=== PATIENT | female | born 1940 | race Caucasian/White ===

== ENCOUNTER 2020-09-01 06:55 | Outpatient (NON) | payer MEDICARE, SELFPAY ==
[2020-09-01 19:43] LABS: SARS-CoV-2 RNA PCR Negative
== END 2020-09-01 06:56 ==
PROVIDERS: PCP Family Medicine; Visit Provider Physician Assistant Medical
DX: R68.89 Other general symptoms and signs (principal); Z20.822 Contact with and (suspected) exposure to COVID-19
CPT/HCPCS: C9803; U0003

== ENCOUNTER 2020-09-17 11:01 | Outpatient (CLI) | payer MEDICARE, SELFPAY ==
--- NOTE | ~2020-09-17 | XR_ITS ---
EXAMINATION: XR chest 2V EXAM DATE: 09/17/2020 11:21 INDICATION: Cough. TECHNIQUE: Frontal and lateral projections of the chest obtained and reviewed. Comparison is made to prior examination from 05/22/2019. FINDINGS: There is right upper lobe granuloma. There is chronic right pleural blunting. Moderate chr onic hyperinflation. There is tortuosity of the aorta. Cardiomediastinal silhouette is normal. No con fluent consolidation, pneumothorax or pleural effusion suspected. There are mild bony degenerative ch anges. There is no significant interval change. IMPRESSION: Chronic findings. Reviewed, dictated and finalized at location A. OILING TRUCK DRIVER IMPRESSION: Chronic findings.
== END 2020-09-17 11:02 | disposition home or self-care (01) ==
PROVIDERS: PCP Family Medicine; Visit Provider Physician Assistant Medical
DX: R05 Cough (principal); R91.8 Other nonspecific abnormal finding of lung field
CPT/HCPCS: 71046

== ENCOUNTER 2020-10-19 04:35 | Observation (INO) | payer MEDICARE, SELFPAY ==
[2020-10-19] VITALS (30 sets, daily range): BP systolic 105–190; BP diastolic 59–81; PULSE 89–107; RESP 13–24; TEMP 35.7–36.7; O2SAT 92–100; BMI 22.0
--- NOTE | ~2020-10-19 | XR_ITS ---
EXAMINATION: XR chest 1V portable DATE: 10/19/2020 04:49 INDICATION: Dyspnea and wheezing TECHNIQUE: frontal view of the chest was obtained. COMPARISON: Chest radiograph dated 09/17/2020 and 03/27/2018 FINDINGS: Hyperexpansion of lungs with scattered increased lucency and architectural distortion consistent with emphysema better appreciated on CT dated 05/22/2019. Atelectasis/scarring at the bilateral lung bases and associated with a couple chronic nodular opacities in the right mid and left lower lung zones. T he cardiomediastinal silhouette is normal. IMPRESSION: 1. Emphysema with stable appearance of scattered chronic atelectasis/scarring. Reviewed, dictated and finalized at location A. L CLEANER
--- NOTE | ~2020-10-19 | XR_ITS ---
EXAMINATION: XR abdomen/kub 1V DATE: 10/21/2020 09:39 INDICATION: Elevated potassium. Constipation with no bowel movement for one week. TECHNIQUE: A supine view of the abdomen on radiographs was obtained. COMPARISON: CT dated 05/22/2019 FINDINGS: Moderate amount of colonic stool most prominent in the distal colon and rectum. No dilated gas-filled loops of bowel to suggest obstruction. Cholecystectomy clips in the right upper quadrant. Right basi lar pleural parenchymal scarring with chronic blunting of the right costophrenic angle. Mild lumbar d extroscoliosis with moderate to severe spondylosis. Sclerosis at the cephalad aspect of the bilateral femoral heads consistent with osteonecrosis/avascular necrosis. IMPRESSION: 1. Moderate amount of stool in the distal colon consistent with given history of constipation. 2. 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 Reviewed, dictated and finalized at location A. LE DEALER IMPRESSION: 1. Moderate amount of stool in the distal colon consistent with given history o f constipation. 2. 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
--- NOTE | ~2020-10-19 | CT_ITS ---
EXAMINATION: CT brain & sinus wo con EXAM DATE: 10/20/2020 15:21 INDICATION: Chronic headaches and sinus and ear pain. TECHNIQUE: Spiral CT of the head obtained without contrast. Reformatted coronal, sagittal images rev iewed. Spiral CT of the sinuses was acquired in the axial plane. Coronal and sagittal reformatted im ages were also reviewed. The dose-length product (DLP) for this examination was 1210.67 mGy-cm. The exposure was tailored according to patient size, and iterative reconstruction (ASIR) was used as add itional dose reduction technique. Comparison is made to prior examination from 05/04/2017. FINDINGS: SINUS CT: The sinuses are normally developed. The sinuses are well aerated. The ostiomeatal units are patent. There is no sinus wall thickening. There is mild to moderate rightward nasal septa l deviation. The mastoid air cells and middle ears are well aerated. External auditory canals are patent. Soft tissue is unremarkable. HEAD CT: There is no acute intraparenchymal hemorrhage. No evidence of intraparenchymal brain mass l esion. No evidence of acute infarction. There is moderate periventricular and subcortical hypodensit y, nonspecific but probably related to small vessel ischemic disease. There is moderate prominence of the sulci and ventricles related to cerebral atrophy. 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 There is no mass effect or midline shift. There is no obstructive hydrocephalus suspected. Bi lateral cataract surgery. There are no extra-axial collections. There are no calvarial acute fractur es. IMPRESSION: 1. No acute intracranial findings. Clear sinuses, mastoid air cells. 2. Age-related intracranial findings. Reviewed, dictated and finalized at location B. OWAVE REMOTE SENSING SCIENTIST
--- NOTE | 2020-10-19 04:38 | ECG_ITS ---
Measurements Intervals [place] Rate: 95 P: 81 NM: 141 QRS: 53 QRSD: 90 T: 69 QT: 349 QTc: 441 Interpretive Statements SINUS RHYTHM BASELINE ARTIFACT- I, III, AVR, AVL, AVF, V1-V6 NORMAL ECG Electronically Signed On 10-19-2020 6:53:42 SOCIAL MEDIA CAMPAIGN MANAGER by Abe Ruiz D.O.
--- NOTE | 2020-10-19 04:41 | ED.GENADULT ---
HPI - General Adult General Chief complaint: Shortness of Breath/Dyspnea Stated complaint: SOB Time Seen by Provider: 10/19/20 04:38 History of Present Illness HPI narrative: Patient 80-year-old female who presents the emergency department with chief complaint of shortness of breath. The patient reports she has history of COPD reports she has also history of a pneumothorax and has had a pleurodesis before in the past. Patient states that this evening she started getting more and more short of breath and started wheezing patient reports he had a low-grade temperature as well. The patient states she is had her first Covid vaccine and is due fairly soon for her second Covid vaccine. Patient states that she has had a cough that is developed in the last 24 hours reports that it is wet and reports that she feels as though she needs to cough something up but cannot fully clear it. Related Data Home Medications Medication Instructions Recorded Confirmed loratadine 10 mg tablet 10 mg PO DAILY 07/16/19 09/27/20 Allergies Allergy/AdvReac Type Severity Reaction Status Date / Time clarithromycin Allergy Mild rash and Verified 10/19/20 04:53 itching alendronate sodium Allergy Unknown Unknown Verified 10/19/20 04:53 mold Allergy Unknown Unknown Verified 10/19/20 04:53 Penicillins Allergy Unknown Unknown Verified 10/19/20 04:53 Review of Systems Review of Systems: Narrative: A 10 system review of systems was completed on the patient and is negative except for what is stated in the HPI. Nursing and ancillary documentation was reviewed. PMFSH Past Medical History Medical History Essential (primary) hypertension Hypoxia Nontraumatic tear of muscle or tendon of rotator cuff of both shoulders Rotator cuff arthropathy of both shoulders SI joint arthritis Spontaneous pneumothorax Family History Family History Sibling Family history of cardiovascular disease Father Family history of throat cancer Other Family history of Alzheimer's disease Family history of arthritis Family history of malignant neoplasm Hypertension Social History Social History Smoking status: Former smoker Smoking end date: 08/28/03 Alcohol intake: current Exam Narrative: Exam Narrative: GENERAL: Well-appearing, well-nourished, and in no acute distress. HEAD: Normocephalic, atraumatic. EYES: PERRLA and EOMI. ENT: Nares clear, no rhinorrhea or epistaxis. Mucous membranes moist. NECK: Supple. CHEST: Wheezes present bilaterally mild respiratory distress. HEART: Regular rate and rhythm. No murmur heard. Normal peripheral pulses. ABDOMEN: Soft, nontender, nondistended, normal active bowel sounds. EXTREMITIES: Normal range of motion. No edema. SKIN: Warm, dry, no rash. NEURO: No focal deficits. Alert and oriented x3. PSYCH: Normal mood and affect. Course Course Emergency Course: EKG sinus rhythm rate of [address] or ST depression Vital Signs Vital signs: Vital Signs Temperature 36.5 C 10/19/20 04:31 Pulse Rate 93 10/19/20 04:31 Respiratory Rate 20 10/19/20 04:31 Pulse Oximetry 98 10/19/20 04:31 Temperature 36.5 C 10/19/20 04:31 Pulse Rate 100 10/19/20 04:42 Respiratory Rate 24 H 10/19/20 04:42 Blood Pressure 148/75 H 10/19/20 04:42 Pulse Oximetry 93 10/19/20 04:42 Medical Decision Making Vital Signs Vital Signs: Vital Signs Temperature 36.5 C 10/19/20 04:31 Pulse Rate 93 10/19/20 04:31 Respiratory Rate 20 10/19/20 04:31 Pulse Oximetry 98 10/19/20 04:31 Temperature 36.5 C 10/19/20 04:31 Pulse Rate 100 10/19/20 04:42 Respiratory Rate 24 H 10/19/20 04:42 Blood Pressure 148/75 H 10/19/20 04:42 Pulse Oximetry 93 10/19/20 04:42 Lab Data Result diagrams: 10/19/20 05:1
[2020-10-19] MEDS: methylPREDNISolone SOD SUCC 125 MG VIAL IV PUSH (04:49)
[2020-10-19] MEDS: LORazepam INJ (*CRX) 2 MG/ML VIAL 0.5 MG IV PUSH (04:49)
[2020-10-19] MEDS: ALBUTEROL SULFATE NEB 2.5 MG/0.5 ML INH 5 MG INHALATION ×4 (05:00→20:36)
[2020-10-19] MEDS: IPRATROPIUM BR 0.02% INH SOLN 0.5 MG/2.5 ML VIAL INHALATION ×4 (05:00→20:37)
[2020-10-19 05:05] LABS: Alveolar/Arterial O2 Gradient 144.6 mmHg; Base Excess ABG 3.6 mEq/l (+/-2.0); Fractional Inspired Oxygen 36 %; HCO3 ABG 28.8 mEq/l (22.0-26.0); PCO2 ABG 45.5 mmHg (35.0-45.0); PO2 ABG 59.3 mmHg (80.0-100.0); PO2 FiO2 Ratio Arterial Blood 1.65 %; Total Hemoglobin 14.2 g/dL (12.0-18.0); pH ABG 7.419 (7.350-7.450)
[2020-10-19 05:07] LABS: Device NASAL CANNULA; Modified Allen's Test Pass; Site Drawn RIGHT RADIAL
[2020-10-19 05:29] LABS: Basophils Percent Auto 0.4 % (0.2-1.2); Eosinophils Absolute Auto 0.2 K/mm3 (0-0.3); Eosinophils Percent Auto 3.5 % (0-4.4); Hematocrit 40.1 % (37.0-47.0); Hemoglobin 13.5 g/dL (12.0-15.0); Immature Granulocyte Absolute 0.04 K/mm3 (0.00-0.031); Immature Granulocyte Percent A 0.6 % (0-0.5); Lymphocytes Absolute Auto 1.02 K/mm3 (0.9-3.2); Lymphocytes Percent Auto 14.8 % (18.3-44.2); Mean Corpuscular HGB Conc 33.7 g/dl (32-36); Mean Corpuscular Hemoglobin 30.7 pg (26-34); Mean Corpuscular Volume 91.1 fl (80-100); Mean Platelet Volume 9.4 fl (7.4-10.4); Monocytes Absolute Auto 0.8 K/mm3 (0.1-0.6); Monocytes Percent Auto 11.6 % (2.6-8.5); Neutrophils Absolute Auto 4.8 K/mm3 (1.3-6.7); Neutrophils Percent Auto 69.1 % (45.5-73.1); Platelet Count Result 252 k/mm3 (150-375); Red Cell Distribution Width 12.7 % (11.5-14.5); White Blood Count 6.9 K/mm3 (4.5-10.0)
[2020-10-19 05:40] LABS: INR 0.9; Prothrombin Time 12.7 Seconds (11.1-14.7)
[2020-10-19 05:43] LABS: Alanine Aminotransferase 18 U/L (4-35); Albumin Level 4.3 g/dL (3.5-5.1); Alkaline Phosphatase 62 U/L (38-126); Anion Gap 5 mmol/L (8-16); Aspartate Amino Transferase 33 U/L (14-36); Bilirubin,Total 0.6 mg/dL (0.2-1.3); Blood Urea Nitrogen 17 mg/dL (7-17); Calcium 9.5 mg/dL (8.4-10.2); Carbon Dioxide 34 mmol/L (22-30); Chloride 91 mmol/L (98-107); Estimated Glomerular Filt Rate > 60; Glucose 119 mg/dL (65-105); Magnesium 1.5 mg/dL (1.6-2.3); Potassium 4.1 mmol/L (3.4-5.0); Sodium 130 mmol/L (137-145)
[2020-10-19 05:53] LABS: Lactic Acid Reflex 1.3 mmol/L (0.7-2.1)
[2020-10-19 05:54] LABS: NT Pro B Type Natriuretic Pept 513 PG/ML (5-100); Troponin I < 0.012 ng/mL (0.000-0.034)
[2020-10-19 06:26] LABS: Add Urine Microscopic? YES; Appearance Urine Clear (Clear); Bilirubin Urine Negative (Negative); Blood Urine Negative (Negative); Color Urine Yellow (Yellow); Glucose Urine UA Negative (Negative); Ketones Urine Negative (Negative); Leukocyte Esterase Ur Trace LEU/UL (Negative); Mucus Urine Rare /lpf; Nitrate Urine Negative (Negative); Protein Urine 1+ mg/dL (Negative); RBC Urine 0-2 /hpf (0-2); Specific Grav Ur 1.018 (1.001-1.035); Squamous Epithelial Cell Urine Rare /hpf (Few); Urobilinogen Urine Negative mg/dL (<2.0); WBC Urine 0-3 /hpf
[2020-10-19] MEDS: MAGNESIUM SULF 2 GM/WATER 50ML 2 GM/50 ML BAG IVPB (08:08)
--- NOTE | 2020-10-19 10:38 | ADMGEN ---
This patient, Jolie Starr, was admitted to [facility] Surg Room 326-01. Patient/family oriented to hospital policies and general routines including ID bracelet, bed and alarms, visiting hours, pain management, procedures, bathroom and other care routines, personal items, smoking policy, room service/diet, and visiting hours. Information on how to activate the Rapid Response Team has been discussed. Patient/Family are encouraged to report perceived risks to care and to ask questions if they do not understand what they are told or what they should do.
[2020-10-19] MEDS: ACETAMINOPHEN 325 MG TABLET 650 MG PO (11:57)
[2020-10-19] MEDS: MAGNESIUM OXIDE 400 MG TABLET PO (12:48)
--- NOTE | 2020-10-19 14:51 | PM.IMHP ---
H&P: HPI History of Present Illness Date/Time: 10/19/20 14:51 Chief Complaint: Shortness of breath Narrative: Jolie Starr is a 80 year old female with history of COPD and pneumothorax for which patient had a pleurodesis patient presented emergency depart complaint of cough shortness of breath wheezing symptoms are persisting since yesterday, chest x-rays positive for emphysema but no pneumothorax patient states that he receive her 1st dose of vaccine emergency depart patient was diagnosed exacerbation of COPD patient was given Solu-Medrol 125 mg IV started the patient on Solu-Medrol 60 mg q.6, started the patient on updraft, will add doxycycline to cover atypicals and also started Pulmicort, patient also complains facial pain headache and describes her symptoms more likely sinus congestion and attributes to CPAP she wore last night, discharge the patient Flonase and nasal spray, there is also suspicion for COVID-19 patient is being tested an isolated. Review of Systems Review of Systems: All systems reviewed & are unremarkable except as noted in HPI and below PMFSH Past Medical History Medical History Essential (primary) hypertension Hypoxia Nontraumatic tear of muscle or tendon of rotator cuff of both shoulders Rotator cuff arthropathy of both shoulders SI joint arthritis Spontaneous pneumothorax Family History Family History Sibling Family history of cardiovascular disease Father Family history of throat cancer Other Family history of Alzheimer's disease Family history of arthritis Family history of malignant neoplasm Hypertension Social History Social History Smoking status: Former smoker Smoking end date: 08/28/03 Alcohol intake: former Substance use: never Spiritual care concerns: No Meds Home Medications and Allergies Home Medications Medication Instructions Recorded Confirmed Type naloxone 4 mg/actuation nasal spray 4 mg NASAL Q2M #2 each 07/15/19 10/19/20 Rx loratadine 10 mg tablet 10 mg PO DAILY 07/16/19 10/19/20 History mupirocin 2 % topical ointment 1 applic TOPICAL BID #15 gm 07/17/19 10/19/20 Rx albuterol sulfate 90 mcg/actuation 2 inhalation INHALATION Q6H PRN 02/18/20 10/19/20 Rx aerosol inhaler #18 gm montelukast 10 mg tablet 10 mg PO DAILY #90 tablet 05/25/20 10/19/20 Rx nebivolol 10 mg tablet 10 mg PO DAILY #90 tablet 05/25/20 10/19/20 Rx ipratropium 0.5 mg-albuterol 3 mg 3 ml INHALATION Q6H PRN #400 ml 06/12/20 10/19/20 Rx (2.5 mg base)/3 mL nebulization soln escitalopram oxalate 20 mg tablet 20 mg PO DAILY #90 tablet 06/17/20 10/19/20 Rx tramadol 50 mg tablet 50 mg PO Q6H PRN #30 tablet 07/08/20 10/19/20 Rx budesonide-formoterol HFA 160 2 puff INHALATION Q12H #3 device 07/13/20 10/19/20 Rx mcg-4.5 mcg/actuation aerosol inhaler alprazolam 0.25 mg tablet 0.25 mg PO TID PRN #180 tablet 09/07/20 10/19/20 Rx olmesartan 40 mg tablet 40 mg PO DAILY #90 tablet 09/07/20 10/19/20 Rx sulfacetamide sodium 10 % eye drops 1 drp OPHTHALMIC (EYE) Q4H #15 ml 09/17/20 10/19/20 Rx ipratropium bromide 0.03 % nasal 2 spray INTRANASAL TID #30 ml 09/22/20 10/19/20 Rx spray omeprazole 40 mg capsule,delayed 40 mg PO DAILY #90 cap 09/27/20 10/19/20 Rx release temazepam 30 mg capsule 30 mg PO ONCE #90 cap 10/05/20 10/19/20 Rx guaifenesin [Mucinex] 600 mg PO Q12H 10/19/20 10/19/20 History Allergies Allergy/AdvReac Type Severity Reaction Status Date / Time clarithromycin Allergy Mild rash and Verified 10/19/20 11:20 itching alendronate sodium Allergy Unknown Unknown Verified 10/19/20 11:20 mold Allergy Unknown Unknown Verified 10/19/20 11:20 Penicillins Allergy Unknown Unknown Verified 10/19/20 11:20 Vital Signs Vital Signs - 24 hr 10/19/20 04:31 10/19/20 04:40 10/19/20 04:42 Temperatur
[2020-10-19] MEDS: ALPRAZolam (*CRX) 0.25 MG TABLET PO ×2 (15:45→20:31)
[2020-10-19] MEDS: methylPREDNISolone SOD SUCC 125 MG VIAL 60 MG IV PUSH ×2 (15:45→20:17)
[2020-10-19] MEDS: traMADol HCL (*CRX) 50 MG TABLET PO ×2 (15:45→22:00)
[2020-10-19] MEDS: IPRATROPIUM NASAL SPRAY 0.03% 15 ML BOTTLE 2 SPRAY NASAL (17:24)
[2020-10-19] MEDS: ENOXAPARIN 40 MG/0.4 ML SYRINGE SUB-Q (17:25)
[2020-10-19 19:32] LABS: SARS-CoV-2 RNA PCR Negative
[2020-10-19] MEDS: guaiFENesin 12 HR 600 MG TABCR PO (20:16)
[2020-10-19] MEDS: BENZOCAINE/MENTHOL (*BKC) 18 EA LOZENGE 1 LOZENGE PO (20:32)
[2020-10-20] VITALS (17 sets, daily range): BP systolic 127–173; BP diastolic 65–79; PULSE 75–99; RESP 18–20; TEMP 36–36.7; O2SAT 92–97
--- NOTE | 2020-10-20 | ECHO_ITS ---
Patient Info Name: Jolie Starr Age: 80 years : 1940 Gender: Female Ht: 62 in Wt: 120 lbs BSA: 1.55 m2 HR: 91 bpm BP: 127 / 65 mmHg Technical Quality: Fair Exam Date: 10/20/2020 12:50 PM Exam Location: [facility] Patient Status: Inpatient Admit Date: 10/19/2020 Staff Ordering Physician: Boyd Gonzalez MD Grease Refining Supervisor: Rebecca Murphy RDCS Attending Provider: Eva Bai DO Referring Physician: Carlos VILLAGRAN; Exam Type: CA echo doppler w bubble study Study Info Indications - copd assess rv fx, pa pressure, r/o shunt Complete two-dimensional, color flow and Doppler transthoracic echocardiogram is performed with agitated saline. Contrast/Agitated Saline Contrast/Ag. Saline: Agitated Saline Amount: 20.00 ml Administered By: Kathleen Stiles RN Summary 1. Left ventricular chamber dimension is normal. 2. Left ventricular systolic function is normal, estimated at 60-65%. 3. The left ventricular diastolic function is grade I diastolic dysfunction. 4. E/e' 19 is elevated. 5. Global longitudinal strain is mildly abnormal at -16.0%. 6. Agitated saline injection with and without valsalva maneuver opacified right sided cardiac chambers and several bubbles shunted to left sided cardiac chambers. This is suggestive of patent foramen ovale. 7. The mitral valve has moderately calcified annulus. 8. There is mild tricuspid valve regurgitation. 9. Severe pulmonary hypertension, estimated pulmonary arterial systolic pressure is 67 mmHg. Left Ventricle E/e' 19 is elevated. Global longitudinal strain is mildly abnormal at -16.0%. Left ventricular chamber dimension is normal. Left ventricular systolic function is normal, estimated at 60-65%. The left ventricular diastolic function is grade I diastolic dysfunction. Right Ventricle Right ventricular systolic function is normal and with normal TAPSE 2.3 cm. Right ventricular chamber dimension is normal. Left Atria Left atrial chamber dimension is normal. Right Atria Right atrial chamber dimension is normal. Atrial Septum Agitated saline injection with and without valsalva maneuver opacified right sided cardiac chambers and several bubbles shunted to left sided cardiac chambers. This is suggestive of patent foramen ovale. Suspected patent foramen ovale visualized by agitated saline imaging. Aortic Valve The aortic valve is trileaflet. There is no aortic valve stenosis. There is no aortic valve regurgitation. Pulmonic Valve There is no pulmonic regurgitation. Mitral Valve The mitral valve has moderately calcified annulus. There is no mitral valve stenosis. There is no mitral valve regurgitation. Tricuspid Valve There is mild tricuspid valve regurgitation. Severe pulmonary hypertension, estimated pulmonary arterial systolic pressure is 67 mmHg. Pericardium/Pleural There is no pericardial effusion. Inferior Vena Cava Normal inferior vena cava with >50% collapse upon inspiration consistent with normal right atrial pressure, 5 mmHg. Aorta The aortic root size at the sinus of Valsalva is normal. Left Ventricular Outflow Tract Name Value Normal LVOT 2D LVOT Diameter
[2020-10-20] MEDS: TEMAZEPAM (*CRX) 15 MG CAPSULE 30 MG PO ×2 (00:10→21:16)
[2020-10-20] MEDS: ACETAMINOPHEN 325 MG TABLET 650 MG PO ×2 (00:13→13:46)
[2020-10-20] MEDS: ALBUTEROL SULFATE NEB 2.5 MG/0.5 ML INH 5 MG INHALATION ×3 (02:06→21:12)
[2020-10-20] MEDS: IPRATROPIUM BR 0.02% INH SOLN 0.5 MG/2.5 ML VIAL INHALATION ×3 (02:06→21:12)
[2020-10-20] MEDS: methylPREDNISolone SOD SUCC 125 MG VIAL 60 MG IV PUSH (06:21)
[2020-10-20] MEDS: traMADol HCL (*CRX) 50 MG TABLET PO ×2 (06:38→18:07)
[2020-10-20 06:41] LABS: Basophils Percent Auto 0.1 % (0.2-1.2); Hematocrit 37.9 % (37.0-47.0); Immature Granulocyte Absolute 0.04 K/mm3 (0.00-0.031); Immature Granulocyte Percent A 0.6 % (0-0.5); Lymphocytes Percent Auto 4.3 % (18.3-44.2); Mean Corpuscular HGB Conc 34.3 g/dl (32-36); Mean Corpuscular Hemoglobin 30.4 pg (26-34); Mean Corpuscular Volume 88.8 fl (80-100); Mean Platelet Volume 9.4 fl (7.4-10.4); Monocytes Absolute Auto 0.4 K/mm3 (0.1-0.6); Monocytes Percent Auto 5.7 % (2.6-8.5); Neutrophils Absolute Auto 6.3 K/mm3 (1.3-6.7); Neutrophils Percent Auto 89.3 % (45.5-73.1); Platelet Count Result 310 k/mm3 (150-375); Red Blood Count 4.27 M/mm3 (4.2-5.4); Red Cell Distribution Width 12.8 % (11.5-14.5)
[2020-10-20 06:48] LABS: Alanine Aminotransferase 20 U/L (4-35); Albumin Level 4.1 g/dL (3.5-5.1); Alkaline Phosphatase 55 U/L (38-126); Anion Gap 4 mmol/L (8-16); Aspartate Amino Transferase 31 U/L (14-36); Bilirubin,Total 0.4 mg/dL (0.2-1.3); Blood Urea Nitrogen 21 mg/dL (7-17); CRP 0.9 mg/dL (<1.0); Calcium 9.6 mg/dL (8.4-10.2); Carbon Dioxide 34 mmol/L (22-30); Chloride 91 mmol/L (98-107); Estimated CRCL calculation 43 ml/min; Estimated Glomerular Filt Rate > 60; Glucose 145 mg/dL (65-105); Magnesium 2.1 mg/dL (1.6-2.3); Potassium 4.6 mmol/L (3.4-5.0); Sodium 129 mmol/L (137-145)
[2020-10-20] MEDS: ESCITALOPRAM OXALATE 10 MG TABLET 20 MG PO (10:32)
[2020-10-20] MEDS: NEBIVOLOL HCL 5 MG TABLET 10 MG PO (10:33)
[2020-10-20] MEDS: MONTELUKAST SODIUM 10 MG TABLET PO (10:34)
[2020-10-20] MEDS: MAGNESIUM OXIDE 400 MG TABLET PO (10:34)
[2020-10-20] MEDS: PANTOPRAZOLE 40 MG TABLET PO ×2 (10:34→21:17)
[2020-10-20] MEDS: OLMESARTAN MEDOXOMIL 20 MG TABLET 40 MG PO (10:34)
[2020-10-20] MEDS: guaiFENesin 12 HR 600 MG TABCR PO ×2 (10:34→21:17)
[2020-10-20] MEDS: LORATADINE 10 MG TABLET PO (10:34)
[2020-10-20] MEDS: ALPRAZolam (*CRX) 0.25 MG TABLET PO (10:35)
[2020-10-20 10:48] LABS: D Dimer 0.39 ug/mL (<0.48)
--- NOTE | 2020-10-20 12:25 | PM.CNPUL ---
Assessment and Plan Assessment and plan (1) Sleep apnea with use of continuous positive airway pressure (CPAP): Code(s): G47.30 - Sleep apnea, unspecified Status: Acute Assessment and Plan: Daughter states that the patient's CPAP pressure is set at 2 and that she uses 3.5 L bleed in. I have asked the daughter to bring the machine in so that the patient can use her machine tonight. (2) COPD exacerbation: Code(s): J44.1 - Chronic obstructive pulmonary disease with (acute) exacerbation Status: Acute Assessment and Plan: Patient has a 1 week history of worsening dyspnea on exertion, cough, increased phlegm production. Patient has wheezes on exam is today. Her chest x-ray shows no focal infiltrates. Her COVID test is negative. Her D dimer is normal so doubt PE. Her BNP is 513 without evidence of fluid overload. I will treat her for COPD exacerbation with Solu-Medrol 40 Q 6, albuterol and ipratropium nebulizers Q 6 standing, and doxycycline 100 mg q.day for possible tracheal bronchitis. I will send influenza swab. I will check an echocardiogram with a bubble study to assess LV and RV function as well as to assess for a shunt. Patient complains of progress headaches, eye pressure, sinus pressure, ear pressure and sore throat since 11. I will check a CT scan of the head and sinuses looking for pathology. I will continue ipratropium nasal spray, initiate fluticasone nasal spray and continue montelukast and claritin. Will follow with you. History of Present Illness History of Present Illness Consult date: 10/20/20 Requesting physician: Jonathan Mantilla MD Reason for consult: COPD Chief complaint: COPD Exacerbation Narrative: Patient is a 80-year-old female with a history of COPD on 4 L oxygen at rest and with ambulation on home at home, obstructive sleep apnea since 2011 and the daughter states that she wears CPAP setting of 2 with 3.5 L oxygen bleed in, history of pneumothorax on the right side times for requiring pleurodesis in October of 2017. When patient presented to the emergency room on 222 with 1 week history of the worsening dyspnea on exertion, worsening hypoxia with ambulation, increased phlegm production. Patient denies any fevers, rigors, change in her chronic chest pains. Of note patient states she has had no change in her chronic frontal headaches, pressure beneath her eyes and a sore throat since June of 2020. Patient has seen her primary doctor who has prescribed multiple courses of antibiotics without relief in these headaches eye pressure ear pressure and sore throat. Patient presented to the emergency room and was treated for COPD exacerbation with IV steroids, bronchodilators and doxycycline. Patient had a chest x-ray that demonstrated hyperinflation without focal infiltrates. Patient's stars test was negative. Her BNP was 513 and I performed a D-dimer today that was 0.39 which is negative. Patient had a blood gas in the emergency department which was 7.42-40 6-59 on 4 L nasal cannula. Patient did not have her CPAP last night and said that she slept poorly. 10/20 Today patient states that she has essentially unchanged and has minimal symptoms at rest but when she moves around she is very dyspneic. She says that her headaches eye pressure ear pressure and sore throat are unchanged. She states that her breathing is unchanged. Past medical history. Patient smoked tobacco from age [age] at 1/2 pack per day. Patient is usually followed at [facility] and I have her last office visit from 02/20/2019 in which she was to continue Symbicort, ipratropium and albuterol nebs and rescue albuterol inhaler. Her spirometry rib was reported as an FEV1 of 1.07 or 59% predicted. Her FVC was 3.21 or 100 and 35% predicted. Those the only PFTs listed in the office report. Patient had a CT scan noted an indeterminate pulmonary nodule in the left lower lobe with no change compar
[2020-10-20] MEDS: methylPREDNISolone SOD SUCC 40 MG VIAL IV PUSH ×2 (14:05→17:58)
[2020-10-20 14:51] LABS: Influenza Control Positive
--- NOTE | 2020-10-20 15:44 | PM.IMPN ---
Progress Note: A&P Assessment and Plan (1) COPD (chronic obstructive pulmonary disease): Code(s): J44.9 - Chronic obstructive pulmonary disease, unspecified Status: Acute Assessment and Plan: 10/20/20 15:44 Jolie Starr is a 80 year old female with history of COPD and pneumothorax for which patient had a pleurodesis patient presented emergency depart complaint of cough shortness of breath wheezing symptoms are persisting since yesterday, chest x-rays positive for emphysema but no pneumothorax patient states that he receive her 1st dose of vaccine emergency depart patient was diagnosed exacerbation of COPD patient was given Solu-Medrol 125 mg IV started the patient on Solu-Medrol 60 mg q.6, started the patient on updraft, will add doxycycline to cover atypicals and also started Pulmicort, patient also complains facial pain headache and describes her symptoms more likely sinus congestion and attributes to CPAP she wore last night, discharge the patient Flonase and nasal spray, there is also suspicion for COVID-19 patient is being tested an isolated. 10/20 patient COVID test is negative patient with history of COPD still complains of cough shortness of breath, patient states this he has not seen a gang vibrator operator and sometime due to COVID, patient complains of persistent sinus headache, patient denies any fever or chills will consult gang vibrator operator further recommendation (2) Chronic sinusitis, unspecified: Code(s): J32.9 - Chronic sinusitis, unspecified Status: Acute Assessment and Plan: Will get the patient Flonase and insulin aspirate (3) Anxiety and depression: Code(s): F41.9 - Anxiety disorder, unspecified; F32.9 - Major depressive disorder, single episode, unspecified Status: Acute Assessment and Plan: Will continue home regimen (4) COVID-19 ruled out: Code(s): Z20.822 - Contact with and (suspected) exposure to COVID-19 Status: Acute Assessment and Plan: Patient is being tested an isolated Subjective Date/time seen: 10/20/20 15:44 Jolie Starr is a 80 year old female with history of COPD and pneumothorax for which patient had a pleurodesis patient presented emergency depart complaint of cough shortness of breath wheezing symptoms are persisting since yesterday, chest x-rays positive for emphysema but no pneumothorax patient states that he receive her 1st dose of vaccine emergency depart patient was diagnosed exacerbation of COPD patient was given Solu-Medrol 125 mg IV started the patient on Solu-Medrol 60 mg q.6, started the patient on updraft, will add doxycycline to cover atypicals and also started Pulmicort, patient also complains facial pain headache and describes her symptoms more likely sinus congestion and attributes to CPAP she wore last night, discharge the patient Flonase and nasal spray, there is also suspicion for COVID-19 patient is being tested an isolated. 10/20 patient COVID test is negative patient with history of COPD still complains of cough shortness of breath, patient states this he has not seen a gang vibrator operator and sometime due to COVID, patient complains of persistent sinus headache, patient denies any fever or chills will consult gang vibrator operator further recommendation Review of Systems Review of Systems: All systems reviewed & are unremarkable except as noted in HPI and below Exam Narrative: Exam Narrative: Elderly frail, appears chronically ill Patient is comfortable, NAD HEENT: eyes are clear and none icteric LUNGS: Bilateral poor air entry with harsh breath sounds HEART: Rate and rhythm S1 and S2 ABD: Nondistended Lower extremities: no edema SKIN: nonjaundiced Neuro: grossly intact normal speech. Objective Data Vital Signs Vital Signs: Vital Signs - 24 hr 10/19/20 16:00 10/19/20 20:00 10/19/20 20:37 Temperature 98.1 F 96.2 F L Pulse Rate 95 92 90 Respiratory Rate 18 20 20 Blood Pressure 142/73 H 190/81 H Pulse Oxime
[2020-10-20] MEDS: FLUTICASONE PROPIONATE 0.05% NA SPR 16 GM BTL (*BKC) 1 SPRAY NASAL (21:18)
[2020-10-21] VITALS (29 sets, daily range): BP systolic 138–184; BP diastolic 72–89; PULSE 71–98; RESP 20–24; TEMP 36.5–36.6; O2SAT 79–98
[2020-10-21] MEDS: methylPREDNISolone SOD SUCC 40 MG VIAL IV PUSH ×2 (00:11→05:24)
[2020-10-21] MEDS: IPRATROPIUM BR 0.02% INH SOLN 0.5 MG/2.5 ML VIAL INHALATION ×4 (02:30→20:34)
[2020-10-21] MEDS: ALBUTEROL SULFATE NEB 2.5 MG/0.5 ML INH 5 MG INHALATION ×4 (02:30→20:34)
[2020-10-21 06:59] LABS: Basophils Percent Auto 0.1 % (0.2-1.2); Hematocrit 38.7 % (37.0-47.0); Hemoglobin 13.1 g/dL (12.0-15.0); Immature Granulocyte Absolute 0.06 K/mm3 (0.00-0.031); Immature Granulocyte Percent A 0.8 % (0-0.5); Lymphocytes Absolute Auto 0.41 K/mm3 (0.9-3.2); Lymphocytes Percent Auto 5.4 % (18.3-44.2); Mean Corpuscular HGB Conc 33.9 g/dl (32-36); Mean Corpuscular Volume 88.8 fl (80-100); Mean Platelet Volume 9.4 fl (7.4-10.4); Monocytes Absolute Auto 0.4 K/mm3 (0.1-0.6); Monocytes Percent Auto 4.7 % (2.6-8.5); Neutrophils Absolute Auto 6.8 K/mm3 (1.3-6.7); Platelet Count Result 335 k/mm3 (150-375); Red Blood Count 4.36 M/mm3 (4.2-5.4); White Blood Count 7.6 K/mm3 (4.5-10.0)
[2020-10-21 07:24] LABS: Alanine Aminotransferase 20 U/L (4-35); Albumin Level 3.9 g/dL (3.5-5.1); Alkaline Phosphatase 51 U/L (38-126); Anion Gap 4 mmol/L (8-16); Aspartate Amino Transferase 38 U/L (14-36); Bilirubin,Total 0.4 mg/dL (0.2-1.3); Blood Urea Nitrogen 26 mg/dL (7-17); Calcium 9.3 mg/dL (8.4-10.2); Carbon Dioxide 33 mmol/L (22-30); Chloride 92 mmol/L (98-107); Estimated CRCL calculation 43 ml/min; Estimated Glomerular Filt Rate > 60; Glucose 145 mg/dL (65-105); Magnesium 1.9 mg/dL (1.6-2.3); Potassium 5.3 mmol/L (3.4-5.0); Sodium 129 mmol/L (137-145)
--- NOTE | 2020-10-21 08:29 | PM.PNPUL ---
Progress Note: A&P Assessment and Plan (1) Sleep apnea with use of continuous positive airway pressure (CPAP): Code(s): G47.30 - Sleep apnea, unspecified Status: Acute Assessment and Plan: 10/20 Daughter states that the patient's CPAP pressure is set at 2 and that she uses 3.5 L bleed in. I have asked the daughter to bring the machine in so that the patient can use her machine tonight. 10/21 Wore home CPAP with 4 L bleed in from 21:28 to about 05:00 last night and slept better, sats 92-93%. Will perform overnight oximetry on home machine with 4 L bleed in tonight. (2) COPD exacerbation: Code(s): J44.1 - Chronic obstructive pulmonary disease with (acute) exacerbation Status: Acute Assessment and Plan: 10/20 Patient has a 1 week history of worsening dyspnea on exertion, cough, increased phlegm production. Patient has wheezes on exam is today. Her chest x-ray shows no focal infiltrates. Her COVID test is negative. Her D dimer is normal so doubt PE. Her BNP is 513 without evidence of fluid overload. I will treat her for COPD exacerbation with Solu-Medrol 40 Q 6, albuterol and ipratropium nebulizers Q 6 standing, and doxycycline 100 mg q.day for possible tracheal bronchitis. Negative influenza swab. Echo with pulmonary hypertension at 67 and PFO on bubble study. Linda explaining her worsening hypoxemia. Summary 1. Left ventricular chamber dimension is normal. 2. Left ventricular systolic function is normal, estimated at 60-65%. 3. The left ventricular diastolic function is grade I diastolic dysfunction. 4. E/e' 19 is elevated. 5. Global longitudinal strain is mildly abnormal at -16.0%. 6. Agitated saline injection with and without valsalva maneuver opacified right sided cardiac chambers and several bubbles shunted to left sided cardiac chambers. This is suggestive of patent foramen ovale. 7. The mitral valve has moderately calcified annulus. 8. There is mild tricuspid valve regurgitation. 9. Severe pulmonary hypertension, estimated pulmonary arterial systolic pressure is 67 mmHg. 10/21 States she is breathing a little better, head ache, sinus congestion better. No wheezes and solumedrol DC and prednisone 40 given today. Regarding pulmonary hypertension awith PFO with initially ensure adequate oxygen at rest, with ambulation and at night. I have ordered home O2 assessment and overnight oximetry. She has no edema and no evidence of fluid overload. She will follow up at [facility] regarding any additional treatment options. Patient complains of progress headaches, eye pressure, sinus pressure, ear pressure and sore throat since 07/17. CT scan of the head and sinuses negative on 10/20. Cheonic hypoxia may be etiology. Slightly better today. I will continue ipratropium nasal spray, fluticasone nasal spray and continue montelukast and claritin. Spoke with daughter on speaker phone. Anticipate DC home tomorrow. Will follow with you. Subjective Date/time seen: 10/21/20 08:29 Interval history: 10/20 Narrative: Patient is a 80-year-old female with a history of COPD on 4 L oxygen at rest and with ambulation on home at home, obstructive sleep apnea since 2011 and the daughter states that she wears CPAP setting of 2 with 3.5 L oxygen bleed in, history of pneumothorax on the right side times for requiring pleurodesis in October of 2017. When patient presented to the emergency room on with 1 week history of the worsening dyspnea on exertion, worsening hypoxia with ambulation, increased phlegm production. Patient denies any fevers, rigors, change in her chronic chest pains. Of note patient states she has had no change in her chronic frontal headaches, pressure beneath her eyes and a sore throat since June of 2020. Patient has seen her primary doctor who has prescribed multiple courses of antibiotics without relief in these headaches eye pressure ear pressure and sore throat. Patient pr
[2020-10-21] MEDS: IPRATROPIUM NASAL SPRAY 0.03% 15 ML BOTTLE 2 SPRAY NASAL ×3 (08:47→16:54)
[2020-10-21] MEDS: ESCITALOPRAM OXALATE 10 MG TABLET 20 MG PO (08:47)
[2020-10-21] MEDS: FLUTICASONE PROPIONATE 0.05% NA SPR 16 GM BTL (*BKC) 1 SPRAY NASAL ×2 (08:48→20:57)
[2020-10-21] MEDS: NEBIVOLOL HCL 5 MG TABLET 10 MG PO (08:48)
[2020-10-21] MEDS: LORATADINE 10 MG TABLET PO (08:48)
[2020-10-21] MEDS: MAGNESIUM OXIDE 400 MG TABLET PO (08:48)
[2020-10-21] MEDS: MONTELUKAST SODIUM 10 MG TABLET PO (08:48)
[2020-10-21] MEDS: guaiFENesin 12 HR 600 MG TABCR PO ×2 (08:48→20:55)
[2020-10-21] MEDS: OLMESARTAN MEDOXOMIL 20 MG TABLET 40 MG PO (08:50)
[2020-10-21] MEDS: PANTOPRAZOLE 40 MG TABLET PO ×2 (08:51→20:55)
[2020-10-21 09:44] LABS: Anion Gap 8 mmol/L (8-16); Blood Urea Nitrogen 25 mg/dL (7-17); Carbon Dioxide 32 mmol/L (22-30); Chloride 89 mmol/L (98-107); Estimated CRCL calculation 43 ml/min; Estimated Glomerular Filt Rate > 60; Glucose 139 mg/dL (65-105); Sodium 129 mmol/L (137-145)
[2020-10-21] MEDS: DOCUSATE SODIUM 100 MG CAPSULE PO (10:49)
[2020-10-21] MEDS: predniSONE 20 MG TABLET 40 MG PO (10:50)
[2020-10-21] MEDS: traMADol HCL (*CRX) 50 MG TABLET PO (13:53)
--- NOTE | 2020-10-21 14:48 | PM.IMPN ---
Progress Note: A&P Assessment and Plan (1) COPD (chronic obstructive pulmonary disease): Code(s): J44.9 - Chronic obstructive pulmonary disease, unspecified Status: Acute Assessment and Plan: 10/21/20 14:48. Jolie Starr is a 80 year old female with history of COPD and pneumothorax for which patient had a pleurodesis patient presented emergency depart complaint of cough shortness of breath wheezing symptoms are persisting since yesterday, chest x-rays positive for emphysema but no pneumothorax patient states that he receive her 1st dose of vaccine emergency depart patient was diagnosed exacerbation of COPD patient was given Solu-Medrol 125 mg IV started the patient on Solu-Medrol 60 mg q.6, started the patient on updraft, will add doxycycline to cover atypicals and also started Pulmicort, patient also complains facial pain headache and describes her symptoms more likely sinus congestion and attributes to CPAP she wore last night, discharge the patient Flonase and nasal spray, there is also suspicion for COVID-19 patient is being tested an isolated. 10/20 patient COVID test is negative patient with history of COPD still complains of cough shortness of breath, patient states this he has not seen a equine internship for sometime due to COVID, patient complains of persistent sinus headache, patient denies any fever or chills will consult equine internship further recommendation. 10/21 patient was seen by pulmonology on 10/20 started the patient on Solu-Medrol, updraft and doxycycline, patient states feeling much better not as short of breath, patient be seen equine internship and further recommendation to follow, patient complains constipation has not had a bowel movement few days, will give patient Colace and MiraLax, will continue to monitor if remains clinically stable will discharge the patient home tomorrow (2) Chronic sinusitis, unspecified: Code(s): J32.9 - Chronic sinusitis, unspecified Status: Acute Assessment and Plan: Will get the patient Flonase and insulin aspirate (3) Anxiety and depression: Code(s): F41.9 - Anxiety disorder, unspecified; F32.9 - Major depressive disorder, single episode, unspecified Status: Acute Assessment and Plan: Will continue home regimen (4) COVID-19 ruled out: Code(s): Z20.822 - Contact with and (suspected) exposure to COVID-19 Status: Acute Assessment and Plan: Patient is being tested an isolated Subjective Date/time seen: 10/21/20 14:48. Jolie Starr is a 80 year old female with history of COPD and pneumothorax for which patient had a pleurodesis patient presented emergency depart complaint of cough shortness of breath wheezing symptoms are persisting since yesterday, chest x-rays positive for emphysema but no pneumothorax patient states that he receive her 1st dose of vaccine emergency depart patient was diagnosed exacerbation of COPD patient was given Solu-Medrol 125 mg IV started the patient on Solu-Medrol 60 mg q.6, started the patient on updraft, will add doxycycline to cover atypicals and also started Pulmicort, patient also complains facial pain headache and describes her symptoms more likely sinus congestion and attributes to CPAP she wore last night, discharge the patient Flonase and nasal spray, there is also suspicion for COVID-19 patient is being tested an isolated. 10/20 patient COVID test is negative patient with history of COPD still complains of cough shortness of breath, patient states this he has not seen a equine internship for sometime due to COVID, patient complains of persistent sinus headache, patient denies any fever or chills will consult equine internship further recommendation. 10/21 patient was seen by pulmonology on 10/20 started the patient on Solu-Medrol, updraft and doxycycline, patient states feeling much better not as short of breath, patient be seen equine internship and further recommendation to follow, patient complains constipa
--- NOTE | 2020-10-21 15:11 | HOMEO2EVAL ---
Home Oxygen Evaluation RC: Home Oxygen (O2) Evaluation Start: 10/21/20 08:28 Freq: ONCE Status: Active Protocol: RPE Activity Type Activity Date Activity User E-Sign Co-Sign Detail Recorded Client Recorded Date Recorded By Document 10/21/20 14:00 [email or web address] [email or web address] 10/21/20 15:11 DJO Document 10/21/20 14:05 [email or web address] [email or web address] 10/21/20 15:11 DJO Document 10/21/20 14:10 [email or web address] [email or web address] 10/21/20 15:11 DJO Document 10/21/20 14:15 [email or web address] [email or web address] 10/21/20 15:11 DJO Document 10/21/20 14:20 [email or web address] [email or web address] 10/21/20 15:11 DJO Document 10/21/20 14:25 [email or web address] [email or web address] 10/21/20 15:11 DJO Document 10/21/20 14:30 DJO [email or web address] 10/21/20 15:11 DJO Document 10/21/20 14:35 [email or web address] [email or web address] 10/21/20 15:11 DJO Document 10/21/20 14:50 [email or web address] [email or web address] 10/21/20 15:11 DJO 10/21/20 10/21/20 10/21/20 14:00 14:05 14:10 Home O2 Evaluation Test Phase Resting Resting Resting Oxygen Delivery Room Air Nasal Cannula Nasal Cannula Oxygen Flow Rate (L/min) 1 2 Pulse Oximetry (90-100 %) 86 L 87 L 90 Pulse Rate (60-100 beats/min) 80 79 76 Activity Tolerance Rating of Perceived Dyspnea (PD) Ambulation Distance (feet) Treatment Charges O2 Evaluation - Inpatient 10/21/20 10/21/20 10/21/20 14:15 14:20 14:25 Home O2 Evaluation Test Phase Exercise Exercise Exercise Oxygen Delivery Nasal Cannula Nasal Cannula Nasal Cannula Oxygen Flow Rate (L/min) 2 3 4 Pulse Oximetry (90-100 %) 79 L 82 L 83 L Pulse Rate (60-100 beats/min) 90 94 Activity Tolerance Rating of Perceived Dyspnea (PD) Ambulation Distance (feet) Treatment Charges 10/21/20 10/21/20 10/21/20 14:30 14:35 14:50 Home O2 Evaluation Test Phase Exercise Exercise Resting Oxygen Delivery Nasal Cannula Oxymizer Nasal Cannula Oxygen Flow Rate (L/min) 5 5 2 Pulse Oximetry (90-100 %) 85 L 90 90 Pulse Rate (60-100 beats/min) 98 97 78 Activity Tolerance Fair Rating of Perceived Dyspnea (PD) +4 Severe Difficulty, Participant Cannot Continue Ambulation Distance (feet) 150 Treatment Charges
--- NOTE | 2020-10-21 15:11 | PCRCNOTE ---
HOME O2 EVAL COMPLETE, PT REQUIRES 2L AT REST AND 5L OXYMIZER WITH ACTIVITY. PT'S DAUGHTER TO BRING TANK IN TOMORROW FOR DISCHARGE. PT ALREADY HAS HOME O2 WITH IV AND RESPIRATORY CARE. PHONE NUMBER .
[2020-10-21] MEDS: ALPRAZolam (*CRX) 0.25 MG TABLET PO ×2 (16:54→20:55)
[2020-10-21] MEDS: polyethylene glycoL 3350 17 GM POWD.PACK PO (17:04)
[2020-10-21] MEDS: TEMAZEPAM (*CRX) 15 MG CAPSULE 30 MG PO (20:55)
[2020-10-22] VITALS (8 sets, daily range): BP systolic 145; BP diastolic 81; PULSE 56–80; RESP 20; TEMP 36.3; O2SAT 96
[2020-10-22] MEDS: ALBUTEROL SULFATE NEB 2.5 MG/0.5 ML INH 5 MG INHALATION ×2 (02:07→07:31)
[2020-10-22] MEDS: IPRATROPIUM BR 0.02% INH SOLN 0.5 MG/2.5 ML VIAL INHALATION ×2 (02:07→07:31)
[2020-10-22 06:06] LABS: Basophils Percent Auto 0.1 % (0.2-1.2); Eosinophils Percent Auto 0.3 % (0-4.4); Hematocrit 38.8 % (37.0-47.0); Hemoglobin 13.2 g/dL (12.0-15.0); Immature Granulocyte Absolute 0.09 K/mm3 (0.00-0.031); Immature Granulocyte Percent A 1.3 % (0-0.5); Lymphocytes Absolute Auto 0.89 K/mm3 (0.9-3.2); Lymphocytes Percent Auto 12.4 % (18.3-44.2); Mean Corpuscular Hemoglobin 30.1 pg (26-34); Mean Corpuscular Volume 88.6 fl (80-100); Mean Platelet Volume 9.1 fl (7.4-10.4); Monocytes Absolute Auto 1.1 K/mm3 (0.1-0.6); Monocytes Percent Auto 14.8 % (2.6-8.5); Neutrophils Absolute Auto 5.1 K/mm3 (1.3-6.7); Neutrophils Percent Auto 71.1 % (45.5-73.1); Platelet Count Result 350 k/mm3 (150-375); Red Blood Count 4.38 M/mm3 (4.2-5.4); Red Cell Distribution Width 12.9 % (11.5-14.5); White Blood Count 7.2 K/mm3 (4.5-10.0)
[2020-10-22 06:39] LABS: Alanine Aminotransferase 22 U/L (4-35); Albumin Level 3.9 g/dL (3.5-5.1); Alkaline Phosphatase 50 U/L (38-126); Anion Gap 4 mmol/L (8-16); Aspartate Amino Transferase 36 U/L (14-36); Bilirubin,Total 0.5 mg/dL (0.2-1.3); Blood Urea Nitrogen 31 mg/dL (7-17); Calcium 9.1 mg/dL (8.4-10.2); Carbon Dioxide 34 mmol/L (22-30); Chloride 91 mmol/L (98-107); Estimated CRCL calculation 38 ml/min; Estimated Glomerular Filt Rate > 60; Glucose 93 mg/dL (65-105); Magnesium 1.8 mg/dL (1.6-2.3); Potassium 4.6 mmol/L (3.4-5.0); Sodium 129 mmol/L (137-145)
[2020-10-22] MEDS: ESCITALOPRAM OXALATE 10 MG TABLET 20 MG PO (08:16)
[2020-10-22] MEDS: DOCUSATE SODIUM 100 MG CAPSULE PO (08:16)
[2020-10-22] MEDS: IPRATROPIUM NASAL SPRAY 0.03% 15 ML BOTTLE 2 SPRAY NASAL (08:16)
[2020-10-22] MEDS: guaiFENesin 12 HR 600 MG TABCR PO (08:16)
[2020-10-22] MEDS: FLUTICASONE PROPIONATE 0.05% NA SPR 16 GM BTL (*BKC) 1 SPRAY NASAL (08:16)
[2020-10-22] MEDS: predniSONE 20 MG TABLET 40 MG PO (08:16)
[2020-10-22] MEDS: OLMESARTAN MEDOXOMIL 20 MG TABLET 40 MG PO (08:17)
[2020-10-22] MEDS: NEBIVOLOL HCL 5 MG TABLET 10 MG PO (08:17)
[2020-10-22] MEDS: MONTELUKAST SODIUM 10 MG TABLET PO (08:17)
[2020-10-22] MEDS: MAGNESIUM OXIDE 400 MG TABLET PO (08:17)
[2020-10-22] MEDS: LORATADINE 10 MG TABLET PO (08:17)
[2020-10-22] MEDS: PANTOPRAZOLE 40 MG TABLET PO (08:18)
--- NOTE | 2020-10-22 10:31 | PM.PNPUL ---
Progress Note: A&P Assessment and Plan (1) Sleep apnea with use of continuous positive airway pressure (CPAP): Code(s): G47.30 - Sleep apnea, unspecified Status: Acute Assessment and Plan: 10/20 Daughter states that the patient's CPAP pressure is set at 2 and that she uses 3.5 L bleed in. I have asked the daughter to bring the machine in so that the patient can use her machine tonight. 10/21 Wore home CPAP with 4 L bleed in from 21:28 to about 05:00 last night and slept better, sats 92-93%. Will perform overnight oximetry on home machine with 4 L bleed in tonight. 10/22 Wore home CPAP with 4 L bleed in with sats 92-96. Overnight oximetry not performed. Did well with her home unit (2) COPD exacerbation: Code(s): J44.1 - Chronic obstructive pulmonary disease with (acute) exacerbation Status: Acute Assessment and Plan: 10/20 Patient has a 1 week history of worsening dyspnea on exertion, cough, increased phlegm production. Patient has wheezes on exam is today. Her chest x-ray shows no focal infiltrates. Her COVID test is negative. Her D dimer is normal so doubt PE. Her BNP is 513 without evidence of fluid overload. I will treat her for COPD exacerbation with Solu-Medrol 40 Q 6, albuterol and ipratropium nebulizers Q 6 standing, and doxycycline 100 mg q.day for possible tracheal bronchitis. Negative influenza swab. Echo with pulmonary hypertension at 67 and PFO on bubble study. Linda explaining her worsening hypoxemia. Summary 1. Left ventricular chamber dimension is normal. 2. Left ventricular systolic function is normal, estimated at 60-65%. 3. The left ventricular diastolic function is grade I diastolic dysfunction. 4. E/e' 19 is elevated. 5. Global longitudinal strain is mildly abnormal at -16.0%. 6. Agitated saline injection with and without valsalva maneuver opacified right sided cardiac chambers and several bubbles shunted to left sided cardiac chambers. This is suggestive of patent foramen ovale. 7. The mitral valve has moderately calcified annulus. 8. There is mild tricuspid valve regurgitation. 9. Severe pulmonary hypertension, estimated pulmonary arterial systolic pressure is 67 mmHg. 10/21 States she is breathing a little better, head ache, sinus congestion better. No wheezes and solumedrol DC and prednisone 40 given today. Regarding pulmonary hypertension awith PFO with initially ensure adequate oxygen at rest, with ambulation and at night. I have ordered home O2 assessment and overnight oximetry. She has no edema and no evidence of fluid overload. She will follow up at [facility] regarding any additional treatment options. 10/22 Patient without wheezes and states she is breathing back at baseline. Ready for DC home today. DC home on: Prednisone 40 mg PO X 1 day Doxycycline 100 mg PO X 2 days Symbicort 160/4.5 2 puffs BID Ipratroprium 500 mcg nebulizer TID Oxygen through oxymizer 2 L at rest, 5 L with ambulation and 4 L bleed in at night CPAP home machine with 4 L bleed in at night and when sleeps Patient complains of progress headaches, eye pressure, sinus pressure, ear pressure and sore throat since 07/17. CT scan of the head and sinuses negative on 10/20. Cheonic hypoxia may be etiology. Slightly better today. I will continue ipratropium nasal spray, fluticasone nasal spray and continue montelukast and claritin. Spoke with daughter on speaker phone. Daughter spoke with [facility] pulmonary department where she is followed to get follow up appointment and she is waiting to hear back from [facility]. Discussed with kristie Means Subjective Date/time seen: 10/22/20 10:31 Interval history: 10/20 Narrative: Patient is a 80-year-old female with a history of COPD on 4 L oxygen at rest and with ambulation on home at home, obstructive sleep apnea since 2011 and the daughter states that she wears CPAP setting of 2 with 3.5 L oxygen bleed in, h
--- NOTE | 2020-10-22 12:21 | PM.DS ---
DS: Admitting Diagnosis Admitting Diagnosis Admitting Diagnosis: COPD exacerbation DS: Discharge Diagnosis Discharge Diagnosis (1) COPD (chronic obstructive pulmonary disease): Code(s): J44.9 - Chronic obstructive pulmonary disease, unspecified Status: Acute (2) Chronic sinusitis, unspecified: Code(s): J32.9 - Chronic sinusitis, unspecified Status: Acute (3) Anxiety and depression: Code(s): F41.9 - Anxiety disorder, unspecified; F32.9 - Major depressive disorder, single episode, unspecified Status: Acute (4) COVID-19 ruled out: Code(s): Z20.822 - Contact with and (suspected) exposure to COVID-19 Status: Acute (5) COPD exacerbation: Code(s): J44.1 - Chronic obstructive pulmonary disease with (acute) exacerbation Status: Acute DS: Summary Hospital Course Hospital Course: Jolie Starr is a 80 year old female with history of COPD and pneumothorax for which patient had a pleurodesis patient presented emergency depart complaint of cough shortness of breath wheezing symptoms which was persisting since the day prior to admissionl. Chest x-rays positive for emphysema but no pneumothorax. She was diagnosed with COPD exacerbation and was given Solu-Medrol 125 mg IV then switched to Solu-Medrol 60 mg q.6. She tested negative for COVID and improved with the above treatment. Pulmonology was consulted and her steroids were weaned to oral the day of discharge. She was give doxycycline during her stay as well. She underwent a new home o2 eval which showed she needed 2L at rest and 5 with acitivity and to bleed in 4L at night with her cpap. During her stay her sodium was low consistently at 129 and last stay in 2019 she was 132. She says her sodium is always low and agrees to follow up with her primary care doctor to continue to monitor it. She was having no neurological symptoms. She also has plans to follow-up with [facility] as she has an appointment there for the pulmonary hypertension clinic. Overall, the patient had improvement with this treatment and was ready for discharge. She was educated about the worrisome signs and symptoms come back to emergency room for and was discharged in stable condition Status at Discharge Functional status at discharge: independent ambulation Overall status at discharge: patient is back to baseline Time Spent with Patient Time attestation: Total time spent providing and/or coordinating discharge services:36 min Time spent: Greater than 30 minutes Exam Narrative: Exam Narrative: General: Well developed well nourished patient in NAD HEENT: normocephalic Neck: supple Neuro: Alert and oriented x4 CV:RRR Resp: Decreased breath sounds bilaterally. Patient able to speak in full sentences without conversational dyspnea. Abd: Soft, non distended. No pain to palpation. Positive bowel sounds Extremities: No swelling, erythema, or pain to palpation. DS: Data Data Completed and Pending Labs on day of discharge: Labs from last 24 hours 10/22/20 10/22/20 05:51 05:51 WBC 7.2 RBC 4.38 Hgb 13.2 Hct 38.8 MCV 88.6 MCH 30.1 MCHC 34.0 RDW 12.9 Plt Count 350 MPV 9.1 Immature Gran % (Auto) 1.3 H Neut % (Auto) 71.1 Lymph % (Auto) 12.4 L [place] % (Auto) 14.8 H Eos % (Auto) 0.3 Baso % (Auto) 0.1 L Lymph # (Auto) 0.89 L [place] # (Auto) 1.1 H Eos # (Auto) 0.0 Baso # (Auto) 0.0 Abs Immat Gran (auto) 0.09 H Absolute Neuts (auto) 5.1 Absolute Nucleated RBC 0.0 Nucleated RBC % 0.0 Sodium 129 L Potassium 4.6 Chloride 91 L Carbon Dioxide 34 H Anion Gap 4 L BUN 31 H Creatinine 0.80 Estim Creat Clear Calc 38 Estimated GFR > 60 Glucose 93 Calcium 9.1 Magnesium 1.8 Total Bilirubin 0.5 AST 36 ALT 22 Alkaline Phosphatase 50 Total Protein 7.0 Albumin 3.9 Preliminary micro results at discharge 10/19/20 05:28 Blood Culture - Preliminary Blood 10/19/20 05:17 Blood Cul
== END 2020-10-22 13:30 | disposition home health service (06) ==
LOC: ANHED 05:35 → ANH3MEDSUR 07:32
PROVIDERS: Internal Medicine Pulmonary Disease; Admitting Provider Internal Medicine; Emergency Provider Emergency Medicine; PCP Family Medicine; Visit Provider Family Medicine
DX: J44.1 Chronic obstructive pulmonary disease with (acute) exacerbation (principal); G47.33 Obstructive sleep apnea (adult) (pediatric); I10 Essential (primary) hypertension; Z87.891 Personal history of nicotine dependence; J32.9 Chronic sinusitis, unspecified; F41.8 Other specified anxiety disorders; Z20.822 Contact with and (suspected) exposure to COVID-19; Z99.81 Dependence on supplemental oxygen
CPT/HCPCS: 36415; 36600; 70450; 70486; 71045; 74018; 80048; 80053; 81001; 82805; 83605; 83735; 83880; 84484; 85025; 85380; 85610; 85730; 86140; 87040; 87804; 93005; 93306; 94618; 94640; 96365; 96366; 96367; 96372; 96375; 96376; 97116; 97161; 97165; 97530; 97535; 99285; A9270; C9803; G0378; J0131; J1650; J2060; J2920; J2930; J3475; J7512; U0003; U0005

== ENCOUNTER 2021-03-28 19:27 | Observation (INO) | payer MEDICARE, SELFPAY ==
[2021-03-28] VITALS (28 sets, daily range): BP systolic 107–191; BP diastolic 61–89; PULSE 69–87; RESP 14–25; TEMP 36.7–37; O2SAT 92–100
--- NOTE | ~2021-03-28 | US_ITS ---
EXAMINATION: US venous doppler [facility] DATE: 03/29/2021 11:24 INDICATION: Bilateral lower limb numbness, chest pain TECHNIQUE: Pineda scale images without and with compression and Doppler images of the bilateral lower e xtremity veins were obtained. COMPARISON: None FINDINGS: The right common femoral vein, profunda femoral vein, femoral vein, popliteal vein, peroneal trunk, p osterior tibial veins, and greater saphenous vein are patent. The left common femoral vein, profunda femoral vein, femoral vein, popliteal vein, peroneal trunk, po sterior tibial veins, and greater saphenous vein are patent. IMPRESSION: 1. Patent bilateral lower extremity veins. No evidence of deep venous thrombosis. Reviewed, dictated and finalized at location A. IMPRESSION: 1. Patent bilateral lower extremity veins. No evidence of deep venous thrombosi s.
--- NOTE | ~2021-03-28 | CT_ITS ---
EXAMINATION: CTA chest PE protocol DATE: 03/28/2021 22:18 INDICATION: Shortness of breath. Chest pain. TECHNIQUE: Computed tomography angiography (CTA) of the chest was performed with 100 mL Omnipaque-350 intravenous contrast timed to evaluate the pulmonary arteries. Coronal maximum intensity projection 3D-reconstructions were created by the technologist. Automated exposure control and iterative reconst ruction technique were employed. Exam dose: 182.55 mGy-cm total exam DLP. COMPARISON: 03/28/2021 portable AP chest 02/06/2018 CT pulmonary scan FINDINGS: There is diagnostic contrast enhancement of the pulmonary arteries and no evidence of pulmo nary embolism. There is thoracic aortic and great vessel calcification but no thoracic aortic aneurysm or dissection is identified. Normal heart size. Some coronary artery calcification. No hilar or mediastinal mass lesion or lymphadenopathy. Calcified right upper and left lower lobe pulmonary granulomas and calcified right hilar and mediasti nal nodes consistent with old granulomatous disease. There are severe emphysematous changes throughout the lungs. Focal tree-in-bud infiltrate in the anterolateral left lower lobe. There is some focal peripheral ate lectasis or scarring inferolateral lingula. Small sliding hiatal hernia. No suspicious osteolytic or osteoblastic lesions. IMPRESSION: No evidence of pulmonary embolism Severe emphysema Focal tree-in-bud infiltrate in the anterolateral left lower lobe Focal peripheral atelectasis or scarring of the inferolateral lingula Old pulmonary granulomatous disease Reviewed, dictated and finalized at [facility]. Reviewed, dictated and finalized at location [facility].
--- NOTE | ~2021-03-28 | XR_ITS ---
EXAMINATION: XR chest 1V portable INDICATION: Shortness of breath TECHNIQUE: Portable AP chest at 1948 hours COMPARISON: 10/19/2020 FINDINGS: There is chronic blunting of the right costophrenic angle. The lungs are hyperinflated but free of acute opacities. There is no pleural effusion or pneumothorax. The cardiomediastinal silhouet te is normal. Cranial migration of the right humeral head with respect to the glenoid suggests chroni c rotator cuff tear. IMPRESSION: 1. No acute cardiopulmonary abnormality. Reviewed, dictated and finalized at location [facility].
--- NOTE | ~2021-03-28 | CT_ITS ---
EXAMINATION: CT brain wo con DATE: 03/30/2021 11:20 INDICATION: Left frontal headache and blurred vision post fall TECHNIQUE: Computed tomography (CT) of the head was performed without intravenous contrast. Sagittal and coronal reconstructions were performed. The mA was adjusted according to patient size. Iterative reconstruction technique was employed. The dose-length product was 605.33 mGy-cm. COMPARISON: head CT dated 10/20/2020 FINDINGS: No fracture. No acute intracranial hemorrhage, acute infarction or abnormal extra axial fluid collect ion. There is moderate scattered white matter hypoattenuation consistent with chronic small vessel is chemic disease. Symmetric prominence of the sulci consistent with mild age-appropriate diffuse cerebr al volume loss. Ventricles are normal and symmetric. No mass/mass effect. Changes of bilateral intrao cular lens replacement. The orbits, paranasal sinuses and mastoid air cells are normal. Intracranial calcified cerebral atherosclerosis is noted. IMPRESSION: 1. No fracture or acute intracranial process. 2. Age-related changes including mild diffuse volume loss and moderate scattered white matter hypoatt enuation consistent with chronic small vessel ischemic disease. Reviewed, dictated and finalized at location [facility]. IMPRESSION: 1. No fracture or acute intracranial process. 2. Age-related changes including mild diffuse volume loss and moderate scattere d white matter hypoattenuation consistent with chronic small vessel ischemic di sease.
--- NOTE | 2021-03-28 19:34 | ECG_ITS ---
Measurements Intervals [place] Rate: 72 P: 80 IN: 135 QRS: 49 QRSD: 90 T: 48 QT: 379 QTc: 416 Interpretive Statements SINUS RHYTHM POSSIBLE LEFT ATRIAL ENLARGEMENT CANNOT RULE OUT SEPTAL INFARCT, AGE INDETERMINATE BASELINE ARTIFACT- I, II, III, AVR, AVL, AVF, V3-V4 ABNORMAL ECG Electronically Signed On 03-29-2021 6:35:04 CDT by Abe Ruiz D.O.
--- NOTE | 2021-03-28 19:49 | PC.NURSE ---
Xray in room.
--- NOTE | 2021-03-28 21:08 | ED.GENADULT ---
HPI - General Adult General Chief complaint: Shortness of Breath/Dyspnea Stated complaint: SOB Time Seen by Provider: 03/28/21 20:47 History of Present Illness HPI narrative: Patient is 80-year-old female presents the emergency department with chief complaint of shortness of breath and right-sided chest burning. The patient reports that over the last 24 hours she has had a burning sensation in the right side of her chest and noticed that she has been more short of breath whenever she ambulates. Patient reports she has history of COPD reports she uses oxygen 2 L whenever she is seated and at 5 L whenever she is ambulatory. Patient reports that she fell about a week ago but did not strike the right side of her chest but since then she has felt sore all over. Patient states that she has pain with inspiration reports that it hurts whenever she moves. The patient reports she is concerned that she may have a pneumothorax since has had a prior pneumothorax on the left side. Related Data Home Medications Medication Instructions Recorded Confirmed loratadine 10 mg tablet 10 mg PO DAILY 07/16/19 02/16/21 guaifenesin [Mucinex] 600 mg PO Q12H 10/19/20 02/16/21 Allergies Allergy/AdvReac Type Severity Reaction Status Date / Time clarithromycin Allergy Mild rash and Verified 03/28/21 19:47 itching alendronate sodium Allergy Unknown Unknown Verified 03/28/21 19:47 mold Allergy Unknown Unknown Verified 03/28/21 19:47 Penicillins Allergy Unknown SWELLING Verified 03/28/21 19:47 AND RASH,Unknown Review of Systems Review of Systems: A 10 system review of systems was completed on the patient and is negative except for what is stated in the HPI. Nursing and ancillary documentation was reviewed. [facility] Past Medical History Medical History Essential (primary) hypertension Hypoxia Nontraumatic tear of muscle or tendon of rotator cuff of both shoulders Patent foramen ovale Pulmonary hypertension Rotator cuff arthropathy of both shoulders SI joint arthritis Spontaneous pneumothorax Family History Family History Sibling Family history of cardiovascular disease Father Family history of throat cancer Other Family history of Alzheimer's disease Family history of arthritis Family history of malignant neoplasm Hypertension Social History Social History Smoking end date: 08/28/03 Alcohol intake: former Substance use: never Spiritual care concerns: No Exam Narrative: GENERAL: Well-appearing, well-nourished, and in no acute distress. HEAD: Normocephalic, atraumatic. EYES: PERRLA and EOMI. ENT: Nares clear, no rhinorrhea or epistaxis. Mucous membranes moist. NECK: Supple. CHEST: Diminished respirations bilaterally. No respiratory distress. HEART: Regular rate and rhythm. No murmur heard. Normal peripheral pulses. ABDOMEN: Soft, nontender, nondistended, normal active bowel sounds. EXTREMITIES: Normal range of motion. No edema. SKIN: Warm, dry, no rash. NEURO: No focal deficits. Alert and oriented x3. PSYCH: Normal mood and affect. Course Course Emergency Course: CT scan showed evidence of bronchiectasis in the right lower lobe and the lingula with nodular tree-in-bud opacities. The patient is normally on 5 L whenever she ambulates whenever she ambulated with 5 L of oxygen she dropped her saturations down to 85%. Because of this the patient will be admitted to the hospital patient was given a dose of Solu-Medrol and was given Levaquin in the ER.. The case was discussed with the hospitalist industrial relations commissioner and the patient will be admitted Vital Signs Vital signs: Vital Signs Temperature 37.0 C 03/28/21 19:26 Pulse Rate 74 03/28/21 19:26 Respiratory Rate 24 H 03/28/21 19:26 Pulse Oximetry 97 03/28/21 19:26 Tem
[2021-03-28] MEDS: ONDANSETRON INJ 4 MG/2 ML VIAL IV PUSH (21:13)
[2021-03-28] MEDS: MORPHINE SULFATE (*CRX) 4 MG/ML INJ IV PUSH (21:13)
--- NOTE | 2021-03-28 21:51 | PC.NURSE ---
Patient states the pain is still there, but that the sob is improving and that she is breathing a little easier.
--- NOTE | 2021-03-28 22:05 | PC.NURSE ---
Patient taken to CT.
[2021-03-28 22:07] LABS: Basophils Absolute Auto 0.1 K/mm3 (0.0-0.1); Basophils Percent Auto 1.1 % (0.2-1.2); Eosinophils Absolute Auto 0.2 K/mm3 (0-0.3); Eosinophils Percent Auto 2.8 % (0-4.4); Hematocrit 39.6 % (37.0-47.0); Hemoglobin 12.8 g/dL (12.0-15.0); Immature Granulocyte Absolute 0.03 K/mm3 (0.00-0.031); Immature Granulocyte Percent A 0.5 % (0-0.5); Lymphocytes Absolute Auto 0.87 K/mm3 (0.9-3.2); Lymphocytes Percent Auto 13.4 % (18.3-44.2); Mean Corpuscular HGB Conc 32.3 g/dl (32-36); Mean Corpuscular Hemoglobin 29.3 pg (26-34); Mean Corpuscular Volume 90.6 fl (80-100); Mean Platelet Volume 9.2 fl (7.4-10.4); Monocytes Absolute Auto 0.7 K/mm3 (0.1-0.6); Monocytes Percent Auto 10.6 % (2.6-8.5); Neutrophils Absolute Auto 4.7 K/mm3 (1.3-6.7); Neutrophils Percent Auto 71.6 % (45.5-73.1); Platelet Count Result 243 k/mm3 (150-375); Red Blood Count 4.37 M/mm3 (4.2-5.4); Red Cell Distribution Width 13.2 % (11.5-14.5); White Blood Count 6.5 K/mm3 (4.5-10.0)
[2021-03-28 22:13] LABS: Estimated Glomerular Filt Rate > 60
[2021-03-28 22:17] LABS: INR 0.9; Lactic Acid Reflex 0.7 mmol/L (0.7-2.1); Prothrombin Time 12.1 Seconds (11.1-14.7)
[2021-03-28 22:18] LABS: Partial Thromboplastin Time 33.1 SECONDS (22.3-36.8)
[2021-03-28 22:19] LABS: Alanine Aminotransferase 23 U/L (4-35); Albumin Level 4.3 g/dL (3.5-5.1); Alkaline Phosphatase 66 U/L (38-126); Anion Gap 8 mmol/L (8-16); Aspartate Amino Transferase 38 U/L (14-36); Bilirubin,Total 0.5 mg/dL (0.2-1.3); Blood Urea Nitrogen 21 mg/dL (7-17); Calcium 9.7 mg/dL (8.4-10.2); Carbon Dioxide 30 mmol/L (22-30); Chloride 97 mmol/L (98-107); Estimated Glomerular Filt Rate > 60; Glucose 102 mg/dL (65-110); Potassium 4.1 mmol/L (3.4-5.0); Sodium 135 mmol/L (137-145)
[2021-03-28 22:31] LABS: NT Pro B Type Natriuretic Pept 832 pg/mL (5-100); Troponin I < 0.012 ng/mL (0.000-0.034)
[2021-03-28] MEDS: HYDROmorphone HCL INJ (*CRX) 1 MG/ML SYR IV PUSH (23:18)
[2021-03-29] VITALS (20 sets, daily range): BP systolic 89–135; BP diastolic 58–71; PULSE 66–95; RESP 13–24; TEMP 36.3–36.9; O2SAT 90–99; BMI 18.9
--- NOTE | 2021-03-29 | PC.NURSE ---
Attempted ambulation assessment on patient. Unsuccessful. Patient was assisted out of bed and then stood up, was placed on her normal oxygen of 5L, her oxygen sat was 85% and would not increase any further. Patient was assisted back into bed. ERP notified.
[2021-03-29] MEDS: methylPREDNISolone SOD SUCC 125 MG VIAL IV PUSH (00:25)
--- NOTE | 2021-03-29 01:27 | ADMGEN ---
This patient, Jolie Starr, was admitted to 2 Medical Room 244-. Patient/family oriented to hospital policies and general routines including ID bracelet, bed and alarms, visiting hours, pain management, procedures, bathroom and other care routines, personal items, smoking policy, room service/diet, and visiting hours. Information on how to activate the Rapid Response Team has been discussed. Patient/Family are encouraged to report perceived risks to care and to ask questions if they do not understand what they are told or what they should do.
--- NOTE | 2021-03-29 02:10 | PM.IMHP ---
H&P: HPI History of Present Illness Date/Time: 03/29/21 02:10 Chief Complaint: Chest pain and shortness of breath Narrative: Patient is 80-year-old female presents to the emergency department with chief complaint of shortness of breath and right-sided chest burning that started since yesterday. She feels she has a burning sensation in the right side of her chest and has been feeling more short of breath whenever she ambulates. She has history of COPD and uses 2 L at rest and 5 L upon exertion chronically. She states she fell about a week ago and hit her head and twisted her ankle did not have any loss of consciousness . She did not come for medical evaluation at that time. She has a history of pneumothorax on the left side. No fever chills no cough. Review of Systems Review of Systems: - CONSTITUTIONAL: Denies weight loss, fever and chills. - HEENT: Denies changes in vision and hearing - RESPIRATORY: Reports SOB and denies cough. - CV: Denies palpitations and reports CP. - GI: Denies abdominal pain, nausea, vomiting and diarrhea. - : Denies dysuria and urinary frequency. - MSK: Denies myalgia and joint pain. - SKIN: Denies rash and pruritus. - NEUROLOGICAL: Denies headache and syncope. - PSYCHIATRIC: Denies recent changes in mood. Denies anxiety and depression. All systems reviewed & are unremarkable except as noted in HPI and below Constitutional: Constitutional: Reports fatigue and Reports weakness Neurologic: Reports weakness Endocrine: Endocrine: Reports fatigue PMFSH Past Medical History Medical History Essential (primary) hypertension Hypoxia Nontraumatic tear of muscle or tendon of rotator cuff of both shoulders Patent foramen ovale Pulmonary hypertension Rotator cuff arthropathy of both shoulders SI joint arthritis Spontaneous pneumothorax Family History Family History (Updated 03/29/21 @ 01:39 by Nia Goodman RN) Sibling Family history of cardiovascular disease Family history of arthritis Father Family history of throat cancer Family history of arthritis Mother Family history of arthritis Family history of Alzheimer's disease Other Family history of malignant neoplasm Social History Social History Smoking packs per day: 0.5 Smoking cigarettes per day: 10.0 Smoking status: Former smoker Smoking end date: 08/28/99 Alcohol intake: former Substance use: never Spiritual care concerns: No Meds Home Medications and Allergies Home Medications Medication Instructions Recorded Confirmed Type loratadine 10 mg tablet 10 mg PO PRN PRN 07/16/19 03/29/21 History ipratropium bromide 21 mcg (0.03 2 spray INTRANASAL TID #30 ml 09/22/20 03/29/21 Rx %) nasal spray guaifenesin [Mucinex] 600 mg PO Q12H 10/19/20 03/29/21 History olmesartan 40 mg tablet 40 mg PO DAILY #90 tablet 12/16/20 03/29/21 Rx budesonide 160 mcg-glycopyr 9 2 inh INHALATION BID #32.1 g 12/28/20 02/16/21 Rx mcg-formot 4.8 mcg/actuation HFA inhaler temazepam 30 mg capsule 30 mg PO ONCE #90 cap 01/11/21 03/29/21 Rx albuterol sulfate 90 mcg/actuation 2 inh INHALATION Q6H PRN #18 gm 02/07/21 03/29/21 Rx aerosol inhaler nebivolol 10 mg tablet See Rx Instructions .ROUTE 02/14/21 03/29/21 Rx .COMPLEX #90 tablet bupropion HCl 150 mg 24 hr tablet, 150 mg PO QAM #90 tablet 02/16/21 02/16/21 Rx extended release omeprazole 40 mg capsule,delayed 40 mg PO DAILY #90 cap 03/16/21 Rx release alprazolam 0.25 mg tablet 0.25 mg PO TID PRN #180 tablet 03/22/21 Rx ipratropium 0.5 mg-albuterol 3 mg 3 ml INHALATION Q6H PRN #400 ml 03/26/21 03/29/21 Rx (2.5 mg base)/3 mL nebulization soln acetaminophen 650 mg PO QID PRN 03/29/21 03/29/21 History [id number] 2 inh INHALATION BID 03/29/21 03/29/21 History [Breztri Aerosphere] escitalopram o
[2021-03-29] MEDS: methylPREDNISolone SOD SUCC 125 MG VIAL 60 MG IV PUSH ×2 (05:22→11:39)
[2021-03-29] MEDS: ESCITALOPRAM OXALATE 10 MG TABLET 20 MG PO (08:19)
[2021-03-29] MEDS: guaiFENesin 12 HR 600 MG TABCR PO ×2 (08:19→20:33)
[2021-03-29] MEDS: NEBIVOLOL HCL 5 MG TABLET 10 MG BY MOUTH (08:19)
[2021-03-29] MEDS: MONTELUKAST SODIUM 10 MG TABLET PO (08:19)
[2021-03-29] MEDS: IPRATROPIUM NASAL SPRAY 0.03% 15 ML BOTTLE 2 SPRAY NASAL ×3 (08:21→16:07)
[2021-03-29] MEDS: ENOXAPARIN 40 MG/0.4 ML SYRINGE SUB-Q (08:21)
[2021-03-29] MEDS: PANTOPRAZOLE 40 MG TABLET PO ×2 (08:21→16:08)
--- NOTE | 2021-03-29 08:36 | P.PNIM_ITS ---
Progress Note: A&P Assessment and Plan (1) Acute exacerbation of chronic obstructive pulmonary disease: Code(s): J44.1 - Chronic obstructive pulmonary disease with (acute) exacerbation Status: Acute Assessment and Plan: * Patient on chronic O2 at home 2 L at rest 5 L with exertion * patient looks very short of breath at this time with accessory muscle use * CTA shows severe emphysema, mild bronchiectasis, mucous plugging the right lower lobe, And bronchial tree infiltrate * patient quit smoking 20 days ago. * BNP mildly elevated at 832 * methylprednisone 60 mg IV push Q 8 * Levaquin 750 mg Q 48 * supplemental oxygen to maintain a sat above 90% * Atrovent nebulizer and albuterol nebs Q 6 p.r.n. for shortness of breath or wheezing * singular 10 mg p.o. daily * blood cultures pending * pulmonology consult * DVT lovenox (2) Bronchiectasis: Qualifiers: Bronchiectasis type: with acute exacerbation Qualified Code(s): J47.1 - Bronchiectasis with (acute) exacerbation Code(s): J47.9 - Bronchiectasis, uncomplicated Status: Acute Assessment and Plan: * CTA shows mild bronchiectasis * sputum culture ordered * Levaquin 750 IV Q 48 * see above (3) Pulmonary hypertension: Code(s): I27.20 - Pulmonary hypertension, unspecified Status: Acute Assessment and Plan: * see above (4) COVID-19 ruled out: Code(s): Z20.822 - Contact with and (suspected) exposure to COVID-19 Status: Acute Assessment and Plan: * will consider COVID swab if patient requires more oxygen * currently treating as a COPD exacerbation (5) Sleep apnea with use of continuous positive airway pressure (CPAP): Code(s): G47.30 - Sleep apnea, unspecified Status: Acute Assessment and Plan: * continue home CPAP * respiratory care (6) Anxiety and depression: Code(s): F41.9 - Anxiety disorder, unspecified; F32.9 - Major depressive disorder, single episode, unspecified Status: Acute Assessment and Plan: * continue home Wellbutrin 150 mg p.o. daily * continue home Xanax 0.25 mg p.o. t.i.d. p.r.n. * trend symptoms * adjust medications as needed (7) Essential (primary) hypertension: Code(s): I10 - Essential (primary) hypertension Status: Acute Assessment and Plan: * blood pressure in the ER was 191/89 upon arrival * continue home Bystolic 10 mg p.o. daily * trend blood pressures * adjust medications as needed (8) Acute and chronic respiratory failure: Code(s): J96.20 - Acute and chronic respiratory failure, unspecified whether with hypoxia or hypercapnia Status: Acute Assessment and Plan: * oxygen saturation has been above 90 with supplemental oxygen * patient currently on * wean to maintain oxygen saturation greater than 90% (9) Malnutrition: Code(s): E46 - Unspecified protein-calorie malnutrition Status: Acute Assessment and Plan: * Very thin in appearance * BMI 18.9 kg/m2 * Plumbing Hardware Assembler consult * Regular diet Additional Plan Subjective Date/time seen: 03/29/21 08:00 Interval history: Patient is 80-year-old female presents to the emergency department with chief complaint of shortness of breath and right-sided chest
--- NOTE | 2021-03-29 08:36 | PM.IMPN ---
Progress Note: A&P Assessment and Plan (1) Acute exacerbation of chronic obstructive pulmonary disease: Code(s): J44.1 - Chronic obstructive pulmonary disease with (acute) exacerbation Status: Acute Assessment and Plan: Patient on chronic O2 at home 2 L at rest 5 L with exertion patient looks very short of breath at this time with accessory muscle use CTA shows severe emphysema, mild bronchiectasis, mucous plugging the right lower lobe, And bronchial tree infiltrate patient quit smoking 20 days ago. BNP mildly elevated at 832 methylprednisone 60 mg IV push Q 8 Levaquin 750 mg Q 48 supplemental oxygen to maintain a sat above 90% Atrovent nebulizer and albuterol nebs Q 6 p.r.n. for shortness of breath or wheezing singular 10 mg p.o. daily blood cultures pending pulmonology consult DVT lovenox (2) Bronchiectasis: Qualifiers: Bronchiectasis type: with acute exacerbation Qualified Code(s): J47.1 - Bronchiectasis with (acute) exacerbation Code(s): J47.9 - Bronchiectasis, uncomplicated Status: Acute Assessment and Plan: CTA shows mild bronchiectasis sputum culture ordered Levaquin 750 IV Q 48 see above (3) Pulmonary hypertension: Code(s): I27.20 - Pulmonary hypertension, unspecified Status: Acute Assessment and Plan: see above (4) COVID-19 ruled out: Code(s): Z20.822 - Contact with and (suspected) exposure to COVID-19 Status: Acute Assessment and Plan: will consider COVID swab if patient requires more oxygen currently treating as a COPD exacerbation (5) Sleep apnea with use of continuous positive airway pressure (CPAP): Code(s): G47.30 - Sleep apnea, unspecified Status: Acute Assessment and Plan: continue home CPAP respiratory care (6) Anxiety and depression: Code(s): F41.9 - Anxiety disorder, unspecified; F32.9 - Major depressive disorder, single episode, unspecified Status: Acute Assessment and Plan: continue home Wellbutrin 150 mg p.o. daily continue home Xanax 0.25 mg p.o. t.i.d. p.r.n. trend symptoms adjust medications as needed (7) Essential (primary) hypertension: Code(s): I10 - Essential (primary) hypertension Status: Acute Assessment and Plan: blood pressure in the ER was 191/89 upon arrival continue home Bystolic 10 mg p.o. daily trend blood pressures adjust medications as needed (8) Acute and chronic respiratory failure: Code(s): J96.20 - Acute and chronic respiratory failure, unspecified whether with hypoxia or hypercapnia Status: Acute Assessment and Plan: oxygen saturation has been above 90 with supplemental oxygen patient currently on wean to maintain oxygen saturation greater than 90% (9) Malnutrition: Code(s): E46 - Unspecified protein-calorie malnutrition Status: Acute Assessment and Plan: Very thin in appearance BMI 18.9 kg/m2 Technical Programs Manager consult Regular diet Additional Plan Subjective Date/time seen: 03/29/21 08:00 Interval history: Patient is 80-year-old female presents to the emergency department with chief complaint of shortness of breath and right-sided chest burning that started since yesterday.Today patient does not really have any chest complaints however she does say that her shortness of breath is really bad. She states every time she talks or moves she gets very short of breath and can't catch up. She also complained of a groin pain in the right leg near the pelvis. She said it is sharp in nature it does hurt when you press on it. temperature variance noted on bilateral lower extremities right leg is cold left leg is hot. Patient also stated that she fell last week and hit her head. She stated this is when everything started to get worse for
[2021-03-29] MEDS: ALBUTEROL SULFATE NEB 2.5 MG/0.5 ML INH INHALATION (09:31)
[2021-03-29] MEDS: IPRATROPIUM BR 0.02% INH SOLN 0.5 MG/2.5 ML VIAL INHALATION (09:31)
[2021-03-29] MEDS: ALPRAZolam (*CRX) 0.25 MG TABLET PO ×2 (09:34→16:06)
[2021-03-29] MEDS: buPROPion HCL XL (24 HR) 150 MG TABCR PO (09:35)
[2021-03-29] MEDS: BUMETANIDE INJ 1 MG/4 ML VIAL IV PUSH (11:38)
--- NOTE | 2021-03-29 11:57 | PM.CNPUL ---
Assessment and Plan Assessment and plan (1) Acute exacerbation of chronic obstructive pulmonary disease: Code(s): J44.1 - Chronic obstructive pulmonary disease with (acute) exacerbation Status: Acute Assessment and Plan: severe COPD with panlobular emphysema and history of pneumothorax, pulmonary hypertension with a PFO, chronic hypoxic respiratory failure on 2 L at rest and 5 with exertion Who presents with worsening shortness of breath and no change in her phlegm with a tree-in-bud infiltrate in the left lower lobe on CT angiogram of the chest. There is no evidence of pulmonary edema or a pulmonary embolism. At this time I will continue the patient on albuterol 2.5 mg nebs q.6 hours, ipratropium 0.5 mg nebs q.6 hours, levofloxacin 750 mg Q 48 hours, montelukast 10 mg p.o. q.day. I will change her Solu-Medrol to prednisone 50 mg p.o. q.day as she is improved without any wheezes today. She anticipates that if she continues to improve she may be able to go home on 03/30. Will follow with you. (2) Sleep apnea with use of continuous positive airway pressure (CPAP): Code(s): G47.30 - Sleep apnea, unspecified Status: Acute Assessment and Plan: Patient with a history of obstructive sleep apnea on CPAP at home for 10 years. The daughter will bring her home machine in today as she does not tolerate the hospital auto PAP. Continue her home CPAP settings. History of Present Illness History of Present Illness Consult date: 03/29/21 Requesting physician: Vikas Saab APN-C Reason for consult: COPD Chief complaint: Acute COPD exacerbation, bronchiectasis Narrative: This is a new pulmonary consult for COPD exacerbation patient with this history of severe COPD with panlobular emphysema and history of pneumothorax, pulmonary hypertension with a PFO, chronic hypoxic respiratory failure on 2 L at rest and 5 with exertion presented with a burning right lung similar to her prior right pneumothorax pain, shortness of breath with no fever, chills, rigors, phlegm production or hemoptysis. Patient was admitted from the emergency department after CT angiogram showed no PE tree-in-bud infiltrate in the anterior left lower lobe and she was treated with steroids, bronchodilators and Levaquin. Of note patient has also has a history of obstructive sleep apnea for 10 years and she has been wearing a CPAP for that amount of time. 03/29 Today the patient tells me that she is much improved. She states that she is 70% back to normal. There is no wheezing on exam. She did not tolerate the hospital auto Pap last night and her daughter is going to bring in her home machine today. DATA CTA 03/29/21 EXAMINATION: CTA chest PE protocol DATE: 03/28/2021 22:18 INDICATION: Shortness of breath. Chest pain. TECHNIQUE: Computed tomography angiography (CTA) of the chest was performed with 100 mL Omnipaque-350 intravenous contrast timed to evaluate the pulmonary arteries. Coronal maximum intensity projection 3D-reconstructions were created by the technologist. Automated exposure control and iterative reconstruction technique were employed. Exam dose: 182.55 mGy-cm total exam DLP. COMPARISON: 03/28/2021 portable AP chest 02/06/2018 CT pulmonary scan FINDINGS: There is diagnostic contrast enhancement of the pulmonary arteries and no evidence of pulmonary embolism. There is thoracic aortic and great vessel calcification but no thoracic aortic aneurysm or dissection is identified. Normal heart size. Some coronary artery calcification. No hilar or mediastinal mass lesion or lymphadenopathy. Calcified right upper and left lower lobe pulmonary granulomas and calcified right hilar and mediastinal nodes consistent with old granulomatous disease. There are severe emphysematous changes throughout the lungs. Focal tree-in-bud infiltrate in the anterolateral left lower lobe. There is s
[2021-03-29] MEDS: predniSONE 20 MG TABLET 40 MG PO (16:06)
--- NOTE | 2021-03-29 19:02 | PHAR ---
PT'S HOME MED: ([id number]-Jwazhlcpbc [Breztri Aerosphere] 160-9-4.8 mcg/actuation verified by pharmacy
[2021-03-29] MEDS: TEMAZEPAM (*CRX) 15 MG CAPSULE 30 MG PO (20:33)
[2021-03-30] VITALS (13 sets, daily range): BP systolic 104; BP diastolic 55; PULSE 69–81; RESP 16–20; TEMP 36.4; O2SAT 85–99
[2021-03-30 06:08] LABS: Hematocrit 36.1 % (37.0-47.0); Hemoglobin 12.4 g/dL (12.0-15.0); Mean Corpuscular HGB Conc 34.3 g/dl (32-36); Mean Corpuscular Hemoglobin 30.2 pg (26-34); Mean Platelet Volume 9.5 fl (7.4-10.4); Platelet Count Result 271 k/mm3 (150-375); Red Cell Distribution Width 13.3 % (11.5-14.5); White Blood Count 6.8 K/mm3 (4.5-10.0)
[2021-03-30 06:33] LABS: Alanine Aminotransferase 20 U/L (4-35); Albumin Level 3.9 g/dL (3.5-5.1); Alkaline Phosphatase 45 U/L (38-126); Anion Gap 7 mmol/L (8-16); Aspartate Amino Transferase 32 U/L (14-36); Bilirubin,Total 0.4 mg/dL (0.2-1.3); Blood Urea Nitrogen 42 mg/dL (7-17); Calcium 9.5 mg/dL (8.4-10.2); Carbon Dioxide 29 mmol/L (22-30); Chloride 97 mmol/L (98-107); Estimated CRCL calculation 31 ml/min; Estimated Glomerular Filt Rate 53; Glucose 119 mg/dL (65-110); Potassium 4.9 mmol/L (3.4-5.0); Sodium 133 mmol/L (137-145)
[2021-03-30] MEDS: buPROPion HCL XL (24 HR) 150 MG TABCR PO (08:31)
[2021-03-30] MEDS: PANTOPRAZOLE 40 MG TABLET PO (08:31)
[2021-03-30] MEDS: ENOXAPARIN 40 MG/0.4 ML SYRINGE SUB-Q (08:31)
[2021-03-30] MEDS: ESCITALOPRAM OXALATE 10 MG TABLET 20 MG PO (08:31)
[2021-03-30] MEDS: IPRATROPIUM NASAL SPRAY 0.03% 15 ML BOTTLE 2 SPRAY NASAL ×2 (08:31→12:22)
[2021-03-30] MEDS: guaiFENesin 12 HR 600 MG TABCR PO (08:32)
[2021-03-30] MEDS: predniSONE 20 MG TABLET 40 MG PO (08:32)
[2021-03-30] MEDS: MONTELUKAST SODIUM 10 MG TABLET PO (08:32)
[2021-03-30] MEDS: NEBIVOLOL HCL 5 MG TABLET 10 MG BY MOUTH (08:32)
[2021-03-30] MEDS: ALPRAZolam (*CRX) 0.25 MG TABLET PO ×2 (08:42→16:10)
[2021-03-30] MEDS: ALBUTEROL SULFATE NEB 2.5 MG/0.5 ML INH INHALATION (09:05)
[2021-03-30] MEDS: IPRATROPIUM BR 0.02% INH SOLN 0.5 MG/2.5 ML VIAL INHALATION (09:05)
--- NOTE | 2021-03-30 09:15 | PM.PNPUL ---
Progress Note: A&P Assessment and Plan (1) Acute exacerbation of chronic obstructive pulmonary disease: Code(s): J44.1 - Chronic obstructive pulmonary disease with (acute) exacerbation Status: Acute Assessment and Plan: severe COPD with panlobular emphysema and history of pneumothorax s/p surgical procedure at [facility], pulmonary hypertension with a PFO, chronic hypoxic respiratory failure on 2 L at rest and 5 with exertion Who presents with worsening shortness of breath and no change in her phlegm with a tree-in-bud infiltrate in the left lower lobe on CT angiogram of the chest. There is no evidence of pulmonary edema or a pulmonary embolism. At this time I will continue the patient on albuterol 2.5 mg nebs q.6 hours, ipratropium 0.5 mg nebs q.6 hours, levofloxacin 750 mg Q 48 hours, montelukast 10 mg p.o. q.day. I will change her Solu-Medrol to prednisone 50 mg p.o. q.day as she is improved without any wheezes today. She anticipates that if she continues to improve she may be able to go home on 03/30. 03/30 Patient Continues to improve, she states her breathing as at at her baseline. Stable to discharge from Pulmonary spur perspective on these pulmonary medicines: Levaquin 750 mg PO Q 48 hours for total of 7 days (one dose 03/31, 04/02 and 04/04). Prednisone 50 mg PO Q day X3 days (last dose 04/02) Abel 160/9/4.8 at 2 puffs BID (she has this at home) Rescue albuterol at 2 puffs q.4 hours p.r.n. shortness of breath and wheezing (she has this at home) rescue albuterol/ ipratropium nebulizers Q for p.r.n. shortness of breath and wheezing (she has this at home) Oxygen at rest and with ambulation per home O2 assessment today (I have orderdd this test) Home CPAP with 4 L bleed in (these are her home settings) Follow up in pulmonary clinic in 4 weeks, I gave her our business card. (2) Sleep apnea with use of continuous positive airway pressure (CPAP): Code(s): G47.30 - Sleep apnea, unspecified Status: Acute Assessment and Plan: 03/29 Patient with a history of obstructive sleep apnea on CPAP at home for 10 years. The daughter will bring her home machine in today as she does not tolerate the hospital auto PAP. Continue her home CPAP settings. 03/30 patient brought in her home machine and the patient used the hospital auto PAP with the patient's tubing and mask last night. Patient should use her home CPAP machine with 4 L bleed in as she has previously been doing. Subjective Date/time seen: 03/30/21 09:15 Interval history: 03/29 This is a new pulmonary consult for COPD exacerbation patient with this history of severe COPD with panlobular emphysema and history of right pneumothorax s/p surgical procedure at [facility], pulmonary hypertension with a PFO, chronic hypoxic respiratory failure on 2 L at rest and 5 with exertion presented with a burning right lung similar to her prior right pneumothorax pain, shortness of breath with no fever, chills, rigors, phlegm production or hemoptysis. Patient was admitted from the emergency department after CT angiogram showed no PE tree-in-bud infiltrate in the anterior left lower lobe and she was treated with steroids, bronchodilators and Levaquin. Of note patient has also has a history of obstructive sleep apnea for 10 years and she has been wearing a CPAP for that amount of time. 03/29 Today the patient tells me that she is much improved. She states that she is 70% back to normal. There is no wheezing on exam. She did not tolerate the hospital auto Pap last night and her daughter is going to bring in her home machine today. 03/30 Patient Continues to improve, she states her breathing as at at her baseline. She used the hospital auto PAP with her tubing and mask last night. She feels she is ready for discharge today. DATA CTA 03/29/21 EXAMINATION: CTA chest PE protocol DATE: 03/28/2021 22:18 INDICATION: Shortness of br
--- NOTE | 2021-03-30 09:25 | P.DS_ITS ---
DS: Admitting Diagnosis Admitting Diagnosis COPD exacerbation DS: Discharge Diagnosis Discharge Diagnosis (1) Acute exacerbation of chronic obstructive pulmonary disease: Code(s): J44.1 - Chronic obstructive pulmonary disease with (acute) exacerbation Status: Acute Assessment and Plan: * Patient on chronic O2 at home 2 L at rest 5 L with exertion * patient looks very short of breath at this time with accessory muscle use * CTA shows severe emphysema, mild bronchiectasis, mucous plugging the right lower lobe, And bronchial tree infiltrate * patient quit smoking 20 days ago. * BNP mildly elevated at 832 * methylprednisone 60 mg IV push Q 8 * Levaquin 750 mg Q 48 * supplemental oxygen to maintain a sat above 90% * Atrovent nebulizer and albuterol nebs Q 6 p.r.n. for shortness of breath or wheezing * singular 10 mg p.o. daily * blood cultures pending * pulmonology consult * DVT lovenox (2) Bronchiectasis: Qualifiers: Bronchiectasis type: with acute exacerbation Qualified Code(s): J47.1 - Bronchiectasis with (acute) exacerbation Code(s): J47.9 - Bronchiectasis, uncomplicated Status: Acute Assessment and Plan: * CTA shows mild bronchiectasis * sputum culture ordered * Levaquin 750 IV Q 48 * see above (3) Pulmonary hypertension: Code(s): I27.20 - Pulmonary hypertension, unspecified Status: Acute Assessment and Plan: * see above (4) COVID-19 ruled out: Code(s): Z20.822 - Contact with and (suspected) exposure to COVID-19 Status: Acute Assessment and Plan: * will consider COVID swab if patient requires more oxygen * currently treating as a COPD exacerbation (5) Sleep apnea with use of continuous positive airway pressure (CPAP): Code(s): G47.30 - Sleep apnea, unspecified Status: Acute Assessment and Plan: * continue home CPAP * respiratory care (6) Anxiety and depression: Code(s): F41.9 - Anxiety disorder, unspecified; F32.9 - Major depressive disorder, single episode, unspecified Status: Acute Assessment and Plan: * continue home Wellbutrin 150 mg p.o. daily * continue home Xanax 0.25 mg p.o. t.i.d. p.r.n. * trend symptoms * adjust medications as needed (7) Essential (primary) hypertension: Code(s): I10 - Essential (primary) hypertension Status: Acute Assessment and Plan: * blood pressure in the ER was 191/89 upon arrival * continue home Bystolic 10 mg p.o. daily * trend blood pressures * adjust medications as needed (8) Acute and chronic respiratory failure: Code(s): J96.20 - Acute and chronic respiratory failure, unspecified whether with hypoxia or hypercapnia Status: Acute Assessment and Plan: * oxygen saturation has been above 90 with supplemental oxygen * patient currently on * wean to maintain oxygen saturation greater than 90% (9) Malnutrition: Code(s): E46 - Unspecified protein-calorie malnutrition Status: Acute Assessment and Plan: * Very thin in appearance * BMI 18.9 kg/m2 * Packer Fuser consult * Regular diet DS: Summary Hospital Course Hospital Course: date of service 03/30/2021 in 9:25 a.m. Patient is an 80-year-old female who presente
--- NOTE | 2021-03-30 09:25 | PM.DS ---
DS: Admitting Diagnosis Admitting Diagnosis COPD exacerbation DS: Discharge Diagnosis Discharge Diagnosis (1) Acute exacerbation of chronic obstructive pulmonary disease: Code(s): J44.1 - Chronic obstructive pulmonary disease with (acute) exacerbation Status: Acute Assessment and Plan: Patient on chronic O2 at home 2 L at rest 5 L with exertion patient looks very short of breath at this time with accessory muscle use CTA shows severe emphysema, mild bronchiectasis, mucous plugging the right lower lobe, And bronchial tree infiltrate patient quit smoking 20 days ago. BNP mildly elevated at 832 methylprednisone 60 mg IV push Q 8 Levaquin 750 mg Q 48 supplemental oxygen to maintain a sat above 90% Atrovent nebulizer and albuterol nebs Q 6 p.r.n. for shortness of breath or wheezing singular 10 mg p.o. daily blood cultures pending pulmonology consult DVT lovenox (2) Bronchiectasis: Qualifiers: Bronchiectasis type: with acute exacerbation Qualified Code(s): J47.1 - Bronchiectasis with (acute) exacerbation Code(s): J47.9 - Bronchiectasis, uncomplicated Status: Acute Assessment and Plan: CTA shows mild bronchiectasis sputum culture ordered Levaquin 750 IV Q 48 see above (3) Pulmonary hypertension: Code(s): I27.20 - Pulmonary hypertension, unspecified Status: Acute Assessment and Plan: see above (4) COVID-19 ruled out: Code(s): Z20.822 - Contact with and (suspected) exposure to COVID-19 Status: Acute Assessment and Plan: will consider COVID swab if patient requires more oxygen currently treating as a COPD exacerbation (5) Sleep apnea with use of continuous positive airway pressure (CPAP): Code(s): G47.30 - Sleep apnea, unspecified Status: Acute Assessment and Plan: continue home CPAP respiratory care (6) Anxiety and depression: Code(s): F41.9 - Anxiety disorder, unspecified; F32.9 - Major depressive disorder, single episode, unspecified Status: Acute Assessment and Plan: continue home Wellbutrin 150 mg p.o. daily continue home Xanax 0.25 mg p.o. t.i.d. p.r.n. trend symptoms adjust medications as needed (7) Essential (primary) hypertension: Code(s): I10 - Essential (primary) hypertension Status: Acute Assessment and Plan: blood pressure in the ER was 191/89 upon arrival continue home Bystolic 10 mg p.o. daily trend blood pressures adjust medications as needed (8) Acute and chronic respiratory failure: Code(s): J96.20 - Acute and chronic respiratory failure, unspecified whether with hypoxia or hypercapnia Status: Acute Assessment and Plan: oxygen saturation has been above 90 with supplemental oxygen patient currently on wean to maintain oxygen saturation greater than 90% (9) Malnutrition: Code(s): E46 - Unspecified protein-calorie malnutrition Status: Acute Assessment and Plan: Very thin in appearance BMI 18.9 kg/m2 Hotel Operation Manager consult Regular diet DS: Summary Hospital Course Hospital Course: date of service 03/30/2021 in 9:25 a.m. Patient is an 80-year-old female who presented to the emergency room with shortness of breath and right-sided chest burning. Since admission the chest pain has subsided. CTA showed severe anemia and focal tree-in-bud infiltrate of the left lower lobe. CT also showed atelectasis and scarring. Patient also complained of left groin pain. Venous Dopplers were completed which showed no DVTs. Pulmonology was consulted and recommended that patient continue current medications along with current antibiotics and steroids. Labs on admission were unremarkable with a white blood cell count of 6.5 hemoglobin hematocrit 12.8/39.6, sodium of 135, potassium of 4.1
[2021-03-30] MEDS: BUMETANIDE INJ 1 MG/4 ML VIAL IV PUSH (10:21)
--- NOTE | 2021-03-30 15:39 | HOMEO2EVAL ---
Evaluation was performed at [facility] Home Oxygen Evaluation RC: Home Oxygen (O2) Evaluation Start: 03/30/21 09:14 Freq: ONCE Status: Active Protocol: RPE Activity Type Activity Date Activity User E-Sign Co-Sign Detail Recorded Client Recorded Date Recorded By Document 03/30/21 15:00 [email or web address] [email or web address] 03/30/21 15:39 DAVID Document 03/30/21 15:02 [email or web address] [email or web address] 03/30/21 15:39 DAVID Document 03/30/21 15:03 DAVID [email or web address] 03/30/21 15:39 DAVID Document 03/30/21 15:10 [email or web address] [email or web address] 03/30/21 15:39 DAVID Document 03/30/21 15:11 DAVID [email or web address] 03/30/21 15:39 DAVID Document 03/30/21 15:12 DAVID [email or web address] 03/30/21 15:39 DAVID Document 03/30/21 15:13 DAVID [email or web address] 03/30/21 15:39 DAVID Document 03/30/21 15:25 DAVID [email or web address] 03/30/21 15:39 DAVID 03/30/21 03/30/21 03/30/21 15:00 15:02 15:03 Home O2 Evaluation Test Phase Resting Resting Resting Oxygen Delivery Room Air Nasal Cannula Nasal Cannula Oxygen Flow Rate (L/min) 1 2 Pulse Oximetry (90-100 %) 87 L 87 L 93 Home Oxygen Evaluation Comments Treatment Charges O2 Evaluation - Inpatient 03/30/21 03/30/21 03/30/21 15:10 15:11 15:12 Home O2 Evaluation Test Phase Exercise Exercise Exercise Oxygen Delivery Nasal Cannula Nasal Cannula Nasal Cannula Oxygen Flow Rate (L/min) 2 3 4 Pulse Oximetry (90-100 %) 85 L 86 L 87 L Home Oxygen Evaluation Comments Treatment Charges 03/30/21 03/30/21 15:13 15:25 Home O2 Evaluation Test Phase Exercise Resting Oxygen Delivery Nasal Cannula Nasal Cannula Oxygen Flow Rate (L/min) 5 2 Pulse Oximetry (90-100 %) 89 L 90 Home Oxygen Evaluation Comments Pt requires 2 l at rest and 5 l with exertion Treatment Charges
--- NOTE | 2021-03-30 15:39 | PCRCNOTE ---
Home O2 eval completed. No changes from home setting. I will fax IV Resp care new updated home O2 eval. Pt also has a CPAP unit with [facility] Resp [facility]. Unit is older, from 2012, in working condition. I spoke to them in regards to equipment, they ensured that all her O2 and CPAP equipment is in good working condition, they will have a RT access the CPAP pressures once discharged home to make sure the unit is providing adequate PAP. Pt will need a new sleep study in order to receive a new CPAP unit. ALSO, PT IS REQUESTING PORTABLE O2 CONCENTRATOR.
== END 2021-03-30 16:15 | disposition home or self-care (01) ==
LOC: ANHED 03-29 00:10 → ANH2MED 03-30 07:16
PROVIDERS: Nurse Practitioner; Admitting Provider Internal Medicine; Emergency Provider Emergency Medicine; PCP Family Medicine; Visit Provider Student in an Organized Health Care Education/Training Program
DX: J47.1 Bronchiectasis with (acute) exacerbation (principal); R07.9 Chest pain, unspecified; E46 Unspecified protein-calorie malnutrition; I10 Essential (primary) hypertension; I27.20 Pulmonary hypertension, unspecified; F41.8 Other specified anxiety disorders; G47.33 Obstructive sleep apnea (adult) (pediatric); Z87.891 Personal history of nicotine dependence; Z99.81 Dependence on supplemental oxygen; R06.02 Shortness of breath
CPT/HCPCS: 36415; 70450; 71045; 71275; 80053; 83605; 83880; 84484; 85025; 85027; 85610; 85730; 87040; 93005; 93970; 94618; 94640; 96365; 96372; 96375; 96376; 99285; A9270; G0378; J1170; J1650; J1956; J2270; J2405; J2930; J7512; Q9967

== ENCOUNTER 2021-06-02 15:00 | Outpatient (CLI) | payer MEDICARE, SELFPAY ==
[2021-06-02] VITALS (9 sets, daily range): PULSE 68–93; O2SAT 80–90
--- NOTE | 2021-06-02 15:36 | HOMEO2EVAL ---
Evaluation was performed at [facility] Home Oxygen Evaluation RC: Home Oxygen (O2) Evaluation Start: 06/02/21 15:31 Freq: Status: Active Protocol: RPE Activity Type Activity Date Activity User E-Sign Co-Sign Detail Recorded Client Recorded Date Recorded By Document 06/02/21 14:40 [email or web address] [email or web address] 06/02/21 15:36 DJO Document 06/02/21 14:45 [email or web address] [email or web address] 06/02/21 15:36 DJO Document 06/02/21 14:50 [email or web address] [email or web address] 06/02/21 15:36 DJO Document 06/02/21 14:55 [email or web address] [email or web address] 06/02/21 15:36 DJO Document 06/02/21 15:00 [email or web address] [email or web address] 06/02/21 15:36 DJO Document 06/02/21 15:05 [email or web address] [email or web address] 06/02/21 15:36 DJO Document 06/02/21 15:10 [email or web address] [email or web address] 06/02/21 15:36 DJO Document 06/02/21 15:15 [email or web address] [email or web address] 06/02/21 15:36 DJO Document 06/02/21 15:30 [email or web address] [email or web address] 06/02/21 15:36 DJO 06/02/21 06/02/21 06/02/21 14:40 14:45 14:50 Home O2 Evaluation Test Phase Resting Resting Resting Oxygen Delivery Room Air Nasal Cannula Nasal Cannula Oxygen Flow Rate (L/min) 1 2 Pulse Oximetry (90-100 %) 86 L 88 L 90 Pulse Rate (60-100 beats/min) 70 69 71 Activity Tolerance Ambulation Distance (feet) Treatment Charges O2 Evaluation - Outpatient 06/02/21 06/02/21 06/02/21 14:55 15:00 15:05 Home O2 Evaluation Test Phase Exercise Exercise Exercise Oxygen Delivery Nasal Cannula Nasal Cannula Nasal Cannula Oxygen Flow Rate (L/min) 2 3 4 Pulse Oximetry (90-100 %) 80 L 84 L 86 L Pulse Rate (60-100 beats/min) 79 80 92 Activity Tolerance Ambulation Distance (feet) Treatment Charges 06/02/21 06/02/21 06/02/21 15:10 15:15 15:30 Home O2 Evaluation Test Phase Exercise Exercise Resting Oxygen Delivery Nasal Cannula Nasal Cannula Nasal Cannula Oxygen Flow Rate (L/min) 5 6 2 Pulse Oximetry (90-100 %) 88 L 90 90 Pulse Rate (60-100 beats/min) 93 91 68 Activity Tolerance Fair Ambulation Distance (feet) 100 Treatment Charges
--- NOTE | 2021-06-07 13:02 | WPDPFTINT ---
PFT Procedure Performed PFT Procedure Performed Spirometry with Pre/Post Bronchodilator Diffusing Cap (DLCO) Flow Vol Loop PFT Interpretation Spirometry showed diminished expiratory flow rates and diminished FEV1 to FVC ratio of 33%, consistent with severe obstructive airway disease. Following administration of a bronchodilator, there was significant increase in the forced vital capacity. Lung diffusion capacity is severely reduced at 70% of predicted. Flow volume loop is consistent with severe emphysema. Impression: Severe obstructive airway disease with significant response to bronchodilators on this testing. Severely reduced lung diffusion capacity.
== END 2021-06-02 15:01 | disposition home or self-care (01) ==
PROVIDERS: PCP Family Medicine; Visit Provider Internal Medicine Critical Care Medicine
DX: J96.11 Chronic respiratory failure with hypoxia (principal); J43.8 Other emphysema; R94.2 Abnormal results of pulmonary function studies
CPT/HCPCS: 94060; 94618; 94726; 94729

== ENCOUNTER 2021-06-26 17:44 | Inpatient (IN) | payer MEDICARE, SELFPAY ==
[2021-06-26] VITALS (31 sets, daily range): BP systolic 113–157; BP diastolic 58–83; PULSE 69–87; RESP 15–35; TEMP 36.5–36.6; O2SAT 87–100; BMI 20.9
--- NOTE | ~2021-06-26 | XR_ITS ---
EXAMINATION: XR chest 1V portable DATE: 07/02/2021 05:43 INDICATION: COPD TECHNIQUE: frontal view of the chest was obtained. COMPARISON: Chest radiograph dated 07/01/2021 FINDINGS: Emphysema with hyperexpansion of lungs and increased lucency and architectural distortion in the bila teral upper and right mid lung zones. Suture line is seen in the right lower lung zone. A few calcifi ed nodules in the right lung consistent with old granulomatous disease. Small right pleural effusion with blunting at the costophrenic angle. No other airspace opacities, pulmonary edema or pneumothorax . The cardiomediastinal silhouette is normal. Right rotator cuff tear. IMPRESSION: 1. Emphysema. No acute cardiopulmonary disease. Reviewed, dictated and finalized at location A.
--- NOTE | ~2021-06-26 | XR_ITS ---
EXAMINATION: XR barium swallow modified EXAM DATE: 06/29/2021 13:36 INDICATION: Possible aspiration - recurrent COPD exacerbations. TECHNIQUE: Modified barium esophagram was performed by speech pathologist with radiologist Dr. Arie Samuels present to administered fluoroscopy. Speech pathologist administered barium in varying consis tencies as per speech pathologist documentation. This was recorded on tape. There was total fluorosc opic time of 1.1 minutes. The DAP for this procedure was 0.7 Gycm2. A total of 2 images sent to PAC S from the exam. FINDINGS: Oral stage: Adequate function. Pharyngeal phase: Reduced laryngeal elevation. Laryngeal penetration: Demonstrated, cleared. Aspiration: Not suspected. IMPRESSION: Penetration demonstrated; Please refer to speech pathologist findings and specific feedi ng recommendations. Reviewed, dictated and finalized at location A. IMPRESSION: Penetration demonstrated; Please refer to speech pathologist findi ngs and specific feeding recommendations.
--- NOTE | ~2021-06-26 | XR_ITS ---
XR chest 1V portable 06/26/2021 18:06 Indication: Shortness of breath. Hypertension. Emphysema. Procedure: AP portable chest Comparison: 03/28/2021 and 10/19/2020 Findings: Heart size normal. There is atherosclerosis. There are postsurgical changes consistent with partial right lobectomy. There is calcified nodule right mid lung, likely granulomatous disease. The re are chronic interstitial infiltrates of the lower lungs bilaterally. Chronic right pleural thicken ing. The lungs are hyperinflated which is consistent with, but not diagnostic of chronic obstructive pulmonary disease. No acute focal pneumonia, edema or effusion. Impression: No acute cardiopulmonary disease. 1: Reviewed, dictated and finalized at location A. Impression: No acute cardiopulmonary disease. 1:
--- NOTE | ~2021-06-26 | XR_ITS ---
EXAMINATION: XR chest 1V portable INDICATION: Cough TECHNIQUE: Portable AP chest at 0841 hours COMPARISON: 06/28/2021 FINDINGS: The lungs are free of acute opacities. There is no pleural effusion or pneumothorax. The ca rdiomediastinal silhouette is normal. A surgical staple line is present in the right lung base. There is a calcified nodule of the right midlung zone, consistent with old granulomatous disease. Enteric contrast from recent barium swallow partially opacifies the bowel. IMPRESSION: 1. No acute cardiopulmonary abnormality. Reviewed, dictated and finalized at location B.
--- NOTE | ~2021-06-26 | CT_ITS ---
EXAMINATION: CTA chest PE protocol DATE: 06/29/2021 08:59 INDICATION: Worsening shortness of breath and cough TECHNIQUE: Computed tomography angiography (CTA) of the chest was performed with 100 mL Omnipaque-350 intravenous contrast timed to evaluate the pulmonary arteries. Coronal maximum intensity projection 3D-reconstructions were created by the technologist. The dose-length product (DLP) was 196.33 mGy-cm. Automated exposure control and iterative reconstruction technique were employed. COMPARISON: 03/28/2021 FINDINGS: The pulmonary arteries are well-opacified. No pulmonary embolism is identified. There is se tiffany emphysema. There is atelectasis of the lingula. Stable pulmonary nodules measuring up to 4 mm in the left lower lobe are consistent with old granulomatous disease. The lungs are free of acute airsp josesito opacities. Calcified pulmonary nodules and calcified right hilar lymph nodes are consistent with old granulomatous disease. No pathologically enlarged thoracic lymph nodes are identified. The heart size is normal. The gallbladder is surgically absent. Punctate calcifications in an otherwise normal spleen likely represent healed granulomatous disease. There is moderate thoracic spondylosis. IMPRESSION: 1. No pulmonary embolism or acute cardiopulmonary abnormality. 2. Severe emphysema. Reviewed, dictated and finalized at location B.
--- NOTE | ~2021-06-26 | XR_ITS ---
EXAMINATION: XR chest 1V portable INDICATION: Worsening shortness of breath TECHNIQUE: Portable AP chest at 1359 hours COMPARISON: 06/26/2021 FINDINGS: Lucencies in the upper lung zones are consistent with emphysema. The lungs are free of acut e opacities. There is no pleural effusion or pneumothorax. The cardiomediastinal silhouette is normal . IMPRESSION: 1. No acute cardiopulmonary abnormality. Reviewed, dictated and finalized at location B.
[2021-06-26 18:17] LABS: Basophils Percent Auto 0.7 % (0.2-1.2); Eosinophils Absolute Auto 0.1 K/mm3 (0-0.3); Eosinophils Percent Auto 1.4 % (0-4.4); Hematocrit 44.2 % (37.0-47.0); Hemoglobin 14.6 g/dL (12.0-15.0); Immature Granulocyte Absolute 0.03 K/mm3 (0.00-0.031); Immature Granulocyte Percent A 0.5 % (0-0.5); Lymphocytes Absolute Auto 0.59 K/mm3 (0.9-3.2); Lymphocytes Percent Auto 10.6 % (18.3-44.2); Mean Corpuscular Hemoglobin 31.3 pg (26-34); Mean Corpuscular Volume 94.6 fl (80-100); Mean Platelet Volume 9.5 fl (7.4-10.4); Monocytes Absolute Auto 0.8 K/mm3 (0.1-0.6); Monocytes Percent Auto 14.5 % (2.6-8.5); Neutrophils Percent Auto 72.3 % (45.5-73.1); Platelet Count Result 220 k/mm3 (150-375); Red Blood Count 4.67 M/mm3 (4.2-5.4); Red Cell Distribution Width 13.2 % (11.5-14.5); White Blood Count 5.6 K/mm3 (4.5-10.0)
[2021-06-26] MEDS: IPRATROPIUM BR 0.02% INH SOLN 0.5 MG/2.5 ML VIAL 1 MG INHALATION (18:17)
[2021-06-26] MEDS: ALBUTEROL SULFATE NEB 2.5 MG/0.5 ML INH 15 MG INHALATION (18:17)
[2021-06-26 18:22] LABS: Alveolar/Arterial O2 Gradient 272.3 mmHg; Base Excess ABG -1.2 mEq/l (+/-2.0); Fractional Inspired Oxygen 100 %; HCO3 ABG 23.5 mEq/l (22.0-26.0); Oxygen Content ABG 20.9 %vol (16.0-22.0); Oxygen Saturation ABG 99.8 % (95.0-100.0); Oxyhemoglobin 98.3 % THb (90.0-100.0); PCO2 ABG 39.2 mmHg (35.0-45.0); PO2 ABG 401.5 mmHg (80.0-100.0); PO2 FiO2 Ratio Arterial Blood 4.01 %; Total Hemoglobin 14.4 g/dL (12.0-18.0); pH ABG 7.395 (7.350-7.450)
[2021-06-26 18:23] LABS: Device NON-INVASIVE VENT; Site Drawn RIGHT BRACHIAL
[2021-06-26 18:24] LABS: Non-Invasive Expiratory Pressure 10 CMH2O; Non-Invasive Inspiratory Pressure 16 CMH2O; Non-Invasive Vent Rate 4 /MIN
[2021-06-26 18:32] LABS: Alanine Aminotransferase 20 U/L (4-35); Albumin Level 5.1 g/dL (3.5-5.1); Alkaline Phosphatase 82 U/L (38-126); Anion Gap 12 mmol/L (8-16); Aspartate Amino Transferase 38 U/L (14-36); Bilirubin,Total 0.5 mg/dL (0.2-1.3); Blood Urea Nitrogen 22 mg/dL (7-17); Calcium 9.9 mg/dL (8.4-10.2); Carbon Dioxide 27 mmol/L (22-30); Chloride 92 mmol/L (98-107); Estimated CRCL calculation 45 ml/min; Estimated Glomerular Filt Rate > 60; Glucose 117 mg/dL (65-110); Potassium 4.6 mmol/L (3.4-5.0); Sodium 131 mmol/L (137-145)
[2021-06-26 18:57] LABS: Troponin I < 0.012 ng/mL (0.000-0.034)
[2021-06-26 19:16] LABS: NT Pro B Type Natriuretic Pept 575 pg/mL (5-100)
--- NOTE | 2021-06-26 19:23 | PC.NURSE ---
assuming care of pt at this time. report from ZHANNA Jung.
--- NOTE | 2021-06-26 19:48 | PC.NURSE ---
ED Respiratory notified to wean pt off of bipap per EDP Benito.
--- NOTE | 2021-06-26 20:33 | PC.NURSE ---
pt on 5L via nasal cannula at 97%
--- NOTE | 2021-06-26 21:14 | ED.SOB ---
HPI - SOB/Dyspnea General Chief Complaint: Shortness of Breath/Dyspnea Stated Complaint: RESPIRATORY DISTRESS Time Seen by Provider: 06/26/21 17:54 Source: EMS Mode of arrival: EMS Limitations: physical limitation and clinical condition History of Present Illness HPI Narrative: 81-year-old female Arrives from her apartment per EMS with extreme respiratory distress Sounds like the patient had called the daughter and the daughter called the ambulance but was not there when they arrived Patient is known to have bad COPD, O2 dependent at 5 L with exertion and uses CPAP at night Patient is gasping and speaking in single words and cannot really get much more from her than that EMS opted to place her on CPAP, and they also gave her Decadron and magnesium, but they could not give her bronchodilators because their CPAP does not have a circuit to add them to Related Data Home Medications Medication Instructions Recorded Confirmed guaifenesin [Mucinex] 600 mg PO Q12H 10/19/20 05/18/21 Breztri Aerosphere 2 inh INHALATION BID 03/29/21 05/18/21 acetaminophen 650 mg PO QID PRN 03/29/21 05/18/21 bupropion HCl [Wellbutrin XL] 150 mg PO QAM 03/29/21 05/18/21 escitalopram oxalate [Lexapro] 20 mg PO DAILY 03/29/21 05/18/21 melatonin 12 mg tablet 12 mg PO QHS tablet 05/18/21 05/18/21 Allergies Allergy/AdvReac Type Severity Reaction Status Date / Time clarithromycin Allergy Mild rash and Verified 05/18/21 09:47 itching alendronate sodium Allergy Unknown Unknown Verified 05/18/21 09:47 mold Allergy Unknown Unknown Verified 05/18/21 09:47 Penicillins Allergy Unknown SWELLING Verified 05/18/21 09:47 AND RASH,Unknown Review of Systems Review of Systems: ROS unobtainable: Yes unobtainable due to medical condition PMFSH Past Medical History Medical History Chronic shoulder pain Essential (primary) hypertension Hypoxia Nontraumatic tear of muscle or tendon of rotator cuff of both shoulders Patent foramen ovale Pulmonary hypertension Rotator cuff arthropathy of both shoulders SI joint arthritis Spontaneous pneumothorax Family History Family History Sibling Family history of cardiovascular disease Family history of arthritis Father Family history of throat cancer Family history of arthritis Mother Family history of arthritis Family history of Alzheimer's disease Other Family history of malignant neoplasm Social History Social History Smoking packs per day: 0.5 Smoking cigarettes per day: 10.0 Smoking end date: 08/28/99 Alcohol intake: former Substance use: never Spiritual care concerns: No Exam Const: General: cooperative and alert HENMT: Head: normal to inspection, normocephalic and atraumatic Ears: external ears normal General nose exam: no epistaxis Other: She is on CPAP full face Eyes: Conjunctivae: conjunctivae normal EOM: EOMs intact bilaterally Neck: Neck: normal visual inspection, supple and no JVD Other: Positive JVD Resp: Effort & Inspection: labored Auscultation: no rales, no rhonchi, wheezes, diminished lung sounds and other (BS =) Cardio: Rate: regular rate and tachycardic Rhythm: regular rhythm Heart sounds: no murmurs GI: GI Palp: Yes Soft to palpation, No Guarding due to palpation present (GI) and No Rebound tenderness present Skin: General skin exam: normal color and no rashes or lesions noted Neuro: General: moves all extremities Extrem: General: no pedal edema Course Course Emergency Course: She was transitioned to BiPAP at 16/10 and given an hour-long albuterol treatment and responded very well and was able to be weaned off of the BiPAP and back to her usual baseline 5 L oxygen nasal cannula She did receive a dose of doxycycline in case of a bacterial exacerbation of COPD Discussed with hos
--- NOTE | 2021-06-26 21:16 | PM.IMHP ---
H&P: HPI History of Present Illness Date/Time: 06/26/21 21:16 Chief Complaint: Shortness of breath Narrative: This is an 81-year-old female with past medical history significant for COPD/emphysema/chronic bronchitis, on supplemental oxygen at home 2 L at rest and 5 L with exercise, patient is on CPAP at nighttime, former tobacco user. Patient was brought in today via EMS due to worsening shortness of breath upon EMS arrival patient was in severe respiratory distress. At the time of my visit patient had been on BiPAP and was able to speak in full sentences she explained the [place] she has had copious amount of secretions which are yellow color sputum which is a change from her usual which is whitish also has had worsening shortness of breath. She denies any chills, any rigors ,any fever, no dizziness, no lightheadedness, no near syncope, or syncope, no leg swelling, no claudication. Patient also has noted that she has lost roughly 17 lb in about a year or so unintentional and has had poor appetite. Preliminary workup was unrevealing. Review of Systems Review of Systems: Worsening shortness of breath copious amount of secretions change in sputum color Constitutional: Constitutional: Denies chills, Denies fatigue, Denies fever(s), Denies lethargy, Denies malaise, Denies night sweats, Reports poor appetite and Denies weakness Eyes: Eyes: Denies change in vision ENT: Denies dysphagia, Denies nasal congestion, Denies nasal discharge, Denies nasal obstruction and Denies odynophagia Cardiovascular: Cardiovascular: Denies pedal edema, Denies irregular heart rhythm, Denies leg edema, Denies lightheadedness, Denies radiating jaw, neck or arm pain, Denies palpitations and Denies orthopnea Respiratory: Respiratory: Reports change in phlegm color, Reports cough, Reports excessive phlegm production, Reports dyspnea and Reports wheezing Gastrointestinal: Gastrointestinal: Denies abdominal pain, Denies dyspepsia, Denies heartburn, Denies diarrhea, Denies nausea and Denies vomiting Genitourinary: Genitourinary: Denies dysuria and Denies flank pain Musculoskeletal: Musculoskeletal: Denies myalgias, Denies arthralgias, Denies joint swelling and Denies muscle weakness Integumentary/Breasts: Skin/Breast: Denies rash Neurologic: Denies focal weakness and Denies Sensory deficit (Neuro) Psychiatric: Psychiatric: Reports no additional psychiatric complaints and Reports as per HPI Endocrine: Endocrine: Reports no additional endocrine complaints and Reports as per HPI Hematologic/Lymphatic: Hematologic/Lymphatic: Reports no additional hematologic/lymphatic complaints and Reports as per HPI Allergic/Immunologic: Allergic/Immunologic: Reports no additional allergic/immunologic complaints and Reports as per HPI PMFSH Past Medical History Medical History Chronic shoulder pain Essential (primary) hypertension Hypoxia Nontraumatic tear of muscle or tendon of rotator cuff of both shoulders Patent foramen ovale Pulmonary hypertension Rotator cuff arthropathy of both shoulders SI joint arthritis Spontaneous pneumothorax Family History Family History Sibling Family history of cardiovascular disease Family history of arthritis Father Family history of throat cancer Family history of arthritis Mother Family history of arthritis Family history of Alzheimer's disease Other Family history of malignant neoplasm Social History Social History (Updated 06/26/21 @ 23:01 by Shy Le RN) Smoking packs per day: 0.5 Smoking cigarettes per day: 10.0 Smoking status: Former smoker Tobacco type: cigarettes Smoking end date: 08/28/99 Alcohol intake: former Substance use: never Living arrangements: alone Occupation/Education: retired Spiritual care concerns: No Meds Home Medications and Allergies Home Medications Medication
[2021-06-26] MEDS: ACETAMINOPHEN 500 MG TABLET 1000 MG PO (21:23)
[2021-06-26] MEDS: HYDROmorphone HCL INJ (*CRX) 1 MG/ML SYR 2 MG IV PUSH (21:24)
--- NOTE | 2021-06-26 22:04 | PC.NURSE ---
pt O2 saturation was 86% on 5L nasal cannula. EDP Benito aware. ED Respiratory notified and will place pt on cpap. placed pt on 10L via venturi mask until ED respiratory arrives.
[2021-06-26] MEDS: ALBUTEROL SULFATE NEB 2.5 MG/0.5 ML INH 5 MG INHALATION (22:11)
[2021-06-26] MEDS: IPRATROPIUM BR 0.02% INH SOLN 0.5 MG/2.5 ML VIAL INHALATION (22:11)
--- NOTE | 2021-06-26 22:38 | ADMGEN ---
This patient, Jolie Starr, was admitted to Medical Room 341-01. Patient/family oriented to hospital policies and general routines including ID bracelet, bed and alarms, visiting hours, pain management, procedures, bathroom and other care routines, personal items, smoking policy, room service/diet, and visiting hours. Information on how to activate the Rapid Response Team has been discussed. Patient/Family are encouraged to report perceived risks to care and to ask questions if they do not understand what they are told or what they should do.
[2021-06-26] MEDS: LACTATED RINGERS 1,000 ML 40 ML IV CONT (22:50)
[2021-06-27] VITALS (22 sets, daily range): BP systolic 113–154; BP diastolic 56–77; PULSE 64–101; RESP 16–30; TEMP 36.3–37.1; O2SAT 91–99
[2021-06-27] MEDS: ALBUTEROL SULFATE (*SP) AEROSOL 1 PUFF 2 PUFF INHALATION (02:40)
[2021-06-27] MEDS: ALPRAZolam (*CRX) 0.25 MG TABLET PO ×2 (06:40→14:15)
[2021-06-27] MEDS: ALBUTEROL SULFATE NEB 2.5 MG/0.5 ML INH 5 MG INHALATION ×3 (08:19→18:53)
[2021-06-27] MEDS: IPRATROPIUM BR 0.02% INH SOLN 0.5 MG/2.5 ML VIAL INHALATION ×3 (08:19→18:54)
[2021-06-27] MEDS: IPRATROPIUM NASAL SPRAY 0.03% 15 ML BOTTLE 2 SPRAY NASAL ×2 (08:48→14:15)
[2021-06-27] MEDS: ENOXAPARIN 40 MG/0.4 ML SYRINGE SUB-Q (08:48)
[2021-06-27] MEDS: OLMESARTAN MEDOXOMIL 20 MG TABLET 40 MG PO (08:49)
[2021-06-27] MEDS: NEBIVOLOL HCL 5 MG TABLET 10 MG PO (08:49)
[2021-06-27] MEDS: MONTELUKAST SODIUM 10 MG TABLET PO (08:49)
[2021-06-27] MEDS: ESCITALOPRAM OXALATE 10 MG TABLET 20 MG PO (08:50)
[2021-06-27] MEDS: PANTOPRAZOLE 40 MG TABLET PO (08:50)
[2021-06-27] MEDS: buPROPion HCL XL (24 HR) 150 MG TABCR PO (08:50)
[2021-06-27] MEDS: guaiFENesin 12 HR 600 MG TABCR PO ×2 (08:50→20:29)
[2021-06-27] MEDS: predniSONE 20 MG TABLET 60 MG PO (11:06)
--- NOTE | 2021-06-27 13:46 | PM.IMPN ---
Progress Note: A&P Assessment and Plan (1) Acute exacerbation of chronic obstructive pulmonary disease (COPD): Code(s): J44.1 - Chronic obstructive pulmonary disease with (acute) exacerbation Status: Acute Assessment and Plan: Admit to regular medical floor Continue supplemental oxygen Continue CPAP at nighttime Breathing treatments scheduled with albuterol and ipratropium Q6hrs She had been started on PO Prednisone, which after evaluating her at bedside I decided to Add IV Solu-medrol 40 mg Q6hrs Continue with IV Doxycyline for atypicals, CXR showed no acute cardiopulmonary abnormality. Consulted Residential Direct Support Professional, Dr. Oconnor who will see the patient tomorrow morning Supportive care (2) Acute and chronic respiratory failure: Code(s): J96.20 - Acute and chronic respiratory failure, unspecified whether with hypoxia or hypercapnia Status: Acute Assessment and Plan: Patient was able to be weaned to her baseline, 2L at rest and 5L with exertion Continue to monitor Supportive care (3) Sleep apnea with use of continuous positive airway pressure (CPAP): Code(s): G47.30 - Sleep apnea, unspecified Status: Acute Assessment and Plan: Continue the use of CPAP at nighttime (4) Essential (primary) hypertension: Code(s): I10 - Essential (primary) hypertension Status: Acute Assessment and Plan: BLood pressure slightly elevated this morning prior to medications, 153/77. Continue home meds Continue to monitor (5) Osteoarthritis of multiple joints: Code(s): M15.9 - Polyosteoarthritis, unspecified Status: Acute Assessment and Plan: Tylenol as needed Time Spent With Patient Time with patient: 25 - 35 minutes Subjective Date/time seen: 06/27/21 13:46 Interval history: Date of Service 06/27/21: She reports feeling about 80% back to her baseline. She is still having bilateral ear pain, sore throat. She is having more of a cough after her breathing treatments which she has not had for a while. When she came in she reported not being able to breath and feeling like she had been kicked in the chest, now it is a little better but still very dyspneic with slight exertion. Denies any fever, chills, nausea, vomiting, abdominal pain, leg swelling, calf pain, or any other symptoms at this time. Review of Systems Review of Systems: All systems reviewed & are unremarkable except as noted in HPI and below Exam Narrative: General: 81-year-old woman sitting on the side of the bed and just gotten up from the bedside commode and dyspneic, tachypneic but slowly recovering while at rest. Appears uncomfortable with her breathing, but I would not say she was in respiratory distress. HEENT: Posterior pharynx is erythematous and slightly edematous with small amount of white spots on her Uvula. No white pustules to tonsils or white plaque to tongue. Bilateral ears are clear, no erythema, fluid behind her ears. Skin: No jaundice or cyanosis. Good skin turgor. Neck: Full range of motion. Supple. Respiratory: Decreased breath sounds bilaterally, could not ausculate wheezing ,rales or rhonchi. No bony chest wall tenderness. Cardiovascular: The heart has a regular rate and rhythm without murmur. Lower extremities: No lower extremity edema. Distal pulses are easily palpated. No calf tenderness to palpation. Gastrointestinal: The abdomen is soft, nontender and nondistended with active bowel sounds. Psychiatric: Lucid and oriented. Memory intact. Neurologic: No focal deficits. Speech is clear. No facial drooping. Objective Data Vital Signs Vital Signs: Vital Signs - 24 hr 06/26/21 17:46 06/26/21 17:57 06/26/21 17:58 Temperature 97.7 F Pulse Rate 74 75 75 Respiratory Rate 22 H 23 H 17 Blood Pressure 157/83 H 157/83 H Pulse Oximetry 97 87 L 98 06/26/21 18:00 06/26/21 18:01 06/26/21 18:15 Temperature Pulse Rate 76 75 70 Respir
[2021-06-27] MEDS: SALINE 0.65% NAS SOLN 44 ML BTL 1 SPRAY NASAL (15:05)
[2021-06-27] MEDS: BENZOCAINE/MENTHOL (*BKC) 18 EA LOZENGE 1 LOZENGE PO (15:06)
[2021-06-27] MEDS: NYSTATIN 100,000 UNITS/ML SUSP 5 ML ORAL.SUSP PO ×2 (16:58→20:29)
[2021-06-27] MEDS: methylPREDNISolone SOD SUCC 40 MG VIAL IV PUSH (17:00)
[2021-06-27] MEDS: traMADol HCL (*CRX) 50 MG TABLET PO (17:28)
[2021-06-27] MEDS: TEMAZEPAM (*CRX) 15 MG CAPSULE 30 MG PO (20:25)
[2021-06-27] MEDS: MELATONIN 3 MG TABLET 12 MG PO (20:26)
[2021-06-27] MEDS: SODIUM CHLORIDE NASAL GEL 14.1 GM 1 APPLIC NASAL (20:27)
[2021-06-27] MEDS: PREDNISOLONE ACETATE 0.12% 1 DROP EACH EYE (20:29)
[2021-06-27] MEDS: DOCUSATE SODIUM 100 MG CAPSULE PO (20:29)
[2021-06-27] MEDS: PHENOL/SOD PHENO SPRAY CHERRY (*BKC) 1 SPRAY MUCOUS MEM (20:38)
[2021-06-28] VITALS (25 sets, daily range): BP systolic 140–165; BP diastolic 55–86; PULSE 72–93; RESP 16–26; TEMP 36.1–36.5; O2SAT 91–100; BMI 20.9
[2021-06-28] MEDS: ALPRAZolam (*CRX) 0.25 MG TABLET PO ×3 (00:10→20:27)
[2021-06-28] MEDS: LACTATED RINGERS 1,000 ML 40 ML IV CONT (00:11)
[2021-06-28] MEDS: methylPREDNISolone SOD SUCC 40 MG VIAL IV PUSH ×5 (00:11→23:26)
[2021-06-28] MEDS: ALBUTEROL SULFATE NEB 2.5 MG/0.5 ML INH 5 MG INHALATION ×4 (02:08→19:48)
[2021-06-28] MEDS: IPRATROPIUM BR 0.02% INH SOLN 0.5 MG/2.5 ML VIAL INHALATION ×4 (02:12→19:48)
[2021-06-28 05:52] LABS: Anion Gap 4 mmol/L (8-16); Blood Urea Nitrogen 23 mg/dL (7-17); Calcium 9.6 mg/dL (8.4-10.2); Carbon Dioxide 30 mmol/L (22-30); Chloride 95 mmol/L (98-107); Estimated CRCL calculation 46 ml/min; Estimated Glomerular Filt Rate > 60; Glucose 138 mg/dL (65-110); Potassium 5.4 mmol/L (3.4-5.0); Sodium 129 mmol/L (137-145)
[2021-06-28] MEDS: SODIUM POLYSTYRENE SULFONONATE 15 GM/60 ML BTL PO (09:21)
[2021-06-28] MEDS: NEBIVOLOL HCL 5 MG TABLET 10 MG PO (09:23)
[2021-06-28] MEDS: ENOXAPARIN 40 MG/0.4 ML SYRINGE SUB-Q (09:23)
[2021-06-28] MEDS: NYSTATIN 100,000 UNITS/ML SUSP 5 ML ORAL.SUSP PO (09:23)
[2021-06-28] MEDS: IPRATROPIUM NASAL SPRAY 0.03% 15 ML BOTTLE 2 SPRAY NASAL ×3 (09:24→16:24)
[2021-06-28] MEDS: OLMESARTAN MEDOXOMIL 20 MG TABLET 40 MG PO (09:25)
[2021-06-28] MEDS: DOCUSATE SODIUM 100 MG CAPSULE PO ×2 (09:25→20:26)
[2021-06-28] MEDS: MONTELUKAST SODIUM 10 MG TABLET PO (09:26)
[2021-06-28] MEDS: buPROPion HCL XL (24 HR) 150 MG TABCR PO (09:26)
[2021-06-28] MEDS: guaiFENesin 12 HR 600 MG TABCR PO ×2 (09:26→20:27)
[2021-06-28] MEDS: ESCITALOPRAM OXALATE 10 MG TABLET 20 MG PO (09:26)
[2021-06-28] MEDS: PANTOPRAZOLE 40 MG TABLET PO (09:26)
[2021-06-28] MEDS: PREDNISOLONE ACETATE 0.12% 1 DROP EACH EYE ×2 (09:27→20:29)
--- NOTE | 2021-06-28 09:59 | PM.CNPUL ---
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 Chest x-ray shows no new infiltrates to suggest pneumonia. She continues to have chest congestion and shortness of breath. Agree with current antibiotic, IV steroid dosage, and treatment with bronchodilators. I would switch patient to BiPAP 06/02 to use at night and p.r.n. during the day. (3) Sleep apnea with use of continuous positive airway pressure (CPAP): Code(s): G47.30 - Sleep apnea, unspecified Status: Acute History of Present Illness History of Present Illness Consult date: 06/28/21 Chief complaint: COPD Exacerbation Narrative: this 81-year-old female with severe COPD presented with increasing shortness of breath. The patient has severe COPD with the last pulmonary function testing done approximately 3 weeks ago showing FEV1 of 0.74 L or 39%, FVC of 2.26 L or 90% predicted FEV1 / FVC ratio 33% and lung diffusion capacity of 17% predicted. The patient has been on supplemental oxygen 2 liters/minute at rest and 5 liters/minute with exercise. Other pertinent medical problems include history of spontaneous secondary pneumothorax x2 as well as pleurodesis on right. She also has obstructive sleep apnea and has been on CPAP. She was in her usual state of health until several days ago when she started having shortness of breath, increased cough, chest congestion and wheezing. She had no fever chills hemoptysis or orthopnea. Her last COPD exacerbation for which she was hospitalized was in March of 2021. On admission chest x-ray showed no evidence of lung infiltrates hyperinflated lungs with COPD changes. On blood gases she had no hypercapnia. Patient has been treated with antibiotics, IV steroids, nebulized short-acting bronchodilators plus her maintenance ICS/Laba/Lama inhaler, and overnight CPAP. She continues to have chest congestion cough and shortness of breath. Review of Systems Review of Systems: Patient reports no significant weight changes. She has chronic shortness of breath. She has no orthopnea palpitations or hemoptysis. She has had intermittent constipation. She has no urinary complaints. She had some lower extremity edema. She has had chronic joint pain. She has history of sleep apnea and has been using CPAP at night. The remainder of the 12 point system review is negative. [facility] Past Medical History Medical History Chronic shoulder pain Essential (primary) hypertension Hypoxia Nontraumatic tear of muscle or tendon of rotator cuff of both shoulders Patent foramen ovale Pulmonary hypertension Rotator cuff arthropathy of both shoulders SI joint arthritis Spontaneous pneumothorax Family History Family History Sibling Family history of cardiovascular disease Family history of arthritis Father Family history of throat cancer Family history of arthritis Mother Family history of arthritis Family history of Alzheimer's disease Other Family history of malignant neoplasm Social History Social History (Updated 06/26/21 @ 23:01 by Shy Le RN) Smoking packs per day: 0.5 Smoking cigarettes per day: 10.0 Sm
--- NOTE | 2021-06-28 10:41 | PM.IMPN ---
Progress Note: A&P Assessment and Plan (1) Acute exacerbation of chronic obstructive pulmonary disease (COPD): Code(s): J44.1 - Chronic obstructive pulmonary disease with (acute) exacerbation Status: Acute Assessment and Plan: Admit to regular medical floor Continue supplemental oxygen Continue CPAP at nighttime Breathing treatments scheduled with albuterol and ipratropium Q6hrs She had been started on PO Prednisone, which after evaluating her at bedside I decided to Add IV Solu-medrol 40 mg Q6hrs #2 Continue with IV Doxycyline for atypicals and it would also treat sinusitis. CXR showed no acute cardiopulmonary abnormality. She reports worsening dyspnea on exertion at this time so will repeat CXR since she was on low amounts of fluids again overnight. Consulted Manager [employer], Dr. Oconnor who evaluted the patient and did not make any medication adjustments other than BiPAP 10/6 usage at night and PRN during the say for dyspnea or naps. Supportive care (2) Acute and chronic respiratory failure: Code(s): J96.20 - Acute and chronic respiratory failure, unspecified whether with hypoxia or hypercapnia Status: Acute Assessment and Plan: Patient is 96% on 5L at this time. Reports worsening [place]. Will repeat CXR to rule out pulmonary edema from IV fluids unable to auscultate any abnormality on examination. Continue to monitor Supportive care (3) Sleep apnea with use of continuous positive airway pressure (CPAP): Code(s): G47.30 - Sleep apnea, unspecified Status: Acute Assessment and Plan: Pulm will switch from CPAP to BiPAP. (4) Essential (primary) hypertension: Code(s): I10 - Essential (primary) hypertension Status: Acute Assessment and Plan: Blood pressure slightly elevated this morning prior to medications, 140/55. Continue home meds Continue to monitor (5) Osteoarthritis of multiple joints: Code(s): M15.9 - Polyosteoarthritis, unspecified Status: Acute Assessment and Plan: Tylenol as needed (6) Hyperkalemia: Code(s): E87.5 - Hyperkalemia Status: Acute Assessment and Plan: Elevated Potassium 5.4. Could be from LR she was on. Given Kayexelate. Will repeat potassium this afternoon. (7) Sore throat: Code(s): J02.9 - Acute pharyngitis, unspecified Status: Acute Assessment and Plan: Strep swab negative Concerned for Thrush. Started on Nystatin, Chloraseptic spray, throat lozenge, without any relief of pain. Will switch to Jen's mixture and see if this helps with her sore throat Doxy should cover for any type of atypicals with sinusitis her URI issues since she has a penicillin allergy. Continue monitoring. Time Spent With Patient Time with patient: 25 - 35 minutes Subjective Date/time seen: 06/28/21 10:41 Interval history: Date of Service 06/28/21: She reports feeling the same as yesterday. She continued to have bilateral ear pain, sore throat. She is having more of a cough and was able to give a sputum culture. She is still very dyspneic with exertion stating she cannot get up and move today due to worsening dyspnea. She does not have much appetite and reports a 30 lb weight loss in the last few months. Denies any fever, chills, nausea, vomiting, abdominal pain, leg swelling, calf pain, or any other symptoms at this time. Review of Systems Review of Systems: All systems reviewed & are unremarkable except as noted in HPI and below Exam Narrative: General: 81-year-old woman sitting up in bed appears dyspneic and tachypneic with talking at rest. Appears slightly uncomfortable with her breathing, but I would not say she was in respiratory distress. HEENT: Posterior pharynx has some improvement of erythema today, but still appears edematous. I do not visualize any white spots/patches on uvula, posterior pharynx or tongue. Skin: No jaundice or cyanosis. Good
--- NOTE | 2021-06-28 11:40 | PCPTNOTE ---
Attempted to see patient for PT, however patient declined due to shortness of breath. Will check back if time allows.
[2021-06-28 15:00] LABS: Potassium 5.3 mmol/L (3.4-5.0)
[2021-06-28] MEDS: MELATONIN 3 MG TABLET 12 MG PO (20:26)
[2021-06-28] MEDS: TEMAZEPAM (*CRX) 15 MG CAPSULE 30 MG PO (20:27)
[2021-06-28] MEDS: SODIUM CHLORIDE NASAL GEL 14.1 GM 1 APPLIC NASAL (20:30)
[2021-06-28] MEDS: SALINE 0.65% NAS SOLN 44 ML BTL 1 SPRAY NASAL (20:30)
[2021-06-29] VITALS (25 sets, daily range): BP systolic 125–156; BP diastolic 68–74; PULSE 73–96; RESP 17–25; TEMP 36.1–36.3; O2SAT 5–97
[2021-06-29] MEDS: ALBUTEROL SULFATE NEB 2.5 MG/0.5 ML INH 5 MG INHALATION ×6 (00:12→20:03)
[2021-06-29] MEDS: IPRATROPIUM BR 0.02% INH SOLN 0.5 MG/2.5 ML VIAL INHALATION ×6 (00:12→20:04)
[2021-06-29] MEDS: methylPREDNISolone SOD SUCC 40 MG VIAL IV PUSH (05:03)
[2021-06-29 05:48] LABS: Hematocrit 39.6 % (37.0-47.0); Hemoglobin 13.3 g/dL (12.0-15.0); Mean Corpuscular HGB Conc 33.6 g/dl (32-36); Mean Corpuscular Hemoglobin 30.8 pg (26-34); Mean Corpuscular Volume 91.7 fl (80-100); Mean Platelet Volume 9.4 fl (7.4-10.4); Platelet Count Result 205 k/mm3 (150-375); Red Blood Count 4.32 M/mm3 (4.2-5.4); Red Cell Distribution Width 13.1 % (11.5-14.5); White Blood Count 5.2 K/mm3 (4.5-10.0)
[2021-06-29 06:03] LABS: Anion Gap 10 mmol/L (8-16); Blood Urea Nitrogen 25 mg/dL (7-17); Calcium 9.7 mg/dL (8.4-10.2); Carbon Dioxide 29 mmol/L (22-30); Chloride 93 mmol/L (98-107); Estimated CRCL calculation 46 ml/min; Estimated Glomerular Filt Rate > 60; Glucose 119 mg/dL (65-110); Potassium 4.8 mmol/L (3.4-5.0); Sodium 132 mmol/L (137-145)
[2021-06-29] MEDS: ALPRAZolam (*CRX) 0.25 MG TABLET PO ×3 (08:36→23:25)
[2021-06-29] MEDS: ESCITALOPRAM OXALATE 10 MG TABLET 20 MG PO (09:32)
[2021-06-29] MEDS: DOCUSATE SODIUM 100 MG CAPSULE PO ×2 (09:32→20:34)
[2021-06-29] MEDS: MONTELUKAST SODIUM 10 MG TABLET PO (09:32)
[2021-06-29] MEDS: PANTOPRAZOLE 40 MG TABLET PO (09:32)
[2021-06-29] MEDS: OLMESARTAN MEDOXOMIL 20 MG TABLET 40 MG PO (09:32)
[2021-06-29] MEDS: buPROPion HCL XL (24 HR) 150 MG TABCR PO (09:32)
[2021-06-29] MEDS: guaiFENesin 12 HR 600 MG TABCR PO ×2 (09:32→20:34)
[2021-06-29] MEDS: NEBIVOLOL HCL 5 MG TABLET 10 MG PO (09:33)
[2021-06-29] MEDS: IPRATROPIUM NASAL SPRAY 0.03% 15 ML BOTTLE 2 SPRAY NASAL ×3 (09:33→17:45)
[2021-06-29] MEDS: PREDNISOLONE ACETATE 0.12% 1 DROP EACH EYE ×2 (09:33→20:34)
[2021-06-29] MEDS: ENOXAPARIN 40 MG/0.4 ML SYRINGE SUB-Q (09:49)
--- NOTE | 2021-06-29 09:54 | PM.PNPUL ---
Progress Note: A&P Assessment and Plan (1) Acute exacerbation of chronic obstructive pulmonary disease (COPD): Code(s): J44.1 - Chronic obstructive pulmonary disease with (acute) exacerbation Status: Acute Assessment and Plan: 81-year-old female with history of COPD, frequent COPD exacerbations the last flare up being in March of this year, severe confluent centrilobular emphysema on chest CTs, treated for COPD exacerbation with IV steroids, nebulized short-acting bronchodilators, atibiotic, as well as the maintenance bronchodilator ICS/ Laba/Lama. Chest CT was reviewed. There is no evidence of a new lung infiltrates or pleural effusions. No PE either. Patient will need a swallow evaluation prior to her discharge home to exclude possible aspiration as the underlying cause of frequent exacerbations. She will also need need re-evaluation of her sleep disordered breathing on an outpatient basis, as her last sleep study was done more than 10 years ago. will consider adding Daliresp to her OP maintenance regimen for additional COPD exacerbation prophylaxis. Discussed with hospitalist lowering the IV steroids, otherwise continue with same treatment, including BiPAP support at night p.r.n. during the day. (2) Acute and chronic respiratory failure: Qualifiers: Respiratory failure complication: hypoxia Qualified Code(s): J96.21 - Acute and chronic respiratory failure with hypoxia Code(s): J96.20 - Acute and chronic respiratory failure, unspecified whether with hypoxia or hypercapnia Status: Acute (3) Sleep apnea with use of continuous positive airway pressure (CPAP): Code(s): G47.30 - Sleep apnea, unspecified Status: Acute Subjective Date/time seen: 06/29/21 09:54 patient stated she feels better today. She slept well on BiPAP support last night. Still coughing with deep inspirations. She has less shortness of breath. No other complaints. Underwent CT PA yesterday. Review of Systems Review of Systems: All systems reviewed & are unremarkable except as noted in HPI and below Exam Narrative: GENERAL APPEARANCE: Well developed, well nourished, alert and cooperative, who appears to be in mild respiratory distress SKIN: Inspection of the skin reveals no rashes, ulcerations or petechiae. HEENT: Sclerae anicteric and conjunctivae pink and moist. Extraocular movements were intact and pupils were equal, round, and reactive to light. The oral mucosa, hard and soft palate, tongue and posterior pharynx were normal. NECK: Supple. There was no thyroid enlargement, and no tenderness, or masses were felt. CHEST: Increased AP diameter and normal contour without any kyphoscoliosis. LUNGS: Auscultation of the lungs revealed distant breath sounds and mild wheezing bilaterally CARDIAC: There was a regular rate and rhythm without any murmurs, gallops, rubs. ABDOMEN: Soft and nontender with normal bowel sounds. There was no organomegaly. LYMPH NODES: No lymphadenopathy was appreciated in the neck. EXTREMITIES: No cyanosis, clubbing or edema. NEUROLOGIC: Alert and oriented x 3. Normal affect. Objective Data Vital Signs Vital Signs: Vital Signs - 24 hr 06/28/21 12:00 06/28/21 14:16 06/28/21 14:38 Temperature 36.4 C Pulse Rate 81 74 78 Respiratory Rate 16 20 Blood Pressure 165/86 H Pulse Oximetry 98 06/28/21 14:45 06/28/21 16:00 06/28/21 19:49 Temperature Pulse Rate 77 80 80 Respiratory Rate 20 20 Blood Pressure Pulse Oximetry 06/28/21 19:57 06/28/21 20:00 06/28/21 20:20 Temperature Pulse Rate 78 86 Respiratory Rate 20 Blood Pressure Pulse Oximetry 91 06/28/21 20:25 06/28/21 21:32 06/28/21 23:50 Temperature 36.1 C L Pulse Rate 93 82 76 Respiratory Rate 20 26 H 20 Blood Pressure 162/73 H Pulse Oximetry 91 96 06/29/21 00:00 06/29/21 01:29 06/29/21 04:00 Temperature Pulse Rate 78 79 79 Respiratory Rate 20 17 Blood Pressure
[2021-06-29] MEDS: methylPREDNISolone SOD SUCC 40 MG VIAL 20 MG IV PUSH ×3 (11:35→23:25)
--- NOTE | 2021-06-29 13:55 | PCSTNOTE ---
Please refer to the Modified Barium Swallow Evaluation in the EMR.
--- NOTE | 2021-06-29 14:02 | PM.IMPN ---
Progress Note: A&P Assessment and Plan (1) Acute exacerbation of chronic obstructive pulmonary disease (COPD): Code(s): J44.1 - Chronic obstructive pulmonary disease with (acute) exacerbation Status: Acute Assessment and Plan: Seems to be improving clinically, however still on 5L NC at rest Continue with IV Doxycyline for atypicals and it would also treat sinusitis CXR w/ severe emphysema otherwise unremarkable Consulted [employer]ley [employer] Over[employer]uler, Dr. Oconnor who evaluated the patient. States continue BiPAP 10/6 usage at night and PRN during the say for dyspnea or naps. Also recommends decreasing solu-medrol to 20 mg q6hr. Also wants to start Daliresp today and continue this upon discharge. Also recommends swallow study to r/o aspiration as underlying cause of recurrent COPD exacerbations. Also discussed w/ patient following up in clinic to discuss sleep study and/or new CPAP. (2) Acute and chronic respiratory failure: Qualifiers: Respiratory failure complication: hypoxia Qualified Code(s): J96.21 - Acute and chronic respiratory failure with hypoxia Code(s): J96.20 - Acute and chronic respiratory failure, unspecified whether with hypoxia or hypercapnia Status: Acute Assessment and Plan: Patient comfortable on 5L NC at this time. Reports overall improvement. CXR w/ no pulmonary edema from IV fluids Continue to monitor See above (3) Sleep apnea with use of continuous positive airway pressure (CPAP): Code(s): G47.30 - Sleep apnea, unspecified Status: Acute Assessment and Plan: Pulm will switch from CPAP to BiPAP. See above. (4) Essential (primary) hypertension: Code(s): I10 - Essential (primary) hypertension Status: Acute Assessment and Plan: Stable. 125/72 after restarting home meds. Continue to monitor. (5) Osteoarthritis of multiple joints: Code(s): M15.9 - Polyosteoarthritis, unspecified Status: Acute Assessment and Plan: Tylenol as needed (6) Hyperkalemia: Code(s): E87.5 - Hyperkalemia Status: Acute Assessment and Plan: Elevated Potassium 5.4. Could be from LR she was on. Given Kayexelate. Repeat potassium 4.8. (7) Sore throat: Code(s): J02.9 - Acute pharyngitis, unspecified Status: Acute Assessment and Plan: Strep swab negative Concerned for Thrush. Started on Nystatin, Chloraseptic spray, throat lozenge, without any relief of pain. Switched to Jen's mixture which provided significant relief Doxy should cover for any type of atypicals with sinusitis her URI issues since she has a penicillin allergy. Continue monitoring Subjective Date/time seen: 06/29/21 14:02 81-year-old female with history of COPD, frequent COPD exacerbations the last flare up being in March of this year, severe confluent centrilobular emphysema on chest CTs, admitted for COPD exacerbation. Today she is wearing 5L of oxygen at rest. At home she is on 2L at rest and 5L w/ exertion. She states she is feeling better today with the IV steroids and neb treatements. Wore bipap last night. States last sleep study was 10 years ago and her CPAP is very old, would like to discuss getting a new one. Her sore throat is better today, does still have some sinus pressure and bilateral ear pain. Review of Systems Review of Systems: General: Denies fevers, chills Eyes: Denies vision changes or eye pain ENT: +sore throat, +sinus pressure, +ear pain Respiratory: + cough, +shortness of breath Cardiovascular: Denies chest pain, palpitations, or lower extremity edema Gastrointestinal: Denies abdominal pain, vomiting, or diarrhea Genitourinary: Denies dysuria Musculoskeletal: Denies back pain Neurological: Denies paraesthesias, or motor weakness Integumentary: Denies rash Exam Narrative: General: NAD, non toxic. Appears stated age. Sitting on edge of bed just completing a jesus alberto
[2021-06-29] MEDS: MELATONIN 3 MG TABLET 12 MG PO (20:34)
[2021-06-29] MEDS: TEMAZEPAM (*CRX) 15 MG CAPSULE 30 MG PO (20:35)
[2021-06-29] MEDS: SODIUM CHLORIDE NASAL GEL 14.1 GM 1 APPLIC NASAL (20:35)
[2021-06-30] VITALS (18 sets, daily range): BP systolic 156–173; BP diastolic 79–92; PULSE 75–86; RESP 18–27; TEMP 36.2–37.2; O2SAT 90–96
[2021-06-30] MEDS: IPRATROPIUM BR 0.02% INH SOLN 0.5 MG/2.5 ML VIAL INHALATION ×5 (00:04→19:56)
[2021-06-30] MEDS: ALBUTEROL SULFATE NEB 2.5 MG/0.5 ML INH 5 MG INHALATION ×5 (00:16→19:56)
[2021-06-30 05:17] LABS: Hematocrit 38.4 % (37.0-47.0); Hemoglobin 13.1 g/dL (12.0-15.0); Mean Corpuscular HGB Conc 34.1 g/dl (32-36); Mean Corpuscular Hemoglobin 30.8 pg (26-34); Mean Corpuscular Volume 90.1 fl (80-100); Mean Platelet Volume 9.5 fl (7.4-10.4); Platelet Count Result 223 k/mm3 (150-375); Red Blood Count 4.26 M/mm3 (4.2-5.4); Red Cell Distribution Width 12.8 % (11.5-14.5); White Blood Count 6.7 K/mm3 (4.5-10.0)
[2021-06-30 05:32] LABS: Anion Gap 8 mmol/L (8-16); Blood Urea Nitrogen 21 mg/dL (7-17); Calcium 9.5 mg/dL (8.4-10.2); Carbon Dioxide 30 mmol/L (22-30); Chloride 92 mmol/L (98-107); Estimated CRCL calculation 53 ml/min; Estimated Glomerular Filt Rate > 60; Glucose 113 mg/dL (65-110); Potassium 4.7 mmol/L (3.4-5.0); Sodium 130 mmol/L (137-145)
[2021-06-30] MEDS: methylPREDNISolone SOD SUCC 40 MG VIAL 20 MG IV PUSH ×3 (05:37→18:19)
[2021-06-30] MEDS: DOCUSATE SODIUM 100 MG CAPSULE PO ×2 (09:25→19:57)
[2021-06-30] MEDS: ESCITALOPRAM OXALATE 10 MG TABLET 20 MG PO (09:25)
[2021-06-30] MEDS: buPROPion HCL XL (24 HR) 150 MG TABCR PO (09:25)
[2021-06-30] MEDS: NEBIVOLOL HCL 5 MG TABLET 10 MG PO (09:25)
[2021-06-30] MEDS: ENOXAPARIN 40 MG/0.4 ML SYRINGE SUB-Q (09:25)
[2021-06-30] MEDS: PANTOPRAZOLE 40 MG TABLET PO (09:26)
[2021-06-30] MEDS: OLMESARTAN MEDOXOMIL 20 MG TABLET 40 MG PO (09:26)
[2021-06-30] MEDS: IPRATROPIUM NASAL SPRAY 0.03% 15 ML BOTTLE 2 SPRAY NASAL ×2 (09:26→16:52)
[2021-06-30] MEDS: guaiFENesin 12 HR 600 MG TABCR PO ×2 (09:26→19:57)
[2021-06-30] MEDS: MONTELUKAST SODIUM 10 MG TABLET PO (09:26)
[2021-06-30] MEDS: PREDNISOLONE ACETATE 0.12% 1 DROP EACH EYE ×2 (09:28→19:57)
[2021-06-30] MEDS: ALBUTEROL SULFATE NEB 2.5 MG/0.5 ML INH (10:05)
[2021-06-30] MEDS: ALPRAZolam (*CRX) 0.25 MG TABLET PO ×3 (11:09→19:57)
--- NOTE | 2021-06-30 13:10 | PM.PNPUL ---
Progress Note: A&P Assessment and Plan (1) Acute exacerbation of chronic obstructive pulmonary disease (COPD): Code(s): J44.1 - Chronic obstructive pulmonary disease with (acute) exacerbation Status: Acute Assessment and Plan: 81-year-old female with history of COPD, frequent COPD exacerbations the last flare up being in March of this year, severe confluent centrilobular emphysema on chest CTs, treated for COPD exacerbation with IV steroids, nebulized short-acting bronchodilators, antibiotic, as well as the maintenance bronchodilator ICS/ Laba/Lama. Patient improving slowly. She has less cough and shortness of breath today. Did not use BiPAP last night. I would switch patient to oral steroids, like prednisone 40 mg p.o. daily starting in a.m., and discontinue the IV steroids. Encourage out of bed to chair. Continue with BiPAP instead of CPAP at night. Order for BiPAP entered couple days ago. (2) Acute and chronic respiratory failure: Qualifiers: Respiratory failure complication: hypoxia Qualified Code(s): J96.21 - Acute and chronic respiratory failure with hypoxia Code(s): J96.20 - Acute and chronic respiratory failure, unspecified whether with hypoxia or hypercapnia Status: Acute (3) Sleep apnea with use of continuous positive airway pressure (CPAP): Code(s): G47.30 - Sleep apnea, unspecified Status: Acute Subjective Date/time seen: 06/30/21 13:10 doing a little better. Coughing less, also less shortness of breath. She did not sleep well last night also denied use BiPAP. She has been afebrile. Review of Systems Review of Systems: All systems reviewed & are unremarkable except as noted in HPI and below Exam Narrative: GENERAL APPEARANCE: Well developed, well nourished, alert and cooperative, who appears to be in mild respiratory distress SKIN: Inspection of the skin reveals no rashes, ulcerations or petechiae. HEENT: Sclerae anicteric and conjunctivae pink and moist. Extraocular movements were intact and pupils were equal, round, and reactive to light. The oral mucosa, hard and soft palate, tongue and posterior pharynx were normal. NECK: Supple. There was no thyroid enlargement, and no tenderness, or masses were felt. CHEST: Increased AP diameter and normal contour without any kyphoscoliosis. LUNGS: Auscultation of the lungs revealed distant breath sounds and mild wheezing bilaterally CARDIAC: There was a regular rate and rhythm without any murmurs, gallops, rubs. ABDOMEN: Soft and nontender with normal bowel sounds. There was no organomegaly. LYMPH NODES: No lymphadenopathy was appreciated in the neck. EXTREMITIES: No cyanosis, clubbing or edema. NEUROLOGIC: Alert and oriented x 3. Normal affect. Objective Data Vital Signs Vital Signs: Vital Signs - 24 hr 06/29/21 14:00 06/29/21 14:39 06/29/21 16:00 Temperature 36.1 C L Pulse Rate 81 76 Respiratory Rate 20 Blood Pressure 156/74 H Pulse Oximetry 5 L 92 06/29/21 16:50 06/29/21 16:57 06/29/21 20:00 Temperature Pulse Rate 92 90 82 Respiratory Rate 24 H 22 H Blood Pressure Pulse Oximetry 06/29/21 20:06 06/29/21 20:07 06/29/21 20:30 Temperature Pulse Rate 83 Respiratory Rate 18 Blood Pressure Pulse Oximetry 95 95 06/29/21 21:50 06/29/21 22:00 06/30/21 00:00 Temperature 36.3 C L Pulse Rate 81 89 75 Respiratory Rate 25 H 18 Blood Pressure 143/68 H Pulse Oximetry 96 96 06/30/21 00:05 06/30/21 00:15 06/30/21 04:00 Temperature Pulse Rate 80 82 75 Respiratory Rate 18 18 Blood Pressure Pulse Oximetry 06/30/21 06:00 06/30/21 08:21 06/30/21 08:30 Temperature 36.2 C L Pulse Rate 81 85 82 Respiratory Rate 18 18 18 Blood Pressure 173/92 H Pulse Oximetry 96 94 06/30/21 12:23 Temperature Pulse Rate 77 Respiratory Rate 18 Blood Pressure Pulse Oximetry Intake/Output Intake/Output: Intake & Output 06/27/21 06/28/21
--- NOTE | 2021-06-30 16:09 | PM.IMPN ---
Progress Note: A&P Assessment and Plan (1) Acute exacerbation of chronic obstructive pulmonary disease (COPD): Code(s): J44.1 - Chronic obstructive pulmonary disease with (acute) exacerbation Status: Acute Assessment and Plan: -Seems to be improving clinically, however still on 3L NC at rest -Continue with IV Doxycyline for atypicals and it would also treat sinusitis -CXR w/ severe emphysema otherwise unremarkable -Consulted Console Operator, Dr. Oconnor who evaluated the patient. States continue BiPAP 10/6 usage at night and PRN during the say for dyspnea or naps. Also recommends stopping IV steroids today and transitioning to oral prednisone tomorrow morning. Also started Daliresp, will continue this upon discharge. -Swallow study conducted, recommendation is to keep normal diet. She did have a little bit of penetration with thin liquids but was able to cough it up. Speech therapy is going to continue to work with her on techniques. (2) Acute and chronic respiratory failure: Qualifiers: Respiratory failure complication: hypoxia Qualified Code(s): J96.21 - Acute and chronic respiratory failure with hypoxia Code(s): J96.20 - Acute and chronic respiratory failure, unspecified whether with hypoxia or hypercapnia Status: Acute Assessment and Plan: Patient comfortable on 3L NC at this time. Reports overall improvement. CXR w/ no pulmonary edema from IV fluids Continue to monitor See above (3) Sleep apnea with use of continuous positive airway pressure (CPAP): Code(s): G47.30 - Sleep apnea, unspecified Status: Acute Assessment and Plan: Pulm will switch from CPAP to BiPAP. See above. (4) Essential (primary) hypertension: Code(s): I10 - Essential (primary) hypertension Status: Acute Assessment and Plan: Stable. Continue home meds. Continue to monitor. (5) Osteoarthritis of multiple joints: Code(s): M15.9 - Polyosteoarthritis, unspecified Status: Acute Assessment and Plan: Tylenol as needed (6) Hyperkalemia: Code(s): E87.5 - Hyperkalemia Status: Acute Assessment and Plan: Elevated Potassium 5.4. Could be from LR she was on. Given Kayexelate. Resolved, repeat potassium 4.8. (7) Sore throat: Code(s): J02.9 - Acute pharyngitis, unspecified Status: Acute Assessment and Plan: Strep swab negative Concerned for Thrush. Started on Nystatin, Chloraseptic spray, throat lozenge, without any relief of pain. Switched to Jen's mixture which provided significant relief Doxy should cover for any type of atypicals with sinusitis her URI issues since she has a penicillin allergy. Continues to improve (8) Anxiety and depression: Code(s): F41.9 - Anxiety disorder, unspecified; F32.9 - Major depressive disorder, single episode, unspecified Status: Acute Assessment and Plan: Continue xanax and wellbutrin Subjective Date/time seen: 06/30/21 16:09 81-year-old female with history of COPD, frequent COPD exacerbations the last flare up being in March of this year, severe confluent centrilobular emphysema on chest CTs, admitted for COPD exacerbation. Today she is feeling okay, less short of breath but very anxious. She is on 3L at rest as opposed to her normal 2L. She voices concern for not wanting to do this anymore and constantly being in pain due to her breathing. She normally takes xanax TID and has not had it yet today. Notes her baseline dry cough. Sore throat continues to improve. Does report continued sinus pressure and ear pressure which has been there x 1 month. Review of Systems Review of Systems: General: Denies fevers, chills Eyes: Denies vision changes or eye pain ENT: +sore throat, +sinus pressure, +ear pain Respiratory: + cough, +shortness of breath Cardiovascular: Denies chest pain, palpitations, or lower extremity edema
[2021-06-30] MEDS: traMADol HCL (*CRX) 50 MG TABLET PO (16:54)
[2021-06-30] MEDS: MELATONIN 3 MG TABLET 12 MG PO (19:57)
[2021-06-30] MEDS: TEMAZEPAM (*CRX) 15 MG CAPSULE 30 MG PO (19:57)
[2021-06-30] MEDS: SODIUM CHLORIDE NASAL GEL 14.1 GM 1 APPLIC NASAL (19:57)
[2021-07-01] VITALS (31 sets, daily range): BP systolic 103–139; BP diastolic 59–81; PULSE 66–141; RESP 18–26; TEMP 36.3–37.2; O2SAT 89–97
--- NOTE | 2021-07-01 | ECHO_ITS ---
Patient Info Name: Jolie Starr Age: 81 years : 1940 Gender: Female Ht: 64 in Wt: 12 lbs BSA: 0.45 m2 HR: 140 bpm BP: 136 / 81 mmHg Heart Rhythm: Atrial Fibrillation, Tachycardia Technical Quality: Good Exam Date: 07/01/2021 11:24 AM Exam Location: [facility] Pulmonary Exam Room: 209 Patient Status: Inpatient Admit Date: 06/28/2021 Staff Ordering Physician: Kathleen Corcoran PA-C Customer Support Agent: Samantha Rose RDCS Attending Provider: Kathleen Corcoran PA-C Referring Physician: Jewell YUN; Exam Type: CA echo doppler color flow Study Info Indications - arrythmia Complete two-dimensional, color flow and Doppler transthoracic echocardiogram is performed. Summary 1. Complete two-dimensional, color flow and Doppler transthoracic echocardiogram is performed. 2. Left ventricular chamber dimension is normal. 3. Left ventricular systolic function is hyperdynamic, estimated at >70%. 4. There is mildly increased left ventricular wall thickness. 5. Left atrial chamber dimension is mildly enlarged. 6. There is mild mitral valve regurgitation. 7. There is mild tricuspid valve regurgitation. 8. Moderate pulmonary hypertension, estimated pulmonary arterial systolic pressure is 56 mmHg. Left Ventricle Left ventricular chamber dimension is normal. Left ventricular systolic function is hyperdynamic, estimated at >70%. There is mildly increased left ventricular wall thickness. The left ventricular diastolic function is indeterminate. Right Ventricle Right ventricular chamber dimension is normal. Right ventricular systolic function is normal. Left Atria Left atrial chamber dimension is mildly enlarged. Right Atria Right atrial chamber dimension is normal. Aortic Valve The aortic valve is not well visualized. There is mild aortic valve sclerosis. There is no aortic valve stenosis. There is trace aortic valve regurgitation. Pulmonic Valve The pulmonic valve is not well visualized. Mitral Valve The mitral valve has thickened leaflets. There is mild mitral valve regurgitation. The mitral valve annulus is severely calcified. Tricuspid Valve The tricuspid valve leaflets are normal. There is mild tricuspid valve regurgitation. Moderate pulmonary hypertension, estimated pulmonary arterial systolic pressure is 56 mmHg. Pericardium/Pleural The pericardium appears normal. There is no pericardial effusion. Inferior Vena Cava Normal inferior vena cava with >50% collapse upon inspiration consistent with normal right atrial pressure, 5 mmHg. Aorta The aortic root size at the sinus of Valsalva is normal. There is mild aortic atherosclerosis. Left Ventricular Outflow Tract Name Value Normal LVOT 2D LVOT Diameter 2.0 cm LVOT Doppler LVOT Peak Gradient 4 mmHg LVOT Mean Gradient 2 mmHg LVOT VTI 15 cm LVOT VTI/AV VTI Ratio 0.8 LVOT Stroke Volume 46 ml LVOT CO 12.7 l/min LVOT C
[2021-07-01] MEDS: IPRATROPIUM BR 0.02% INH SOLN 0.5 MG/2.5 ML VIAL INHALATION ×4 (00:27→19:39)
[2021-07-01] MEDS: ALBUTEROL SULFATE NEB 2.5 MG/0.5 ML INH 5 MG INHALATION ×2 (00:27→07:48)
[2021-07-01 06:14] LABS: Hematocrit 41.7 % (37.0-47.0); Mean Corpuscular HGB Conc 33.6 g/dl (32-36); Mean Corpuscular Hemoglobin 30.5 pg (26-34); Mean Corpuscular Volume 90.8 fl (80-100); Mean Platelet Volume 9.7 fl (7.4-10.4); Platelet Count Result 247 k/mm3 (150-375); Red Blood Count 4.59 M/mm3 (4.2-5.4); White Blood Count 7.7 K/mm3 (4.5-10.0)
[2021-07-01 06:36] LABS: Anion Gap 8 mmol/L (8-16); Blood Urea Nitrogen 25 mg/dL (7-17); Calcium 9.7 mg/dL (8.4-10.2); Carbon Dioxide 33 mmol/L (22-30); Chloride 89 mmol/L (98-107); Estimated CRCL calculation 46 ml/min; Estimated Glomerular Filt Rate > 60; Glucose 82 mg/dL (65-110); Sodium 130 mmol/L (137-145)
[2021-07-01 06:38] LABS: Potassium 4.4 mmol/L (3.4-5.0)
--- NOTE | 2021-07-01 08:11 | ECG_ITS ---
Measurements Intervals [place] Rate: 138 P: CT: 0 QRS: 37 QRSD: 94 T: 78 QT: 281 QTc: 427 Interpretive Statements ATRIAL FLUTTER/TACHYCARDIA WITH RAPID VENTRICULAR RESPONSE BORDERLINE ST ABNORMALITY- ANTEROLATERAL LEADS BASELINE WANDER- I, II, III ABNORMAL ECG Electronically Signed On 07-05-2021 13:31:14 FRAME OPENER by Abe Ruiz D.O.
[2021-07-01] MEDS: LORazepam INJ (*CRX) 2 MG/ML VIAL 0.5 MG IM (08:27)
[2021-07-01] MEDS: PREDNISOLONE ACETATE 0.12% 1 DROP EACH EYE ×2 (08:49→20:07)
[2021-07-01] MEDS: dilTIAZem HCl INJ 25 MG/5 ML VIAL 10 MG IV PUSH (08:57)
[2021-07-01] MEDS: ESCITALOPRAM OXALATE 10 MG TABLET 20 MG PO (09:00)
[2021-07-01] MEDS: OLMESARTAN MEDOXOMIL 20 MG TABLET 40 MG PO (09:00)
[2021-07-01] MEDS: buPROPion HCL XL (24 HR) 150 MG TABCR PO (09:00)
[2021-07-01] MEDS: guaiFENesin 12 HR 600 MG TABCR PO ×2 (09:00→22:39)
[2021-07-01] MEDS: DOCUSATE SODIUM 100 MG CAPSULE PO ×2 (09:01→22:28)
[2021-07-01] MEDS: PANTOPRAZOLE 40 MG TABLET PO (09:01)
[2021-07-01] MEDS: MONTELUKAST SODIUM 10 MG TABLET PO (09:01)
[2021-07-01] MEDS: ENOXAPARIN 40 MG/0.4 ML SYRINGE SUB-Q (09:02)
[2021-07-01] MEDS: NEBIVOLOL HCL 5 MG TABLET 10 MG PO (09:05)
[2021-07-01] MEDS: IPRATROPIUM NASAL SPRAY 0.03% 15 ML BOTTLE 2 SPRAY NASAL ×3 (09:05→16:56)
[2021-07-01 09:20] LABS: Magnesium 1.8 mg/dL (1.6-2.3)
[2021-07-01 09:32] LABS: Troponin I < 0.012 ng/mL (0.000-0.034)
[2021-07-01] MEDS: predniSONE 20 MG TABLET 40 MG PO (09:39)
[2021-07-01 10:19] LABS: Troponin I < 0.012 ng/mL (0.000-0.034)
[2021-07-01] MEDS: ONDANSETRON INJ 4 MG/2 ML VIAL IV PUSH (11:39)
--- NOTE | 2021-07-01 12:00 | PCPTNOTE ---
Patient unable to be seen this date secondary to A-Fib and RVR, will check back tomorrow to be reassessed by PT.
--- NOTE | 2021-07-01 12:38 | PC.NURSE ---
This patient, Jolie Starr, was received from [facility] on 07/01/21 at 0925. Patient/family oriented to unit policies and routines, Report received from ZHANNA Bowen.
[2021-07-01] MEDS: ALPRAZolam (*CRX) 0.25 MG TABLET PO ×2 (12:49→16:57)
[2021-07-01] MEDS: traMADol HCL (*CRX) 50 MG TABLET PO ×2 (12:49→22:28)
[2021-07-01 13:41] LABS: Troponin I 0.012 ng/mL (0.000-0.034)
--- NOTE | 2021-07-01 14:14 | PM.CNCAR ---
Assessment and Plan Assessment and plan (1) Atrial flutter with rapid ventricular response: Code(s): I48.92 - Unspecified atrial flutter Status: Acute Assessment and Plan: Etiology secondary to exacerbation severe underlying lung disease. Electrolytes, TSH renal function stable. No significant contributing valvular pathology as explanation. Hyperdynamic LV systolic function greater than 70%. I discussed the nature of these arrhythmias, the pathophysiology, general management options including systemic anticoagulation for stroke risk reduction as well as risk for bleeding complications. All questions answered to her satisfaction. Atrial flutter with rapid ventricular response with variable AV block cannot entirely exclude coarse atrial fibrillation with RVR. Hemodynamically stable. Patient more short of breath this morning likely secondary to tachyarrhythmia. Initiate diltiazem infusion for rate control. After discussion with primary service plans to avoid beta-krupa and amiodarone therapy if possible given severe underlying lung disease with acute on chronic respiratory failure. Monitor BP very closely. Digoxin also an option potentially but would prefer to avoid given her advanced age. Nonetheless, renal function and electrolytes are stable at this time. Patient is not a good candidate for LAUREN guided cardioversion due to acute respiratory failure and inability to tolerate sedation without high risk for intubation mechanical ventilatory support subsequently. Discussed options with the patient verbalized understanding and was not interested in proceeding with cardioversion or sedation under any circumstance. She agree with more conservative management. Systemic anticoagulation with enoxaparin 1 milligram/kilogram subcutaneous q.12 hours may be considered initially with long-term plans to be determined. Discussed embolic stroke risk associated atrial fibrillation in detail the patient. She verbalized understanding. Also discussed bleeding risk with anticoagulation. Patient denies prior bleeding complications or falls although given comorbidities patient higher risk for bleeding. CHADS2 Vasc score 4 HAS BLED score 3. Overall, statistically speaking bleeding risk slightly outweighs embolic stroke risk annulus risk 4.0 % and 5.8% for stroke versus bleed risk, respectively. Therefore, daily aspirin at minimum advised. (2) Acute exacerbation of chronic obstructive pulmonary disease (COPD): Code(s): J44.1 - Chronic obstructive pulmonary disease with (acute) exacerbation Status: Acute Assessment and Plan: Continue management per primary service and pulmonology. Recommendations noted. (3) Chronic hypoxemic respiratory failure: Code(s): J96.11 - Chronic respiratory failure with hypoxia Status: Acute Assessment and Plan: Continue O2 supplementation, BiPAP support. (4) Pulmonary hypertension: Code(s): I27.20 - Pulmonary hypertension, unspecified Status: Acute Assessment and Plan: Moderate in severity RVSP 56 mm Hg echocardiogram today. Secondary to underlying lung disease. (5) Sleep apnea with use of continuous positive airway pressure (CPAP): Code(s): G47.30 - Sleep apnea, unspecified Status: Acute Assessment and Plan: Per primary service and pulmonology. Noted recommendations to utilize BiPAP. History of Present Illness History of Present Illness Consult date/time: Date of service: 07/01/21 14:14 Cardiology consultation at the request of NAGI Fletcher of the [facility] service for opinion regarding atrial fibrillation with rapid ventricular response. Requesting physician: Kathleen Corcoran PA-C Consult reason: atrial fibrillation Reason For Visit: COPD Exacerbation Narrative: Patient is a pleasant yet complicated 81-year-old female with a past medical history significant for longstanding COPD/emphysema, chronic respiratory f
--- NOTE | 2021-07-01 16:24 | PM.PNPUL ---
Progress Note: A&P Assessment and Plan (1) Acute exacerbation of chronic obstructive pulmonary disease (COPD): Code(s): J44.1 - Chronic obstructive pulmonary disease with (acute) exacerbation Status: Acute Assessment and Plan: 81-year-old female with history of COPD, frequent COPD exacerbations the last flare up being in March of this year, severe confluent centrilobular emphysema on chest CTs, treated for COPD exacerbation with IV steroids, nebulized short-acting bronchodilators, antibiotic, as well as the maintenance bronchodilator ICS/ Laba/Lama. Currently treated for atrial fibrillation with rapid ventricular response. No significant change of dyspnea over the last 24 hours. continues to have cough and chest congestion. Will continue the same treatment, current steroid dosage and BiPAP support at night. (2) Acute and chronic respiratory failure: Qualifiers: Respiratory failure complication: hypoxia Qualified Code(s): J96.21 - Acute and chronic respiratory failure with hypoxia Code(s): J96.20 - Acute and chronic respiratory failure, unspecified whether with hypoxia or hypercapnia Status: Acute (3) Sleep apnea with use of continuous positive airway pressure (CPAP): Code(s): G47.30 - Sleep apnea, unspecified Status: Acute Subjective Date/time seen: Patient developed atrial fibrillation with rapid ventricular response earlier today. Started on diltiazem IV drip. No significant change in her chronic dyspnea. Continues to have a cough and chest congestion but less than before. Slept well last night. Review of Systems Review of Systems: All systems reviewed & are unremarkable except as noted in HPI and below Exam Narrative: GENERAL APPEARANCE: Well developed, well nourished, alert and cooperative, and appears to be in mild respiratory distress SKIN: Inspection of the skin reveals no rashes, ulcerations or petechiae. HEENT: Sclerae anicteric and conjunctivae pink and moist. Extraocular movements were intact and pupils were equal, round. NECK: Supple. There was no thyroid enlargement, and no tenderness, or masses were felt. LUNGS: Auscultation of the lungs revealed distant breath sounds bilaterally with a rare crackles posteriorly CARDIAC: There was an irregular rate and rhythm without any murmurs, gallops, rubs. ABDOMEN: Soft and nontender with normal bowel sounds. There was no organomegaly. LYMPH NODES: No lymphadenopathy was appreciated in the neck. EXTREMITIES: No cyanosis, clubbing or edema. NEUROLOGIC: Alert and oriented x 3. Normal affect. Objective Data Vital Signs Vital Signs: Vital Signs - 24 hr 06/30/21 19:27 06/30/21 20:00 06/30/21 20:01 Temperature 36.6 C Pulse Rate 83 78 Respiratory Rate 20 20 Blood Pressure 159/85 H Pulse Oximetry 91 90 90 06/30/21 20:08 06/30/21 21:20 07/01/21 00:00 Temperature Pulse Rate 80 82 79 Respiratory Rate 20 27 H Blood Pressure Pulse Oximetry 96 07/01/21 00:30 07/01/21 00:39 07/01/21 04:00 Temperature Pulse Rate 78 81 71 Respiratory Rate 18 19 Blood Pressure Pulse Oximetry 97 07/01/21 05:07 07/01/21 07:49 07/01/21 07:52 Temperature 36.3 C L Pulse Rate 74 84 Respiratory Rate 18 20 Blood Pressure 136/81 Pulse Oximetry 93 93 07/01/21 07:59 07/01/21 08:00 07/01/21 09:05 Temperature Pulse Rate 83 138 H 124 H Respiratory Rate 18 Blood Pressure Pulse Oximetry 93 07/01/21 09:30 07/01/21 10:00 07/01/21 11:50 Temperature 36.5 C 36.7 C Pulse Rate 127 H 132 H 129 H Respiratory Rate 22 H 20 Blood Pressure 116/60 111/69 Pulse Oximetry 89 L 95 07/01/21 12:00 07/01/21 12:47 07/01/21 14:00 Temperature Pulse Rate 141 H 115 H 115 H Respiratory Rate 18 Blood Pressure 103/71 Pulse Oximetry 95 07/01/21 14:03 07/01/21 14:06 07/01/21 14:11 Temperature Pulse Rate 120 H 112 H Respiratory Rate 20 20 Blood Pressure Pulse Oxime
--- NOTE | 2021-07-01 16:51 | PM.IMPN ---
Progress Note: A&P Assessment and Plan (1) Acute exacerbation of chronic obstructive pulmonary disease (COPD): Code(s): J44.1 - Chronic obstructive pulmonary disease with (acute) exacerbation Status: Acute Assessment and Plan: -Seems to be improving clinically, however still on 3L NC at rest -Continue with IV Doxycyline for atypicals and it would also treat sinusitis -CXR w/ severe emphysema otherwise unremarkable -Consulted Form Worker, Dr. Oconnor qho states continue BiPAP 10/6 usage at night and PRN during the say for dyspnea or naps. -IV steroids were weaned and transitioned to oral -Continue nebs, switched from albuterol to Xopenex s/p tachyarrhythmia today -Also started Daliresp, will continue this upon discharge. (2) Acute and chronic respiratory failure: Qualifiers: Respiratory failure complication: hypoxia Qualified Code(s): J96.21 - Acute and chronic respiratory failure with hypoxia Code(s): J96.20 - Acute and chronic respiratory failure, unspecified whether with hypoxia or hypercapnia Status: Acute Assessment and Plan: CXR w/ no acute findings Continue to monitor See above for further details of management (3) Sleep apnea with use of continuous positive airway pressure (CPAP): Code(s): G47.30 - Sleep apnea, unspecified Status: Acute Assessment and Plan: Pulm will switch from CPAP to BiPAP. See above. (4) Essential (primary) hypertension: Code(s): I10 - Essential (primary) hypertension Status: Acute Assessment and Plan: Stable. Continue home meds. Continue to monitor. (5) Osteoarthritis of multiple joints: Code(s): M15.9 - Polyosteoarthritis, unspecified Status: Acute Assessment and Plan: Tylenol as needed (6) Hyperkalemia: Code(s): E87.5 - Hyperkalemia Status: Acute Assessment and Plan: -Elevated Potassium 5.4. Could be from LR she was on. Given Kayexelate. -Resolved, repeat potassium 4.8. (7) Sore throat: Code(s): J02.9 - Acute pharyngitis, unspecified Status: Acute Assessment and Plan: -Strep swab negative -Concerned for Thrush. Started on Nystatin, Chloraseptic spray, throat lozenge, without any relief of pain. -Switched to Jen's mixture which provided significant relief -Doxy should cover for any type of atypicals with sinusitis her URI issues since she has a penicillin allergy. -Continues to improve (8) Anxiety and depression: Code(s): F41.9 - Anxiety disorder, unspecified; F32.9 - Major depressive disorder, single episode, unspecified Status: Acute Assessment and Plan: -Continue Xanax and Wellbutrin -gave one time dose of Ativan IV this morning as she was very anxious -suspect she could benefit from adding Buspar or increasing her Xanax (9) Atrial flutter with rapid ventricular response: Code(s): I48.92 - Unspecified atrial flutter Status: Acute Assessment and Plan: -New onset, no hx of arrhythmias -Likely secondary to exacerbation of underlying end stage COPD -Atrial flutter with rapid ventricular response with variable AV block cannot entirely exclude coarse atrial fibrillation with RVR -Electrolytes, TSH, renal function stable -Cardiology was consulted and discussed general management options including anticoagulation with the patient -She was given 10 mg bolus IV Diltiazem and started on a drip -Ideally will avoid beta krupa and amiodarone if possible given underlying severe lung disease -CHADS2 Vasc score 4 HAS BLED score 3, cardiology recommending full ASA for stroke prophylaxis -Pt moved to IMU, will continue to monitor Subjective Date/time seen: 07/01/21 16:51 81-year-old female with history of COPD, frequent COPD exacerbations the last flare up being in March of this year, severe confluent centrilobular emphysema on chest CTs, admitted for COPD exacerbati
[2021-07-01] MEDS: ACETAMINOPHEN 325 MG TABLET 650 MG PO (16:55)
[2021-07-01] MEDS: ASPIRIN 325 MG ENTERIC TABLET PO (17:07)
[2021-07-01] MEDS: polyethylene glycoL 3350 17 GM POWD.PACK PO (17:07)
--- NOTE | 2021-07-01 17:17 | ECG_ITS ---
Measurements Intervals [place] Rate: 86 P: 94 ID: [id number] QRS: 61 QRSD: 93 T: 65 QT: 363 QTc: 435 Interpretive Statements SINUS RHYTHM BASELINE ARTIFACT- I, II, III, AVR, AVL, AVF, V1-V6 NORMAL ECG Electronically Signed On 07-02-2021 16:12:39 CDT by Abe Ruiz D.O.
[2021-07-01] MEDS: SODIUM CHLORIDE NASAL GEL 14.1 GM 1 APPLIC NASAL (20:06)
[2021-07-01] MEDS: MELATONIN 3 MG TABLET 12 MG PO (22:28)
[2021-07-01] MEDS: TEMAZEPAM (*CRX) 15 MG CAPSULE 30 MG PO (22:28)
[2021-07-02] VITALS (28 sets, daily range): BP systolic 106–148; BP diastolic 61–80; PULSE 63–94; RESP 12–20; TEMP 36.1–37.2; O2SAT 88–100
[2021-07-02] MEDS: IPRATROPIUM BR 0.02% INH SOLN 0.5 MG/2.5 ML VIAL INHALATION ×3 (01:48→20:17)
[2021-07-02 05:18] LABS: Basophils Percent Auto 0.1 % (0.2-1.2); Eosinophils Percent Auto 0.4 % (0-4.4); Hematocrit 38.8 % (37.0-47.0); Hemoglobin 13.1 g/dL (12.0-15.0); Immature Granulocyte Absolute 0.05 K/mm3 (0.00-0.031); Immature Granulocyte Percent A 0.7 % (0-0.5); Lymphocytes Absolute Auto 0.98 K/mm3 (0.9-3.2); Lymphocytes Percent Auto 13.1 % (18.3-44.2); Mean Corpuscular HGB Conc 33.8 g/dl (32-36); Mean Corpuscular Hemoglobin 30.8 pg (26-34); Mean Corpuscular Volume 91.1 fl (80-100); Mean Platelet Volume 9.5 fl (7.4-10.4); Monocytes Absolute Auto 0.9 K/mm3 (0.1-0.6); Monocytes Percent Auto 11.7 % (2.6-8.5); Neutrophils Absolute Auto 5.6 K/mm3 (1.3-6.7); Platelet Count Result 212 k/mm3 (150-375); Red Blood Count 4.26 M/mm3 (4.2-5.4); Red Cell Distribution Width 12.9 % (11.5-14.5); White Blood Count 7.5 K/mm3 (4.5-10.0)
[2021-07-02 05:32] LABS: INR 0.9; Prothrombin Time 12.5 Seconds (11.1-14.7)
[2021-07-02 05:33] LABS: Partial Thromboplastin Time 30.5 SECONDS (22.3-36.8)
[2021-07-02 05:35] LABS: Anion Gap 5 mmol/L (8-16); Blood Urea Nitrogen 31 mg/dL (7-17); Calcium 8.9 mg/dL (8.4-10.2); Carbon Dioxide 32 mmol/L (22-30); Chloride 88 mmol/L (98-107); Estimated CRCL calculation 46 ml/min; Estimated Glomerular Filt Rate > 60; Glucose 83 mg/dL (65-110); Potassium 4.4 mmol/L (3.4-5.0); Sodium 125 mmol/L (137-145)
[2021-07-02] MEDS: ONDANSETRON INJ 4 MG/2 ML VIAL IV PUSH (06:55)
--- NOTE | 2021-07-02 09:21 | PM.PNCARD ---
Progress Note: A&P Assessment and Plan (1) Atrial flutter with rapid ventricular response: Code(s): I48.92 - Unspecified atrial flutter <ARLYN Galo - Last Filed: 07/02/21 14:29> Status: Acute <ARLYN Galo - Last Filed: 07/02/21 14:29> Assessment and Plan: Initially atrial flutter with rapid ventricular response with variable AV block cannot entirely exclude coarse atrial fibrillation with RVR. She was placed on a diltiazem drip yesterday and converted to normal sinus rhythm last evening around 1700. She remains in sinus rhythm today. Will initiate oral diltiazem 30mg q8 for now. <ARLYN Galo - Last Filed: 07/02/21 14:29> (2) Acute exacerbation of chronic obstructive pulmonary disease (COPD): Code(s): J44.1 - Chronic obstructive pulmonary disease with (acute) exacerbation <ARLYN Galo - Last Filed: 07/02/21 14:29> Status: Acute <ARLYN Galo - Last Filed: 07/02/21 14:29> Assessment and Plan: Continue management per primary service and pulmonology. Recommendations noted. <ARLYN Galo - Last Filed: 07/02/21 14:29> (3) Chronic hypoxemic respiratory failure: Code(s): J96.11 - Chronic respiratory failure with hypoxia <ARLYN Galo - Last Filed: 07/02/21 14:29> Status: Acute <ARLYN Galo - Last Filed: 07/02/21 14:29> Assessment and Plan: Continue O2 supplementation, BiPAP support. <ARLYN Galo - Last Filed: 07/02/21 14:29> (4) Pulmonary hypertension: Code(s): I27.20 - Pulmonary hypertension, unspecified <ARLYN Galo - Last Filed: 07/02/21 14:29> Status: Acute <ARLYN Galo - Last Filed: 07/02/21 14:29> Assessment and Plan: Moderate in severity RVSP 56 mm Hg echocardiogram today. Secondary to underlying lung disease. <ARLYN Galo - Last Filed: 07/02/21 14:29> (5) Sleep apnea with use of continuous positive airway pressure (CPAP): Code(s): G47.30 - Sleep apnea, unspecified <ARLYN Galo - Last Filed: 07/02/21 14:29> Status: Acute <ARLYN Galo - Last Filed: 07/02/21 14:29> Assessment and Plan: Per primary service and pulmonology. Noted recommendations to utilize BiPAP. <ARLYN Galo - Last Filed: 07/02/21 14:29> Additional Plan Attending Addendum: I personally seen and examined this patient at bedside. I agree with the above documentation and plan of care as outlined. -patient reverted back to sinus rhythm for which intravenous diltiazem was discontinued. Patient had more shortness of breath this morning but is better after Xanax and pain medication. She denies palpitations. She indicated she was not interested in anticoagulation but does agree to aspirin. Exam: Thin chronically ill-appearing white female NAD, A&Ox3, nonfocal neuro exam No JVD Lungs diffusely diminished, prolonged expiratory phase, rhonchi and wheezes bilaterally Cardio RRR, S1/S2 Abd soft, NT/ND, +BS Ext no edema, clubbing, or cyanosis Plan of Care: Discussed at length the significant risk for embolic stroke with recurrent atrial fibrillation and the reduction associated with systemic anticoagulation as well as the need to balance bleeding risk. Patient verbalized understanding. She declines anticoagulation but does agree to aspirin daily. She understands the increased risk in stroke that she is taking with this decision but verbalizes understanding of the pros and cons and has made her decision. Continue aspirin 325 mg daily. Diltiazem 30 mg q.8 hours for now anticipate transition to long-acting oral regimen tomorrow provided she remains in sinus rhythm and is tolerating well. Plan to start diltiazem 120 mg long-acting tomorrow morning. Pulmonary management per primary service. LV function preserved without significant valve pathology. Pul
[2021-07-02] MEDS: ALPRAZolam (*CRX) 0.25 MG TABLET PO ×3 (09:22→17:32)
[2021-07-02] MEDS: predniSONE 20 MG TABLET 40 MG PO (09:23)
[2021-07-02] MEDS: OLMESARTAN MEDOXOMIL 20 MG TABLET 40 MG PO (09:23)
[2021-07-02] MEDS: PANTOPRAZOLE 40 MG TABLET PO (09:23)
[2021-07-02] MEDS: NEBIVOLOL HCL 5 MG TABLET 10 MG PO (09:23)
[2021-07-02] MEDS: DOCUSATE SODIUM 100 MG CAPSULE PO ×2 (09:23→20:05)
[2021-07-02] MEDS: ENOXAPARIN 40 MG/0.4 ML SYRINGE SUB-Q (09:23)
[2021-07-02] MEDS: MONTELUKAST SODIUM 10 MG TABLET PO (09:23)
[2021-07-02] MEDS: buPROPion HCL XL (24 HR) 150 MG TABCR PO (09:23)
[2021-07-02] MEDS: IPRATROPIUM NASAL SPRAY 0.03% 15 ML BOTTLE 2 SPRAY NASAL ×3 (09:24→17:32)
[2021-07-02] MEDS: PREDNISOLONE ACETATE 0.12% 1 DROP EACH EYE ×2 (09:24→20:05)
[2021-07-02] MEDS: ASPIRIN 325 MG ENTERIC TABLET PO (09:24)
[2021-07-02] MEDS: guaiFENesin 12 HR 600 MG TABCR PO ×2 (09:24→20:05)
[2021-07-02] MEDS: ESCITALOPRAM OXALATE 10 MG TABLET 20 MG PO (09:24)
--- NOTE | 2021-07-02 11:08 | PCPTNOTE ---
Attempted to see patient for PT at this time, however patient refused due to pain. Patient reported she would like pain medication first and then work with therapy after a bit. RN notified.
[2021-07-02] MEDS: traMADol HCL (*CRX) 50 MG TABLET PO ×2 (11:09→18:51)
--- NOTE | 2021-07-02 11:13 | PM.PNPUL ---
Progress Note: A&P Assessment and Plan (1) Acute exacerbation of chronic obstructive pulmonary disease (COPD): Code(s): J44.1 - Chronic obstructive pulmonary disease with (acute) exacerbation Status: Acute Assessment and Plan: 81-year-old female with history of COPD, frequent COPD exacerbations with last flare up being in March of this year, severe confluent centrilobular emphysema on chest CTs, treated for COPD exacerbation with IV steroids initially now on prednisone po, nebulized short-acting bronchodilators, antibiotic, Daliresp as well as the maintenance bronchodilator ICS/ Laba/Lama. Currently She is back in NSR. Continues to have cough and chest congestion. Will continue the same treatment, decrease prednisone to 30 mg daily, and BiPAP support at night. OOB to chair. (2) Acute and chronic respiratory failure: Qualifiers: Respiratory failure complication: hypoxia Qualified Code(s): J96.21 - Acute and chronic respiratory failure with hypoxia Code(s): J96.20 - Acute and chronic respiratory failure, unspecified whether with hypoxia or hypercapnia Status: Acute (3) Sleep apnea with use of continuous positive airway pressure (CPAP): Code(s): G47.30 - Sleep apnea, unspecified Status: Acute Subjective Date/time seen: 07/02/21 11:13 Patient has no new respiratory symptoms. Less shortness of breath and less cough than before. Used BiPAP last night. Converted back into normal sinus rhythm following treatment with diltiazem IV drip. Review of Systems Review of Systems: All systems reviewed & are unremarkable except as noted in HPI and below Exam Narrative: GENERAL APPEARANCE: Well developed, well nourished, alert and cooperative, and appears to be in mild respiratory distress SKIN: Inspection of the skin reveals no rashes, ulcerations or petechiae. HEENT: Sclerae anicteric and conjunctivae pink and moist. Extraocular movements were intact and pupils were equal, round. NECK: Supple. There was no thyroid enlargement, and no tenderness, or masses were felt. LUNGS: Auscultation of the lungs revealed distant breath sounds bilaterally with a rare crackles posteriorly CARDIAC: There was an irregular rate and rhythm without any murmurs, gallops, rubs. ABDOMEN: Soft and nontender with normal bowel sounds. There was no organomegaly. LYMPH NODES: No lymphadenopathy was appreciated in the neck. EXTREMITIES: No cyanosis, clubbing or edema. NEUROLOGIC: Alert and oriented x 3. Normal affect. Objective Data Vital Signs Vital Signs: Vital Signs - 24 hr 07/01/21 11:50 07/01/21 12:00 07/01/21 12:47 Temperature 36.7 C Pulse Rate 129 H 141 H 115 H Respiratory Rate 20 18 Blood Pressure 111/69 103/71 Pulse Oximetry 95 95 07/01/21 14:00 07/01/21 14:03 07/01/21 14:06 Temperature Pulse Rate 115 H 120 H Respiratory Rate 20 Blood Pressure Pulse Oximetry 92 07/01/21 14:11 07/01/21 15:55 07/01/21 16:00 Temperature 36.9 C Pulse Rate 112 H 108 H 108 H Respiratory Rate 20 22 H Blood Pressure 107/76 Pulse Oximetry 92 91 07/01/21 17:28 07/01/21 18:00 07/01/21 19:37 Temperature 36.9 C Pulse Rate 66 69 69 Respiratory Rate 20 Blood Pressure 105/61 139/59 L Pulse Oximetry 91 93 07/01/21 19:45 07/01/21 19:55 07/01/21 20:00 Temperature Pulse Rate 71 78 69 Respiratory Rate 18 20 20 Blood Pressure Pulse Oximetry 93 93 93 07/01/21 22:00 07/01/21 22:26 07/01/21 23:42 Temperature 37.2 C Pulse Rate 71 70 74 Respiratory Rate 26 H 22 H Blood Pressure 115/67 Pulse Oximetry 96 94 07/01/21 23:58 07/02/21 00:00 07/02/21 01:40 Temperature Pulse Rate 74 71 66 Respiratory Rate 22 H 13 Blood Pressure Pulse Oximetry 94 07/02/21 01:50 07/02/21 01:55 07/02/21 02:00 Temperature Pulse Rate 66 66 68 Respiratory Rate 13 12 Blood Pressure Pulse Oximetry 96 07/02/21 04:00 07/02/21 06:00 07/02/21 07:59
[2021-07-02 11:54] LABS: Creatinine Urine 41.5 mg/dL
[2021-07-02 12:30] LABS: Sodium Urine Random 23 meq/L
[2021-07-02] MEDS: dilTIAZem HCL 30 MG TABLET PO ×2 (12:43→21:23)
--- NOTE | 2021-07-02 13:10 | PCDIET ---
Nutrition Follow-Up Complete: Nutrition Diagnosis: Increased energy expenditure related to COPD as evidenced by weight loss of 15 lbs in the past 3 months. Nutrition Goal: Meet estimated nutritional needs. Goal in progress. Patient consumed an average of 50% of meals since 06/28/21. Taking some Ensure Compact. Recommend increasing Ensure Compact to TID with meals and continuing regular diet. Last recorded weight is 55.2 kg. Recommend obtaining new weight. Bowel Motility: BM x 1 today. Labs Reviewed: BUN (31), Na (125), Cl (88) Meds Noted: Wellbutrin, Cardizem, Colace, Vibramycin, Atrovent, Xopenex, Bystolic, Daliresp, Benicar, Zofran, Protonix, Prednisone, Restoril, Ultram Additional Notes: No documented skin breakdown. Will continue to monitor with same goal. Nutrition Monitoring and Evaluation: Will monitor every 5 days.
--- NOTE | 2021-07-02 13:26 | PC.NURSE ---
On 07/02/21, the student, [Jm Leal], provided care and completed [facility] on this patient. I have reviewed the student's documentation and agree with the findings.
--- NOTE | 2021-07-02 15:17 | PM.IMPN ---
Progress Note: A&P Assessment and Plan (1) Acute exacerbation of chronic obstructive pulmonary disease (COPD): Code(s): J44.1 - Chronic obstructive pulmonary disease with (acute) exacerbation Status: Acute Assessment and Plan: -Seems to be improving clinically, however still on 3-5L NC at rest -Continue with IV Doxycyline for atypicals and it would also treat sinusitis -CXR w/ severe emphysema otherwise unremarkable -Consulted [facility], Dr. Oconnor qho states continue BiPAP 10/6 usage at night and PRN during the say for dyspnea or naps. -IV steroids were weaned and transitioned to oral, decrease from 40 to 30 mg PO -Continue nebs, switched from albuterol to Xopenex s/p tachyarrhythmia today -Also started Daliresp, will continue this upon discharge. (2) Acute and chronic respiratory failure: Qualifiers: Respiratory failure complication: hypoxia Qualified Code(s): J96.21 - Acute and chronic respiratory failure with hypoxia Code(s): J96.20 - Acute and chronic respiratory failure, unspecified whether with hypoxia or hypercapnia Status: Acute Assessment and Plan: CXR w/ no acute findings Continue to monitor See above for further details of management (3) Sleep apnea with use of continuous positive airway pressure (CPAP): Code(s): G47.30 - Sleep apnea, unspecified Status: Acute Assessment and Plan: Pulm will switch from CPAP to BiPAP. See above. (4) Essential (primary) hypertension: Code(s): I10 - Essential (primary) hypertension Status: Acute Assessment and Plan: Stable. Continue home meds. Continue to monitor. (5) Osteoarthritis of multiple joints: Code(s): M15.9 - Polyosteoarthritis, unspecified Status: Acute Assessment and Plan: Tylenol as needed (6) Hyperkalemia: Code(s): E87.5 - Hyperkalemia Status: Acute Assessment and Plan: -Elevated Potassium 5.4. Could be from LR she was on. Given Kayexelate. -Resolved (7) Sore throat: Code(s): J02.9 - Acute pharyngitis, unspecified Status: Acute Assessment and Plan: -Strep swab negative -Concerned for Thrush. Started on Nystatin, Chloraseptic spray, throat lozenge, without any relief of pain. -Switched to Jen's mixture which provided significant relief -Doxy should cover for any type of atypicals with sinusitis her URI issues since she has a penicillin allergy. -Continues to improve daily (8) Anxiety and depression: Code(s): F41.9 - Anxiety disorder, unspecified; F32.9 - Major depressive disorder, single episode, unspecified Status: Acute Assessment and Plan: -Continue Xanax and Wellbutrin -suspect she could benefit from adding Buspar or increasing her Xanax dosage, could be addressed on outpatient basis but I suspect her anxiety is contributing to her overall sob (9) Atrial flutter with rapid ventricular response: Code(s): I48.92 - Unspecified atrial flutter Status: Acute Assessment and Plan: -New onset, no hx of arrhythmias -Likely secondary to exacerbation of underlying end stage COPD -Atrial flutter with rapid ventricular response with variable AV block cannot entirely exclude coarse atrial fibrillation with RVR -Electrolytes, TSH, renal function stable -Cardiology was consulted and discussed general management options including anticoagulation with the patient -She was given 10 mg bolus IV Diltiazem and started on a drip -Ideally will avoid beta krupa and amiodarone if possible given underlying severe lung disease -CHADS2 Vasc score 4 HAS BLED score 3, cardiology recommending full ASA for stroke prophylaxis -After Diltiazem bolus and drip she converted to NSR yesterday evening and has remained in NSR today. -Cardiology switched from drip to oral diltiazem -Continue to monitor via telemetry (10) Hyponatremia: Code(s): E87.1 - Hypo-o
[2021-07-02] MEDS: MELATONIN 3 MG TABLET 12 MG PO (20:05)
[2021-07-02] MEDS: TEMAZEPAM (*CRX) 15 MG CAPSULE 30 MG PO (20:06)
[2021-07-02] MEDS: SODIUM CHLORIDE NASAL GEL 14.1 GM 1 APPLIC NASAL (20:08)
[2021-07-03] VITALS (32 sets, daily range): BP systolic 120–136; BP diastolic 64–70; PULSE 58–126; RESP 13–26; TEMP 36.1–36.7; O2SAT 91–100
[2021-07-03] MEDS: IPRATROPIUM BR 0.02% INH SOLN 0.5 MG/2.5 ML VIAL INHALATION ×4 (01:58→20:51)
[2021-07-03] MEDS: polyethylene glycoL 3350 17 GM POWD.PACK PO (06:31)
[2021-07-03 07:13] LABS: Hematocrit 39.1 % (37.0-47.0); Hemoglobin 13.1 g/dL (12.0-15.0); Mean Corpuscular HGB Conc 33.5 g/dl (32-36); Mean Corpuscular Hemoglobin 30.6 pg (26-34); Mean Corpuscular Volume 91.4 fl (80-100); Mean Platelet Volume 9.5 fl (7.4-10.4); Platelet Count Result 215 k/mm3 (150-375); Red Blood Count 4.28 M/mm3 (4.2-5.4); Red Cell Distribution Width 12.6 % (11.5-14.5); White Blood Count 7.1 K/mm3 (4.5-10.0)
[2021-07-03 07:38] LABS: Anion Gap 4 mmol/L (8-16); Blood Urea Nitrogen 25 mg/dL (7-17); Carbon Dioxide 35 mmol/L (22-30); Chloride 88 mmol/L (98-107); Estimated CRCL calculation 51 ml/min; Estimated Glomerular Filt Rate > 60; Glucose 79 mg/dL (65-110); Potassium 4.1 mmol/L (3.4-5.0); Sodium 127 mmol/L (137-145)
[2021-07-03] MEDS: ALPRAZolam (*CRX) 0.25 MG TABLET PO ×2 (09:04→16:52)
[2021-07-03] MEDS: ESCITALOPRAM OXALATE 10 MG TABLET 20 MG PO (09:05)
[2021-07-03] MEDS: ENOXAPARIN 40 MG/0.4 ML SYRINGE SUB-Q (09:05)
[2021-07-03] MEDS: PREDNISOLONE ACETATE 0.12% 1 DROP EACH EYE ×2 (09:05→21:40)
[2021-07-03] MEDS: buPROPion HCL XL (24 HR) 150 MG TABCR PO (09:05)
[2021-07-03] MEDS: predniSONE 10 MG TABLET 30 MG PO (09:06)
[2021-07-03] MEDS: OLMESARTAN MEDOXOMIL 20 MG TABLET 40 MG PO (09:06)
[2021-07-03] MEDS: ASPIRIN 325 MG ENTERIC TABLET PO (09:07)
[2021-07-03] MEDS: MONTELUKAST SODIUM 10 MG TABLET PO (09:07)
[2021-07-03] MEDS: NEBIVOLOL HCL 5 MG TABLET 10 MG PO (09:08)
[2021-07-03] MEDS: DOCUSATE SODIUM 100 MG CAPSULE PO ×2 (09:08→21:39)
[2021-07-03] MEDS: guaiFENesin 12 HR 600 MG TABCR PO ×2 (09:09→21:40)
[2021-07-03] MEDS: PANTOPRAZOLE 40 MG TABLET PO (09:09)
[2021-07-03] MEDS: IPRATROPIUM NASAL SPRAY 0.03% 15 ML BOTTLE 2 SPRAY NASAL ×2 (09:10→16:51)
--- NOTE | 2021-07-03 10:07 | PM.IMPN ---
Progress Note: A&P Assessment and Plan (1) Acute exacerbation of chronic obstructive pulmonary disease (COPD): Code(s): J44.1 - Chronic obstructive pulmonary disease with (acute) exacerbation Status: Acute Assessment and Plan: Somewhat improving but still not back to her baseline -continue prednisone 30 mg daily, doxycycline, xopenex, Atrovent, and daliresp -still on 3-5L NC at rest. Pt unable to do home o2 eval due to weakness today -CTA chest shows severe emphysema, no active disease -[employer] consulted, appreciate their recommendations -They recommend to continue BiPAP 10/6 usage at night and PRN during the say for dyspnea or naps. (2) Atrial flutter with rapid ventricular response: Code(s): I48.92 - Unspecified atrial flutter Status: Acute Assessment and Plan: -New onset this stay and now back to NSR and on diltiazem -Likely secondary to exacerbation of underlying end stage COPD -Atrial flutter with rapid ventricular response with variable AV block cannot entirely exclude coarse atrial fibrillation with RVR -Electrolytes, TSH, renal function stable -Cardiology was consulted and discussed stroke prevention options. Since pt has chronic weakness and is a fall risk, they have decided to go forward with aspirin only therapy. CHADS2 Vasc score 4 HAS BLED score 3 -okay to downgrade to medical floor with tele (3) Acute and chronic respiratory failure: Qualifiers: Respiratory failure complication: hypoxia Qualified Code(s): J96.21 - Acute and chronic respiratory failure with hypoxia Code(s): J96.20 - Acute and chronic respiratory failure, unspecified whether with hypoxia or hypercapnia Status: Acute Assessment and Plan: as above (4) Sleep apnea with use of continuous positive airway pressure (CPAP): Code(s): G47.30 - Sleep apnea, unspecified Status: Acute Assessment and Plan: Pulm will switch from CPAP to BiPAP. See above. (5) Essential (primary) hypertension: Code(s): I10 - Essential (primary) hypertension Status: Acute Assessment and Plan: Last bp 136/68 -continue bystolic, benicar and diltiazem (6) Osteoarthritis of multiple joints: Code(s): M15.9 - Polyosteoarthritis, unspecified Status: Acute Assessment and Plan: Tylenol as needed (7) Hyperkalemia: Code(s): E87.5 - Hyperkalemia Status: Acute Assessment and Plan: resolved -no need to hold benicar at this time (8) Sore throat: Code(s): J02.9 - Acute pharyngitis, unspecified Status: Acute Assessment and Plan: No mention of issues on exam today -Strep swab negative (9) Anxiety and depression: Code(s): F41.9 - Anxiety disorder, unspecified; F32.9 - Major depressive disorder, single episode, unspecified Status: Acute Assessment and Plan: Continue Xanax, lexapro and Wellbutrin (10) Hyponatremia: Code(s): E87.1 - Hypo-osmolality and hyponatremia Status: Acute Assessment and Plan: -ranges from 129- 134, however dropped to 125 today and now 127 -urine sodium mildly high at 23. on no diruetics -pt appears pretty euvolemic on exam or maybe somewhat dry -unclear cause, possibly decreased PO intake secondary to sob? SIADH? -monitor with daily labs since it is improving. If she worsens, consider nephrology consult -consider stopping lexapro Time Spent With Patient Time with patient: 25 - 35 minutes Subjective Date/time seen: 07/03/21 10:08 Interval history: Pt is a 81-year-old female here for COPD exacerbation and AFib. Patient was seen today in states she does not feel great. She said that she continues to feel short of breath. She notes the breathing treatments are helping but she still does not feel well. Her cough is slowing down and she has no fevers. She does mention that she has had continuous chest pressu
--- NOTE | 2021-07-03 10:55 | PCPTNOTE ---
Attempted to see patient for Physical Therapy session. Patient stated she was in pain and refused therapy at this time stating later . Will attempt later today.
[2021-07-03] MEDS: ACETAMINOPHEN 325 MG TABLET 650 MG PO ×2 (10:56→21:40)
--- NOTE | 2021-07-03 11:23 | PCRCNOTE ---
Attempted to see patient for Home o2 eval with PT. (co-treat) Pt. absolutely refuses at this time. States she is too short of breath, anxious and in too much pain to work with us at this time. Physician Surgeon explained to pt the importance of working with us later today to evaluate needs for oxygen and therapy. Will attempt again later today to co-treat.
--- NOTE | 2021-07-03 11:47 | PM.PNCARD ---
Progress Note: A&P Assessment and Plan (1) Atrial flutter with rapid ventricular response: Code(s): I48.92 - Unspecified atrial flutter Status: Acute Assessment and Plan: Initially atrial flutter with rapid ventricular response with variable AV block cannot entirely exclude coarse atrial fibrillation with RVR. Tolerating diltiazem 120 mg daily. She only agrees to aspirin 325 mg daily as previously discussed. Explained increased stroke risk compared to systemic anticoagulation. She respectively declined systemic anticoagulation after extensive discussion with regards to pros and cons risks and benefits. Monitor for bleeding. Outpatient follow-up for management of paroxysmal atrial flutter advised with cardiology. (2) Acute exacerbation of chronic obstructive pulmonary disease (COPD): Code(s): J44.1 - Chronic obstructive pulmonary disease with (acute) exacerbation Status: Acute Assessment and Plan: Continue management per primary service and pulmonology. Recommendations noted. (3) Chronic hypoxemic respiratory failure: Code(s): J96.11 - Chronic respiratory failure with hypoxia Status: Acute Assessment and Plan: Continue O2 supplementation, BiPAP support. (4) Pulmonary hypertension: Code(s): I27.20 - Pulmonary hypertension, unspecified Status: Acute Assessment and Plan: Moderate in severity RVSP 56 mm Hg echocardiogram today. Secondary to underlying lung disease. (5) Sleep apnea with use of continuous positive airway pressure (CPAP): Code(s): G47.30 - Sleep apnea, unspecified Status: Acute Assessment and Plan: Per primary service and pulmonology. Noted recommendations to utilize BiPAP. Subjective Date/time seen: Date of service: 07/03/21 11:47 Follow-up for paroxysmal atrial fibrillation with rapid ventricular response Patient had more difficulty shortness of breath and coughing this morning. Improving at this time. Maintaining sinus rhythm overnight. No chest pain or new complaints. No palpitations. Review of Systems Review of Systems: All systems reviewed & are unremarkable except as noted in HPI and below Constitutional: Constitutional: Reports as per HPI, Reports no additional constitutional complaints, Reports fatigue, Denies headache(s) and Reports weakness Eyes: Eyes: Reports as per HPI and Reports no additional eye complaints ENT: Reports system reviewed and no additional complaints, except as documented, Reports as per HPI and Denies headache(s) Cardiovascular: Cardiovascular: Reports as per HPI, Reports no additional cardiovascular complaints, Denies chest pain, Denies diaphoresis, Denies leg edema, Denies lightheadedness, Denies palpitations, Reports dyspnea and Reports dyspnea on exertion Respiratory: Respiratory: Reports as per HPI, Reports no additional respiratory complaints, Reports chest congestion, Reports cough, Denies hemoptysis, Reports dyspnea, Reports dyspnea on exertion and Reports wheezing Gastrointestinal: Gastrointestinal: Reports as per HPI, Reports no additional gastrointestinal complaints, Denies abdominal pain, Denies melena, Denies bloating, Denies hematochezia, Reports nausea and Denies vomiting Genitourinary: Genitourinary: Reports as per HPI, Denies hematuria and Denies dysuria Musculoskeletal: Musculoskeletal: Reports no additional musculoskeletal complaints and Reports as per HPI Integumentary/Breasts: Skin/Breast: Reports system reviewed and no additional complaints, except as docu and Reports as per HPI Neurologic: Reports system reviewed and no additional complaints, except as documented, Reports as per HPI, Denies headache(s) and Reports weakness Psychiatric: Psychiatric: Reports no additional psychiatric complaints, Reports as per HPI and Reports anxiety Endocrine: Endocrine: Reports no additional endocrine complaints, Reports as per HPI, Reports fatigue and Denies palpitations Hematologi
--- NOTE | 2021-07-03 15:07 | PM.PNPUL ---
Progress Note: A&P Assessment and Plan (1) Acute exacerbation of chronic obstructive pulmonary disease (COPD): Code(s): J44.1 - Chronic obstructive pulmonary disease with (acute) exacerbation Status: Acute Assessment and Plan: 81-year-old female with history of COPD, frequent COPD exacerbations with last flare up being in March of this year, severe confluent centrilobular emphysema on chest CTs, treated for COPD exacerbation with IV steroids initially now on prednisone po, nebulized short-acting bronchodilators, antibiotic, Daliresp as well as the maintenance bronchodilator ICS/ Laba/Lama. Currently she is back in NSR. Continues to have cough and chest congestion. Will continue the same treatment, continue prednisone to 30 mg daily, and BiPAP support at night. OOB to chair. (2) Acute and chronic respiratory failure: Qualifiers: Respiratory failure complication: hypoxia Qualified Code(s): J96.21 - Acute and chronic respiratory failure with hypoxia Code(s): J96.20 - Acute and chronic respiratory failure, unspecified whether with hypoxia or hypercapnia Status: Acute Assessment and Plan: (3) Sleep apnea with use of continuous positive airway pressure (CPAP): Code(s): G47.30 - Sleep apnea, unspecified Status: Acute Assessment and Plan: Subjective Date/time seen: 07/03/21 15:07 Jolie Starr is an 81-year-old female seen in follow up for COPD exacerbation. Her family member is at the bedside. She is not feeling much better today. Her troponin returned negative x 3 on Jul 01. She is not having chest pain. Her last COPD exacerbation was in March of this year. She has severe confluent centrilobular emphysema on chest CTs, now on prednisone po, nebulized short-acting bronchodilators, antibiotic, Daliresp as well as the maintenance bronchodilator ICS/ Laba/Lama. Currently she remains in NSR. Continues to have cough and chest congestion. Will continue the same treatment, decrease prednisone to 30 mg daily, and BiPAP support at night. OOB to chair. Review of Systems Review of Systems: All systems reviewed & are unremarkable except as noted in HPI and below (HPI) Exam Narrative: GENERAL APPEARANCE: Thin 81 year old female with dusky cool toes. She has mild increase in respiratory effort, does not appear to be in distress HEENT: Sclerae anicteric and conjunctivae pink and moist. Extraocular movements were intact and pupils were equal, round. LUNGS: Auscultation of the lungs revealed distant breath sounds bilaterally without wheezing. CARDIAC: Regular S1S2 ABDOMEN: Soft; normal bowel sounds. EXTREMITIES: Fingertips are warm to touch; toes are cool and dusky. No edema. NEUROLOGIC: Alert and oriented x 3. Normal affect. Objective Data Vital Signs Vital Signs: Vital Signs - 24 hr 07/02/21 16:00 07/02/21 16:40 07/02/21 18:00 Temperature 36.1 C L Pulse Rate 66 64 71 Respiratory Rate Blood Pressure 130/71 Pulse Oximetry 96 99 07/02/21 19:32 07/02/21 20:00 07/02/21 20:15 Temperature 36.1 C L Pulse Rate 94 78 68 Respiratory Rate 20 20 20 Blood Pressure 127/67 Pulse Oximetry 93 93 91 07/02/21 20:25 07/02/21 22:00 07/02/21 22:05 Temperature Pulse Rate 66 70 70 Respiratory Rate 18 14 Blood Pressure Pulse Oximetry 91 96 07/02/21 23:36 07/02/21 23:49 07/03/21 00:00 Temperature 36.2 C L Pulse Rate 71 71 68 Respiratory Rate 14 14 Blood Pressure 106/64 Pulse Oximetry 97 97 07/03/21 01:53 07/03/21 01:55 07/03/21 02:04 Temperature Pulse Rate 60 68 63 Respiratory Rate 24 H 13 Blood Pressure Pulse Oximetry 97 07/03/21 03:26 07/03/21 03:27 07/03/21 04:00 Temperature 36.3 C L Pulse Rate 64 64 63 Res
--- NOTE | 2021-07-03 18:01 | PCRCNOTE ---
Home o2 evaluation complete. Pt able to wean to home 02 settings of 5l/m with activity and 2l/m at rest. Nursing staff now reports that she has desaturated during coughing and commode trips and back on 5l/m plus a venturi mask to keep sats above 90%. Will switch pt to HFNC and discourage a second form of oxygen therapy unless indicated.
--- NOTE | 2021-07-03 18:49 | PCRCNOTE ---
Pt placed on humidified high flow nasal cannula at 3l/m. Tolerating well at 95%
[2021-07-03] MEDS: MELATONIN 3 MG TABLET 12 MG PO (21:40)
[2021-07-03] MEDS: SODIUM CHLORIDE NASAL GEL 14.1 GM 1 APPLIC NASAL (21:41)
[2021-07-03] MEDS: TEMAZEPAM (*CRX) 15 MG CAPSULE 30 MG PO (21:43)
--- NOTE | 2021-07-03 23:58 | PC.NURSE ---
This patient, Jolie Starr, was transferred to room 241 on 07/03/21 at 2340. Personal belongings sent with patient. Report given to ZHANNA Griggs. Appropriate documentation sent with patient.
[2021-07-04] VITALS (22 sets, daily range): BP systolic 112–143; BP diastolic 62–78; PULSE 63–97; RESP 15–28; TEMP 35.8–36.5; O2SAT 93–100
--- NOTE | 2021-07-04 00:08 | PC.NURSE ---
transfer received from IMU at 2350 on 07/03/21.
[2021-07-04] MEDS: IPRATROPIUM BR 0.02% INH SOLN 0.5 MG/2.5 ML VIAL INHALATION ×4 (01:58→20:21)
--- NOTE | 2021-07-04 02:04 | PC.NURSE ---
Daylight Savings Time For Daylight Savings Time Ending in the Fall - Clocks are moved back. For Daylight Savings Time Beginning in the Spring - Clocks are moved ahead. For [facility], the time of change occurs at 0200 hrs. Time is taken from the commissary worker. This entry on the patient's chart recognizes the change in time reflected during documentation. Example: 2 entries for vital signs may be charted for 0200 hrs.
[2021-07-04] MEDS: ALPRAZolam (*CRX) 0.25 MG TABLET PO ×3 (06:37→20:12)
[2021-07-04] MEDS: ACETAMINOPHEN 325 MG TABLET 650 MG PO ×2 (06:37→14:25)
[2021-07-04 08:15] LABS: Anion Gap 4 mmol/L (8-16); Blood Urea Nitrogen 23 mg/dL (7-17); Calcium 8.7 mg/dL (8.4-10.2); Carbon Dioxide 32 mmol/L (22-30); Chloride 87 mmol/L (98-107); Estimated CRCL calculation 49 ml/min; Estimated Glomerular Filt Rate > 60; Glucose 111 mg/dL (65-110); Potassium 3.9 mmol/L (3.4-5.0); Sodium 123 mmol/L (137-145)
[2021-07-04] MEDS: NEBIVOLOL HCL 5 MG TABLET 10 MG PO (08:52)
[2021-07-04] MEDS: predniSONE 10 MG TABLET 30 MG PO (08:53)
[2021-07-04] MEDS: DOCUSATE SODIUM 100 MG CAPSULE PO ×2 (08:53→21:13)
[2021-07-04] MEDS: buPROPion HCL XL (24 HR) 150 MG TABCR PO (08:53)
[2021-07-04] MEDS: MONTELUKAST SODIUM 10 MG TABLET PO (08:53)
[2021-07-04] MEDS: OLMESARTAN MEDOXOMIL 20 MG TABLET 40 MG PO (08:53)
[2021-07-04] MEDS: PANTOPRAZOLE 40 MG TABLET PO (08:53)
[2021-07-04] MEDS: guaiFENesin 12 HR 600 MG TABCR PO ×2 (08:53→21:13)
[2021-07-04] MEDS: ASPIRIN 325 MG ENTERIC TABLET PO (08:53)
[2021-07-04] MEDS: IPRATROPIUM NASAL SPRAY 0.03% 15 ML BOTTLE 2 SPRAY NASAL ×2 (08:54→13:22)
[2021-07-04] MEDS: PREDNISOLONE ACETATE 0.12% 1 DROP EACH EYE ×2 (08:54→21:13)
[2021-07-04] MEDS: ENOXAPARIN 40 MG/0.4 ML SYRINGE SUB-Q (08:54)
--- NOTE | 2021-07-04 09:55 | PM.CNNEP ---
Assessment and Plan Assessment and plan (1) Hyponatremia: Code(s): E87.1 - Hypo-osmolality and hyponatremia Status: Acute Assessment and Plan: The patient has hyponatremia. This is dated back to 2011. The chronic hyponatremia is most likely due to COPD. Certainly these spontaneous pneumothorax might have exacerbated at that time. However there is no acute disease on the current chest x-ray. She is also on Wellbutrin which could be contributory as well. I told her that this is for depression and anxiety and she does not know why she is on this. I will cut the dose in half and see if we can wean this to off. Maybe that would help with the hyponatremia down the line. She is on pantoprazole here and omeprazole as an outpatient. Perhaps we can change this to Pepcid. other causes of hyponatremia include: Excess water drinking. She says she is thirsty all the time. Hormonal causes: TSH is okay. I will check a cortisol level. Cancer: The patient had a colonoscopy 3 years ago. She had a chest CT few years ago and an abdominal CT a few years and none of these suggested any sort of cancer. The patient has had hyponatremia for 11 years now. If she had cancer causing this it probably would have surfaced by now. CORE FITTER disease: Same story here. Brain CT a few years ago was negative. Medications: Wellbutrin is on board. We should try to wean this off if possible. No diuretics, or narcotics. She is on a PPI as discussed above. Dehydration: Do not think this is the case. We can get a urine sodium to be sure. She is not on diuretics. This could be a mild imbalance of the ADH system cause by COPD and meds but then excess drinking because of her thirst Combining to cause the sodium to drop. Will check a cortisol level, urine sodium, urine osmolality, serum osmolality, and a SPEP. Will fluid restrict [id number]. The patient has acute hyponatremia. Perhaps she is just drinking more water here than she does at home. Intake/ output does not reflect how much water she is drinking. She says she drinks at least 2 of those quarts of water per day that are kept at her bedside. (2) Acute exacerbation of chronic obstructive pulmonary disease (COPD): Code(s): J44.1 - Chronic obstructive pulmonary disease with (acute) exacerbation Status: Acute Assessment and Plan: The patient is getting better (3) Hyperkalemia: Code(s): E87.5 - Hyperkalemia Status: Acute Assessment and Plan: the patient had potassium earlier in the stay. Not a problem lately. (4) Sleep apnea with use of continuous positive airway pressure (CPAP): Code(s): G47.30 - Sleep apnea, unspecified Status: Acute Assessment and Plan: She uses a CPAP (5) Atrial flutter with rapid ventricular response: Code(s): I48.92 - Unspecified atrial flutter Status: Acute Assessment and Plan: cardiology note seen. History of Present Illness Reason for Consult Consult date: 07/04/21 Chief Complaint Chief complaint: COPD Exacerbation History of Present Illness Narrative: Jolie is a very pleasant 81-year-old lady who has multiple medical problems including hyponatremia, COPD requiring home oxygen, history of spontaneous pneumothorax, patent foramen ovale, anxiety, hypertension, pulmonary hypertension, arthritis , and sleep apnea using a CPAP. The patient came in the hospital because of shortness of breath. She did not have a fever or chills. She did have excess secretions however. She was evaluated in the emergency room. She was felt to have exacerbation of COPD and possible pneumonia so she was admitted for pulmonary toilet, nebulizers, and antibiotics. The patient feels like she is better now. Her sodium level on admission was 131 which is about what it runs since January of 2019. Before that, it had been running between 133 and 136 since 2011.
[2021-07-04] MEDS: ONDANSETRON INJ 4 MG/2 ML VIAL IV PUSH (11:49)
--- NOTE | 2021-07-04 12:56 | PM.IMPN ---
Progress Note: A&P Assessment and Plan (1) Acute exacerbation of chronic obstructive pulmonary disease (COPD): Code(s): J44.1 - Chronic obstructive pulmonary disease with (acute) exacerbation Status: Acute Assessment and Plan: Somewhat improving but still not back to her baseline -continue prednisone 30 mg daily, doxycycline, xopenex, Atrovent, and daliresp -still on 3-5L NC at rest. She moved from the bed to the chair today and significantly worsened her breathing. she said prior to her hospitalization she was not this bad. -CTA chest shows severe emphysema, no active disease -[employer] Supervisor consulted, appreciate their recommendations -They recommend to continue BiPAP 10/6 usage at night and PRN during the say for dyspnea or naps. -if she fails to improve and feels worse, may consider switching back to IV steroids. appreciate pulmonologys recommendations. (2) Atrial flutter with rapid ventricular response: Code(s): I48.92 - Unspecified atrial flutter Status: Acute Assessment and Plan: -New onset this stay and now back to NSR and on diltiazem -Likely secondary to exacerbation of underlying end stage COPD -Atrial flutter with rapid ventricular response with variable AV block cannot entirely exclude coarse atrial fibrillation with RVR -Electrolytes, TSH, renal function stable -Cardiology was consulted and discussed stroke prevention options. Since pt has chronic weakness and is a fall risk, they have decided to go forward with aspirin only therapy. CHADS2 Vasc score 4 HAS BLED score 3 (3) Acute and chronic respiratory failure: Qualifiers: Respiratory failure complication: hypoxia Qualified Code(s): J96.21 - Acute and chronic respiratory failure with hypoxia Code(s): J96.20 - Acute and chronic respiratory failure, unspecified whether with hypoxia or hypercapnia Status: Acute Assessment and Plan: as above (4) Sleep apnea with use of continuous positive airway pressure (CPAP): Code(s): G47.30 - Sleep apnea, unspecified Status: Acute Assessment and Plan: Pulm has switched from CPAP to BiPAP. See above. (5) Essential (primary) hypertension: Code(s): I10 - Essential (primary) hypertension Status: Acute Assessment and Plan: Last bp 143/78 -continue bystolic, benicar and diltiazem (6) Osteoarthritis of multiple joints: Code(s): M15.9 - Polyosteoarthritis, unspecified Status: Acute Assessment and Plan: Tylenol as needed (7) Hyperkalemia: Code(s): E87.5 - Hyperkalemia Status: Acute Assessment and Plan: resolved -no need to hold benicar at this time (8) Sore throat: Code(s): J02.9 - Acute pharyngitis, unspecified Status: Acute Assessment and Plan: No mention of issues on exam today -Strep swab negative (9) Anxiety and depression: Code(s): F41.9 - Anxiety disorder, unspecified; F32.9 - Major depressive disorder, single episode, unspecified Status: Acute Assessment and Plan: Continue Xanax, lexapro and Wellbutrin (10) Hyponatremia: Code(s): E87.1 - Hypo-osmolality and hyponatremia Status: Acute Assessment and Plan: -ranges from 129- 134, however dropped to 123 -urine sodium mildly high at 23. on no diuretics -pt appears pretty euvolemic on exam -on lexapro and Wellbutrin. I have held the Lexapro and Nephrology has decreased the Wellbutrin dose -unclear cause, SIADH? -nephrology has been consulted and I appreciate their recommendations. Cortisol normal Subjective Date/time seen: 07/04/21 12:56 Interval history: Pt is a 81-year-old female here for COPD exacerbation and AFib. Patient was seen today in states she does not feel great. She got up to the chair which made her short of breath and then nauseated. She said that she continues to feel short of breath with a cough. S
[2021-07-04 15:04] LABS: Add Urine Microscopic? YES; Appearance Urine Clear (Clear); Bilirubin Urine Negative (Negative); Blood Urine Negative (Negative); Color Urine Yellow (Yellow); Glucose Urine UA Negative (Negative); Ketones Urine Negative (Negative); Leukocyte Esterase Ur Negative LEU/UL (NEGATIVE); Nitrate Urine Negative (Negative); Protein Urine Negative (Negative); RBC Urine 0-2 /hpf (0-2); Specific Grav Ur 1.012 (1.001-1.035); Squamous Epithelial Cell Urine Rare /hpf (Few); Urobilinogen Urine Negative mg/dL (<2.0); WBC Urine 0-3 /hpf (0-3)
[2021-07-04 15:08] LABS: Creatinine Urine 34.1 mg/dL; Sodium Urine Random 26 meq/L; Total Protein Urine Random 18 mg/dL; Ur Ttl Prot Creatinine Ratio 0.53 mg/mg (0-0.20)
--- NOTE | 2021-07-04 16:39 | PM.PNPUL ---
Progress Note: A&P Assessment and Plan (1) Acute exacerbation of chronic obstructive pulmonary disease (COPD): Code(s): J44.1 - Chronic obstructive pulmonary disease with (acute) exacerbation Status: Acute Assessment and Plan: PLAN: Cornet valve to help clear secretions. Q 2 hr while awake. Dornase jeremiah 2.5 mg nebulized Q 12 hour. Agree with IV steroids in place of oral prednisone for now. She is on fluid restriction due to hyponatremia. This makes sense, and may also make it harder for her to expectorate if the sputum become too thick. BiPAP support at night. OOB to chair. 81-year-old female with history of COPD, frequent COPD exacerbations with last flare up being in March of this year, severe confluent centrilobular emphysema on chest CTs, treated for COPD exacerbation with IV steroids initially, was on oral prednisone po, now back on IV steroids today. She is also in short-acting bronchodilators, antibiotic, Daliresp as well as the maintenance bronchodilator ICS/ Laba/Lama. Currently she remains in NSR. (2) Acute and chronic respiratory failure: Qualifiers: Respiratory failure complication: hypoxia Qualified Code(s): J96.21 - Acute and chronic respiratory failure with hypoxia Code(s): J96.20 - Acute and chronic respiratory failure, unspecified whether with hypoxia or hypercapnia Status: Acute Assessment and Plan: (3) Sleep apnea with use of continuous positive airway pressure (CPAP): Code(s): G47.30 - Sleep apnea, unspecified Status: Acute Assessment and Plan: Subjective Date/time seen: 07/04/21 16:39 Jolie Starr is an 81-year-old female seen in follow up for COPD exacerbation, now moved to Room 241. She feels better this late afternoon than she did earlier today. Her main complaint is feeling tired from so much coughing, and not being able to get her secretions out; these feels thick and are not easy to expectorate. SHe uses O2 at home. Dr rAevalo saw her today for hyponatremia, Na is 12. Evaluation is noted. She is on fluid restriction 1500/day. Her last COPD exacerbation was in March of this year. She has severe confluent centrilobular emphysema on chest CTs. Currently she remains in NSR. SHe is now back on IV steroids and off prednisone today;add Cornet valve and Dornase jeremiah BID; continue nebulized short-acting bronchodilators, antibiotic, Daliresp as well as the maintenance bronchodilator ICS/ Laba/Lama. Continue BiPAP support at night. Continue getting out of the bed to the chair. Review of Systems Review of Systems: All systems reviewed & are unremarkable except as noted in HPI and below (HPI) Exam Narrative: GENERAL APPEARANCE: Thin 81 year old female with dusky cool toes. She has mild increase in respiratory effort, does not appear to be in distress HEENT: Sclerae anicteric and conjunctivae pink and moist. Extraocular movements were intact and pupils were equal, round. LUNGS: Auscultation of the lungs revealed distant breath sounds bilaterally with few basilar crackles; no wheezing. CARDIAC: Regular S1S2 ABDOMEN: Soft; normal bowel sounds. EXTREMITIES: Fingertips are warm to touch; toes are cool and dusky. No edema. NEUROLOGIC: Alert and oriented x 3. Normal affect. Objective Data Vital Signs Vital Signs: Vital Signs - 24 hr 07/03/21 18:00 07/03/21 18:47 07/03/21 19:30 Temperature 36.1 C L Pulse Rate 72 71 Respiratory Rate 20 Blood Pressure 120/65 Pulse Oximetry 94 94 07/03/21 19:50 07/03/21 20:00 07/03/21 20:53 Temperature Pulse Rate 71 70 71 Respiratory Rate 20 20 Blood Pressure Pulse Oximetry 94 07/03/21 20:55 07/03/21 21:01 07/03/21 21:54 Temperature Pulse Rate 75 70 Respiratory Rate 20 18 Bl
[2021-07-04] MEDS: methylPREDNISolone SOD SUCC 40 MG VIAL IV PUSH (16:40)
[2021-07-04] MEDS: BENZONATATE 100 MG CAPSULE PO (16:40)
[2021-07-04 17:53] LABS: Sodium 124 mmol/L (137-145)
--- NOTE | 2021-07-04 18:23 | PC.NURSE ---
This nurse called and left a message with Kate the corporate sales manager in regards to the patient receiving frequent small minced and moist meals due to the patients struggle with eating and breathing from her COPD.
[2021-07-04] MEDS: BENZOCAINE/MENTHOL (*BKC) 18 EA LOZENGE 1 LOZENGE PO (20:14)
[2021-07-04] MEDS: BUDESONIDE RESPULE NEB 0.5 MG/2 ML AMP (20:20)
[2021-07-04] MEDS: FAMOTIDINE 20 MG TABLET PO (21:13)
[2021-07-04] MEDS: TEMAZEPAM (*CRX) 15 MG CAPSULE 30 MG PO (21:13)
[2021-07-04] MEDS: SENNOSIDES 8.6 MG TABLET PO (21:13)
[2021-07-04] MEDS: MELATONIN 3 MG TABLET 12 MG PO (21:14)
[2021-07-04] MEDS: SODIUM CHLORIDE NASAL GEL 14.1 GM 1 APPLIC NASAL (21:15)
[2021-07-05] VITALS (24 sets, daily range): BP systolic 132–188; BP diastolic 63–81; PULSE 65–90; RESP 16–22; TEMP 35.9–37.1; O2SAT 85–100
--- NOTE | 2021-07-05 04:07 | PCRCNOTE ---
therapist in code in ICU and unable to give treatment
[2021-07-05 06:12] LABS: Albumin Level 3.5 g/dL (3.5-5.1); Anion Gap 5 mmol/L (8-16); Blood Urea Nitrogen 21 mg/dL (7-17); Calcium 8.9 mg/dL (8.4-10.2); Carbon Dioxide 34 mmol/L (22-30); Chloride 86 mmol/L (98-107); Estimated CRCL calculation 57 ml/min; Estimated Glomerular Filt Rate > 60; Glucose 134 mg/dL (65-110); Phosphorus 4.1 mg/dL (2.5-4.5); Potassium 4.9 mmol/L (3.4-5.0); Sodium 125 mmol/L (137-145)
--- NOTE | 2021-07-05 08:32 | PM.PNCARD ---
Progress Note: A&P Assessment and Plan (1) Atrial flutter with rapid ventricular response: Code(s): I48.92 - Unspecified atrial flutter Status: Acute Assessment and Plan: Initially atrial flutter with rapid ventricular response with variable AV block cannot entirely exclude coarse atrial fibrillation with RVR. Tolerating diltiazem 120 mg daily. She only agrees to aspirin 325 mg daily as previously discussed. Explained increased stroke risk compared to systemic anticoagulation. She respectively declined systemic anticoagulation after extensive discussion with regards to pros and cons risks and benefits. Monitor for bleeding. Outpatient follow-up for management of paroxysmal atrial flutter advised with cardiology. (2) Acute exacerbation of chronic obstructive pulmonary disease (COPD): Code(s): J44.1 - Chronic obstructive pulmonary disease with (acute) exacerbation Status: Acute Assessment and Plan: Continue management per primary service and pulmonology. Recommendations noted. (3) Chronic hypoxemic respiratory failure: Code(s): J96.11 - Chronic respiratory failure with hypoxia Status: Acute Assessment and Plan: Continue O2 supplementation, BiPAP support. (4) Pulmonary hypertension: Code(s): I27.20 - Pulmonary hypertension, unspecified Status: Acute Assessment and Plan: Moderate in severity RVSP 56 mm Hg echocardiogram today. Secondary to underlying lung disease. (5) Sleep apnea with use of continuous positive airway pressure (CPAP): Code(s): G47.30 - Sleep apnea, unspecified Status: Acute Assessment and Plan: Per primary service and pulmonology. Noted recommendations to utilize BiPAP. Additional Plan 81 year old female admitted with shortness of breath secondary to COPD exacerbation. Went into atrial fibrillation with rapid ventricular response. Converted back to sinus rhythm on IV diltiazem and has been maintaining sinus rhythm on oral diltiazem. She declined anticoagulation due to increased bleeding risk. She is on full dose aspirin. We will see her on an as needed basis at this point as she does not have any active cardiac issues. Thank for you asking us to see this patient. Please do not hesitate to contact us if we can be of assistance in the care of this patient in any way. Subjective Date/time seen: 07/05/21 08:32 Cardiology follow up for Afib Date of service 07/05/2021: Not feeling very well this morning. Just had nebulizer treatment which she says made her feel slightly better. She's eager to go home. Denies any chest pain, palpitations. She does have shortness of breath which is chronic for her. Review of Systems Review of Systems: All systems reviewed & are unremarkable except as noted in HPI and below Constitutional: Constitutional: Reports as per HPI, Reports no additional constitutional complaints, Reports fatigue, Denies headache(s) and Reports weakness Eyes: Eyes: Reports as per HPI and Reports no additional eye complaints ENT: Reports system reviewed and no additional complaints, except as documented, Reports as per HPI and Denies headache(s) Cardiovascular: Cardiovascular: Reports as per HPI, Reports no additional cardiovascular complaints, Denies chest pain, Denies diaphoresis, Denies leg edema, Denies lightheadedness, Denies palpitations, Reports dyspnea and Reports dyspnea on exertion Respiratory: Respiratory: Reports as per HPI, Reports no additional respiratory complaints, Reports chest congestion, Reports cough, Denies hemoptysis, Reports dyspnea, Reports dyspnea on exertion and Reports wheezing Gastrointestinal: Gastrointestinal: Reports as per HPI, Reports no additional gastrointestinal complaints, Denies abdominal pain, Denies melena, Denies bloating, Denies hematochezia, Reports nausea and Denies vomiting Genitourinary: Genitourinary: Reports as per HPI, Denies hematuria and Denies dysuria Musculoskele
[2021-07-05] MEDS: IPRATROPIUM BR 0.02% INH SOLN 0.5 MG/2.5 ML VIAL INHALATION (08:40)
[2021-07-05] MEDS: DORNASE ALFA INH SOLN 1 MG/ML 2.5 ML AMP 2.5 MG INHALATION ×2 (08:40→20:42)
[2021-07-05] MEDS: MONTELUKAST SODIUM 10 MG TABLET PO (09:22)
[2021-07-05] MEDS: FAMOTIDINE 20 MG TABLET PO ×2 (09:22→20:18)
[2021-07-05] MEDS: ASPIRIN 325 MG ENTERIC TABLET PO (09:22)
[2021-07-05] MEDS: NEBIVOLOL HCL 5 MG TABLET 10 MG PO (09:22)
[2021-07-05] MEDS: guaiFENesin 12 HR 600 MG TABCR PO ×2 (09:22→20:18)
[2021-07-05] MEDS: DOCUSATE SODIUM 100 MG CAPSULE PO ×2 (09:22→20:18)
[2021-07-05] MEDS: OLMESARTAN MEDOXOMIL 20 MG TABLET 40 MG PO (09:22)
[2021-07-05] MEDS: PANTOPRAZOLE 40 MG TABLET PO (09:22)
[2021-07-05] MEDS: IPRATROPIUM NASAL SPRAY 0.03% 15 ML BOTTLE 2 SPRAY NASAL ×3 (09:25→16:10)
[2021-07-05] MEDS: BENZONATATE 100 MG CAPSULE PO ×3 (09:25→16:10)
[2021-07-05] MEDS: methylPREDNISolone SOD SUCC 40 MG VIAL IV PUSH (09:25)
[2021-07-05] MEDS: PREDNISOLONE ACETATE 0.12% 1 DROP EACH EYE ×2 (09:25→20:18)
[2021-07-05] MEDS: ENOXAPARIN 40 MG/0.4 ML SYRINGE SUB-Q (09:25)
[2021-07-05] MEDS: polyethylene glycoL 3350 17 GM POWD.PACK PO (09:50)
--- NOTE | 2021-07-05 12:07 | PM.PNPUL ---
Progress Note: A&P Assessment and Plan (1) Acute exacerbation of chronic obstructive pulmonary disease (COPD): Code(s): J44.1 - Chronic obstructive pulmonary disease with (acute) exacerbation Status: Acute Assessment and Plan: 81-year-old female with history of COPD, frequent COPD exacerbations with last flare up being in March of this year, severe confluent centrilobular emphysema on chest CTs, treated for COPD exacerbation with IV steroids initially, was on oral prednisone po, now back on IV steroids today. She is also in short-acting bronchodilators, antibiotic, Daliresp as well as the maintenance bronchodilator ICS/ Laba/Lama. Currently she remains in NSR. __ 07/04 PLAN: Cornet valve to help clear secretions. Q 2 hr while awake. Dornase jeremiah 2.5 mg nebulized Q 12 hour. Agree with IV steroids in place of oral prednisone for now. She is on fluid restriction due to hyponatremia. This makes sense, and may also make it harder for her to expectorate if the sputum become too thick. BiPAP support at night. OOB to chair. 07/05 patient states that she is 75% back to her baseline. She still has dyspnea on exertion. Her cough is much improved today. Patient wore auto Pap last night with 40% FiO2. Currently she is on 5 L at rest with saturations 93%. She told me she wanted to go home today and we agreed to switch her to p.o. prednisone and long acting bronchodilator and reassess her in the morning. If patient remains stable overnight we anticipate discharge on 07/06 on these pulmonary medicines: Prednisone 40 mg PO X 5 days Michele 160/9/4.8 at 2 puffs b.i.d. Rescue albuterol 2 puffs q.4 hours p.r.n. shortness of breath or wheezing Daliresp 250 mg p.o. q.day Montelukast 10 mg p.o. q.day Guaifenesin ER 600 mg PO BID Corenet flutter valve Q 2 hours while awake Ipratropium nasal spray at 2 puffs each nostril t.i.d. Oxygen per home O2 assessment ( I have ordered this on 07/05) Home CPAP with 4 L bleed in at night (2) Sleep apnea with use of continuous positive airway pressure (CPAP): Code(s): G47.30 - Sleep apnea, unspecified Status: Acute Assessment and Plan: patient carries a history of obstructive sleep apnea diagnosed and treated at [facility]. I have no prior sleep studies are not downloads at this time. Will continue her says home CPAP with 4 L bleed in when she sleeps. Subjective Date/time seen: 07/05/21 12:07 Interval history: 07/04 Jolie Starr is an 81-year-old female seen in follow up for COPD exacerbation, now moved to Room 241. She feels better this late afternoon than she did earlier today. Her main complaint is feeling tired from so much coughing, and not being able to get her secretions out; these feels thick and are not easy to expectorate. SHe uses O2 at home. Dr Arevalo saw her today for hyponatremia, Na is 12. Evaluation is noted. She is on fluid restriction 1500/day. Her last COPD exacerbation was in March of this year. She has severe confluent centrilobular emphysema on chest CTs. Currently she remains in NSR. She is now back on IV steroids and off prednisone today;add Cornet valve and Dornase jeremiah BID; continue nebulized short-acting bronchodilators, antibiotic, Daliresp as well as the maintenance bronchodilator ICS/ Laba/Lama. Continue BiPAP support at night. Continue getting out of the bed to the chair. 07/05 patient states that she is 75% back to her baseline. She still has dyspnea on exertion. Her cough is much improved today. Patient wore auto Pap last night with 40% FiO2. Currently she is on 5 L at rest with saturations 93%. She told me she wanted to go home today and we agreed to switch her to p.o. prednisone and long acting bronchodilator and reassess her in the morning. DATA: 06/26/21 [facility] 7.
[2021-07-05] MEDS: predniSONE 20 MG TABLET 40 MG PO (13:33)
[2021-07-05] MEDS: ACETAMINOPHEN 325 MG TABLET 650 MG PO (13:43)
[2021-07-05] MEDS: ALPRAZolam (*CRX) 0.25 MG TABLET PO ×2 (14:24→18:37)
--- NOTE | 2021-07-05 15:04 | PM.IMPN ---
Progress Note: A&P Assessment and Plan (1) Acute exacerbation of chronic obstructive pulmonary disease (COPD): Code(s): J44.1 - Chronic obstructive pulmonary disease with (acute) exacerbation Status: Acute Assessment and Plan: Somewhat improving but still not back to her baseline -continue prednisone 30 mg daily, xopenex, Atrovent, and daliresp. She has completed doxycycline. -still on 3-5L NC at rest -CTA chest shows severe emphysema, no active disease -[employer] consulted, appreciate their recommendations -They recommend to continue BiPAP 10/6 usage at night and PRN during the say for dyspnea or naps. (2) Atrial flutter with rapid ventricular response: Code(s): I48.92 - Unspecified atrial flutter Status: Acute Assessment and Plan: -New onset this stay and now back to NSR and on diltiazem -Likely secondary to exacerbation of underlying end stage COPD -Atrial flutter with rapid ventricular response with variable AV block cannot entirely exclude coarse atrial fibrillation with RVR -Electrolytes, TSH, renal function stable -Cardiology was consulted and discussed stroke prevention options. Since pt has chronic weakness and is a fall risk, they have decided to go forward with aspirin only therapy. CHADS2 Vasc score 4 HAS BLED score 3 -okay to d/c tele (3) Acute and chronic respiratory failure: Qualifiers: Respiratory failure complication: hypoxia Qualified Code(s): J96.21 - Acute and chronic respiratory failure with hypoxia Code(s): J96.20 - Acute and chronic respiratory failure, unspecified whether with hypoxia or hypercapnia Status: Acute Assessment and Plan: as above (4) Sleep apnea with use of continuous positive airway pressure (CPAP): Code(s): G47.30 - Sleep apnea, unspecified Status: Acute Assessment and Plan: Pulm has switched from CPAP to BiPAP. See above. (5) Essential (primary) hypertension: Code(s): I10 - Essential (primary) hypertension Status: Acute Assessment and Plan: Last bp 136/65 -continue bystolic, benicar and diltiazem (6) Osteoarthritis of multiple joints: Code(s): M15.9 - Polyosteoarthritis, unspecified Status: Acute Assessment and Plan: Tylenol as needed (7) Hyperkalemia: Code(s): E87.5 - Hyperkalemia Status: Acute Assessment and Plan: resolved -no need to hold benicar at this time (8) Sore throat: Code(s): J02.9 - Acute pharyngitis, unspecified Status: Acute Assessment and Plan: No mention of issues on exam today -Strep swab negative (9) Anxiety and depression: Code(s): F41.9 - Anxiety disorder, unspecified; F32.9 - Major depressive disorder, single episode, unspecified Status: Acute Assessment and Plan: Continue Xanax -pt never started Wellbutrin outpt. Lexapro on hold due to below. (10) Hyponatremia: Code(s): E87.1 - Hypo-osmolality and hyponatremia Status: Acute Assessment and Plan: -ranges from 129- 134, however dropped to 123 and now 125 -urine sodium mildly high at 23-26. on no diuretics -pt appears pretty euvolemic on exam -on lexapro. I have held the Lexapro -unclear cause, SIADH? -nephrology has been consulted and I appreciate their recommendations. Cortisol normal Subjective Date/time seen: 07/05/21 15:04 Interval history: Pt is a 81-year-old female here for COPD exacerbation and AFib. Patient was seen today and feels better than she did yesterday. She says she is still coughing but feels less 'gurgly . Her shortness of breath is unchanged and is worth with movement. She had a BM today and is feeling much better in that regard. She is still not eating much due to decreased appetite. No CP. Exam Narrative: General: Well developed well nourished patient in NAD HEENT: normocephalic Neck: supple Neuro: A
--- NOTE | 2021-07-05 15:49 | PM.PNNEP ---
Progress Note: A&P Assessment and Plan (1) Hyponatremia: Code(s): E87.1 - Hypo-osmolality and hyponatremia Status: Acute Assessment and Plan: chronic issue that dates back as far as 2011 -- seems to run ~ 129 - 134 however, acutely worse at this time chronic hyponatremia related to her known COPD, SSRI use, PPI use, excess water intake acute decline not clear -- possibly drinking more free water here in the hospital(?) started on fluid restriction (1500cc/day) attempting to wean of wellbutrin TSH and coritsol okay (although getting steroids already) Malignancy work-up negative with testing to date SPEP/UPEP/serum + urine osmo pending slow improvement in sodium noted (2) Acute exacerbation of chronic obstructive pulmonary disease (COPD): Code(s): J44.1 - Chronic obstructive pulmonary disease with (acute) exacerbation Status: Acute Assessment and Plan: clinically improving Pulmonary following with recommendations noted (3) Hyperkalemia: Code(s): E87.5 - Hyperkalemia Status: Acute Assessment and Plan: resolved (4) Sleep apnea with use of continuous positive airway pressure (CPAP): Code(s): G47.30 - Sleep apnea, unspecified Status: Acute Assessment and Plan: using CPAP (5) Atrial flutter with rapid ventricular response: Code(s): I48.92 - Unspecified atrial flutter Status: Acute Assessment and Plan: Cardiology following Will continue to follow. Subjective Date/time seen: 07/05/21 15:49 Chart reviewed -- assuming care from Dr. Arevalo; still has some shortness of breath with exertional activities but her cough seems to be doing better; respiratory status remains somewhat tenuous but better in comparions to admission; anxious for discharge; no acute distress noted. Exam Narrative: General: WD/WN male in NAD Heart: normal S1 and S2; no rub Lungs: coarse breath sounds with occasional crackles at bases Abdomen: soft, nontender, nondistended, positive bowel sounds Extremities: no cyanosis or clubbing; no edema Skin: warm and dry Objective Data Vital Signs Vital Signs: Vital Signs Temp Pulse Resp BP Pulse Ox 07/05/21 15:45 90 89 L 07/05/21 15:43 80 87 L 07/05/21 15:41 75 86 L 07/05/21 15:40 70 90 07/05/21 15:39 70 87 L 07/05/21 15:38 70 85 L 07/05/21 12:00 77 07/05/21 09:22 72 07/05/21 09:19 93 07/05/21 09:17 95 07/05/21 08:48 78 20 07/05/21 08:40 75 20 07/05/21 08:00 36.7 C 74 18 136/65 100 07/05/21 06:00 36.6 C 71 20 132/63 99 07/05/21 04:30 75 91 07/05/21 04:00 67 07/05/21 00:00 72 07/04/21 23:44 73 19 96 07/04/21 22:00 36.1 C L 75 18 140/73 96 07/04/21 20:40 77 22 H 07/04/21 20:26 97 07/04/21 20:24 71 20 07/04/21 20:00 72 Intake/Output Intake/Output: Intake & Output 07/03/21 07/04/21 07/04/21 07/05/21 00:59 00:59 23:59 23:59 Intake Total 535 Output Total 700 Balance -165 Meds/Results Medications: Active Medications Generic Name Dose Route Start Last Admin Trade Name Freq PRN Reason Stop Dose Admin Acetaminophen 650 mg 07/03/21 10:35 07/05/21 13:43 Acetaminophen 325 Mg Tablet PO 650 mg QID PRN Administration pain Alprazolam 0.25 mg 06/27/21 02:04 07/05/21 14:24 Alprazolam (*Crx) 0.25 Mg Tablet PO 0.25 mg TID PRN Administration anxiety Aspirin 325 mg 07/01/21 16:25 07/05/21 09:22 Aspirin 325 Mg Enteric Tablet PO 325 mg QAM PARIS Administration Benzocaine 1 lozenge 06/27/21 13:54 07/04/21 20:14 Benzocaine/Menthol (*Bkc) 18 Ea Lozenge PO 1 lozenge PRN PRN Administration Sore Throat Benzonatate 100 mg 07/04/21 14:20 07/05/21 16:10 Benzonatate 100 Mg Capsule PO 100 mg TID PARIS Administration Diltiazem HCl 120 mg 07/03/21 09:00 07/05/21 09:25 Dil
--- NOTE | 2021-07-05 16:02 | HOMEO2EVAL ---
Evaluation was performed at [facility] Home Oxygen Evaluation RC: Home Oxygen (O2) Evaluation Start: 07/05/21 12:38 Freq: ONCE Status: Active Protocol: RPE Activity Type Activity Date Activity User E-Sign Co-Sign Detail Recorded Client Recorded Date Recorded By Document 07/05/21 15:38 [email or web address] 07/05/21 16:02 KRM Document 07/05/21 15:38 [email or web address] 07/05/21 16:02 KRM Document 07/05/21 15:39 [email or web address] [email or web address] 07/05/21 16:02 KRM Document 07/05/21 15:40 [email or web address] 07/05/21 16:02 KRM Document 07/05/21 15:41 [email or web address] [email or web address] 07/05/21 16:02 KRM Document 07/05/21 15:43 [email or web address] [email or web address] 07/05/21 16:02 KRM Document 07/05/21 15:45 [email or web address] [email or web address] 07/05/21 16:02 KRM 07/05/21 07/05/21 07/05/21 15:38 15:38 15:39 Home O2 Evaluation Test Phase Resting Resting Resting Oxygen Delivery Room Air Nasal Cannula Nasal Cannula Oxygen Flow Rate (L/min) 1 2 Pulse Oximetry (90-100 %) 86 L 85 L 87 L Pulse Rate (60-100 beats/min) 73 70 70 Activity Tolerance Ambulation Distance (feet) Home Oxygen Evaluation Comments Treatment Charges O2 Evaluation - Inpatient 07/05/21 07/05/21 07/05/21 15:40 15:41 15:43 Home O2 Evaluation Test Phase Resting Exercise Exercise Oxygen Delivery Nasal Cannula Nasal Cannula Nasal Cannula Oxygen Flow Rate (L/min) 3 3 4 Pulse Oximetry (90-100 %) 90 86 L 87 L Pulse Rate (60-100 beats/min) 70 75 80 Activity Tolerance Fair Fair Ambulation Distance (feet) Home Oxygen Evaluation Comments Treatment Charges 07/05/21 15:45 Home O2 Evaluation Test Phase Exercise Oxygen Delivery Nasal Cannula Oxygen Flow Rate (L/min) 5 Pulse Oximetry (90-100 %) 89 L Pulse Rate (60-100 beats/min) 90 Activity Tolerance Fair Ambulation Distance (feet) 40 Home Oxygen Evaluation Comments PT. REQUIRES 3LPM AT REST AND 5LPM WITH ACTIVITY. Treatment Charges
--- NOTE | 2021-07-05 16:02 | PCRCNOTE ---
HOME O2 EVALUATION COMPLETED. PT. CURRENT HOME O2 SETTING OF 3LPM AT REST AND 5LPM WITH ACTIVITY ARE APPROPRIATE. DR. OROZCO AND RN AWARE.
[2021-07-05] MEDS: TEMAZEPAM (*CRX) 15 MG CAPSULE 30 MG PO (20:18)
[2021-07-05] MEDS: SENNOSIDES 8.6 MG TABLET PO (20:18)
[2021-07-05] MEDS: MELATONIN 3 MG TABLET 12 MG PO (20:18)
[2021-07-05] MEDS: SODIUM CHLORIDE NASAL GEL 14.1 GM 1 APPLIC NASAL (20:20)
[2021-07-06] VITALS: BP 98/53; PULSE 70; RESP 18; TEMP 36.4; O2SAT 95
[2021-07-06 02:10] VITALS: PULSE 66; O2SAT 95
[2021-07-06 03:11] VITALS: BP 132/71; PULSE 65; RESP 18; TEMP 36.2; O2SAT 99
[2021-07-06 06:10] LABS: Anion Gap 7 mmol/L (8-16); Blood Urea Nitrogen 26 mg/dL (7-17); Calcium 9.3 mg/dL (8.4-10.2); Carbon Dioxide 33 mmol/L (22-30); Chloride 89 mmol/L (98-107); Estimated CRCL calculation 48 ml/min; Estimated Glomerular Filt Rate > 60; Glucose 114 mg/dL (65-110); Potassium 4.6 mmol/L (3.4-5.0); Sodium 129 mmol/L (137-145)
[2021-07-06] MEDS: predniSONE 20 MG TABLET 40 MG PO (07:46)
[2021-07-06] MEDS: DOCUSATE SODIUM 100 MG CAPSULE PO (07:47)
[2021-07-06] MEDS: ASPIRIN 325 MG ENTERIC TABLET PO (07:47)
[2021-07-06] MEDS: ENOXAPARIN 40 MG/0.4 ML SYRINGE SUB-Q (07:47)
[2021-07-06] MEDS: BENZONATATE 100 MG CAPSULE PO (07:47)
[2021-07-06] MEDS: FAMOTIDINE 20 MG TABLET PO (07:48)
[2021-07-06] MEDS: guaiFENesin 12 HR 600 MG TABCR PO (07:48)
[2021-07-06] MEDS: NEBIVOLOL HCL 5 MG TABLET 10 MG PO (07:48)
[2021-07-06] MEDS: MONTELUKAST SODIUM 10 MG TABLET PO (07:48)
[2021-07-06] MEDS: IPRATROPIUM NASAL SPRAY 0.03% 15 ML BOTTLE 2 SPRAY NASAL (07:48)
[2021-07-06] MEDS: PREDNISOLONE ACETATE 0.12% 1 DROP EACH EYE (07:49)
[2021-07-06] MEDS: PANTOPRAZOLE 40 MG TABLET PO (07:49)
[2021-07-06] MEDS: OLMESARTAN MEDOXOMIL 20 MG TABLET 40 MG PO (07:49)
[2021-07-06 08:00] VITALS: BP 125/55; PULSE 70; RESP 18; TEMP 36.4; O2SAT 100
--- NOTE | 2021-07-06 08:05 | PM.PNPUL ---
Progress Note: A&P Assessment and Plan (1) Acute exacerbation of chronic obstructive pulmonary disease (COPD): Code(s): J44.1 - Chronic obstructive pulmonary disease with (acute) exacerbation Status: Acute Assessment and Plan: 81-year-old female with history of COPD, frequent COPD exacerbations with last flare up being in March of this year, severe confluent centrilobular emphysema on chest CTs, treated for COPD exacerbation with IV steroids initially, was on oral prednisone po, now back on IV steroids today. She is also in short-acting bronchodilators, antibiotic, Daliresp as well as the maintenance bronchodilator ICS/ Laba/Lama. Currently she remains in NSR. __ 07/04 PLAN: Cornet valve to help clear secretions. Q 2 hr while awake. Dornase jeremiah 2.5 mg nebulized Q 12 hour. Agree with IV steroids in place of oral prednisone for now. She is on fluid restriction due to hyponatremia. This makes sense, and may also make it harder for her to expectorate if the sputum become too thick. BiPAP support at night. OOB to chair. 07/05 patient states that she is 75% back to her baseline. She still has dyspnea on exertion. Her cough is much improved today. Patient wore auto Pap last night with 40% FiO2. Currently she is on 5 L at rest with saturations 93%. She told me she wanted to go home today and we agreed to switch her to p.o. prednisone and long acting bronchodilator and reassess her in the morning. 07/06 Patient states she is 85% back to her baseline. She was walking in the room yesterday. Patient had a home O2 assessment yesterday with a requirement of 3 L at rest and 5 with ambulation. Patient wore autopap with 4 L bleed in last night. saturations 95% on 3 L. No wheezing. patient is suitable from a pulmonary perspective to be discharged on 07/06 on these pulmonary medicines: Prednisone 40 mg PO X 5 days Michele 160/9/4.8 at 2 puffs b.i.d. Rescue albuterol 2 puffs q.4 hours p.r.n. shortness of breath or wheezing Daliresp 250 mg p.o. q.day Montelukast 10 mg p.o. q.day Guaifenesin ER 600 mg PO BID Cornet flutter valve Q 2 hours while awake Ipratropium nasal spray at 2 puffs each nostril t.i.d. Oxygen 3 L at rest and 5 with ambulation Home CPAP with 4 L bleed in when she sleeps follow-up in the Pulmonary Clinic in 3-4 weeks. I have informed our product management consultant. Discussed with Zakia Serrano. (2) Sleep apnea with use of continuous positive airway pressure (CPAP): Code(s): G47.30 - Sleep apnea, unspecified Status: Acute Assessment and Plan: patient carries a history of obstructive sleep apnea diagnosed and treated at [facility]. I have no prior sleep studies are not downloads at this time. Will continue her home CPAP with 4 L bleed in when she sleeps. Subjective Date/time seen: 07/06/21 08:05 Interval history: 07/04 Jolie Starr is an 81-year-old female seen in follow up for COPD exacerbation, now moved to Room 241. She feels better this late afternoon than she did earlier today. Her main complaint is feeling tired from so much coughing, and not being able to get her secretions out; these feels thick and are not easy to expectorate. SHe uses O2 at home. Dr Arevalo saw her today for hyponatremia, Na is 12. Evaluation is noted. She is on fluid restriction 1500/day. Her last COPD exacerbation was in March of this year. She has severe confluent centrilobular emphysema on chest CTs. Currently she remains in NSR. She is now back on IV steroids and off prednisone today;add Cornet valve and Dornase jeremiah BID; continue nebulized short-acting bronchodilators, antibiotic, Daliresp as well as the maintenance bronchodilator ICS/ Laba/Lama. Continue BiPAP support at night. Continue getting out of the bed to the chair. 07/05 patient states that she is 75% back to her baselin
[2021-07-06] MEDS: FLUTICASONE/UMECLIDIN/VILANTER 100-62.5-25 MCG ELLIPTA 1 PUFF INHALATION (08:14)
[2021-07-06 08:16] VITALS: O2SAT 97
--- NOTE | 2021-07-06 10:15 | PM.PNNEP ---
Progress Note: A&P Assessment and Plan (1) Hyponatremia: Code(s): E87.1 - Hypo-osmolality and hyponatremia Status: Acute Assessment and Plan: improving if not back to baseline chronic issue that dates back as far as 2011 -- seems to run ~ 129 - 134 however, acutely worse on admission chronic hyponatremia related to her known COPD, SSRI use, PPI use, excess water intake acute decline not clear -- possibly drinking more free water here in the hospital(?) on fluid restriction (1500cc/day) attempting to wean of wellbutrin TSH and cortisol okay (although getting steroids already) Malignancy work-up negative with testing to date SPEP/UPEP/serum + urine osmo pending slow improvement in sodium noted (2) Acute exacerbation of chronic obstructive pulmonary disease (COPD): Code(s): J44.1 - Chronic obstructive pulmonary disease with (acute) exacerbation Status: Acute Assessment and Plan: clinically improving Pulmonary following with recommendations noted (3) Hyperkalemia: Code(s): E87.5 - Hyperkalemia Status: Acute Assessment and Plan: resolved (4) Sleep apnea with use of continuous positive airway pressure (CPAP): Code(s): G47.30 - Sleep apnea, unspecified Status: Acute Assessment and Plan: using CPAP (5) Atrial flutter with rapid ventricular response: Code(s): I48.92 - Unspecified atrial flutter Status: Acute Assessment and Plan: Cardiology following Will continue to follow. Subjective Date/time seen: 07/06/21 10:15 Appears to be doing reasonably well at the time of my visit; respiratory status seems relatively stable; no other acute issues or complaints voiced; no events overnight or earlier this AM; feels pretty good. Exam Narrative: General: WD/WN male in NAD Heart: normal S1 and S2; no rub Lungs: coarse breath sounds with occasional crackles at bases Abdomen: soft, nontender, nondistended, positive bowel sounds Extremities: no cyanosis or clubbing; no edema Skin: warm and intact Objective Data Vital Signs Vital Signs: Vital Signs Temp Pulse Resp BP Pulse Ox 07/06/21 08:16 97 07/06/21 08:00 36.4 C 70 18 125/55 L 100 07/06/21 03:11 36.2 C L 65 18 132/71 99 07/06/21 02:10 66 95 07/06/21 00:00 36.4 C 70 18 98/53 L 95 07/05/21 20:56 68 20 07/05/21 20:55 73 22 H 97 07/05/21 20:46 96 07/05/21 20:44 65 20 07/05/21 20:08 35.9 C L 71 16 188/81 H 95 07/05/21 20:00 95 07/05/21 16:00 37.1 C 75 20 139/68 94 07/05/21 15:45 90 89 L 07/05/21 15:43 80 87 L 07/05/21 15:41 75 86 L 07/05/21 15:40 70 90 07/05/21 15:39 70 87 L 07/05/21 15:38 70 85 L 07/05/21 12:00 77 Intake/Output Intake/Output: Intake & Output 07/04/21 07/04/21 07/05/21 07/06/21 00:59 23:59 23:59 23:59 Intake Total 535 210 Output Total 1200 200 Balance -665 10 Meds/Results Medications: Active Medications Generic Name Dose Route Start Last Admin Trade Name Freq PRN Reason Stop Dose Admin Acetaminophen 650 mg 07/03/21 10:35 07/05/21 13:43 Acetaminophen 325 Mg Tablet PO 650 mg QID PRN Administration pain Alprazolam 0.25 mg 06/27/21 02:04 07/05/21 18:37 Alprazolam (*Crx) 0.25 Mg Tablet PO 0.25 mg TID PRN Administration anxiety Aspirin 325 mg 07/01/21 16:25 07/06/21 07:47 Aspirin 325 Mg Enteric Tablet PO 325 mg QAM PARIS Administration Benzocaine 1 lozenge 06/27/21 13:54 07/04/21 20:14 Benzocaine/Menthol (*Bkc) 18 Ea Lozenge PO 1 lozenge PRN PRN Administration Sore Throat Benzonatate 100 mg 07/04/21 14:20 07/06/21 07:47 Benzonatate 100 Mg Capsule PO 100 mg TID PARIS Administration Diltiazem HCl 120 mg 07/03/21 09:00 07/06/21 07:47 Diltiazem Hcl Cd 120 Mg Cap.Sa.24h PO 120 mg QAM PARIS Administration Docusate Sodium 100 m
--- NOTE | 2021-07-06 10:38 | PM.DS ---
DS: Admitting Diagnosis Discharge Date 07/06/21 Admitting Diagnosis copd exacerbation DS: Discharge Diagnosis Discharge Diagnosis (1) Acute exacerbation of chronic obstructive pulmonary disease (COPD): Code(s): J44.1 - Chronic obstructive pulmonary disease with (acute) exacerbation Status: Acute Assessment and Plan: Gradually improving on current therapy -continue prednisone outpt, inhalers and added daliresp. She has completed doxycycline. -she requires 3l of o2 at rest and 5l with activity -CTA chest shows severe emphysema, no active disease -pulmonology consulted during hospitalization and they plan to follow her outpt (2) Atrial flutter with rapid ventricular response: Code(s): I48.92 - Unspecified atrial flutter Status: Acute Assessment and Plan: -New onset this stay and now back to NSR and on diltiazem -Likely secondary to exacerbation of underlying end stage COPD -Atrial flutter with rapid ventricular response with variable AV block cannot entirely exclude coarse atrial fibrillation with RVR -Electrolytes, TSH, renal function stable -Cardiology was consulted and discussed stroke prevention options. Since pt has chronic weakness and is a fall risk, they have decided to go forward with aspirin only therapy. CHADS2 Vasc score 4 HAS BLED score 3 -discharged on diltiazem (3) Acute and chronic respiratory failure: Qualifiers: Respiratory failure complication: hypoxia Qualified Code(s): J96.21 - Acute and chronic respiratory failure with hypoxia Code(s): J96.20 - Acute and chronic respiratory failure, unspecified whether with hypoxia or hypercapnia Status: Acute Assessment and Plan: as above (4) Sleep apnea with use of continuous positive airway pressure (CPAP): Code(s): G47.30 - Sleep apnea, unspecified Status: Acute Assessment and Plan: continue with home cpap with 4L of bleed in (5) Essential (primary) hypertension: Code(s): I10 - Essential (primary) hypertension Status: Acute Assessment and Plan: Last bp 125/55 -continue bystolic, benicar and diltiazem (6) Osteoarthritis of multiple joints: Code(s): M15.9 - Polyosteoarthritis, unspecified Status: Acute Assessment and Plan: Tylenol as needed (7) Hyperkalemia: Code(s): E87.5 - Hyperkalemia Status: Acute Assessment and Plan: resolved -no need to hold benicar at this time (8) Sore throat: Code(s): J02.9 - Acute pharyngitis, unspecified Status: Acute Assessment and Plan: No mention of issues on exam today -Strep swab negative (9) Anxiety and depression: Code(s): F41.9 - Anxiety disorder, unspecified; F32.9 - Major depressive disorder, single episode, unspecified Status: Acute Assessment and Plan: Continue Xanax -pt never started Wellbutrin outpt. okay to continue lexapro with repeat bmp (10) Hyponatremia: Code(s): E87.1 - Hypo-osmolality and hyponatremia Status: Acute Assessment and Plan: -ranges from 129- 134, however dropped to 123. now back up to 129 with fluid restriction -urine sodium mildly high at 23-26. on no diuretics -pt appears pretty euvolemic on exam -unclear cause, SIADH? - Cortisol normal -repeat bmp in one week DS: Summary Hospital Course Hospital Course: DOS 07/06/21 patient is a 81-year-old female with a past medical history of end-stage COPD who presented emergency room on 06/26/2021 for worsening shortness of breath. patient was placed on her CPAP by EMS and she was brought to emergency room. Vitals in the ER were temperature is 36.5? C, pulse 74, respiratory rate 22 blood pressure 157/83, pulse ox 97 on room. CBC within normal limits. BMP shows slightly low sodium 131. chest x-ray was negative. patient was started on IV steroids, breathing treatments, antibiotics and was admi
[2021-07-07 05:23] LABS: Albumin 3.6 g/dL (3.8-4.8); Alpha 1 Globulin 0.3 g/dL (0.2-0.3); Alpha 2 Globulin 0.7 g/dL (0.5-0.9); Beta 1 Globulin 0.4 g/dL (0.4-0.6); Gamma Globulin 0.6 g/dL (0.8-1.7); Interpretation Consistent with; Protein, Total 5.7 g/dL (6.1-8.1)
[2021-07-07 06:54] LABS: Osmolality, Urine 315 mOsm/kg (50-1200)
[2021-07-08 05:02] LABS: Osmolality, Urine 312 mOsm/kg (50-1200)
== END 2021-07-06 11:59 | disposition home health service (06) | DRG 190 ==
LOC: ANHED 21:28 → ANH3MED 21:49 → ANHIMU 07-03 06:37 → ANH2MED 07-05 15:35 → ANH3MED 07-07 14:33 → ANHIMU 07-07 14:33
PROVIDERS: Internal Medicine Nephrology; Physician Assistant; Admitting Provider Internal Medicine; Emergency Provider Emergency Medicine; PCP Family Medicine; Visit Provider Physician Assistant
DX: J43.2 Centrilobular emphysema (principal); J96.21 Acute and chronic respiratory failure with hypoxia; Z68.1 Body mass index [BMI] 19.9 or less, adult; I48.92 Unspecified atrial flutter; E87.1 Hypo-osmolality and hyponatremia; Z99.81 Dependence on supplemental oxygen; Z88.0 Allergy status to penicillin; G89.29 Other chronic pain; M25.519 Pain in unspecified shoulder; I10 Essential (primary) hypertension; I27.20 Pulmonary hypertension, unspecified; M46.1 Sacroiliitis, not elsewhere classified; R63.4 Abnormal weight loss; Z87.891 Personal history of nicotine dependence; M15.9 Polyosteoarthritis, unspecified; H92.03 Otalgia, bilateral; E87.5 Hyperkalemia; J02.9 Acute pharyngitis, unspecified; G47.33 Obstructive sleep apnea (adult) (pediatric); F41.0 Panic disorder [episodic paroxysmal anxiety]; F41.9 Anxiety disorder, unspecified; F32.A Depression, unspecified; K21.9 Gastro-esophageal reflux disease without esophagitis
CPT/HCPCS: 36415; 36600; 71045; 71275; 80048; 80053; 80069; 81001; 82533; 82570; 82805; 83735; 83880; 83930; 83935; 84132; 84155; 84156; 84165; 84295; 84300; 84443; 84484; 85025; 85027; 85610; 85730; 87070; 87081; 87205; 87880; 92526; 92611; 93005; 93306; 94002; 94003; 94618; 94640; 96361; 96365; 96366; 96372; 96375; 96376; 97110; 97162; 97165; 97530; 97535; 99232; 99233; 99285; A9270; G0378; J1100; J1170; J1650; J2060; J2405; J2920; J7120; J7512; Q9967

== ENCOUNTER 2021-07-13 11:24 | Outpatient (NON) | payer MEDICARE, SELFPAY ==
[2021-07-13 12:08] LABS: Anion Gap 6 mmol/L (8-16); Blood Urea Nitrogen 19 mg/dL (7-17); Calcium 8.9 mg/dL (8.4-10.2); Carbon Dioxide 34 mmol/L (22-30); Chloride 95 mmol/L (98-107); Estimated Glomerular Filt Rate > 60; Glucose 83 mg/dL (65-110); Potassium 3.8 mmol/L (3.4-5.0); Sodium 135 mmol/L (137-145)
== END 2021-07-13 11:25 | disposition home or self-care (01) ==
LOC: HOME HLTH 11:28
PROVIDERS: PCP Family Medicine; Visit Provider Physician Assistant
DX: E87.1 Hypo-osmolality and hyponatremia (principal)
CPT/HCPCS: 80048

== ENCOUNTER 2021-10-08 13:06 | Inpatient (IN) | payer MEDICARE, SELFPAY ==
[2021-10-08] VITALS (32 sets, daily range): BP systolic 122–181; BP diastolic 61–109; PULSE 65–95; RESP 17–25; TEMP 36.6; O2SAT 75–100; BMI 20.5
--- NOTE | ~2021-10-08 | US_ITS ---
EXAMINATION: US venous doppler LE RT DATE: 10/08/2021 15:35 INDICATION: Right lower limb pain. TECHNIQUE: Grayscale ultrasound images without and with compression and Doppler ultrasound images of the right lower extremity veins were obtained. COMPARISON: Ultrasound 03/29/2021 FINDINGS: The visualized portions of right common femoral vein, profunda (deep) femoral vein, femoral vein, pop liteal vein, peroneal veins, posterior tibial veins, and greater saphenous vein outflow are patent. IMPRESSION: 1. No deep venous thrombosis. Reviewed, dictated and finalized at location E. RIDGE MAKER
--- NOTE | ~2021-10-08 | XR_ITS ---
EXAMINATION: XR chest 1V portable EXAM DATE: 10/08/2021 13:55 INDICATION: COUGH, SOB TECHNIQUE: Portable AP frontal chest x-ray was obtained. Comparison is made to prior examination from 07/12/2021. FINDINGS: Small right pleural effusion. Ill-defined basilar edema or pneumonia. No pneumothorax. Card iomediastinal silhouette is normal. There is aortic arteriosclerosis. The bones are osteopenic. Ther e are bony degenerative changes. IMPRESSION: 1. Ill-defined basilar edema or pneumonia. 2. Small right effusion. Reviewed, dictated and finalized at location B. ATING ROOM SPECIALIST
--- NOTE | ~2021-10-08 | XR_ITS ---
EXAMINATION: XR foot RT min 3V DATE: 10/08/2021 13:56 INDICATION: Pain and discoloration of the right foot TECHNIQUE: Dorsoplantar, two oblique and lateral views of the right foot were obtained. COMPARISON: None. FINDINGS: Diffuse osteopenia. 27 degree hallux valgus. Second hammertoe deformity. Otherwise normal alignment t hroughout the right foot. No fracture. Minimal to mild polyarticular osteoarthritis most prominent at the talonavicular joint and to lesser degree at the first metatarsophalangeal and a few tarsometatar pearl and interphalangeal joints. Soft tissue swelling about the lateral malleolus. IMPRESSION: 1. No acute osseous abnormality. Reviewed, dictated and finalized at location A. ING PROJECT COORDINATOR
--- NOTE | ~2021-10-08 | CT_ITS ---
EXAMINATION: CTA chest PE protocol DATE: 10/08/2021 17:01 INDICATION: Shortness of breath, hypoxia. History of COPD. TECHNIQUE: Computed tomography angiography (CTA) of the chest was performed with 100 mL Omnipaque-350 intravenous contrast timed to evaluate the pulmonary arteries. Coronal maximum intensity projection 3D-reconstructions were created by the technologist. Automated exposure control and iterative reconst ruction technique were employed. Exam dose: 192.47 mGy-cm total exam DLP. COMPARISON: October 08, 2021 portable AP chest 06/29/2021 CT pulmonary scan FINDINGS: There is diagnostic contrast enhancement of the pulmonary arteries and no evidence of pulmo nary embolism. Severe emphysematous changes are noted throughout both lungs. There is minimal dependent bilateral lo wer lobe atelectasis. Prominent calcification in the right upper lobe. Normal heart size. Coronary and thoracic aortic atherosclerosis. No thoracic aortic aneurysm or dissection. No hilar or mediastinal mass lesion or lymphadenopathy. No pericardial effusion. Small bilateral pleural effusions. Status post cholecystectomy. Diffuse osteopenia. Severe degenerative disc disease in the lower cervical spine. Fracture deformity of L3 is partially visualized in the lowermost images. IMPRESSION: No evidence of pulmonary embolism Severe emphysema Reviewed, dictated and finalized at Location A. Reviewed, dictated and finalized at location A. [employer]ER WRECKING AND SALVAGING
--- NOTE | ~2021-10-08 | US_ITS ---
EXAMINATION: US arterial ankle brachial ind DATE: 10/09/2021 14:19 INDICATION: Peripheral arterial disease. TECHNIQUE: Segmental pressures and plethysmographic and Doppler waveforms of the brachial and lower e xtremity arteries were obtained. COMPARISON: None. FINDINGS: Right and left brachial artery pressures of 139 mm Hg and 132 mm Hg, respectively, are concordant (no rmal difference <= 30 mmHg). The right ankle-brachial index (HELEN) is 1.10 (normal >= 0.9-1.0). The right great toe-brachial index (TBI) is 0.54 (normal >= 0.65). Arterial Doppler waveforms are biphasic at the ankle. The left HELEN is 1.06. The left TBI is 0.69. Arterial Doppler waveforms are biphasic at the ankle. IMPRESSION: 1. Mildly decreased right TBI and normal right HELEN, consistent with right-sided arterial occlusive di sease. No significant left-sided arterial occlusive disease. Reviewed, dictated and finalized at location E. LOGUE CLERK IMPRESSION: 1. Mildly decreased right TBI and normal right HELEN, consistent with right-sided arterial occlusive disease. No significant left-sided arterial occlusive disea se.
--- NOTE | 2021-10-08 13:17 | ECG_ITS ---
Measurements Intervals Homer Rate: 64 P: 80 AR: 142 QRS: 17 QRSD: 101 T: -13 QT: 420 QTc: 434 Interpretive Statements SINUS RHYTHM POSSIBLE LEFT ATRIAL ENLARGEMENT DELAYED PRECORDIAL R/S TRANSITION T WAVE ABNORMALITY IN ANT/INF LEADS- CONSIDER ISCHEMIA BASELINE ARTIFACT- I, III, V1-V2 ABNORMAL ECG Electronically Signed On 10-08-2021 13:20:11 [employer] by Abe Ruiz D.O.
--- NOTE | 2021-10-08 13:48 | ED.EXTPRO ---
HPI - Extremity Problem General Chief complaint: Extremity Problem,Nontraumatic Stated complaint: SOB Time Seen by Provider: 10/08/21 13:24 Source: patient Mode of arrival: ambulatory Limitations: no limitations History of Present Illness HPI Narrative: Patient is an 81-year-old female complaining of right foot tightness and discoloration, purple , which she noticed this morning. Patient has a history of peripheral vascular disease. Patient also states that she is short of breath but nothing more than her usual, history of COPD, on 2 to 5 L of oxygen continuously at home. Patient denies any chest pain, cough, abdominal pain, nausea, vomiting, diaphoresis, fever or chills. Related Data Home Medications Medication Instructions Recorded Confirmed guaifenesin [Mucinex] 600 mg PO Q12H 10/19/20 09/28/21 Breztri Aerosphere 2 inh INHALATION BID 03/29/21 09/28/21 acetaminophen 650 mg PO QID PRN 03/29/21 09/28/21 escitalopram oxalate [Lexapro] 20 mg PO DAILY 03/29/21 09/28/21 melatonin 12 mg tablet 12 mg PO QHS tablet 05/18/21 09/28/21 Pred Mild 0.12 % EACH EYE BID 06/27/21 09/28/21 Allergies Allergy/AdvReac Type Severity Reaction Status Date / Time clarithromycin Allergy Mild rash and Verified 10/08/21 13:20 itching alendronate sodium Allergy Unknown Unknown Verified 10/08/21 13:20 mold Allergy Unknown Unknown Verified 10/08/21 13:20 Penicillins Allergy Unknown SWELLING Verified 10/08/21 13:20 AND RASH,Unknown Review of Systems Review of Systems: All systems reviewed & are unremarkable except as noted in HPI and below Constitutional: Constitutional: Denies body ache(s), Denies chills, Denies excessive sweating, Denies fatigue, Denies fever(s), Denies headache(s), Denies lethargy, Denies malaise, Denies weakness and Denies weight loss Eyes: Eyes: Denies blurry vision, Denies change in vision and Denies loss of vision ENT: Denies dizziness, Denies ear discharge, Denies headache(s), Denies lip swelling, Denies epistaxis, Denies nasal congestion, Denies neck pain, Denies throat swelling and Denies tongue swelling Cardiovascular: Cardiovascular: Denies chest pain, Denies chest pain at rest, Denies chest pain with activity, Denies diaphoresis, Denies rapid heart rate, Denies edema, Denies irregular heart rhythm, Denies lightheadedness and Denies palpitations Respiratory: Respiratory: Denies chest congestion, Denies cough and Denies hemoptysis Gastrointestinal: Gastrointestinal: Denies abdominal pain, Denies melena, Denies hematochezia, Denies diarrhea, Denies nausea, Denies vomiting and Denies hematemesis Musculoskeletal: Musculoskeletal: Denies abnormal gait, Denies deformity, Denies joint swelling, Denies limited range of motion, Denies neck pain and Denies numbness Neurologic: Denies Abnormal speech present, Denies abnormal gait, Denies confusion, Denies dizziness, Denies headache(s), Denies focal weakness, Denies loss of vision, Denies numbness, Denies Other visual disturbances, Denies Sensory deficit (Neuro) and Denies weakness Psychiatric: Psychiatric: Denies confusion, Denies depression, Denies auditory hallucinations, Denies homicidal ideation and Denies suicidal ideation Endocrine: Endocrine: Denies cold intolerance, Denies excessive sweating, Denies fatigue, Denies heat intolerance and Denies palpitations Hematologic/Lymphatic: Hematologic/Lymphatic: Denies easy bleeding and Denies easy bruising Allergic/Immunologic: Allergic/Immunologic: Denies lip swelling, Denies throat swelling and Denies tongue swelling PMFSH Past Medical History Medical History BMI between 19-24,adult Chronic shoulder pain Essential (primary) hypertension Hypoxia Localized swelling of left lower extremity Localized swelling of right lower extremity Nontraumatic tear of muscle or tendon of rotator cuff of both shoulders Other specified peripheral vascular diseases Pain in left foot P
[2021-10-08 14:10] LABS: Basophils Absolute Auto 0.1 K/mm3 (0.0-0.1); Basophils Percent Auto 1.2 % (0.2-1.2); Eosinophils Absolute Auto 0.1 K/mm3 (0-0.3); Eosinophils Percent Auto 2.2 % (0-4.4); Hematocrit 41.8 % (37.0-47.0); Hemoglobin 13.4 g/dL (12.0-15.0); Immature Granulocyte Absolute 0.02 K/mm3 (0.00-0.031); Immature Granulocyte Percent A 0.4 % (0-0.5); Lymphocytes Absolute Auto 0.85 K/mm3 (0.9-3.2); Lymphocytes Percent Auto 16.9 % (18.3-44.2); Mean Corpuscular HGB Conc 32.1 g/dl (32-36); Mean Corpuscular Hemoglobin 30.6 pg (26-34); Mean Corpuscular Volume 95.4 fl (80-100); Mean Platelet Volume 9.6 fl (7.4-10.4); Monocytes Absolute Auto 0.6 K/mm3 (0.1-0.6); Monocytes Percent Auto 11.8 % (2.6-8.5); Neutrophils Absolute Auto 3.4 K/mm3 (1.3-6.7); Neutrophils Percent Auto 67.5 % (45.5-73.1); Platelet Count Result 223 k/mm3 (150-375); Red Blood Count 4.38 M/mm3 (4.2-5.4); Red Cell Distribution Width 14.6 % (11.5-14.5)
[2021-10-08 14:13] LABS: Lactic Acid Reflex 1.1 mmol/L (0.7-2.1)
[2021-10-08 14:14] LABS: Alanine Aminotransferase 25 U/L (4-35); Albumin Level 4.3 g/dL (3.5-5.1); Alkaline Phosphatase 64 U/L (38-126); Anion Gap 5 mmol/L (8-16); Aspartate Amino Transferase 37 U/L (14-36); Bilirubin,Total 0.8 mg/dL (0.2-1.3); Blood Urea Nitrogen 19 mg/dL (7-17); Calcium 9.5 mg/dL (8.4-10.2); Carbon Dioxide 30 mmol/L (22-30); Chloride 101 mmol/L (98-107); Estimated Glomerular Filt Rate > 60; Glucose 96 mg/dL (65-110); Potassium 4.2 mmol/L (3.4-5.0); Sodium 136 mmol/L (137-145)
[2021-10-08] MEDS: ALBUTEROL SULFATE NEB 2.5 MG/0.5 ML INH 5 MG INHALATION ×2 (14:19→18:08)
[2021-10-08] MEDS: IPRATROPIUM BR 0.02% INH SOLN 0.5 MG/2.5 ML VIAL INHALATION ×2 (14:20→18:08)
[2021-10-08 14:22] LABS: Partial Thromboplastin Time 35.5 SECONDS (22.3-36.8)
[2021-10-08] MEDS: methylPREDNISolone SOD SUCC 125 MG VIAL 80 MG IV PUSH (14:27)
[2021-10-08 14:46] LABS: INR 1.1; Prothrombin Time 13.6 Seconds (11.1-14.7)
--- NOTE | 2021-10-08 15:50 | PC.NURSE ---
this RN noticed on monitor pt was desatting. Went to room and pt was labored on the NC, satting 76%. attempted to turn up O2 on NC and she was not responding. Pt placed on NRB and O2 came up. Notified Dr. Cartagena and he would like pt placed on high flow NC. Respiratory called
[2021-10-08] MEDS: ALPRAZolam (*CRX) 0.5 MG TABLET PO (16:27)
[2021-10-08] MEDS: LACTATED RINGERS 1,000 ML 999 ML IV CONT (16:28)
[2021-10-08 16:40] LABS: Alveolar/Arterial O2 Gradient 146.7 mmHg; Base Excess ABG 0.7 mEq/l (+/-2.0); Carboxyhemoglobin 1.2 % THb (0-2.0); Fractional Inspired Oxygen 36 %; HCO3 ABG 25.3 mEq/l (22.0-26.0); Methemoglobin ABG 0.2 %THb (0-1.5); Modified Allen's Test Pass; Oxygen Content ABG 17.9 %vol (16.0-22.0); Oxygen Saturation ABG 92.3 % (95.0-100.0); Oxyhemoglobin 89.6 % THb (90.0-100.0); PCO2 ABG 40.8 mmHg (35.0-45.0); PO2 ABG 62.7 mmHg (80.0-100.0); PO2 FiO2 Ratio Arterial Blood 1.74 %; Site Drawn RIGHT RADIAL; Total Hemoglobin 14.2 g/dL (12.0-18.0); pH ABG 7.411 (7.350-7.450)
[2021-10-08 16:41] LABS: Device HIGH FLOW NASAL CANN
[2021-10-08] MEDS: ALBUTEROL SULFATE NEB 2.5 MG/3 ML INH 5 MG (19:23)
[2021-10-08] MEDS: IPRATROPIUM BR 0.02% INH SOLN 0.5 MG/2.5 ML VIAL (19:23)
[2021-10-08 19:50] LABS: SARS-CoV-2 RNA PCR Negative
--- NOTE | 2021-10-08 22:56 | ADMGEN ---
This patient, Jolie Starr, was admitted to IMU Room 206-01 on 10/08/21 at 2230. Patient/family oriented to hospital policies and general routines including ID bracelet, bed and alarms, visiting hours, pain management, procedures, bathroom and other care routines, personal items, smoking policy, room service/diet, and visiting hours. Information on how to activate the Rapid Response Team has been discussed. Patient/Family are encouraged to report perceived risks to care and to ask questions if they do not understand what they are told or what they should do.
[2021-10-09] VITALS (17 sets, daily range): BP systolic 106–151; BP diastolic 60–88; PULSE 72–89; RESP 15–24; TEMP 36.3–37; O2SAT 90–98
--- NOTE | 2021-10-09 | ECHO_ITS ---
Patient Info Name: Jolie Starr Age: 81 years : 1940 Gender: Female Ht: 64 in Wt: 119 lbs BSA: 1.56 m2 HR: 67 bpm BP: 151 / 78 mmHg Heart Rhythm: Sinus Rhythm Technical Quality: Good Exam Date: 10/09/2021 12:13 PM Exam Location: [facility] Exam Room: Patient Status: Inpatient Admit Date: 10/08/2021 Staff Ordering Physician: Jm Ramey MD Oceanography Professor: Samantha Rose RDCS Attending Provider: Aislinn Miller MD Referring Physician: Karoline FLORENCE; Exam Type: CA echo doppler color flow Study Info Indications - pleural effusion PFO PULM HTN Complete two-dimensional, color flow and Doppler transthoracic echocardiogram is performed. Summary 1. Complete two-dimensional, color flow and Doppler transthoracic echocardiogram is performed. 2. Normal left ventricular size and thickness. Good systolic function of all segments with an ejection fraction greater than 70%. No segmental wall motion abnormalities. Grade 2 diastolic dysfunction is present. 3. Moderate right ventricular enlargement and hypokinesis. 4. Left atrial chamber dimension is moderately enlarged. 5. Right atrial chamber dimension is moderately enlarged. 6. There is mild to moderate tricuspid valve regurgitation. 7. Severe pulmonary hypertension, estimated pulmonary arterial systolic pressure is 76 mmHg. 8. Dilated inferior vena cava with <50% collapse upon inspiration consistent with significantly elevated right atrial pressure, 10 mmHg. 9. Normal sinus rhythm. Left Ventricle Left ventricular chamber dimension is normal. Left ventricular systolic function is normal, estimated at >70%. There is no increased left ventricular wall thickness. Left ventricular septal wall motion is normal. The left ventricular diastolic function is grade II diastolic dysfunction. Right Ventricle Right ventricular chamber dimension is moderately enlarged. Right ventricular systolic function is reduced. Left Atria Left atrial chamber dimension is moderately enlarged. Right Atria Right atrial chamber dimension is moderately enlarged. Aortic Valve The aortic valve is trileaflet. There is no aortic valve sclerosis. There is no aortic valve stenosis. There is no aortic valve regurgitation. Pulmonic Valve The pulmonic valve is normal. There is no pulmonic valve stenosis. There is no pulmonic regurgitation. Mitral Valve The mitral valve has normal leaflets. There is no mitral valve stenosis. There is trace mitral valve regurgitation. The mitral valve annulus is moderately calcified. Tricuspid Valve The tricuspid valve leaflets are normal. There is no significant tricuspid valve stenosis. There is mild to moderate tricuspid valve regurgitation. Severe pulmonary hypertension, estimated pulmonary arterial systolic pressure is 76 mmHg. Pericardium/Pleural The pericardium appears normal. There is no pericardial effusion. Inferior Vena Cava Dilated inferior vena cava with <50% collapse upon inspiration consistent with significantly elevated right atrial pressure, 10 mmHg. Aorta The aortic root size at the sinus of Valsalva is normal. The prox ascending aorta size is normal. Left Ventricular Outflow Tract Name Value Normal LVOT 2D
--- NOTE | 2021-10-09 00:35 | PM.IMHP ---
H&P: HPI History of Present Illness Date/Time: 10/08/21 23:35 this is an 81-year-old female patient with a history of COPD and she is chronically on oxygen anywhere from 3-5 L. the patient also has a history of having peripheral vascular disease. The patient came in complaining of right foot tightness and discoloration and stated that her toes were purple. The patient is also been short of breath but nothing more than usual. The patient's right leg is larger than the left. She had ultrasound that was negative for DVT. Her oxygen saturation dropped down to 70s to 80s a few times when she was in the emergency room. She was given a dual nebs and placed on non-rebreather at 1 point. Patient was changed to high-flow nasal cannula which is tolerable at this point and was saturating at 96%. When I assessed her her feet were no longer purple however she has a weak pulse the left foot and both feet are equally cold to touch. The right leg is larger than the left. The patient was given Solu-Medrol, DuoNebs, IV fluids, and Xanax in the emergency room. Patient is currently on a CPAP as she has a history of sleep apnea. COVID test was negative. Chest CTA was read as no evidence of pulmonary embolism. Severe emphysema venous Doppler was negative for DVT.. Chest x-ray was read as ill-defined basilar edema or pneumonia. Small right effusion. The patient is being admitted to observation status on the date of service of 10/08/2021 Chief Complaint: Shortness of breath Review of Systems Review of Systems: All systems reviewed & are unremarkable except as noted in HPI and below Constitutional: Constitutional: Reports as per HPI and Reports no additional constitutional complaints Eyes: Eyes: Reports as per HPI and Reports no additional eye complaints ENT: Reports system reviewed and no additional complaints, except as documented and Reports Normal hearing present Cardiovascular: Cardiovascular: Reports no additional cardiovascular complaints Respiratory: Respiratory: Reports no additional respiratory complaints and Reports no additional respiratory complaints Gastrointestinal: Gastrointestinal: Reports as per HPI and Reports no additional gastrointestinal complaints Musculoskeletal: Musculoskeletal: Reports no additional musculoskeletal complaints Integumentary/Breasts: Skin/Breast: Reports system reviewed and no additional complaints, except as docu and Reports as per HPI Neurologic: Reports system reviewed and no additional complaints, except as documented, Reports as per HPI and Reports Normal hearing present Psychiatric: Psychiatric: Reports no additional psychiatric complaints and Reports as per HPI Endocrine: Endocrine: Reports no additional endocrine complaints Hematologic/Lymphatic: Hematologic/Lymphatic: Reports no additional hematologic/lymphatic complaints Allergic/Immunologic: Allergic/Immunologic: Reports no additional allergic/immunologic complaints [facility] Past Medical History Medical History (Updated 10/09/21 @ 00:48 by Fabiana Robles NP) Anxiety BMI between 19-24,adult Chronic shoulder pain Diverticulosis Essential (primary) hypertension History of atrial flutter Hypoxia Localized swelling of left lower extremity Localized swelling of right lower extremity Nontraumatic tear of muscle or tendon of rotator cuff of both shoulders Obstructive sleep apnea Other specified peripheral vascular diseases Pain in left foot Pain in left lower leg Pain in right foot Pain in right lower leg Patent foramen ovale Pulmonary hypertension Rotator cuff arthropathy of both shoulders SI joint arthritis Spontaneous pneumothorax Surgical History Surgical History H/O tubal ligation History of 2 sections History of appendectomy History of bilateral cataract extraction History of removal of pigmented skin lesion History of tonsillectomy Hx laparoscopic cholecystectomy Fami
[2021-10-09] MEDS: TEMAZEPAM (*CRX) 15 MG CAPSULE 30 MG PO ×2 (01:43→20:26)
[2021-10-09] MEDS: guaiFENesin 12 HR 600 MG TABCR PO ×3 (01:43→20:26)
[2021-10-09] MEDS: MELATONIN 5 MG TABLET PO ×2 (01:44→20:26)
[2021-10-09] MEDS: MONTELUKAST SODIUM 10 MG TABLET PO ×2 (01:44→20:26)
[2021-10-09] MEDS: ALBUTEROL SULFATE NEB 2.5 MG/0.5 ML INH 5 MG INHALATION ×3 (03:01→19:31)
[2021-10-09] MEDS: IPRATROPIUM BR 0.02% INH SOLN 0.5 MG/2.5 ML VIAL INHALATION ×3 (03:02→19:31)
[2021-10-09 05:49] LABS: Basophils Percent Auto 0.3 % (0.2-1.2); Hematocrit 36.5 % (37.0-47.0); Immature Granulocyte Absolute 0.01 K/mm3 (0.00-0.031); Immature Granulocyte Percent A 0.3 % (0-0.5); Lymphocytes Absolute Auto 0.56 K/mm3 (0.9-3.2); Mean Corpuscular HGB Conc 32.9 g/dl (32-36); Mean Corpuscular Hemoglobin 30.2 pg (26-34); Mean Corpuscular Volume 91.9 fl (80-100); Mean Platelet Volume 10.2 fl (7.4-10.4); Monocytes Absolute Auto 0.4 K/mm3 (0.1-0.6); Monocytes Percent Auto 10.3 % (2.6-8.5); Neutrophils Percent Auto 75.1 % (45.5-73.1); Platelet Count Result 237 k/mm3 (150-375); Red Blood Count 3.97 M/mm3 (4.2-5.4); Red Cell Distribution Width 14.6 % (11.5-14.5)
[2021-10-09 05:52] LABS: Alanine Aminotransferase 21 U/L (4-35); Albumin Level 3.7 g/dL (3.5-5.1); Alkaline Phosphatase 47 U/L (38-126); Anion Gap 2 mmol/L (8-16); Aspartate Amino Transferase 29 U/L (14-36); Bilirubin,Total 0.7 mg/dL (0.2-1.3); Blood Urea Nitrogen 18 mg/dL (7-17); CRP < 0.5 mg/dL (<1.0); Calcium 9.3 mg/dL (8.4-10.2); Carbon Dioxide 29 mmol/L (22-30); Chloride 101 mmol/L (98-107); Estimated CRCL calculation 40 ml/min; Estimated Glomerular Filt Rate > 60; Glucose 122 mg/dL (65-110); Magnesium 1.7 mg/dL (1.6-2.3); Potassium 4.2 mmol/L (3.4-5.0); Sodium 132 mmol/L (137-145)
[2021-10-09] MEDS: NEBIVOLOL HCL 5 MG TABLET 10 MG PO (08:10)
[2021-10-09] MEDS: ESCITALOPRAM OXALATE 10 MG TABLET 20 MG PO (08:10)
[2021-10-09] MEDS: IPRATROPIUM NASAL SPRAY 0.03% 15 ML BOTTLE 2 SPRAY NASAL ×3 (08:11→17:29)
[2021-10-09] MEDS: PANTOPRAZOLE 40 MG TABLET PO ×2 (08:12→17:32)
[2021-10-09] MEDS: OLMESARTAN MEDOXOMIL 20 MG TABLET 40 MG PO (08:12)
[2021-10-09] MEDS: PREDNISOLONE ACETATE 0.12% 1 DROP EACH EYE ×2 (08:13→17:29)
[2021-10-09] MEDS: ACETAMINOPHEN 325 MG TABLET 650 MG PO ×2 (08:15→17:34)
[2021-10-09] MEDS: methylPREDNISolone SOD SUCC 125 MG VIAL 60 MG IV PUSH ×2 (08:16→20:25)
--- NOTE | 2021-10-09 10:43 | PM.IMPN ---
Progress Note: A&P Assessment and Plan (1) Acute exacerbation of chronic obstructive pulmonary disease: Code(s): J44.1 - Chronic obstructive pulmonary disease with (acute) exacerbation Status: Acute Assessment and Plan: Continue Solu-Medrol and bronchodilators CPAP while sleeping Wean to home oxygen use as tolerated (2) Acute on chronic respiratory failure: Qualifiers: Respiratory failure complication: hypoxia Qualified Code(s): J96.21 - Acute and chronic respiratory failure with hypoxia Code(s): J96.20 - Acute and chronic respiratory failure, unspecified whether with hypoxia or hypercapnia Status: Acute Assessment and Plan: Pulm CTA negative at admission Wean patient down to her home oxygen 2-5 L. (3) Obstructive sleep apnea: Code(s): G47.33 - Obstructive sleep apnea (adult) (pediatric) Status: Chronic Assessment and Plan: CPAP with oxygen while sleeping (4) Anxiety and depression: Code(s): F41.9 - Anxiety disorder, unspecified; F32.9 - Major depressive disorder, single episode, unspecified Status: Acute Assessment and Plan: Continue with Lexapro and Xanax. Also take temazepam at bedtime Chronic benzodiazepine use should be addressed as outpatient (5) Essential (primary) hypertension: Code(s): I10 - Essential (primary) hypertension Status: Chronic Assessment and Plan: Continue with Bystolic. Subjective Date/time seen: 10/09/21 10:43 Interval history: Admitted 10/08 with increased sob. At home she wears oxygen 2 L at rest and 5 L with exertion, as well as CPAP with 2 L while sleeping. 10/09 visit: Improved but remained short of breath with any exertion including conversation. No swelling now. 09/2020 ECHO 1. Left ventricular chamber dimension is normal. 2. Left ventricular systolic function is normal, estimated at 60-65%. 3. The left ventricular diastolic function is grade I diastolic dysfunction. 4. E/e' 19 is elevated. 5. Global longitudinal strain is mildly abnormal at -16.0%. 6. Agitated saline injection with and without valsalva maneuver opacified right sided cardiac chambers and several bubbles shunted to left sided cardiac chambers. This is suggestive of patent foramen ovale. 7. The mitral valve has moderately calcified annulus. 8. There is mild tricuspid valve regurgitation. 9. Severe pulmonary hypertension, estimated pulmonary arterial systolic pressure is 67 mmHg. Review of Systems Review of Systems: All systems reviewed & are unremarkable except as noted in HPI and below Exam Narrative: HEENT: PERRL, sclerae nonicteric, pharyngeal mucosa pink and intact NECK: No JVD, adenopathy, or thyromegaly CHEST: Diffuse coarse breath sounds with bibasilar crackles and prolonged expiratory phase and expiratory wheezes with tachypnea HEART: NL S1/S2, regular, no murmur ABDOMEN: BS+, soft, nontender, no mass, no bruits EXTREMITIES: No cyanosis, edema, or clubbing NEUROLOGIC: CN intact and symmetric to inspection. MUSCULOSKELETAL: Tone and strength symmetric. PSYCH: Alert. Oriented to person, place, and time. Objective Data Vital Signs Vital Signs: Vital Signs - 24 hr 10/08/21 13:05 10/08/21 13:31 10/08/21 13:46 Temperature 97.9 F Pulse Rate 70 68 75 Respiratory Rate 22 H 20 23 H Blood Pressure 174/88 H 176/109 H 171/91 H Pulse Oximetry 100 88 L 76 L 10/08/21 14:10 10/08/21 14:15 10/08/21 14:16 Temperature Pulse Rate 65 Respiratory Rate 17 Blood Pressure 166/76 H Pulse Oximetry 79 L 100 100 10/08/21 14:21 10/08/21 14:32 10/08/21 14:45 Temperature Pulse Rate 67 68 Respiratory Rate 25 H 24 H Blood Pressure Pulse Oximetry 100 10/08/21 14:46 10/08/21 14:47 10/08/21 15:01 Temperature Pulse Rate 73 75 Respiratory Rate 19 19 Blood Pressure 143/96 H 173/74 H Pulse Oximetry 93 93 100 10/08/21 15:23 10/08/21 15:41 10/08/21 15:46 Temperat
[2021-10-09] MEDS: POTASSIUM CHLORIDE 20 MEQ TABLET PO (11:30)
[2021-10-09] MEDS: ALPRAZolam (*CRX) 0.25 MG TABLET PO ×3 (11:30→20:26)
[2021-10-09] MEDS: FUROSEMIDE INJ 40 MG/4 ML VIAL 20 MG IV PUSH (11:31)
[2021-10-09] MEDS: MAGNESIUM SULF 2 GM/WATER 50ML 2 GM/50 ML BAG IVPB (11:31)
[2021-10-09 13:29] LABS: Urea Random Urine 109 MG/DL
--- NOTE | 2021-10-09 14:01 | PC.NURSE ---
This patient, Jolie Starr, was transferred to [[facility] ] on 10/09/21 at 1450. Personal belongings sent with patient. Report given to [ Dana]. Appropriate documentation sent with patient.
[2021-10-10] VITALS (11 sets, daily range): BP systolic 119–180; BP diastolic 50–90; PULSE 43–81; RESP 18–20; TEMP 36.2–36.7; O2SAT 91–97
[2021-10-10] MEDS: IPRATROPIUM BR 0.02% INH SOLN 0.5 MG/2.5 ML VIAL INHALATION ×4 (02:42→19:18)
[2021-10-10] MEDS: ALBUTEROL SULFATE NEB 2.5 MG/0.5 ML INH 5 MG INHALATION ×4 (02:42→19:18)
[2021-10-10 05:57] LABS: Hematocrit 38.3 % (37.0-47.0); Hemoglobin 12.4 g/dL (12.0-15.0); Mean Corpuscular HGB Conc 32.4 g/dl (32-36); Mean Corpuscular Hemoglobin 30.4 pg (26-34); Mean Corpuscular Volume 93.9 fl (80-100); Platelet Count Result 242 k/mm3 (150-375); Red Blood Count 4.08 M/mm3 (4.2-5.4); Red Cell Distribution Width 14.5 % (11.5-14.5); White Blood Count 4.2 K/mm3 (4.5-10.0)
[2021-10-10 06:16] LABS: Anion Gap 7 mmol/L (8-16); Blood Urea Nitrogen 24 mg/dL (7-17); Calcium 9.3 mg/dL (8.4-10.2); Carbon Dioxide 31 mmol/L (22-30); Chloride 97 mmol/L (98-107); Estimated CRCL calculation 41 ml/min; Estimated Glomerular Filt Rate > 60; Glucose 147 mg/dL (65-110); Potassium 4.6 mmol/L (3.4-5.0); Sodium 135 mmol/L (137-145)
--- NOTE | 2021-10-10 07:26 | PC.NURSE ---
At shift change, the night nurse informed me that pt's BP has been approximately 180/90 and she was unable to get ahold of Dr. Bai despite repeated attempts. I contacted the day shift hospitalist, Dr. Ramey at 0725. Dr. Ramey stated that he would review the chart and put orders in as soon as possible. I will continue to monitor.
[2021-10-10] MEDS: hydrALAZINE HCL 20 MG/ML VIAL 10 MG IV PUSH (08:03)
[2021-10-10] MEDS: IPRATROPIUM NASAL SPRAY 0.03% 15 ML BOTTLE 2 SPRAY NASAL ×3 (08:07→17:09)
[2021-10-10] MEDS: methylPREDNISolone SOD SUCC 125 MG VIAL 60 MG IV PUSH ×2 (08:08→21:04)
[2021-10-10] MEDS: PANTOPRAZOLE 40 MG TABLET PO ×2 (08:10→17:13)
[2021-10-10] MEDS: PREDNISOLONE ACETATE 0.12% 1 DROP EACH EYE ×2 (08:10→17:13)
[2021-10-10] MEDS: OLMESARTAN MEDOXOMIL 20 MG TABLET 40 MG PO (08:10)
[2021-10-10] MEDS: guaiFENesin 12 HR 600 MG TABCR PO ×2 (08:11→21:04)
[2021-10-10] MEDS: ESCITALOPRAM OXALATE 10 MG TABLET 20 MG PO (08:11)
[2021-10-10] MEDS: NEBIVOLOL HCL 5 MG TABLET 10 MG PO (08:11)
[2021-10-10] MEDS: ACETAMINOPHEN 325 MG TABLET 650 MG PO ×2 (08:16→17:13)
[2021-10-10] MEDS: ALPRAZolam (*CRX) 0.25 MG TABLET PO ×3 (08:16→18:42)
[2021-10-10] MEDS: FLUTICASONE/UMECLIDIN/VILANTER 100-62.5-25 MCG ELLIPTA 1 PUFF INHALATION (08:59)
--- NOTE | 2021-10-10 12:01 | PM.IMPN ---
Progress Note: A&P Assessment and Plan (1) Acute exacerbation of chronic obstructive pulmonary disease: Code(s): J44.1 - Chronic obstructive pulmonary disease with (acute) exacerbation Status: Acute Assessment and Plan: Continue Solu-Medrol and bronchodilators CPAP while sleeping Wean to home oxygen use as tolerated (2L rest, 5L activity) (2) Acute on chronic respiratory failure: Qualifiers: Respiratory failure complication: hypoxia Qualified Code(s): J96.21 - Acute and chronic respiratory failure with hypoxia Code(s): J96.20 - Acute and chronic respiratory failure, unspecified whether with hypoxia or hypercapnia Status: Acute Assessment and Plan: Likely due to COPD exacerbation Pulm CTA negative at admission Wean patient down to her home oxygen 2-5 L. (3) Cor pulmonale (chronic): Code(s): I27.81 - Cor pulmonale (chronic) Status: Acute Assessment and Plan: 10/09 Furosemide 20mg IV 10/10 Furosemide 10mg IV 10/09 ECHO Summary 1. Complete two-dimensional, color flow and Doppler transthoracic echocardiogram is performed. 2. Normal left ventricular size and thickness. Good systolic function of all segments with an ejection fraction greater than 70%. No segmental wall motion abnormalities. Grade 2 diastolic dysfunction is present. 3. Moderate right ventricular enlargement and hypokinesis. 4. Left atrial chamber dimension is moderately enlarged. 5. Right atrial chamber dimension is moderately enlarged. 6. There is mild to moderate tricuspid valve regurgitation. 7. Severe pulmonary hypertension, estimated pulmonary arterial systolic pressure is 76 mmHg. 8. Dilated inferior vena cava with <50% collapse upon inspiration consistent with significantly elevated right atrial pressure, 10 mmHg. 9. Normal sinus rhythm. (4) Obstructive sleep apnea: Code(s): G47.33 - Obstructive sleep apnea (adult) (pediatric) Status: Chronic Assessment and Plan: CPAP with oxygen while sleeping (5) Anxiety and depression: Code(s): F41.9 - Anxiety disorder, unspecified; F32.9 - Major depressive disorder, single episode, unspecified Status: Acute Assessment and Plan: Continue with Lexapro and Xanax. Also take temazepam at bedtime Chronic benzodiazepine use should be addressed as outpatient (6) Essential (primary) hypertension: Code(s): I10 - Essential (primary) hypertension Status: Chronic Assessment and Plan: Continue with Bystolic. Subjective Date/time seen: 10/10/21 12:01 Interval history: Admitted 10/08 with increased sob. At home she wears oxygen 2 L at rest and 5 L with exertion, as well as CPAP with 2 L while sleeping. 10/10 visit: Breathing much better. Diuresed well with furosemide on 10/09 No swelling now. Tolerating diet. Review of Systems Review of Systems: All systems reviewed & are unremarkable except as noted in HPI and below Exam Narrative: HEENT: PERRL, sclerae nonicteric, pharyngeal mucosa pink and intact NECK: No JVD, adenopathy, or thyromegaly CHEST: Diffuse coarse breath sounds with bibasilar crackles and prolonged expiratory phase HEART: NL S1/S2, regular, no murmur ABDOMEN: BS+, soft, nontender, no mass, no bruits EXTREMITIES: No cyanosis, edema, or clubbing NEUROLOGIC: CN intact and symmetric to inspection. MUSCULOSKELETAL: Tone and strength symmetric. PSYCH: Alert. Oriented to person, place, and time. Objective Data Vital Signs Vital Signs: Vital Signs - 24 hr 10/09/21 14:53 10/09/21 19:30 10/09/21 20:00 Temperature 97.3 F L Pulse Rate 89 80 Respiratory Rate 20 18 Blood Pressure 127/75 Pulse Oximetry 90 90 10/09/21 22:00 10/10/21 02:41 10/10/21 06:00 Temperature 97.4 F L 98.0 F Pulse Rate 74 77 71 Respiratory Rate 20 18 20 Blood Pressure 106/60 180/90 H Pulse Oximetry 93 91 10/10/21 08:00 10/10/21 08:11 10/10/21 09:05 Temperature Puls
[2021-10-10] MEDS: FUROSEMIDE INJ 40 MG/4 ML VIAL 10 MG IV PUSH (14:29)
--- NOTE | 2021-10-10 15:39 | PC.NURSE ---
Dr. Gonzalez called in response to receive a consult request. He inquired as to pt's condition, pt's condition today as compared to yesterday, and pt's medications. I answered his questions and received the following orders: stop the Trelegy and obtain labs testing for influenza. He concluded that his partner would see pt tomorrow.
[2021-10-10 17:11] LABS: Influenza Control Positive
[2021-10-10] MEDS: MELATONIN 5 MG TABLET PO (21:04)
[2021-10-10] MEDS: MONTELUKAST SODIUM 10 MG TABLET PO (21:04)
[2021-10-10] MEDS: TEMAZEPAM (*CRX) 15 MG CAPSULE 30 MG PO (21:04)
[2021-10-11] VITALS (15 sets, daily range): BP systolic 158–176; BP diastolic 81–83; PULSE 64–88; RESP 16–23; TEMP 36.6–36.8; O2SAT 95–100; BMI 20.7
[2021-10-11] MEDS: ALBUTEROL SULFATE NEB 2.5 MG/0.5 ML INH 5 MG INHALATION ×4 (01:53→19:32)
[2021-10-11] MEDS: IPRATROPIUM BR 0.02% INH SOLN 0.5 MG/2.5 ML VIAL INHALATION ×4 (01:53→19:32)
[2021-10-11 06:31] LABS: Anion Gap 9 mmol/L (8-16); Blood Urea Nitrogen 25 mg/dL (7-17); Carbon Dioxide 31 mmol/L (22-30); Chloride 94 mmol/L (98-107); Estimated CRCL calculation 46 ml/min; Estimated Glomerular Filt Rate > 60; Glucose 132 mg/dL (65-110); Potassium 4.6 mmol/L (3.4-5.0); Sodium 134 mmol/L (137-145)
[2021-10-11] MEDS: guaiFENesin 12 HR 600 MG TABCR PO ×2 (09:00→20:40)
[2021-10-11] MEDS: PANTOPRAZOLE 40 MG TABLET PO ×2 (09:00→17:43)
[2021-10-11] MEDS: methylPREDNISolone SOD SUCC 125 MG VIAL 60 MG IV PUSH (09:00)
[2021-10-11] MEDS: NEBIVOLOL HCL 5 MG TABLET 10 MG PO (09:00)
[2021-10-11] MEDS: ESCITALOPRAM OXALATE 10 MG TABLET 20 MG PO (09:00)
[2021-10-11] MEDS: OLMESARTAN MEDOXOMIL 20 MG TABLET 40 MG PO (09:01)
[2021-10-11] MEDS: PREDNISOLONE ACETATE 0.12% 1 DROP EACH EYE ×2 (09:01→17:43)
[2021-10-11] MEDS: IPRATROPIUM NASAL SPRAY 0.03% 15 ML BOTTLE 2 SPRAY NASAL ×3 (09:01→17:43)
--- NOTE | 2021-10-11 11:44 | PM.IMPN ---
Progress Note: A&P Assessment and Plan (1) Acute exacerbation of chronic obstructive pulmonary disease: Code(s): J44.1 - Chronic obstructive pulmonary disease with (acute) exacerbation Status: Acute Assessment and Plan: -Continue bronchodilators -CPAP while sleeping -Wean to home oxygen use as tolerated (2L rest, 5L activity) -Currently on her home oxygen setting -Improving so will begin weaning steroids, will stop IV solumedrol and start prednisone taper (2) Acute on chronic respiratory failure: Qualifiers: Respiratory failure complication: hypoxia Qualified Code(s): J96.21 - Acute and chronic respiratory failure with hypoxia Code(s): J96.20 - Acute and chronic respiratory failure, unspecified whether with hypoxia or hypercapnia Status: Acute Assessment and Plan: -Likely due to COPD exacerbation -Pulm CTA negative at admission -patient weaned down to her home oxygen 2-5 L. (3) Cor pulmonale (chronic): Code(s): I27.81 - Cor pulmonale (chronic) Status: Acute Assessment and Plan: 10/09 Furosemide 20mg IV 10/10 Furosemide 10mg IV 10/09 ECHO Summary 1. Complete two-dimensional, color flow and Doppler transthoracic echocardiogram is performed. 2. Normal left ventricular size and thickness. Good systolic function of all segments with an ejection fraction greater than 70%. No segmental wall motion abnormalities. Grade 2 diastolic dysfunction is present. 3. Moderate right ventricular enlargement and hypokinesis. 4. Left atrial chamber dimension is moderately enlarged. 5. Right atrial chamber dimension is moderately enlarged. 6. There is mild to moderate tricuspid valve regurgitation. 7. Severe pulmonary hypertension, estimated pulmonary arterial systolic pressure is 76 mmHg. 8. Dilated inferior vena cava with <50% collapse upon inspiration consistent with significantly elevated right atrial pressure, 10 mmHg. 9. Normal sinus rhythm. 10/11: lungs clear no crackles, no LE edema (4) Obstructive sleep apnea: Code(s): G47.33 - Obstructive sleep apnea (adult) (pediatric) Status: Chronic Assessment and Plan: -CPAP with oxygen while sleeping (5) Anxiety and depression: Code(s): F41.9 - Anxiety disorder, unspecified; F32.9 - Major depressive disorder, single episode, unspecified Status: Acute Assessment and Plan: -Continue with Lexapro and Xanax -Also take temazepam at bedtime -Chronic benzodiazepine use should be addressed as outpatient (6) Essential (primary) hypertension: Code(s): I10 - Essential (primary) hypertension Status: Chronic Assessment and Plan: -Continue with Bystolic. -hydralazine prn w/ parameters Subjective Date/time seen: 10/11/21 11:44 Interval history: 81 yo female hx of COPD w/ chronic oxygen use 2L at rest 5L with exertion, anxiety, PVD, admitted for increasing SOB and COPD exacerbation. Today her breathing continues to improve. LE edema has also improved. She is currently at rest on 2L NC. No chest pain today. Review of Systems Review of Systems: All systems reviewed & are unremarkable except as noted in HPI and below Exam Narrative: General: No acute distress, chronically ill appearing, thin stature Eyes: PERRL, no scleral icterus HEENT: NCAT, external ears normal, MMM Respiratory: No respiratory distress, breath sounds diminished bilaterally, no wheezing Cardiovascular: RRR, no murmur Abdominal: Soft, nontender, non distended, no rebound or guarding Musculoskeletal: Moves all 4 extremities, no edema Neurological: A/Ox3, speech normal, no facial asymmetry Skin: Warm, dry, no rashes Psychiatric: Normal affect, normal mood Objective Data Vital Signs Vital Signs: Vital Signs - 24 hr 10/10/21 14:00 10/10/21 14:03 10/10/21 14:10 Temperature 97.1 F L Pulse Rate 43 L 70 79 Respiratory Rate
[2021-10-11] MEDS: predniSONE 10 MG TABLET 40 MG PO (12:23)
--- NOTE | 2021-10-11 12:57 | PM.CNPUL ---
Assessment and Plan Assessment and plan (1) Acute on chronic respiratory failure: Qualifiers: Respiratory failure complication: hypoxia Qualified Code(s): J96.21 - Acute and chronic respiratory failure with hypoxia Code(s): J96.20 - Acute and chronic respiratory failure, unspecified whether with hypoxia or hypercapnia Status: Acute (2) Acute exacerbation of chronic obstructive pulmonary disease: Code(s): J44.1 - Chronic obstructive pulmonary disease with (acute) exacerbation Status: Acute Assessment and Plan: this 81-year-old female is being treated for COPD exacerbation. She has had advanced COPD with frequent COPD exacerbations, hypoxemic respiratory failure chronically on home oxygen, history of obstructive sleep apnea on CPAP, left ventricular diastolic dysfunction grade 2, and elevated pulmonary artery systolic pressure on last echocardiogram. The patient has significantly improved following treatment for COPD exacerbation. She now thinks she is at baseline as far as COPD. Chest CT showed severe emphysema, small pleural effusions and no pulmonary embolism. I would continue with current regimen of bronchodilators and oral steroids. I would suggest to continue with prednisone 40 mg p.o. daily for just 5 days. We need to see the patient in the Pulmonary Clinic regarding advanced COPD with frequent exacerbations. (3) Obstructive sleep apnea: Code(s): G47.33 - Obstructive sleep apnea (adult) (pediatric) Status: Chronic History of Present Illness History of Present Illness Consult date: 10/11/21 Chief complaint: Acute respiratory failure on chronic, COPD exacerb Narrative: this 81-year-old female has severe COPD. She presented with right foot discoloration and some shortness of breath. The patient has chronic hypoxemic hypercapnic respiratory failure with previous pulmonary function testing showing FEV1 of approximately 0.74 L or 39% predicted and lung diffusion capacity of approximately 17% predicted. She has been on supplemental oxygen 2 liters/minute at rest and 5 liters/minute with exercise. On last echocardiogram she had elevated pulmonary artery systolic pressure. 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 She was last hospitalized for COPD exacerbation in June of 2021 and also in March of 2021. The patient stated that her shortness of breath was about baseline when she presented to the emergency room for foot discoloration. She had no chest pain palpitations orthopnea hemoptysis fever chills. She has received treatment for COPD exacerbation and is currently on prednisone 40 mg p.o. daily as well as bronchodilators. Upon questioning the patient stated that she has about baseline as far as respiratory distress. Review of Systems Review of Systems: All systems reviewed & are unremarkable except as noted in HPI and below PMFSH Past Medical History Medical History (Updated 10/10/21 @ 13:42 by Jm Ramye MD) Anxiety BMI between 19-24,adult Chronic shoulder pain Cor pulmonale (chronic) Diverticulosis Essential (primary) hypertension History of atrial flutter Hypoxia Localized swelling of left lower extremity Localized swelling of right lower extremity Nontraumatic tear of muscle or tendon of rotator cuff of both shoulders Obstructive sleep apnea Other specified peripheral vascular diseases Pain in left foot Pain in left lower leg Pain in right foot Pain in right lower leg Patent foramen ovale Pulmonary hypertension Rotator cuff arthropathy of both shoulders SI joint arthritis Spontaneous pneumothorax Surgical History Surgical History H/O tubal ligation History of 2 sections History of appendectomy History of bilateral cataract extraction History of removal of pigme
[2021-10-11] MEDS: ALPRAZolam (*CRX) 0.25 MG TABLET PO ×2 (14:53→20:40)
[2021-10-11] MEDS: MELATONIN 5 MG TABLET PO (20:40)
[2021-10-11] MEDS: TEMAZEPAM (*CRX) 15 MG CAPSULE 30 MG PO (20:41)
[2021-10-11] MEDS: MONTELUKAST SODIUM 10 MG TABLET PO (20:41)
[2021-10-12] VITALS (11 sets, daily range): BP systolic 159–167; BP diastolic 83–84; PULSE 67–88; RESP 18–20; TEMP 36.7–36.8; O2SAT 91–96
[2021-10-12 00:39] LABS: Osmolality, Urine 310 mOsm/kg (50-1200)
[2021-10-12] MEDS: ALBUTEROL SULFATE NEB 2.5 MG/0.5 ML INH 5 MG INHALATION ×3 (02:05→15:26)
[2021-10-12] MEDS: IPRATROPIUM BR 0.02% INH SOLN 0.5 MG/2.5 ML VIAL INHALATION ×3 (02:05→15:26)
[2021-10-12 06:41] LABS: Hematocrit 38.3 % (37.0-47.0); Hemoglobin 12.7 g/dL (12.0-15.0); Mean Corpuscular HGB Conc 33.2 g/dl (32-36); Mean Corpuscular Volume 90.5 fl (80-100); Mean Platelet Volume 9.8 fl (7.4-10.4); Platelet Count Result 246 k/mm3 (150-375); Red Blood Count 4.23 M/mm3 (4.2-5.4); White Blood Count 5.3 K/mm3 (4.5-10.0)
[2021-10-12 07:01] LABS: Potassium 3.8 mmol/L (3.4-5.0)
[2021-10-12 07:33] LABS: Anion Gap 5 mmol/L (8-16); Blood Urea Nitrogen 30 mg/dL (7-17); Calcium 8.7 mg/dL (8.4-10.2); Carbon Dioxide 34 mmol/L (22-30); Chloride 94 mmol/L (98-107); Estimated CRCL calculation 41 ml/min; Estimated Glomerular Filt Rate > 60; Glucose 102 mg/dL (65-110); Sodium 133 mmol/L (137-145)
[2021-10-12] MEDS: predniSONE 10 MG TABLET 40 MG PO (08:12)
[2021-10-12] MEDS: NEBIVOLOL HCL 5 MG TABLET 10 MG PO (08:13)
[2021-10-12] MEDS: ESCITALOPRAM OXALATE 10 MG TABLET 20 MG PO (08:13)
[2021-10-12] MEDS: OLMESARTAN MEDOXOMIL 20 MG TABLET 40 MG PO (08:13)
[2021-10-12] MEDS: guaiFENesin 12 HR 600 MG TABCR PO (08:13)
[2021-10-12] MEDS: IPRATROPIUM NASAL SPRAY 0.03% 15 ML BOTTLE 2 SPRAY NASAL ×2 (08:14→13:49)
[2021-10-12] MEDS: PANTOPRAZOLE 40 MG TABLET PO (08:15)
[2021-10-12] MEDS: PREDNISOLONE ACETATE 0.12% 1 DROP EACH EYE (08:15)
--- NOTE | 2021-10-12 08:50 | PM.IMPN ---
Progress Note: A&P Assessment and Plan (1) Acute exacerbation of chronic obstructive pulmonary disease: Code(s): J44.1 - Chronic obstructive pulmonary disease with (acute) exacerbation Status: Acute Assessment and Plan: -Continue bronchodilators -CPAP while sleeping -Wean to home oxygen use as tolerated (2L rest, 5L activity) -Currently on her home oxygen setting -Improving so will begin weaning steroids, will stop IV solumedrol and start prednisone taper 81-year-old female is being treated for COPD exacerbation. She has had advanced COPD with frequent COPD exacerbations, hypoxemic respiratory failure chronically on home oxygen, history of obstructive sleep apnea on CPAP, left ventricular diastolic dysfunction grade 2, and elevated pulmonary artery systolic pressure on last echocardiogram. The patient has significantly improved following treatment for COPD exacerbation. She now thinks she is at baseline as far as COPD. Chest CT showed severe emphysema, small pleural effusions and no pulmonary embolism. I would continue with current regimen of bronchodilators and oral steroids. I would suggest to continue with prednisone 40 mg p.o. daily for just 5 days. We need to see the patient in the Pulmonary Clinic regarding advanced COPD with frequent exacerbations. (3) Obstructive sleep apnea: Code(s): (2) Acute on chronic respiratory failure: Qualifiers: Respiratory failure complication: hypoxia Qualified Code(s): J96.21 - Acute and chronic respiratory failure with hypoxia Code(s): J96.20 - Acute and chronic respiratory failure, unspecified whether with hypoxia or hypercapnia Status: Acute Assessment and Plan: -Likely due to COPD exacerbation -Pulm CTA negative at admission -patient weaned down to her home oxygen 2-5 L. (3) Cor pulmonale (chronic): Code(s): I27.81 - Cor pulmonale (chronic) Status: Acute Assessment and Plan: 10/09 Furosemide 20mg IV 10/10 Furosemide 10mg IV 10/09 ECHO Summary 1. Complete two-dimensional, color flow and Doppler transthoracic echocardiogram is performed. 2. Normal left ventricular size and thickness. Good systolic function of all segments with an ejection fraction greater than 70%. No segmental wall motion abnormalities. Grade 2 diastolic dysfunction is present. 3. Moderate right ventricular enlargement and hypokinesis. 4. Left atrial chamber dimension is moderately enlarged. 5. Right atrial chamber dimension is moderately enlarged. 6. There is mild to moderate tricuspid valve regurgitation. 7. Severe pulmonary hypertension, estimated pulmonary arterial systolic pressure is 76 mmHg. 8. Dilated inferior vena cava with <50% collapse upon inspiration consistent with significantly elevated right atrial pressure, 10 mmHg. 9. Normal sinus rhythm. 10/11: lungs clear no crackles, no LE edema (4) Obstructive sleep apnea: Code(s): G47.33 - Obstructive sleep apnea (adult) (pediatric) Status: Chronic Assessment and Plan: -CPAP with oxygen while sleeping (5) Anxiety and depression: Code(s): F41.9 - Anxiety disorder, unspecified; F32.9 - Major depressive disorder, single episode, unspecified Status: Acute Assessment and Plan: -Continue with Lexapro and Xanax -Also take temazepam at bedtime -Chronic benzodiazepine use should be addressed as outpatient (6) Essential (primary) hypertension: Code(s): I10 - Essential (primary) hypertension Status: Chronic Assessment and Plan: -Continue with Bystolic. -hydralazine prn w/ parameters Subjective Date/time seen: 10/12/21 08:50 Review of Systems Review of Systems: All systems reviewed & are unremarkable except as noted in HPI and below Constitutional: Constitutional: Reports as per HPI and Reports no additional constitutional complaints Eyes: Eyes: Reports as
--- NOTE | 2021-10-12 08:52 | PM.DS ---
DS: Admitting Diagnosis Discharge Date 10/12/2021 Admitting Diagnosis Acute on chronic COPD, acute on chronic respiratory failure, cor pulmonale chronic, CINDY, anxiety and depression, hypertension DS: Discharge Diagnosis Discharge Diagnosis (1) Acute exacerbation of chronic obstructive pulmonary disease: Code(s): J44.1 - Chronic obstructive pulmonary disease with (acute) exacerbation Status: Acute Assessment and Plan: Hx. advanced COPD with frequent COPD exacerbations, hypoxemic respiratory failure chronically on home oxygen, history of obstructive sleep apnea on CPAP, left ventricular diastolic dysfunction grade 2, and elevated pulmonary artery systolic pressure on last echocardiogram. -Continue bronchodilators -CPAP while sleeping -Wean to home oxygen use as tolerated (2L rest, 5L activity) -Currently on her home oxygen setting -Improving so will begin weaning steroids, will stop IV solumedrol and start prednisone taper -significantly improved following treatment for COPD exacerbation. -now thinks she is at baseline as far as COPD. -Chest CT showed severe emphysema, small pleural effusions and no pulmonary embolism. -continue with current regimen of bronchodilators and oral steroids. -continue with prednisone 40 mg p.o. daily for just 5 days. -need to see the patient in the Pulmonary Clinic regarding advanced COPD with frequent exacerbations. (2) Acute on chronic respiratory failure: Qualifiers: Respiratory failure complication: hypoxia Qualified Code(s): J96.21 - Acute and chronic respiratory failure with hypoxia Code(s): J96.20 - Acute and chronic respiratory failure, unspecified whether with hypoxia or hypercapnia Status: Acute Assessment and Plan: -Likely due to COPD exacerbation -Pulm CTA negative at admission -patient weaned down to her home oxygen 2-5 L. - Letter[employer]ter okayed for discharge today (3) Cor pulmonale (chronic): Code(s): I27.81 - Cor pulmonale (chronic) Status: Acute Assessment and Plan: 10/09 Furosemide 20mg IV 10/10 Furosemide 10mg IV Not on Lasix chronically at home and is at high risk for dehydration 10/09 ECHO Summary: Normal left ventricular size and thickness. Good systolic function of all segments with an ejection fraction greater than 70%. No segmental wall motion abnormalities. Grade 2 diastolic dysfunction is present. Moderate right ventricular enlargement and hypokinesis.Left atrial chamber dimension is moderately enlarged.Right atrial chamber dimension is moderately enlarged. There is mild to moderate tricuspid valve regurgitation. Severe pulmonary hypertension, estimated pulmonary arterial systolic pressure is 76 mmHg. Normal sinus rhythm. 10/11: lungs clear no crackles, no LE edema 10/12: Lungs clear, no crackles, no wheezing, no dyspnea noted during conversation, patient is sitting upright and comfortable on side of bed, patient wants to go home, renderer okay discharge, patient with clothes ready to put on (4) Obstructive sleep apnea: Code(s): G47.33 - Obstructive sleep apnea (adult) (pediatric) Status: Chronic Assessment and Plan: -CPAP with oxygen while sleeping (5) Anxiety and depression: Code(s): F41.9 - Anxiety disorder, unspecified; F32.9 - Major depressive disorder, single episode, unspecified Status: Acute Assessment and Plan: -Continue with Lexapro and Xanax -Also take temazepam at bedtime -Chronic benzodiazepine use should be addressed as outpatient -slightly anxious because she has not had a bowel movement in 3-5 days and wants to go home now (6) Essential (primary) hypertension: Code(s): I10 - Essential (primary) hypertension Status: Chronic Assessment and Plan: -Continue with Bystolic. -hydralazine prn w/ parameters Blood pressure 150s over 80s, heart rate 60s and 70s sinus rhythm DS: Summary Hospital Course Hospital Course: Patient rec
--- NOTE | 2021-10-12 09:43 | PM.PNPUL ---
Progress Note: A&P Assessment and Plan (1) Acute exacerbation of chronic obstructive pulmonary disease: Code(s): J44.1 - Chronic obstructive pulmonary disease with (acute) exacerbation Status: Acute Assessment and Plan: 81-year-old female with advanced COPD chronic hypoxemic respiratory failure on supplemental oxygen, history of obstructive sleep apnea is CPAP, has been on treatment for COPD exacerbation. Patient has improved significantly over the last few days. On physical exam she has no wheezing and overall she is back at baseline. Patient is willing to go home today. I would discharge patient home. She will continue with prednisone 40 mg daily for just 5 days only. She should resume her maintenance bronchodilators for COPD. I would like to re-evaluate patient in the outpatient clinic in about 2 weeks from today. (2) Acute on chronic respiratory failure: Qualifiers: Respiratory failure complication: hypoxia Qualified Code(s): J96.21 - Acute and chronic respiratory failure with hypoxia Code(s): J96.20 - Acute and chronic respiratory failure, unspecified whether with hypoxia or hypercapnia Status: Acute (3) Obstructive sleep apnea: Code(s): G47.33 - Obstructive sleep apnea (adult) (pediatric) Status: Chronic Subjective Date/time seen: 10/12/21 09:43 patient reports no new respiratory symptoms. She thinks she is back at baseline, willing to go home today. Review of Systems Review of Systems: All systems reviewed & are unremarkable except as noted in HPI and below Exam Narrative: GENERAL APPEARANCE: Well developed, well nourished, alert and cooperative, and appears to be in mild to moderate respiratory distress while on supplemental oxygen via nasal cannula SKIN: Inspection of the skin reveals no rashes, ulcerations or petechiae. HEENT: Sclerae anicteric and conjunctivae pink and moist. Extraocular movements were intact and pupils were equal, round.The oral mucosa, hard and soft palate, tongue and posterior pharynx were normal. NECK: Supple. There was no thyroid enlargement, and no tenderness, or masses were felt. CHEST: Normal AP diameter and normal contour without any kyphoscoliosis. LUNGS: Auscultation of the lungs revealed distant breath sounds with no wheezing CARDIAC: There was a regular rate and rhythm without any murmurs, gallops, rubs. ABDOMEN: Soft and nontender with normal bowel sounds. There was no organomegaly. LYMPH NODES: No lymphadenopathy was appreciated in the neck. EXTREMITIES: No cyanosis, clubbing or edema. NEUROLOGIC: Alert and oriented x 3. Normal affect. Objective Data Vital Signs Vital Signs: Vital Signs - 24 hr 10/11/21 13:47 10/11/21 14:00 10/11/21 19:33 Temperature 36.6 C Pulse Rate 72 68 70 Respiratory Rate 18 16 18 Blood Pressure 176/82 H Pulse Oximetry 96 10/11/21 19:43 10/11/21 19:53 10/11/21 20:00 Temperature Pulse Rate 72 Respiratory Rate 18 Blood Pressure Pulse Oximetry 97 97 10/11/21 21:22 10/11/21 21:37 10/12/21 02:05 Temperature 36.8 C Pulse Rate 88 77 69 Respiratory Rate 23 H 18 18 Blood Pressure 158/83 H Pulse Oximetry 96 96 10/12/21 02:06 10/12/21 02:13 10/12/21 05:45 Temperature 36.8 C Pulse Rate 69 71 67 Respiratory Rate 20 18 18 Blood Pressure 159/83 H Pulse Oximetry 96 95 10/12/21 08:13 Temperature Pulse Rate 78 Respiratory Rate Blood Pressure Pulse Oximetry Intake/Output Intake/Output: Intake & Output 10/09/21 10/10/21 10/11/21 10/12/21 23:59 23:59 23:59 23:59 Intake Total 1010 1350 1110 550 Output Total 208 1300 Balance 802 1350 1110 -750 Meds/Results Medications: Active Medications Generic Name Dose Route Start Last Admin Trade Name Freq PRN Reason Stop Dose Admin Acetaminophen 650 mg 10/09/21 00:05 10/10/21 17:13 Acetaminophen 325 Mg Tablet PO 650 mg QID PRN Administration PAIN RATED 1-3 Albuterol 5 mg 0
[2021-10-12] MEDS: MAGNESIUM CITRATE 300 ML BTL 150 ML PO (13:48)
[2021-10-12] MEDS: hydrALAZINE HCL 20 MG/ML VIAL 10 MG IV PUSH (14:57)
== END 2021-10-12 15:55 | disposition home or self-care (01) | DRG 190 ==
LOC: ANHED 17:41 → ANHIMU 21:17 → ANH3MEDSUR 10-09 14:44
PROVIDERS: Internal Medicine; Internal Medicine Pulmonary Disease; Nurse Practitioner; Physician Assistant; Admitting Provider Hospitalist; Emergency Provider Emergency Medicine; PCP Family Medicine; Visit Provider Nurse Practitioner
DX: J44.1 Chronic obstructive pulmonary disease with (acute) exacerbation (principal); J96.21 Acute and chronic respiratory failure with hypoxia; Z20.822 Contact with and (suspected) exposure to COVID-19; Z99.81 Dependence on supplemental oxygen; Z79.899 Other long term (current) drug therapy; G47.33 Obstructive sleep apnea (adult) (pediatric); I27.20 Pulmonary hypertension, unspecified; I10 Essential (primary) hypertension; Z87.891 Personal history of nicotine dependence; I27.81 Cor pulmonale (chronic); F41.9 Anxiety disorder, unspecified; F32.9 Major depressive disorder, single episode, unspecified; I48.91 Unspecified atrial fibrillation; I73.9 Peripheral vascular disease, unspecified
CPT/HCPCS: 36415; 36600; 71045; 71275; 73630; 80048; 80053; 82375; 82805; 83050; 83605; 83735; 83930; 83935; 84443; 84540; 85025; 85027; 85610; 85730; 86140; 87804; 93005; 93306; 93922; 93971; 94640; 96361; 96365; 96366; 96374; 96375; 96376; 99291; A9270; C9803; G0378; J0360; J1940; J2930; J3475; J7120; J7512; Q9967; U0003; U0005

== ENCOUNTER 2021-11-11 15:30 | Inpatient (IN) | payer MEDICARE, SELFPAY ==
[2021-11-11] VITALS (12 sets, daily range): BP systolic 136–170; BP diastolic 61–86; PULSE 66–80; RESP 18–27; TEMP 37.1–37.2; O2SAT 90–98; BMI 20.1; BMI 18.9
--- NOTE | ~2021-11-11 | XR_ITS ---
XR chest 1V portable DATE: 11/11/2021 15:50 INDICATION: Shortness of breath. Hypoxia. TECHNIQUE: Portable AP chest on 11/11/2021 at 1547 hours COMPARISON: 06/29/2021 CTA chest 10/20/2017 portable AP chest FINDINGS: Bilateral hyperinflation, consistent with COPD. Normal heart size. There is aortic calcification and tortuosity. No hilar or mediastinal enlargemen t. Central pulmonary artery prominence suggesting pulmonary hypertension. There is a benign prominent calcification in the right mid-upper lung. There is patchy infiltrate in the left lower lung, which appears to be primarily lower lobe, suggesting left lower lobe pneumonia. Mild infiltrate or atelectasis is suggested in the right lower lung as well. There is interval pulmonary vascular prominence and small pleural effusions since October 20, 2017 w hich may indicate mild congestive heart failure. Diffuse osteopenia. Probable bilateral rotator cuff atrophy. Mild levoscoliosis of the thoracic spine . IMPRESSION: Interval mild lower lobe infiltrates and/or atelectasis, left greater than right, suggest ing possible pneumonia Increased prominence of the pulmonary vasculature and small pleural effusions, which may indicate og e congestive changes. Heart size is within normal range Aortic calcification and tortuosity Bilateral hyperinflation, possible pulmonary hypertension Reviewed, dictated and finalized at location A. IMPRESSION: Interval mild lower lobe infiltrates and/or atelectasis, left great er than right, suggesting possible pneumonia Increased prominence of the pulmonary vasculature and small pleural effusions, which may indicate some congestive changes. Heart size is within normal range Aortic calcification and tortuosity Bilateral hyperinflation, possible pulmonary hypertension
--- NOTE | 2021-11-11 15:35 | ECG_ITS ---
Measurements Intervals [place] Rate: 81 P: 74 NE: 129 QRS: 48 QRSD: 94 T: 2 QT: 378 QTc: 440 Interpretive Statements SINUS RHYTHM POSSIBLE LEFT ATRIAL ENLARGEMENT [-0.1mV P WAVE IN V1/V2] NONSPECIFIC ST CHANGES COMPARED TO ECG 10/08/2021 13:14:33 THE PREVIOUSLY NOTED ANTERIOR T-WAVE INVERSION HAS RESOLVED Electronically Signed On 11-11-2021 18:48:31 CDT by Eugenia Ugalde M.D.
--- NOTE | 2021-11-11 15:43 | ED.SOB ---
HPI - SOB/Dyspnea General Chief Complaint: Shortness of Breath/Dyspnea Stated Complaint: SOB Source: RN notes reviewed History of Present Illness HPI Narrative: Patient presents emergency department from home via EMS for shortness of breath. Patient states she has been short of breath for the past 5 days with progressing worsening symptoms states she had a cough this been nonproductive. Patient is on oxygen normally at home of 2 L when EMS arrived the patient was noted via facemask at 4 L and satting 89-90 that time EMS gave the patient Decadron and albuterol treatment and placed the patient on a CPAP machine with improvement of her breathing. Patient states she is breathing better at this time she denies any fevers or chills states she has had some chest heaviness denies any abdominal pain nausea vomiting Related Data Home Medications Medication Instructions Recorded Confirmed guaifenesin [Mucinex] 600 mg PO Q12H 10/19/20 11/11/21 Breztri Aerosphere 2 inh INHALATION BID 03/29/21 11/11/21 acetaminophen 650 mg PO QID PRN 03/29/21 11/11/21 escitalopram oxalate [Lexapro] 20 mg PO DAILY 03/29/21 11/11/21 melatonin 12 mg tablet 12 mg PO QHS tablet 05/18/21 11/11/21 Pred Mild 0.12 % EACH EYE BID 06/27/21 11/11/21 montelukast [Singulair] 10 mg PO HS 10/08/21 11/11/21 nebivolol [Bystolic] 10 mg PO DAILY 10/08/21 11/11/21 temazepam 30 mg PO HS 10/08/21 11/11/21 Allergies Allergy/AdvReac Type Severity Reaction Status Date / Time clarithromycin Allergy Mild rash and Verified 10/08/21 23:18 itching alendronate sodium Allergy Unknown Unknown Verified 10/08/21 23:18 mold Allergy Unknown Unknown Verified 10/08/21 23:18 Penicillins Allergy Unknown SWELLING Verified 10/08/21 23:18 AND RASH,Unknown Review of Systems Review of Systems: Gen.: Denies fevers or chills ENT: Denies congestion Respiratory: See HPI CV: Reports chest heaviness GI: Denies abdominal pain nausea, emesis or diarrhea Musculoskeletal: Denies back pain or muscle pain Neuro: Denies numbness, tingling, weakness or focal weakness Skin: Denies rash Except as documented, all other systems reviewed and negative [facility] Past Medical History Medical History Anxiety BMI between 19-24,adult Chronic shoulder pain Cor pulmonale (chronic) Diverticulosis Essential (primary) hypertension History of atrial flutter Hypoxia Localized swelling of left lower extremity Localized swelling of right lower extremity Nontraumatic tear of muscle or tendon of rotator cuff of both shoulders Obstructive sleep apnea Other specified peripheral vascular diseases Pain in left foot Pain in left lower leg Pain in right foot Pain in right lower leg Patent foramen ovale Pulmonary hypertension Rotator cuff arthropathy of both shoulders Shoulder pain SI joint arthritis Spontaneous pneumothorax Surgical History Surgical History H/O tubal ligation History of 2 sections History of appendectomy History of bilateral cataract extraction History of removal of pigmented skin lesion History of tonsillectomy Hx laparoscopic cholecystectomy Family History Family History Sibling Skin cancer Family history of cardiovascular disease Family history of arthritis Father Family history of malignant neoplasm Family history of arthritis Tobacco abuse Family history of throat cancer Mother Family history of arthritis Family history of Alzheimer's disease Hypertension Sibling Family history of cardiovascular disease Dementia Social History Social History Social History: The patient is and lives on her own. Her son and daughter are the durable power contract attorney for healthcare. She has 2 children. The patient is retired
[2021-11-11 15:47] LABS: Alveolar/Arterial O2 Gradient 149.6 mmHg; Base Excess ABG -1.9 mEq/l (+/-2.0); Fractional Inspired Oxygen 35 %; HCO3 ABG 21.5 mEq/l (22.0-26.0); Oxygen Content ABG 17.8 %vol (16.0-22.0); Oxygen Saturation ABG 92.6 % (95.0-100.0); Oxyhemoglobin 90.3 % THb (90.0-100.0); PCO2 ABG 32.9 mmHg (35.0-45.0); PO2 ABG 61.7 mmHg (80.0-100.0); PO2 FiO2 Ratio Arterial Blood 1.76 %; pH ABG 7.434 (7.350-7.450)
[2021-11-11 15:48] LABS: Device NON-INVASIVE VENT; Modified Allen's Test Pass; Non-Invasive Expiratory Pressure 6 CMH2O; Non-Invasive Inspiratory Pressure 12 CMH2O; Non-Invasive Vent Rate 16 /MIN; Site Drawn RIGHT RADIAL
[2021-11-11] MEDS: IPRATROPIUM BR 0.02% INH SOLN 0.5 MG/2.5 ML VIAL INHALATION (15:51)
[2021-11-11] MEDS: ALBUTEROL SULFATE NEB 2.5 MG/0.5 ML INH 5 MG INHALATION (15:51)
[2021-11-11 15:59] LABS: Basophils Absolute Auto 0.1 K/mm3 (0.0-0.1); Basophils Percent Auto 0.5 % (0.2-1.2); Eosinophils Absolute Auto 0.2 K/mm3 (0-0.3); Eosinophils Percent Auto 1.4 % (0-4.4); Hematocrit 41.3 % (37.0-47.0); Hemoglobin 13.5 g/dL (12.0-15.0); Immature Granulocyte Absolute 0.07 K/mm3 (0.00-0.031); Immature Granulocyte Percent A 0.6 % (0-0.5); Lymphocytes Absolute Auto 0.41 K/mm3 (0.9-3.2); Lymphocytes Percent Auto 3.7 % (18.3-44.2); Mean Corpuscular HGB Conc 32.7 g/dl (32-36); Mean Corpuscular Volume 91.8 fl (80-100); Mean Platelet Volume 9.5 fl (7.4-10.4); Monocytes Percent Auto 8.7 % (2.6-8.5); Neutrophils Absolute Auto 9.3 K/mm3 (1.3-6.7); Neutrophils Percent Auto 85.1 % (45.5-73.1); Platelet Count Result 299 k/mm3 (150-375); Red Cell Distribution Width 14.3 % (11.5-14.5)
[2021-11-11 16:07] LABS: Lactic Acid Reflex 1.3 mmol/L (0.7-2.1)
[2021-11-11 16:10] LABS: Prothrombin Time 12.9 Seconds (11.1-14.7)
[2021-11-11 16:12] LABS: Alanine Aminotransferase 34 U/L (4-35); Albumin Level 4.4 g/dL (3.5-5.1); Alkaline Phosphatase 79 U/L (38-126); Anion Gap 6 mmol/L (8-16); Aspartate Amino Transferase 43 U/L (14-36); Bilirubin,Total 0.8 mg/dL (0.2-1.3); Blood Urea Nitrogen 18 mg/dL (7-17); Calcium 8.8 mg/dL (8.4-10.2); Carbon Dioxide 30 mmol/L (22-30); Chloride 97 mmol/L (98-107); Estimated CRCL calculation 48 ml/min; Estimated Glomerular Filt Rate > 60; Glucose 119 mg/dL (65-110); Potassium 3.9 mmol/L (3.4-5.0); Sodium 133 mmol/L (137-145)
[2021-11-11 16:23] LABS: NT Pro B Type Natriuretic Pept 5440 pg/mL (5-100); Troponin I < 0.012 ng/mL (0.000-0.034)
[2021-11-11 17:02] LABS: Influenza A QL RT-PCR Negative (Negative); Influenza B QL RT-PCR Negative (Negative); SARS-CoV-2 RNA PCR Negative
--- NOTE | 2021-11-11 20:44 | PM.IMHP ---
H&P: HPI History of Present Illness Date/Time: 11/11/21 20:44 Chief Complaint: Shortness of breath. Narrative: This is an 81-year-old female past medical history significant for COPD/emphysema, chronic respiratory failure with hypoxia, cor pulmonale, hypertension obstructive sleep apnea. Patient presented to emergency room for evaluation of worsening shortness of breath for the last 3 days or so. At the time of my visit patient was on BiPAP which made history taking difficult. Patient is usually on supplemental oxygen at home 2 L. presented via EMS who gave Solu-Medrol and albuterol nebulizer treatment placed her on CPAP and brought to the emergency room. Subsequently patient was placed on BiPAP preliminary workup was significant for chest x-ray with infiltrates. Patient is being admitted for further evaluation, management and treatment. Review of Systems Review of Systems: ROS unobtainable: Yes unobtainable due to medical condition (Respiratory distress on BiPAP) PMFSH Past Medical History Medical History Anxiety BMI between 19-24,adult Chronic shoulder pain Cor pulmonale (chronic) Diverticulosis Essential (primary) hypertension History of atrial flutter Hypoxia Localized swelling of left lower extremity Localized swelling of right lower extremity Nontraumatic tear of muscle or tendon of rotator cuff of both shoulders Obstructive sleep apnea Other specified peripheral vascular diseases Pain in left foot Pain in left lower leg Pain in right foot Pain in right lower leg Patent foramen ovale Pulmonary hypertension Rotator cuff arthropathy of both shoulders Shoulder pain SI joint arthritis Spontaneous pneumothorax Surgical History Surgical History H/O tubal ligation History of 2 sections History of appendectomy History of bilateral cataract extraction History of removal of pigmented skin lesion History of tonsillectomy Hx laparoscopic cholecystectomy Family History Family History Sibling Skin cancer Family history of cardiovascular disease Family history of arthritis Father Family history of malignant neoplasm Family history of arthritis Tobacco abuse Family history of throat cancer Mother Family history of arthritis Family history of Alzheimer's disease Hypertension Sibling Family history of cardiovascular disease Dementia Social History Social History Social History: The patient is and lives on her own. Her son and daughter are the durable power county attorney for healthcare. She has 2 children. The patient is retired from the [employer] as well as a [employer]. She also worked as an parts sales manager. The patient quit smoking over 25 years ago. She denies any alcohol marijuana or illicit drugs. Code status full code Smoking packs per day: 0.5 Smoking cigarettes per day: 10.0 Years smoked: 20 Smoking pack-years: 10.00 Smoking status: Former smoker Tobacco type: cigarettes Second hand tobacco smoke exposure: No Smoking end date: 08/28/99 Alcohol intake: never Drinks per week: 1 Substance use: never Substance use type: does not use Additional occupation/education comments: teacher-[employer] Gender identity (if verbalized by the patient): Female Spiritual care concerns: No Meds Home Medications and Allergies Home Medications Medication Instructions Recorded Confirmed Type guaifenesin [Mucinex] 600 mg PO Q12H 10/19/20 11/11/21 History olmesartan 40 mg tablet 40 mg PO DAILY #90 tablet 12/16/20 11/11/21 Rx albuterol sulfate 90 mcg/actuation 2 inh INHALATION Q6H PRN #18 gm 02/07/21 11/11/21 Rx aerosol inhaler Breztri Aerosphere 2 inh INHALATION BID
[2021-11-11] MEDS: SODIUM CHLORIDE 0.9% IV 100 ML 25 ML (20:54)
[2021-11-11 21:09] LABS: Troponin I < 0.012 ng/mL (0.000-0.034)
--- NOTE | 2021-11-11 22:22 | ADMGEN ---
This patient, Jolie Starr, was admitted to IMU Room 202-01 at 1945. Patient/family oriented to hospital policies and general routines including ID bracelet, bed and alarms, visiting hours, pain management, procedures, bathroom and other care routines, personal items, smoking policy, room service/diet, and visiting hours. Information on how to activate the Rapid Response Team has been discussed. Patient/Family are encouraged to report perceived risks to care and to ask questions if they do not understand what they are told or what they should do.
[2021-11-11] MEDS: LORazepam INJ (*CRX) 2 MG/ML VIAL 0.5 MG IV PUSH (22:24)
[2021-11-11 23:37] LABS: Troponin I < 0.012 ng/mL (0.000-0.034)
[2021-11-12] VITALS (26 sets, daily range): BP systolic 111–178; BP diastolic 53–100; PULSE 28–80; RESP 16–31; TEMP 36.3–36.8; O2SAT 89–100
[2021-11-12 05:36] LABS: Basophils Percent Auto 0.3 % (0.2-1.2); Hematocrit 35.7 % (37.0-47.0); Hemoglobin 11.9 g/dL (12.0-15.0); Immature Granulocyte Absolute 0.03 K/mm3 (0.00-0.031); Immature Granulocyte Percent A 0.5 % (0-0.5); Lymphocytes Absolute Auto 0.33 K/mm3 (0.9-3.2); Lymphocytes Percent Auto 5.3 % (18.3-44.2); Mean Corpuscular HGB Conc 33.3 g/dl (32-36); Mean Corpuscular Hemoglobin 29.5 pg (26-34); Mean Corpuscular Volume 88.4 fl (80-100); Mean Platelet Volume 9.7 fl (7.4-10.4); Monocytes Absolute Auto 0.6 K/mm3 (0.1-0.6); Monocytes Percent Auto 9.8 % (2.6-8.5); Neutrophils Absolute Auto 5.2 K/mm3 (1.3-6.7); Neutrophils Percent Auto 84.1 % (45.5-73.1); Platelet Count Result 281 k/mm3 (150-375); Red Blood Count 4.04 M/mm3 (4.2-5.4); White Blood Count 6.2 K/mm3 (4.5-10.0)
[2021-11-12 05:49] LABS: Alanine Aminotransferase 24 U/L (4-35); Albumin Level 3.6 g/dL (3.5-5.1); Alkaline Phosphatase 57 U/L (38-126); Anion Gap 7 mmol/L (8-16); Aspartate Amino Transferase 29 U/L (14-36); Bilirubin,Total 0.5 mg/dL (0.2-1.3); Blood Urea Nitrogen 19 mg/dL (7-17); Calcium 8.6 mg/dL (8.4-10.2); Carbon Dioxide 28 mmol/L (22-30); Chloride 98 mmol/L (98-107); Estimated CRCL calculation 42 ml/min; Estimated Glomerular Filt Rate > 60; Glucose 116 mg/dL (65-110); Potassium 4.2 mmol/L (3.4-5.0); Sodium 133 mmol/L (137-145)
[2021-11-12] MEDS: ALBUTEROL SULFATE NEB 2.5 MG/0.5 ML INH 5 MG INHALATION ×2 (08:40→20:26)
[2021-11-12] MEDS: IPRATROPIUM BR 0.02% INH SOLN 0.5 MG/2.5 ML VIAL INHALATION ×2 (08:40→20:26)
[2021-11-12] MEDS: PREDNISOLONE ACETATE 0.12% 0.12 DROP EACH EYE ×2 (09:48→16:43)
[2021-11-12] MEDS: ENOXAPARIN 40 MG/0.4 ML SYRINGE SUB-Q (09:49)
[2021-11-12] MEDS: ESCITALOPRAM OXALATE 10 MG TABLET 20 MG PO (09:49)
[2021-11-12] MEDS: OLMESARTAN MEDOXOMIL 20 MG TABLET 40 MG PO (09:49)
[2021-11-12] MEDS: guaiFENesin 12 HR 600 MG TABCR PO ×2 (09:49→20:33)
[2021-11-12] MEDS: IPRATROPIUM NASAL SPRAY 0.03% 15 ML BOTTLE 2 SPRAY NASAL ×3 (09:49→16:48)
[2021-11-12] MEDS: PANTOPRAZOLE 40 MG TABLET PO (09:49)
[2021-11-12] MEDS: NEBIVOLOL HCL 5 MG TABLET 10 MG PO (09:50)
[2021-11-12] MEDS: FLUTICASONE/UMECLIDIN/VILANTER 100-62.5-25 MCG ELLIPTA 1 PUFF INHALATION (09:51)
--- NOTE | 2021-11-12 16:05 | PM.IMPN ---
Progress Note: A&P Assessment and Plan (1) Acute respiratory failure with hypoxia: Code(s): J96.01 - Acute respiratory failure with hypoxia Status: Acute (2) COPD (chronic obstructive pulmonary disease): Code(s): J44.9 - Chronic obstructive pulmonary disease, unspecified Status: Acute (3) Community acquired pneumonia: Code(s): J18.9 - Pneumonia, unspecified organism Status: Acute (4) Anxiety: Code(s): F41.9 - Anxiety disorder, unspecified Status: Chronic (5) Cor pulmonale (chronic): Code(s): I27.81 - Cor pulmonale (chronic) Status: Acute Additional Plan # acute on chronic hypoxic respiratory failure # community-acquired pneumonia versus COPD exacerbation -continue oxygen therapy, currently on nasal cannula 4 L, home oxygen therapy is 2.5 L -continue weaning oxygen as tolerated -acute respiratory failure may be secondary to pneumonia -antibiotics: Continue Levaquin -nebs: Continue DuoNebs -continue on breztri inhaler, Singulair -guaifenesin for cough -will continue steroids 40 mg of prednisone daily -patient appears euvolemic holding off on diuretics # other chronic conditions -insomnia: Continue melatonin, temazepam -anxiety/depression: Continue Lexapro, Xanax t.i.d. p.r.n. -essential hypertension: Bystolic, Benicar -GERD: Protonix -chronic pain: Continue home tramadol Diet: Cardiac diet DVT prophylaxis: Lovenox Code status: Full code Disposition: Continue monitoring in IMU, may be able to downgrade if stable Time Spent With Patient Time with patient: 25 - 35 minutes Subjective Date/time seen: 11/12/21 16:05 Patient seen examined. She was on BiPAP this morning. O2 saturation 99%, discussed with nurse to trial her on nasal cannula. Patient tolerating 4 L oxygen by nasal cannula at respiratory distress. At home patient uses 2.5 L home oxygen therapy. Patient sometimes gets tachypneic with her anxiety, restarted her home Xanax. Patient is on Levaquin for antibiotic. Patient was given a heart healthy diet. Echocardiogram recently from month ago shows grade 2 diastolic dysfunction otherwise EF greater than 70%, signs of pulmonary hypertension. Will continue with Levaquin and continue monitoring patient in IMU. Patient denies fever, chills, nausea vomiting, diarrhea. She endorses dyspnea. Review of Systems Review of Systems: All systems reviewed & are unremarkable except as noted in HPI and below Exam Narrative: - GENERAL: Pleasant frail elderly woman in no acute distress with BiPAP. - EYES: EOMI. Anicteric. - HENT: Moist mucous membranes. - LUNGS: Diminished lung sounds, no audible wheezing. - CARDIOVASCULAR: Regular rate and rhythm. No murmur. No JVD. - ABDOMEN: Soft, non-tender and non-distended. No palpable masses. - EXTREMITIES: No edema. Peripheral pulses 2+. Non-tender. - NEUROLOGIC: No focal neurological deficits. CN II-XII grossly intact. - PSYCHIATRIC: Awake, Alert and oriented x 3. Appropriate mood and affect. - SKIN: No rashes or lesions. Warm. - LYMPH: No cervical lymphadenopathy. Objective Data Vital Signs Vital Signs: Vital Signs - 24 hr 11/11/21 16:34 11/11/21 17:56 11/11/21 18:10 Temperature Pulse Rate 76 78 76 Respiratory Rate 22 H 24 H 24 H Blood Pressure 136/61 138/80 Pulse Oximetry 94 94 94 11/11/21 19:32 11/11/21 19:40 11/11/21 20:00 Temperature 37.1 C Pulse Rate 77 77 80 Respiratory Rate 18 27 H 25 H Blood Pressure 139/76 170/86 H Pulse Oximetry 94 94 90 11/11/21 23:58 11/12/21 00:00 11/12/21 02:00 Temperature 36.4 C Pulse Rate 66 71 71 Respiratory Rate 18 21 H Blood Pressure 127/62 Pulse Oximetry 98 98 11/12/21 04:00 11/12/21 04:15 11/12/21 06:00 Temperature 36.3 C L Pulse Rate 64 64 68 Respiratory Rate 22 H 22 H Blood Pressure 131/73 Pulse Oximetry 95 95 11/12/21 08:00 11/12/21 08:30 11/12/21 08:40 Temperature Pulse Rate 74 76 76 Respiratory Rate 24 H 22 H Blo
[2021-11-12] MEDS: ALPRAZolam (*CRX) 0.25 MG TABLET PO (16:42)
[2021-11-12] MEDS: MONTELUKAST SODIUM 10 MG TABLET PO (20:33)
[2021-11-12] MEDS: TEMAZEPAM (*CRX) 15 MG CAPSULE 30 MG PO (20:33)
[2021-11-12] MEDS: MELATONIN 5 MG TABLET PO (20:33)
[2021-11-13] VITALS (22 sets, daily range): BP systolic 126–158; BP diastolic 58–87; PULSE 61–90; RESP 16–20; TEMP 36.1–36.6; O2SAT 90–100
[2021-11-13] MEDS: IPRATROPIUM BR 0.02% INH SOLN 0.5 MG/2.5 ML VIAL INHALATION ×4 (02:10→20:47)
[2021-11-13] MEDS: ALBUTEROL SULFATE NEB 2.5 MG/0.5 ML INH 5 MG INHALATION ×4 (02:10→20:46)
[2021-11-13 05:06] LABS: Basophils Absolute Auto 0.1 K/mm3 (0.0-0.1); Basophils Percent Auto 1.5 % (0.2-1.2); Eosinophils Absolute Auto 0.2 K/mm3 (0-0.3); Eosinophils Percent Auto 3.7 % (0-4.4); Hematocrit 34.7 % (37.0-47.0); Hemoglobin 11.6 g/dL (12.0-15.0); Immature Granulocyte Absolute 0.02 K/mm3 (0.00-0.031); Immature Granulocyte Percent A 0.4 % (0-0.5); Lymphocytes Absolute Auto 0.74 K/mm3 (0.9-3.2); Lymphocytes Percent Auto 16.3 % (18.3-44.2); Mean Corpuscular HGB Conc 33.4 g/dl (32-36); Mean Corpuscular Volume 89.7 fl (80-100); Mean Platelet Volume 9.5 fl (7.4-10.4); Monocytes Absolute Auto 0.7 K/mm3 (0.1-0.6); Monocytes Percent Auto 15.4 % (2.6-8.5); Neutrophils Absolute Auto 2.8 K/mm3 (1.3-6.7); Neutrophils Percent Auto 62.7 % (45.5-73.1); Platelet Count Result 259 k/mm3 (150-375); Red Blood Count 3.87 M/mm3 (4.2-5.4); Red Cell Distribution Width 14.4 % (11.5-14.5); White Blood Count 4.5 K/mm3 (4.5-10.0)
[2021-11-13 05:22] LABS: Anion Gap 4 mmol/L (8-16); Blood Urea Nitrogen 20 mg/dL (7-17); Calcium 8.4 mg/dL (8.4-10.2); Carbon Dioxide 31 mmol/L (22-30); Chloride 99 mmol/L (98-107); Estimated CRCL calculation 42 ml/min; Estimated Glomerular Filt Rate > 60; Glucose 100 mg/dL (65-110); Magnesium 1.6 mg/dL (1.6-2.3); Potassium 3.6 mmol/L (3.4-5.0); Sodium 134 mmol/L (137-145)
[2021-11-13] MEDS: ALPRAZolam (*CRX) 0.25 MG TABLET PO ×3 (08:10→22:29)
[2021-11-13] MEDS: PREDNISOLONE ACETATE 0.12% 0.12 DROP EACH EYE ×2 (08:10→16:30)
[2021-11-13] MEDS: PANTOPRAZOLE 40 MG TABLET PO (08:12)
[2021-11-13] MEDS: IPRATROPIUM NASAL SPRAY 0.03% 15 ML BOTTLE 2 SPRAY NASAL ×3 (08:12→16:30)
[2021-11-13] MEDS: OLMESARTAN MEDOXOMIL 20 MG TABLET 40 MG PO (08:12)
[2021-11-13] MEDS: NEBIVOLOL HCL 5 MG TABLET 10 MG PO (08:12)
[2021-11-13] MEDS: ESCITALOPRAM OXALATE 10 MG TABLET 20 MG PO (08:13)
[2021-11-13] MEDS: ENOXAPARIN 40 MG/0.4 ML SYRINGE SUB-Q (08:13)
[2021-11-13] MEDS: predniSONE 20 MG TABLET 40 MG PO (08:13)
[2021-11-13] MEDS: guaiFENesin 12 HR 600 MG TABCR PO ×2 (08:13→20:23)
--- NOTE | 2021-11-13 10:56 | PM.IMPN ---
Progress Note: A&P Assessment and Plan (1) Hypomagnesemia: Code(s): E83.42 - Hypomagnesemia Status: Acute (2) Acute respiratory failure with hypoxia: Code(s): J96.01 - Acute respiratory failure with hypoxia Status: Acute (3) COPD (chronic obstructive pulmonary disease): Code(s): J44.9 - Chronic obstructive pulmonary disease, unspecified Status: Acute (4) Community acquired pneumonia: Code(s): J18.9 - Pneumonia, unspecified organism Status: Acute Additional Plan # acute on chronic hypoxic respiratory failure # community-acquired pneumonia versus COPD exacerbation -continue oxygen therapy, currently on 2 L nasal cannula. With activity she may go up to 4-5 L -continue weaning oxygen as tolerated -acute respiratory failure likely secondary to pneumonia -antibiotics: Continue Levaquin will complete 5 day course -nebs: Continue DuoNebs -continue on breztri inhaler, Singulair -guaifenesin for cough -will continue steroids 40 mg of prednisone daily, patient will need a long slow steroid taper when she discharges -patient appears euvolemic holding off on diuretics -no more need for BiPAP. If patient becomes tachypneic we should try Xanax first as she has significant anxiety and uses Xanax regularly # hypomagnesemia -magnesium 1.6, give 4 g Mag sulfate # other chronic conditions -insomnia: Continue melatonin, temazepam -anxiety/depression: Continue Lexapro, Xanax t.i.d. p.r.n. -essential hypertension: Bystolic, Benicar -GERD: Protonix -chronic pain: Continue home tramadol Diet: Cardiac diet DVT prophylaxis: Lovenox Code status: Full code Disposition: Downgrade to medical floor, likely home in 2-3 days. Patient will live at [facility][1] on Sunday 11/19 Time Spent With Patient Time with patient: 25 - 35 minutes Subjective Date/time seen: 11/13/21 10:56 Patient seen examined. She is doing well no new complaints. Patient has been weaned down to 2 L home oxygen therapy. Patient when she ambulates desaturates and needed to go up to 6 L oxygen. We will continue antibiotics and steroids. Patient plan was for assisted living facility [facility] on Monday. Patient will likely go home as prior to going to [facility], she states she has her daughter to help her at home for this week. She is doing well on the 40 mg of steroids prednisone daily. Continue Levaquin antibiotic for 5 day course. She does not require BiPAP, will discontinue. Will transfer patient out of IMU to medical floor. No issues on telemetry. Patient denies fever, chills, nausea vomiting, diarrhea. She endorses dyspnea and weakness. Review of Systems Review of Systems: All systems reviewed & are unremarkable except as noted in HPI and below Exam Narrative: - GENERAL: Pleasant frail elderly woman in no acute distress breathing comfortably on 2 L home oxygen therapy - EYES: EOMI. Anicteric. - HENT: Moist mucous membranes. - LUNGS: Slightly less diminished lung sounds no audible wheezing or rales. - CARDIOVASCULAR: Regular rate and rhythm. No murmur. No JVD. - ABDOMEN: Soft, non-tender and non-distended. No palpable masses. - EXTREMITIES: No edema. Peripheral pulses 2+. Non-tender. - NEUROLOGIC: No focal neurological deficits. CN II-XII grossly intact. - PSYCHIATRIC: Awake, Alert and oriented x 3. Appropriate mood and affect. - SKIN: No rashes or lesions. Warm. - LYMPH: No cervical lymphadenopathy. Objective Data Vital Signs Vital Signs: Vital Signs - 24 hr 11/12/21 11:48 11/12/21 11:50 11/12/21 12:00 Temperature 36.8 C Pulse Rate 72 61 Respiratory Rate 20 Blood Pressure 155/78 H Pulse Oximetry 90 93 11/12/21 13:45 11/12/21 13:52 11/12/21 13:55 Temperature Pulse Rate 78 80 Respiratory Rate 22 H 22 H Blood Pressure Pulse Oximetry 97 11/12/21 14:00 11/12/21 16:00 11/12/21 16:52 Temperature 36.4 C Pulse Rate 79 80 77 Respiratory Rate 31 H
--- NOTE | 2021-11-13 11:37 | PC.NURSE ---
This patient, Jolie Starr, was transferred to [facility] on 11/13/21 at 1120. Personal belongings sent with patient. Report given to [facility]. Appropriate documentation sent with patient.
[2021-11-13] MEDS: SODIUM CHLORIDE 0.9% IV 100 ML 10 ML (12:13)
[2021-11-13] MEDS: MAGNESIUM SULF 4 GM/WATER100ML 4 GM/100 ML BAG IVPB (12:13)
--- NOTE | 2021-11-13 12:15 | PC.NURSE ---
This patient, Jolie Starr, was transfered to [facility] Room 320-01. Patient/family oriented to hospital policies and general routines including ID bracelet, bed and alarms, visiting hours, pain management, procedures, bathroom and other care routines, personal items, smoking policy, room service/diet, and visiting hours. Information on how to activate the Rapid Response Team has been discussed. Patient/Family are encouraged to report perceived risks to care and to ask questions if they do not understand what they are told or what they should do. Report received from IMU nurse Irma.
[2021-11-13] MEDS: FLUTICASONE/UMECLIDIN/VILANTER 100-62.5-25 MCG ELLIPTA 1 PUFF INHALATION (13:05)
--- NOTE | 2021-11-13 14:41 | PC.NURSE ---
Pt BC from 11/11/21 resulted 11/13/21 + for staphylococcus hominis. Reported to MD Bai.
[2021-11-13] MEDS: MONTELUKAST SODIUM 10 MG TABLET PO (20:23)
[2021-11-13] MEDS: MELATONIN 5 MG TABLET PO (20:23)
[2021-11-13] MEDS: TEMAZEPAM (*CRX) 15 MG CAPSULE 30 MG PO (20:23)
[2021-11-13] MEDS: ACETAMINOPHEN 325 MG TABLET 650 MG PO (22:24)
[2021-11-14] VITALS (8 sets, daily range): BP systolic 146; BP diastolic 64; PULSE 68–76; RESP 16–20; TEMP 36.4; O2SAT 90–95
[2021-11-14] MEDS: ALBUTEROL SULFATE NEB 2.5 MG/0.5 ML INH 5 MG INHALATION ×2 (02:35→08:06)
[2021-11-14] MEDS: IPRATROPIUM BR 0.02% INH SOLN 0.5 MG/2.5 ML VIAL INHALATION ×2 (02:35→08:06)
[2021-11-14 06:08] LABS: Basophils Percent Auto 0.7 % (0.2-1.2); Eosinophils Absolute Auto 0.1 K/mm3 (0-0.3); Eosinophils Percent Auto 0.9 % (0-4.4); Hematocrit 37.9 % (37.0-47.0); Hemoglobin 12.2 g/dL (12.0-15.0); Immature Granulocyte Absolute 0.02 K/mm3 (0.00-0.031); Immature Granulocyte Percent A 0.4 % (0-0.5); Lymphocytes Absolute Auto 0.67 K/mm3 (0.9-3.2); Lymphocytes Percent Auto 12.1 % (18.3-44.2); Mean Corpuscular HGB Conc 32.2 g/dl (32-36); Mean Corpuscular Hemoglobin 29.5 pg (26-34); Mean Corpuscular Volume 91.8 fl (80-100); Mean Platelet Volume 9.4 fl (7.4-10.4); Monocytes Absolute Auto 0.7 K/mm3 (0.1-0.6); Monocytes Percent Auto 12.1 % (2.6-8.5); Neutrophils Absolute Auto 4.1 K/mm3 (1.3-6.7); Neutrophils Percent Auto 73.8 % (45.5-73.1); Platelet Count Result 289 k/mm3 (150-375); Red Blood Count 4.13 M/mm3 (4.2-5.4); Red Cell Distribution Width 14.2 % (11.5-14.5); White Blood Count 5.6 K/mm3 (4.5-10.0)
[2021-11-14 06:27] LABS: Anion Gap 5 mmol/L (8-16); Blood Urea Nitrogen 22 mg/dL (7-17); Calcium 8.7 mg/dL (8.4-10.2); Carbon Dioxide 31 mmol/L (22-30); Chloride 96 mmol/L (98-107); Estimated CRCL calculation 37 ml/min; Estimated Glomerular Filt Rate > 60; Glucose 104 mg/dL (65-110); Magnesium 2.2 mg/dL (1.6-2.3); Potassium 4.1 mmol/L (3.4-5.0); Sodium 132 mmol/L (137-145)
[2021-11-14] MEDS: FLUTICASONE/UMECLIDIN/VILANTER 100-62.5-25 MCG ELLIPTA 1 PUFF INHALATION (08:18)
[2021-11-14] MEDS: OLMESARTAN MEDOXOMIL 20 MG TABLET 40 MG PO (08:29)
[2021-11-14] MEDS: ENOXAPARIN 40 MG/0.4 ML SYRINGE SUB-Q (08:29)
[2021-11-14] MEDS: NEBIVOLOL HCL 5 MG TABLET 10 MG PO (08:30)
[2021-11-14] MEDS: PANTOPRAZOLE 40 MG TABLET PO (08:30)
[2021-11-14] MEDS: guaiFENesin 12 HR 600 MG TABCR PO (08:30)
[2021-11-14] MEDS: ESCITALOPRAM OXALATE 10 MG TABLET 20 MG PO (08:30)
[2021-11-14] MEDS: predniSONE 20 MG TABLET 40 MG PO (08:30)
[2021-11-14] MEDS: IPRATROPIUM NASAL SPRAY 0.03% 15 ML BOTTLE 2 SPRAY NASAL (08:31)
[2021-11-14] MEDS: PREDNISOLONE ACETATE 0.12% 0.12 DROP EACH EYE (08:31)
--- NOTE | 2021-11-14 12:13 | PC.NURSE ---
Susan charge nurse called [facility] and confirmed scripts transmitted to pharmacy.
--- NOTE | 2021-11-14 13:00 | PM.IMPN ---
Subjective Date/time seen: 11/14/21 13:00 Patient seen examined. She has no new complaints. She is back to her baseline. 2 L oxygen with rest and 5 L with activity. She would like to go home. I will discharge her with steroid taper and Levaquin antibiotic for her pneumonia and COPD exacerbation. Patient will be discharged home and will follow-up with PCP in 1 week. Her plan is to moving to [place] on Monday. Objective Data Vital Signs Vital Signs: Vital Signs - 24 hr 11/13/21 14:25 11/13/21 14:33 11/13/21 20:00 Temperature Pulse Rate 90 84 73 Respiratory Rate 18 18 18 Blood Pressure Pulse Oximetry 91 11/13/21 20:49 11/13/21 20:50 11/13/21 21:00 Temperature Pulse Rate 73 77 Respiratory Rate 18 18 Blood Pressure Pulse Oximetry 91 11/13/21 22:00 11/13/21 22:45 11/14/21 02:39 Temperature 36.1 C L Pulse Rate 74 73 74 Respiratory Rate 16 16 20 Blood Pressure 126/58 L Pulse Oximetry 91 90 11/14/21 02:40 11/14/21 02:50 11/14/21 06:00 Temperature 36.4 C Pulse Rate 74 76 68 Respiratory Rate 20 20 16 Blood Pressure 146/64 H Pulse Oximetry 90 92 11/14/21 08:00 11/14/21 08:09 11/14/21 08:14 Temperature Pulse Rate 68 69 72 Respiratory Rate 16 20 20 Blood Pressure Pulse Oximetry 92 95 95 11/14/21 08:30 Temperature Pulse Rate 68 Respiratory Rate Blood Pressure Pulse Oximetry Intake/Output Intake/Output: Intake & Output 11/11/21 11/12/21 11/13/21 11/14/21 23:59 23:59 23:59 23:59 Intake Total 950 1600 590 Output Total 1900 250 200 Balance -950 1350 390 Meds/Results Radiology Results: ITS Impressions Chest X-Ray 11/11/21 15:54 IMPRESSION: Interval mild lower lobe infiltrates and/or atelectasis, left greater than right, suggesting possible pneumonia Increased prominence of the pulmonary vasculature and small pleural effusions, which may indicate some congestive changes. Heart size is within normal range Aortic calcification and tortuosity Bilateral hyperinflation, possible pulmonary hypertension Labs Labs: Laboratory Results - last 24 hr 11/14/21 11/14/21 05:53 05:53 WBC 5.6 RBC 4.13 L Hgb 12.2 Hct 37.9 MCV 91.8 MCH 29.5 MCHC 32.2 RDW 14.2 Plt Count 289 MPV 9.4 Immature Gran % (Auto) 0.4 Neut % (Auto) 73.8 H Lymph % (Auto) 12.1 L [place] % (Auto) 12.1 H Eos % (Auto) 0.9 Baso % (Auto) 0.7 Lymph # (Auto) 0.67 L [place] # (Auto) 0.7 H Eos # (Auto) 0.1 Baso # (Auto) 0.0 Abs Immat Gran (auto) 0.02 Absolute Neuts (auto) 4.1 Absolute Nucleated RBC 0.0 Nucleated RBC % 0.0 Sodium 132 L Potassium 4.1 Chloride 96 L Carbon Dioxide 31 H Anion Gap 5 L BUN 22 H Creatinine 0.80 Estim Creat Clear Calc 37 Estimated GFR > 60 Glucose 104 Calcium 8.7 Magnesium 2.2
--- NOTE | 2021-11-14 13:05 | PM.DS ---
DS: Admitting Diagnosis Discharge Date 11/14/21 Admitting Diagnosis Acute on chronic hypoxic respiratory failure, pneumonia DS: Discharge Diagnosis Discharge Diagnosis (1) Hypomagnesemia: Code(s): E83.42 - Hypomagnesemia Status: Acute Assessment and Plan: Repleted (2) COPD (chronic obstructive pulmonary disease): Code(s): J44.9 - Chronic obstructive pulmonary disease, unspecified Status: Acute Assessment and Plan: Prednisone taper (3) Acute respiratory failure with hypoxia: Code(s): J96.01 - Acute respiratory failure with hypoxia Status: Acute Assessment and Plan: Weaned oxygen back to baseline 2 L at rest and 5 L with activity (4) Community acquired pneumonia: Code(s): J18.9 - Pneumonia, unspecified organism Status: Acute Assessment and Plan: Treated with Levaquin adjusted for her renal function DS: Summary Hospital Course Reason for hospitalization: Acute on chronic hypoxic respiratory failure, pneumonia Hospital Course: Patient is 81-year-old female with past medical history of COPD/emphysema, chronic hypoxic respiratory failure, hypertension, obstructive sleep apnea who presents to ED with complaints of dyspnea. She was found to have what appears to be pneumonia with productive cough treated with Levaquin. She is also treated with steroid taper for COPD exacerbation. She was weaned down to her baseline oxygen of 2 L at rest 5 L with activity. She uses CPAP at night. Patient takes Xanax pretty scheduled at home for her anxiety which can cause her to be tachypneic. She did not need to be on BiPAP. Rx given for Levaquin and slow prednisone taper. PCP follow-up 1 week. At time of discharge her vitals are stable, labs stable, patient still for discharge home. She will be moving to the assisted living facility [facility] on this coming Monday. Patient understands and agrees with plan. Status at Discharge Cognitive/behavioral status at discharge: At baseline Functional status at discharge: uses cane/walker Overall status at discharge: patient is back to baseline Time Spent with Patient Time attestation: Total time spent providing and/or coordinating discharge services:35 Time spent: Greater than 30 minutes Exam Narrative: - GENERAL: Pleasant frail elderly woman in no acute distress breathing comfortably on 2 L home oxygen therapy - EYES: EOMI. Anicteric. - HENT: Moist mucous membranes. - LUNGS: Clear to auscultation no wheezing or rhonchi rales. - CARDIOVASCULAR: Regular rate and rhythm. No murmur. No JVD. - ABDOMEN: Soft, non-tender and non-distended. No palpable masses. - EXTREMITIES: No edema. Peripheral pulses 2+. Non-tender. - NEUROLOGIC: No focal neurological deficits. CN II-XII grossly intact. - PSYCHIATRIC: Awake, Alert and oriented x 3. Appropriate mood and affect. - SKIN: No rashes or lesions. Warm. - LYMPH: No cervical lymphadenopathy. DS: Data Data Completed and Pending Labs on day of discharge: Labs from last 24 hours 11/14/21 11/14/21 05:53 05:53 WBC 5.6 RBC 4.13 L Hgb 12.2 Hct 37.9 MCV 91.8 MCH 29.5 MCHC 32.2 RDW 14.2 Plt Count 289 MPV 9.4 Immature Gran % (Auto) 0.4 Neut % (Auto) 73.8 H Lymph % (Auto) 12.1 L [place] % (Auto) 12.1 H Eos % (Auto) 0.9 Baso % (Auto) 0.7 Lymph # (Auto) 0.67 L [place] # (Auto) 0.7 H Eos # (Auto) 0.1 Baso # (Auto) 0.0 Abs Immat Gran (auto) 0.02 Absolute Neuts (auto) 4.1 Absolute Nucleated RBC 0.0 Nucleated RBC % 0.0 Sodium 132 L Potassium 4.1 Chloride 96 L Carbon Dioxide 31 H Anion Gap 5 L BUN 22 H Creatinine 0.80 Estim Creat Clear Calc 37 Estimated GFR > 60 Glucose 104 Calcium 8.7 Magnesium 2.2 Preliminary micro results at discharge 11/13/21 15:53 Blood Culture - Preliminary Blood 11/13/21 15:53 Blood Culture - Preliminary Blood 11/11/21 15:43 Blood Culture - Preliminary Blood Staphyl
== END 2021-11-14 11:40 | disposition home or self-care (01) | DRG 193 ==
LOC: ANHED 18:01 → ANHIMU 23:21 → ANH3MEDSUR 11-14 10:25 → ANHIMU 11-15 13:41
PROVIDERS: Admitting Provider Family Medicine; Emergency Provider Emergency Medicine; PCP Family Medicine; Visit Provider Student in an Organized Health Care Education/Training Program
DX: J18.9 Pneumonia, unspecified organism (principal); J96.21 Acute and chronic respiratory failure with hypoxia; J44.0 Chronic obstructive pulmonary disease with (acute) lower respiratory infection; J44.1 Chronic obstructive pulmonary disease with (acute) exacerbation; Z20.822 Contact with and (suspected) exposure to COVID-19; B95.7 Other staphylococcus as the cause of diseases classified elsewhere; E83.42 Hypomagnesemia; G47.33 Obstructive sleep apnea (adult) (pediatric); I10 Essential (primary) hypertension; K57.90 Diverticulosis of intestine, part unspecified, without perforation or abscess without bleeding; I73.9 Peripheral vascular disease, unspecified; I27.81 Cor pulmonale (chronic); F41.8 Other specified anxiety disorders; K21.9 Gastro-esophageal reflux disease without esophagitis; G89.29 Other chronic pain; G47.00 Insomnia, unspecified; Z98.42 Cataract extraction status, left eye; Z98.41 Cataract extraction status, right eye; Z90.49 Acquired absence of other specified parts of digestive tract; Z87.891 Personal history of nicotine dependence; Z99.81 Dependence on supplemental oxygen
CPT/HCPCS: 36415; 36600; 71045; 80048; 80053; 82805; 83605; 83735; 83880; 84484; 85025; 85610; 85730; 87040; 87147; 87181; 87186; 87502; 93005; 94002; 94003; 94640; 97161; 97165; 99291; A9270; C9803; J0131; J1650; J1956; J2060; J3475; J7512; U0003; U0005

== ENCOUNTER 2022-01-02 09:03 | Inpatient (IN) | payer MEDICARE, SELFPAY ==
[2022-01-02] VITALS (49 sets, daily range): BP systolic 63–132; BP diastolic 21–86; PULSE 61–81; RESP 16–27; TEMP 36.2–38.1; O2SAT 33–100
--- NOTE | ~2022-01-02 | XR_ITS ---
EXAMINATION: XR chest port-a-cath/central INDICATION: Central line placement TECHNIQUE: Portable AP chest at 1148 hours COMPARISON: 1004 hours FINDINGS: A right internal jugular central venous catheter has been inserted which ends with its tip in the proximal right atrium. There is a surgical staple line of the right lung base. The lungs are f ree of acute opacities. There is no pleural effusion or pneumothorax, the lung bases are excluded fro m the examination. The cardiomediastinal silhouette is stable. IMPRESSION: 1. Right internal jugular catheter ending in the right atrium. No pneumothorax. Reviewed, dictated and finalized at location A.
--- NOTE | ~2022-01-02 | US_ITS ---
EXAMINATION: US renal BI DATE: 01/03/2022 09:52 INDICATION: Acute renal insufficiency TECHNIQUE: Multiple ultrasound grayscale images of the kidneys were obtained. COMPARISON: None. FINDINGS: The right kidney measures 9.0 x 5.0 x 4.3 cm. The left kidney measures 7.8 x 3.4 x 4.7 cm. The kidney s demonstrate normal echogenicity. 1.8 cm anechoic cyst at the upper pole of the right kidney. There is no hydronephrosis in either kidney. No stones identified. The bladder is compressed around a Fole y catheter which limits evaluation. Incidentally noted are a few echogenic splenic calcifications con sistent with old granulomatous disease. IMPRESSION: 1. 1.8 cm right renal cyst. Otherwise normal kidneys without hydronephrosis. Reviewed, dictated and finalized at location A.
--- NOTE | ~2022-01-02 | XR_ITS ---
EXAMINATION: XR chest 1V portable INDICATION: Septic shock TECHNIQUE: Portable AP chest at 0509 hours COMPARISON: 01/02/2022 FINDINGS: A right internal jugular catheter ends with its tip in the right atrium. There is a surgica l staple line of the right lung base. The lungs are free of acute opacities. There is no pneumothorax . Small pleural effusions are present. Calcified pulmonary nodules are consistent with old granulomat ous disease. The cardiomediastinal silhouette is stable. IMPRESSION: 1. Small pleural effusions. Reviewed, dictated and finalized at location A. IMPRESSION: 1. Small pleural effusions.
--- NOTE | ~2022-01-02 | CT_ITS ---
EXAMINATION: CT diagnostic chest wo con DATE: 01/04/2022 11:59 INDICATION: Respiratory failure, septic shock TECHNIQUE: Computed tomography (CT) of the chest was performed without intravenous contrast. The dose -length product (DLP) was 173.50 mGy-cm. 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 COMPARISON: 10/08/2021 FINDINGS: A right internal jugular catheter ends with its tip in the right atrium. There is severe em physema. Calcified pulmonary nodules and calcified right hilar lymph nodes are consistent with old gr anulomatous disease. There are small pleural effusions, loculated on the right, with associated passi ve dependent atelectasis. There is no pneumothorax. There is some loculated fluid in the major fissur e on the right. The heart size is normal. No definite thoracic lymphadenopathy is identified. The gal lbladder is surgically absent. There is moderate thoracic spondylosis. IMPRESSION: 1. Small pleural effusions, loculated on the right, with associated passive dependent atelectasis. 2. Severe emphysema. Reviewed, dictated and finalized at location A. IMPRESSION: 1. Small pleural effusions, loculated on the right, with associated passive dep endent atelectasis. 2. Severe emphysema.
--- NOTE | ~2022-01-02 | XR_ITS ---
EXAMINATION: XR chest 2V DATE: 01/02/2022 10:06 INDICATION: Shortness of breath TECHNIQUE: AP and lateral views of the chest are obtained. COMPARISON: 11/11/2021 FINDINGS: There are minimal airspace opacities of the lung bases. Small pleural effusions are present . There is no pneumothorax. The cardiomediastinal silhouette is normal. Calcified pulmonary nodules a re consistent with old granulomatous disease. There is severe thoracic spondylosis. IMPRESSION: 1. Minimal bibasilar airspace opacities, consistent with atelectasis versus pneumonia. 2. Small pleural effusions. Reviewed, dictated and finalized at location A. IMPRESSION: 1. Minimal bibasilar airspace opacities, consistent with atelectasis versus pne umonia. 2. Small pleural effusions.
--- NOTE | ~2022-01-02 | XR_ITS ---
EXAMINATION: XR chest 1V portable INDICATION: Septic shock TECHNIQUE: Portable AP chest at 0501 hours COMPARISON: 01/03/2022 FINDINGS: A right internal jugular catheter ends with its tip in the right atrium. There are minimal airspace opacities of the lung bases. Small pleural effusions are present. There is no pneumothorax. The cardiomediastinal silhouette is stable. Calcified pulmonary nodules are consistent with old granu lomatous disease. IMPRESSION: 1. Small pleural effusions. 2. Minimal bibasilar airspace opacities, consistent with atelectasis versus pneumonia. Reviewed, dictated and finalized at location A. IMPRESSION: 1. Small pleural effusions. 2. Minimal bibasilar airspace opacities, consistent with atelectasis versus pne umonia.
--- NOTE | ~2022-01-02 | US_ITS ---
EXAMINATION: US right upper quadrant DATE: 01/03/2022 09:52 INDICATION: Elevated liver function tests TECHNIQUE: Multiple grayscale and Doppler ultrasound images of the abdomen were obtained. COMPARISON: None available FINDINGS: The visualized portions of the pancreas are unremarkable. The liver is normal with normal e chogenicity and echotexture. No surface nodularity. Normal hepatopetal flow in the main portal vein. The gallbladder is surgically absent. The normal common bile duct measures 2 mm. IMPRESSION: 1. No sonographic correlate for the patient's symptoms. Reviewed, dictated and finalized at location A.
--- NOTE | 2022-01-02 09:27 | ECG_ITS ---
Measurements Intervals [place] Rate: 58 P: 69 ND: 148 QRS: 74 QRSD: 86 T: -11 QT: 470 QTc: 465 Interpretive Statements SINUS BRADYCARDIA SUPRAVENTRICULAR BIGEMINY POSSIBLE LEFT ATRIAL ENLARGEMENT BORDERLINE ST-T WAVE ABNORMALITY- INFERIOR LEADS BASELINE ARTIFACT- I, II, III, AVL, AVF, V1-V4 ABNORMAL ECG Electronically Signed On 01-02-2022 18:51:37 CDT by Abe Ruiz D.O.
[2022-01-02 09:49] LABS: Basophils Absolute Auto 0.1 K/mm3 (0.0-0.1); Basophils Percent Auto 0.5 % (0.2-1.2); Eosinophils Percent Auto 0.1 % (0-4.4); Hematocrit 49.2 % (37.0-47.0); Hemoglobin 14.6 g/dL (12.0-15.0); Immature Granulocyte Percent A 1.7 % (0-0.5); Lymphocytes Absolute Auto 1.16 K/mm3 (0.9-3.2); Lymphocytes Percent Auto 6.4 % (18.3-44.2); Mean Corpuscular HGB Conc 29.7 g/dl (32-36); Mean Corpuscular Hemoglobin 29.3 pg (26-34); Mean Corpuscular Volume 98.8 fl (80-100); Mean Platelet Volume 9.5 fl (7.4-10.4); Monocytes Absolute Auto 1.4 K/mm3 (0.1-0.6); Monocytes Percent Auto 7.5 % (2.6-8.5); Neutrophils Absolute Auto 15.1 K/mm3 (1.3-6.7); Neutrophils Percent Auto 83.8 % (45.5-73.1); Nucleated Red Blood Cells Perc 0.1 % (0.0-0.2); Platelet Count Result 228 k/mm3 (150-375); Red Blood Count 4.98 M/mm3 (4.2-5.4); Red Cell Distribution Width 16.8 % (11.5-14.5)
[2022-01-02 09:52] LABS: Carboxyhemoglobin 1.4 % THb (0-2.0); Fractional Inspired Oxygen 40 %; HCO3 ABG 17.4 mEq/l (22.0-26.0); Methemoglobin ABG 0.4 %THb (0-1.5); Oxygen Content ABG 17.9 %vol (16.0-22.0); PCO2 ABG 53.5 mmHg (35.0-45.0); PO2 ABG 69.7 mmHg (80.0-100.0); PO2 FiO2 Ratio Arterial Blood 1.74 %; Reduced Hemoglobin 11.8 %THb (0-5.0); Total Hemoglobin 14.7 g/dL (12.0-18.0)
[2022-01-02 09:56] LABS: pH ABG 7.131 (7.350-7.450)
[2022-01-02 09:57] LABS: Oxygen Saturation ABG 87.9 % (95.0-100.0)
[2022-01-02 09:58] LABS: Anion Gap 16 mmol/L (8-16); Blood Urea Nitrogen 22 mg/dL (7-17); Calcium 8.6 mg/dL (8.4-10.2); Carbon Dioxide 20 mmol/L (22-30); Chloride 99 mmol/L (98-107); Estimated CRCL calculation 17 ml/min; Estimated Glomerular Filt Rate 27; Glucose 69 mg/dL (65-110); Oxyhemoglobin 86.4 % THb (90.0-100.0); Potassium 5.7 mmol/L (3.4-5.0); Site Drawn LEFT RADIAL; Sodium 135 mmol/L (137-145)
[2022-01-02 09:59] LABS: Device NASAL CANNULA; Modified Allen's Test Pass
[2022-01-02 10:01] LABS: Prothrombin Time 22.1 Seconds (11.1-14.7)
[2022-01-02 10:02] LABS: Partial Thromboplastin Time 43.1 SECONDS (22.3-36.8)
[2022-01-02 10:07] LABS: NT Pro B Type Natriuretic Pept 25500 pg/mL (5-100)
[2022-01-02 10:14] LABS: Lactic Acid Reflex 8.4 mmol/L (0.7-2.0)
[2022-01-02 10:44] LABS: Appearance Urine Clear (Clear); Bilirubin Urine Negative (Negative); Blood Urine Negative (Negative); Color Urine Yellow (Yellow); Glucose Urine UA Negative (Negative); Ketones Urine Negative (Negative); Leukocyte Esterase Ur Negative LEU/UL (Negative); Nitrate Urine Negative (Negative); Protein Urine 2+ mg/dL (Negative); Specific Grav Ur 1.025 (1.001-1.035); Urobilinogen Urine 0.2 mg/dL (<2.0); pH Urine 5.5 (5.0-9.0)
[2022-01-02] MEDS: SODIUM CHLORIDE 0.9% IV 1,000 ML 999 ML IV CONT ×2 (10:49→22:22)
[2022-01-02 10:53] LABS: Add Urine Microscopic? YES
[2022-01-02 10:54] LABS: Mucus Urine Rare /lpf; RBC Urine 0-2 /hpf (0-2)
--- NOTE | 2022-01-02 11:06 | ED.AMS ---
HPI - Altered Mental Status General Chief Complaint: Altered Mental Status Stated Complaint: altered loc, abnormal vs Time Seen by Provider: 01/02/22 09:13 History of Present Illness HPI narrative: Patient is an 81-year-old female who presents ER from a alf with altered mental status. Patient was checked on by alf staff and found that the patient was altered and not responding. She was mostly sleeping with her BiPAP on but it came off during the night. EMS arrived and applied patient's home oxygen which she typically wears 2 L. They increase it to 4 L. Patient's oxygen saturation is around 76% for EMS. Patient is alert and oriented x3 but she speaks very weakly. She reports that she is a DO NOT RESUSCITATE/DO NOT INTUBATE. Patient endorses that she is short of breath but cannot give aggravating alleviating factors. She is denying any chest pain. Related Data Home Medications Medication Instructions Recorded Confirmed guaifenesin [Mucinex] 600 mg PO Q12H 10/19/20 12/01/21 Breztri Aerosphere 2 inh INHALATION BID 03/29/21 12/01/21 acetaminophen 650 mg PO QID PRN 03/29/21 12/01/21 escitalopram oxalate [Lexapro] 20 mg PO DAILY 03/29/21 12/01/21 Pred Mild 0.12 % EACH EYE BID 06/27/21 12/01/21 montelukast [Singulair] 10 mg PO HS 10/08/21 12/01/21 nebivolol [Bystolic] 10 mg PO DAILY 10/08/21 12/01/21 temazepam 30 mg PO HS 10/08/21 12/01/21 albuterol sulfate 2.5 mg INHALATION Q6H 01/02/22 01/02/22 ascorbic acid (vitamin C) [Vitamin 500 mg PO DAILY 01/02/22 C] cholecalciferol (vitamin D3) 50 mcg PO DAILY 01/02/22 [Vitamin D3] furosemide 10 mg PO DAILY 01/02/22 melatonin 10 mg PO HS 01/02/22 01/02/22 hporygouxlhe-hdtwahsi-enghvb 1 tablet DAILY 01/02/22 [Centrum Silver] ondansetron 4 mg PO Q6H PRN 01/02/22 01/02/22 tramadol 50 mg PO Q8H PRN 01/02/22 01/02/22 vitamin E 400 unit PO DAILY 01/02/22 Allergies Allergy/AdvReac Type Severity Reaction Status Date / Time clarithromycin Allergy Mild rash and Verified 01/02/22 09:34 itching alendronate sodium Allergy Unknown Unknown Verified 01/02/22 09:34 mold Allergy Unknown Unknown Verified 01/02/22 09:34 Penicillins Allergy Unknown SWELLING Verified 01/02/22 09:34 AND RASH,Unknown Review of Systems Review of Systems: ROS unobtainable: Yes unobtainable due to medical condition Constitutional: Constitutional: Denies fever(s) and Reports weakness Cardiovascular: Cardiovascular: Denies chest pain, Denies rapid heart rate and Denies orthopnea Respiratory: Respiratory: Denies chest congestion, Denies cough and Reports dyspnea Gastrointestinal: Gastrointestinal: Denies abdominal pain, Denies nausea and Denies vomiting PMFSH Past Medical History Medical History Anxiety BMI between 19-24,adult Chronic shoulder pain Cor pulmonale (chronic) Diverticulosis Essential (primary) hypertension History of atrial flutter Hypoxia Localized swelling of left lower extremity Localized swelling of right lower extremity Nontraumatic tear of muscle or tendon of rotator cuff of both shoulders Obstructive sleep apnea Other specified peripheral vascular diseases Pain in left foot Pain in left lower leg Pain in right foot Pain in right lower leg Patent foramen ovale Pulmonary hypertension Rotator cuff arthropathy of both shoulders Shoulder pain SI joint arthritis Spontaneous pneumothorax Surgical History Surgical History H/O tubal ligation History of 2 sections History of appendectomy History of bilateral cataract extraction History of removal of pigmented skin lesion History of tonsillectomy Hx laparoscopic cholecystectomy Family History Family History Sibling Skin cancer Family history of cardiovascular disease Family history of arthritis Father Family history
--- NOTE | 2022-01-02 11:21 | PC.NURSE ---
Pt became cyanotic when ERP laid her flat for central line. 02 placed via NRB at 15 l.
[2022-01-02] MEDS: DEXTROSE 50% 25 GM/50 ML SYRINGE (11:23)
[2022-01-02 11:41] LABS: Influenza A QL RT-PCR Negative (Negative); Influenza B QL RT-PCR Negative (Negative); SARS-CoV-2 RNA PCR Negative
--- NOTE | 2022-01-02 11:45 | PC.NURSE ---
Central line placed by ERP. Tolerated well.
[2022-01-02] MEDS: NOREPINEPHRINE 8 MG/D5W 250 ML 8 MG/250 ML BAG 9.38 MG IV CONT (11:54)
[2022-01-02 12:10] LABS: Glucose Point of Care 97 mg/dl (65-105)
[2022-01-02] MEDS: ENOXAPARIN 80 MG/0.8 ML SYRINGE 49 MG SUB-Q (12:34)
[2022-01-02 12:46] LABS: Reflex Lactic Acid Yes or No Add Lactic
[2022-01-02 12:52] LABS: Alanine Aminotransferase 646 U/L (6-35); Albumin Level 3.9 g/dL (3.5-5.1); Alkaline Phosphatase 55 U/L (38-126); Aspartate Amino Transferase 721 U/L (14-36); Bilirubin,Total 1.2 mg/dL (0.2-1.3)
--- NOTE | 2022-01-02 13:27 | PHAR ---
DR KATIA DONALDSON'D RENALLY DOSING CEFEPIME PER TELEPHONE ORDER
[2022-01-02 13:38] LABS: Lactic Acid 5.9 mmol/L (0.7-2.0)
--- NOTE | 2022-01-02 13:46 | WPDCNINT ---
Assessment and Plan Assessment and plan (1) Septic shock: Code(s): A41.9 - Sepsis, unspecified organism; R65.21 - Severe sepsis with septic shock Status: Acute Assessment and Plan: Patient presented with altered mental status, hypotension, septic shock, acute kidney injury, lactic acidosis -source unclear at this time. Could be bacteremia, pneumonia -central line was inserted in the ER -patient given 1 L of IV fluids, will give additional 500 mL of IV fluid bolus in the ICU -patient is a DNR -currently on Levophed, maintain MAP > 65-70 mmHg -patient received cefepime, will add vancomycin -repeat lactic acid trending down (2) Acute respiratory failure: Code(s): J96.00 - Acute respiratory failure, unspecified whether with hypoxia or hypercapnia Status: Acute Assessment and Plan: Acute respiratory failure, multifactorial, COPD, pulmonary hypertension, cor pulmonale, coronary artery disease -currently on BiPAP, 100% FiO2, repeat ABG showed metabolic acidosis and respiratory acidosis -continue bronchodilators, antibiotics -will add steroids -patient received therapeutic dose of Lovenox in the ER (3) Metabolic acidosis: Code(s): E87.2 - Acidosis Status: Acute Assessment and Plan: Likely related to septic shock, lactic acidosis, decreased perfusion Continue to maintain adequate mean arterial pressures for adequate end organ perfusion -will repeat lactic acid (4) Pneumonia: Code(s): J18.9 - Pneumonia, unspecified organism Status: Acute Assessment and Plan: Could be pneumonia, continue antibiotics as above (5) Acute kidney injury: Code(s): N17.9 - Acute kidney failure, unspecified Status: Acute Assessment and Plan: Acute kidney injury likely related to septic shock, hypotension, hypovolemia, ATN, infection -UA not reflective of UTI -will start bicarb infusion as maintenance fluids -patient received 1 L of fluid in the ER, will give additional 500 mL in the ICU. -continue to monitor urine output, renal function and electrolytes (6) Electrolyte abnormality: Code(s): E87.8 - Other disorders of electrolyte and fluid balance, not elsewhere classified Status: Acute Assessment and Plan: Hyperkalemia: Will treat with insulin, D50, albuterol, bicarb -repeat BMP (7) COPD (chronic obstructive pulmonary disease): Code(s): J44.9 - Chronic obstructive pulmonary disease, unspecified Status: Acute Assessment and Plan: History of COPD, continue management as above (8) Pulmonary hypertension: Code(s): I27.20 - Pulmonary hypertension, unspecified Status: Acute Assessment and Plan: Continue management as above (9) DVT prophylaxis: Code(s): Z29.9 - Encounter for prophylactic measures, unspecified Status: Acute Assessment and Plan: Patient received a dose of therapeutic Lovenox in the ER for possible PE (10) Chest pain: Code(s): R07.9 - Chest pain, unspecified Status: Acute Assessment and Plan: Patient complained of chest pain. EKG shows nonspecific T-wave inversions, no ST elevation. Sinus bradycardia -will obtain troponin -will add aspirin -no beta-krupa at this time given patient on Levophed 10/09/2021: Echocardiogram showed good LV systolic function with EF of 70%, grade 2 diastolic dysfunction -moderate right ventricular enlargement and hypokinesis left atrial chamber dimension is moderately enlarged, mild to moderate tricuspid regurg with severe pulmonary hypertension with RVSP of 76 mmHg Additional Plan Code status: DNR Critical care time spent: 51 minutes This dictation may have been done utilizing a voice recognition system. Attempts have been made to correct errors. However, there may be uncorrected grammatical, spelling, and recognition errors present. Due to a high probability of clinically significant, life threatening deterioration, th
--- NOTE | 2022-01-02 13:57 | ADMGEN ---
This patient, Jolie Starr, was admitted to Intensive Care Unit-1 at 1346. Patient/family oriented to hospital policies and general routines including ID bracelet, bed and alarms, visiting hours, pain management, procedures, bathroom and other care routines, personal items, smoking policy, room service/diet, and visiting hours. Information on how to activate the Rapid Response Team has been discussed. Patient/Family are encouraged to report perceived risks to care and to ask questions if they do not understand what they are told or what they should do.
[2022-01-02 14:48] LABS: Alveolar/Arterial O2 Gradient 578.6 mmHg; Base Excess ABG -12.2 mEq/l (+/-2.0); Carboxyhemoglobin 0.8 % THb (0-2.0); Fractional Inspired Oxygen 100 %; HCO3 ABG 16.9 mEq/l (22.0-26.0); Methemoglobin ABG 0.4 %THb (0-1.5); Oxygen Content ABG 20.7 %vol (16.0-22.0); Oxygen Saturation ABG 93.1 % (95.0-100.0); Oxyhemoglobin 90.1 % THb (90.0-100.0); PO2 ABG 84.4 mmHg (80.0-100.0); PO2 FiO2 Ratio Arterial Blood 0.84 %; Reduced Hemoglobin 8.7 %THb (0-5.0); Total Hemoglobin 16.3 g/dL (12.0-18.0)
[2022-01-02 14:49] LABS: Device NON-INVASIVE VENT; Site Drawn LEFT BRACHIAL; pH ABG 7.146 (7.350-7.450)
--- NOTE | 2022-01-02 14:49 | PM.IMHP ---
H&P: HPI History of Present Illness Date/Time: Patient requires inpatient monitoring with expected length of stay to exceed 2 midnights for management of care. 01/02/22 14:49 Chief Complaint: Altered mental status Narrative: Ms. Starr is an 81-year-old female who presented to the emergency room after being found at the [facility] with altered mental status and not wearing her BiPAP this morning. Patient was then transported to the emergency room and she was noted to be very lethargic and hypotensive. Patient was noted to have an elevated white blood cell count and an INR of 2.0. Patient is able to give me any type of history at this time secondary to the fact she is wearing BiPAP. Initial ABG emergency room which showed pH of 7.13, pCO2 of 53, PO2 of 69, and bicarbonate of 17.4 with an O2 saturation of 87.9% on 5 L of oxygen per nasal cannula. Patient was then placed on BiPAP. Patient was noted be hypotensive after receiving a fluid bolus and a central line was placed on Levophed was started. Patient was then sent to the ICU for further management. Patient has a known history of cor pulmonale, hypertension, diverticulosis, history of atrial flutter, obstructive sleep apnea, patent foramen ovale, pulmonary hypertension, and history of spontaneous pneumothorax. Review of Systems Review of Systems: I am unable to obtain full review of systems secondary to patient's clinical condition. [facility] Past Medical History Medical History Anxiety BMI between 19-24,adult Chronic shoulder pain Cor pulmonale (chronic) Diverticulosis Essential (primary) hypertension History of atrial flutter Hypoxia Localized swelling of left lower extremity Localized swelling of right lower extremity Nontraumatic tear of muscle or tendon of rotator cuff of both shoulders Obstructive sleep apnea Other specified peripheral vascular diseases Pain in left foot Pain in left lower leg Pain in right foot Pain in right lower leg Patent foramen ovale Pulmonary hypertension Rotator cuff arthropathy of both shoulders Shoulder pain SI joint arthritis Spontaneous pneumothorax Surgical History Surgical History H/O tubal ligation History of 2 sections History of appendectomy History of bilateral cataract extraction History of removal of pigmented skin lesion History of tonsillectomy Hx laparoscopic cholecystectomy Family History Family History Sibling Skin cancer Family history of cardiovascular disease Family history of arthritis Father Family history of malignant neoplasm Family history of arthritis Tobacco abuse Family history of throat cancer Mother Family history of arthritis Family history of Alzheimer's disease Hypertension Sibling Family history of cardiovascular disease Dementia Social History Social History Social History: The patient is and lives on her own. Her son and daughter are the durable power transactional attorney for healthcare. She has 2 children. The patient is retired from the [employer] as well as a [employer] trace [employer]. She also worked as an inspector [employer]. The patient quit smoking over 25 years ago. She denies any alcohol marijuana or illicit drugs. Code status full code Smoking status: Former smoker Second hand tobacco smoke exposure: No Alcohol intake: never Drinks per week: 1 Substance use: never Substance use type: does not use Additional occupation/education comments: teacher-[employer] Gender identity (if verbalized by the patient): Female Spiritual care concerns: No Meds Home Medications and Allergies Home Medications Medication Instructions Recorded Confirmed Type guaifenesin [Mucinex] 600 mg
[2022-01-02 14:50] LABS: Non-Invasive Expiratory Pressure 5 CMH2O; Non-Invasive Inspiratory Pressure 10 CMH2O; Non-Invasive Vent Rate 14 /MIN
[2022-01-02] MEDS: SODIUM BICARBONATE 8.4% 150 MEQ in DEXTROSE 5% 1,000 ML 950 ML 50 MEQ IV CONT (15:41)
[2022-01-02] MEDS: SODIUM CHLORIDE 0.9% IV 500 ML IV CONT (15:41)
[2022-01-02] MEDS: SODIUM BICARBONATE 8.4% 50 MEQ/50 ML SYRINGE IV PUSH (15:41)
[2022-01-02] MEDS: CENTRAL LINE FLUSH 10 ML IV PUSH ×4 (15:53→17:45)
[2022-01-02] MEDS: DEXTROSE 50% 25 GM/50 ML SYRINGE IV PUSH (15:55)
[2022-01-02 16:42] LABS: Alveolar/Arterial O2 Gradient 521.5 mmHg; Base Excess ABG -6.5 mEq/l (+/-2.0); Fractional Inspired Oxygen 100 %; HCO3 ABG 22.7 mEq/l (22.0-26.0); Oxygen Content ABG 21.4 %vol (16.0-22.0); Oxygen Saturation ABG 97.9 % (95.0-100.0); PO2 FiO2 Ratio Arterial Blood 1.31 %; Total Hemoglobin 15.6 g/dL (12.0-18.0)
[2022-01-02 16:44] LABS: PCO2 ABG 60.5 mmHg (35.0-45.0); Site Drawn LEFT BRACHIAL; pH ABG 7.192 (7.350-7.450)
[2022-01-02 16:45] LABS: Device NON-INVASIVE VENT; Non-Invasive Expiratory Pressure 5 CMH2O; Non-Invasive Inspiratory Pressure 10 CMH2O; Non-Invasive Vent Rate 14 /MIN
[2022-01-02] MEDS: INSULIN HUMAN REGULAR (*BKC) 100 UNITS/ML 10 UNITS IV PUSH (17:21)
[2022-01-02 17:31] LABS: Glucose Point of Care 69 mg/dl (65-105)
[2022-01-02 17:31] LABS: Glucose Point of Care 135 mg/dl (65-105)
[2022-01-02] MEDS: ALBUTEROL SULFATE NEB 2.5 MG/0.5 ML INH 10 MG INHALATION (17:34)
[2022-01-02 17:40] LABS: INR 2.5; Prothrombin Time 26.1 Seconds (11.1-14.7)
[2022-01-02 17:41] LABS: Anion Gap 11 mmol/L (8-16); Blood Urea Nitrogen 26 mg/dL (7-17); Calcium 7.7 mg/dL (8.4-10.2); Carbon Dioxide 28 mmol/L (22-30); Chloride 98 mmol/L (98-107); Estimated CRCL calculation 15 ml/min; Estimated Glomerular Filt Rate 23; Glucose 103 mg/dL (65-110); Lactic Acid Reflex 3.7 mmol/L (0.7-2.0); Potassium 4.9 mmol/L (3.4-5.0); Sodium 137 mmol/L (137-145)
[2022-01-02] MEDS: methylPREDNISolone SOD SUCC 40 MG VIAL IV PUSH (17:50)
[2022-01-02] MEDS: NOREPINEPHRINE 8 MG/D5W 250 ML 8 MG/250 ML BAG 33.75 MG IV CONT (19:00)
[2022-01-02] MEDS: ALBUTEROL SULFATE NEB 2.5 MG/0.5 ML INH INHALATION (20:20)
[2022-01-02] MEDS: IPRATROPIUM BR 0.02% INH SOLN 0.5 MG/2.5 ML VIAL INHALATION (20:20)
--- NOTE | 2022-01-02 22:03 | PC.NURSE ---
Phyllis CDL INSTRUCTOR informed of decreased urine output. Orders received for fluid bolus.
[2022-01-03] VITALS (30 sets, daily range): BP systolic 91–155; BP diastolic 62–96; PULSE 70–94; RESP 14–24; TEMP 35.7–38.1; O2SAT 92–99
[2022-01-03] MEDS: methylPREDNISolone SOD SUCC 40 MG VIAL IV PUSH ×3 (00:05→16:05)
[2022-01-03] MEDS: IPRATROPIUM BR 0.02% INH SOLN 0.5 MG/2.5 ML VIAL INHALATION ×3 (02:35→19:34)
[2022-01-03] MEDS: ALBUTEROL SULFATE NEB 2.5 MG/0.5 ML INH INHALATION ×3 (02:35→19:34)
[2022-01-03 04:13] LABS: Basophils Absolute Auto 0.1 K/mm3 (0.0-0.1); Basophils Percent Auto 0.4 % (0.2-1.2); Hematocrit 43.8 % (37.0-47.0); Hemoglobin 13.5 g/dL (12.0-15.0); Immature Granulocyte Absolute 0.14 K/mm3 (0.00-0.031); Immature Granulocyte Percent A 0.7 % (0-0.5); Lymphocytes Absolute Auto 0.54 K/mm3 (0.9-3.2); Lymphocytes Percent Auto 2.6 % (18.3-44.2); Mean Corpuscular HGB Conc 30.8 g/dl (32-36); Mean Corpuscular Volume 94.2 fl (80-100); Mean Platelet Volume 9.9 fl (7.4-10.4); Monocytes Percent Auto 4.7 % (2.6-8.5); Neutrophils Percent Auto 91.6 % (45.5-73.1); Nucleated Red Blood Cells Perc 0.1 % (0.0-0.2); Platelet Count Result 195 k/mm3 (150-375); Red Blood Count 4.65 M/mm3 (4.2-5.4); White Blood Count 20.7 K/mm3 (4.5-10.0)
[2022-01-03 04:26] LABS: Lactic Acid Reflex 2.5 mmol/L (0.7-2.0)
[2022-01-03 04:43] LABS: Albumin Level 3.4 g/dL (3.5-5.1); Alkaline Phosphatase 45 U/L (38-126); Anion Gap 8 mmol/L (8-16); Bilirubin,Total 0.6 mg/dL (0.2-1.3); Blood Urea Nitrogen 32 mg/dL (7-17); Calcium 6.8 mg/dL (8.4-10.2); Carbon Dioxide 27 mmol/L (22-30); Chloride 98 mmol/L (98-107); Estimated CRCL calculation 13 ml/min; Estimated Glomerular Filt Rate 19; Glucose 150 mg/dL (65-110); Magnesium 1.6 mg/dL (1.6-2.3); Phosphorus 7.5 mg/dL (2.5-4.5); Potassium 4.7 mmol/L (3.4-5.0); Sodium 133 mmol/L (137-145)
--- NOTE | 2022-01-03 04:53 | PC.NURSE ---
informed of tropinin and decreased urine output. No new orders.
[2022-01-03] MEDS: NOREPINEPHRINE 8 MG/D5W 250 ML 8 MG/250 ML BAG 18.75 MG IV CONT (04:58)
[2022-01-03 05:02] LABS: Alanine Aminotransferase > 3750 U/L (6-35)
[2022-01-03 05:03] LABS: Alveolar/Arterial O2 Gradient 204.4 mmHg; Base Excess ABG -3.1 mEq/l (+/-2.0); Carboxyhemoglobin 0.5 % THb (0-2.0); Fractional Inspired Oxygen 50 %; HCO3 ABG 24.7 mEq/l (22.0-26.0); Methemoglobin ABG 0.4 %THb (0-1.5); Oxygen Content ABG 19.5 %vol (16.0-22.0); Oxygen Saturation ABG 95.6 % (95.0-100.0); Oxyhemoglobin 94.9 % THb (90.0-100.0); PCO2 ABG 55.2 mmHg (35.0-45.0); Reduced Hemoglobin 4.2 %THb (0-5.0); Site Drawn LEFT BRACHIAL; Total Hemoglobin 14.6 g/dL (12.0-18.0); pH ABG 7.268 (7.350-7.450)
[2022-01-03 05:04] LABS: Device NON-INVASIVE VENT
[2022-01-03 05:05] LABS: Non-Invasive Expiratory Pressure 5 CMH2O; Non-Invasive Inspiratory Pressure 10 CMH2O; Non-Invasive Vent Rate 14 /MIN
[2022-01-03 05:30] LABS: Aspartate Amino Transferase 5228 U/L (14-36)
[2022-01-03 07:11] LABS: Reflex Lactic Acid Yes or No Add Lactic
--- NOTE | 2022-01-03 07:27 | ECG_ITS ---
Measurements Intervals [place] Rate: P: OR: QRS: QRSD: T: QT: QTc: Interpretive Statements SINUS RHYTHM POSSIBLE LEFT ATRIAL ENLARGEMENT DELAYED PRECORDIAL R/S TRANSITION ST-T WAVE ABNORMALITY IN INFERIOR LEADS- CONSIDER ISCHEMIA BASELINE WANDER- V3-V4 ABNORMAL ECG Electronically Signed On 01-03-2022 15:49:49 CDT by Abe Ruiz D.O.
--- NOTE | 2022-01-03 08:24 | PC.NURSE ---
cheetah performed was only 9.2% which is not fluid responsive, SV 22, CI 1.6, HR 73; Dr. Alvaradoly notified
[2022-01-03] MEDS: SODIUM CHLORIDE 0.9% IV 500 ML IV CONT (08:33)
[2022-01-03] MEDS: ONDANSETRON INJ 4 MG/2 ML VIAL IV PUSH (08:34)
[2022-01-03] MEDS: ASPIRIN 81 MG CHEWABLE TABLET PO (08:34)
--- NOTE | 2022-01-03 08:41 | WPDINTPN ---
Progress Note: A&P Assessment and Plan (1) Septic shock: Code(s): A41.9 - Sepsis, unspecified organism; R65.21 - Severe sepsis with septic shock Status: Acute Assessment and Plan: Patient presented with altered mental status, hypotension, septic shock, acute kidney injury, lactic acidosis -source unclear at this time. Could be bacteremia, pneumonia -central line was inserted in the ER -patient was given 30 mL/per kg of IV fluids -lactic acid 2.5 this morning from 8.4 on admission -patient is a DNR/DNI -currently on Levophed, maintain MAP > 70 mmHg -continue cefepime and vancomycin, will add Flagyl for anaerobic coverage -will give additional IV fluid bolus of 500 mL x1 now (2) Acute respiratory failure: Code(s): J96.00 - Acute respiratory failure, unspecified whether with hypoxia or hypercapnia Status: Acute Assessment and Plan: Acute respiratory failure, multifactorial, COPD, pulmonary hypertension, cor pulmonale, coronary artery disease -currently on BiPAP, 40% FiO2, -ABGs improving -continue bronchodilators, antibiotics, steroids -patient received therapeutic dose of Lovenox in the ER (3) Metabolic acidosis: Code(s): E87.2 - Acidosis Status: Acute Assessment and Plan: Likely related to septic shock, lactic acidosis, decreased perfusion Continue to maintain adequate mean arterial pressures for adequate end organ perfusion -lactic acid trending down, continue bicarb infusion (4) Pneumonia: Code(s): J18.9 - Pneumonia, unspecified organism Status: Acute Assessment and Plan: Could be pneumonia, continue antibiotics as above (5) Acute kidney injury: Code(s): N17.9 - Acute kidney failure, unspecified Status: Acute Assessment and Plan: Acute kidney injury likely related to septic shock, hypotension, hypovolemia, ATN, infection -UA not reflective of UTI -obtain renal ultrasound and urine lytes, urine eosinophils, CK level -nephrology consulted -will give additional IV fluid bolus -continue to monitor urine output, renal function and electrolytes (6) Electrolyte abnormality: Code(s): E87.8 - Other disorders of electrolyte and fluid balance, not elsewhere classified Status: Acute Assessment and Plan: Hyperkalemia: Resolved (7) COPD (chronic obstructive pulmonary disease): Code(s): J44.9 - Chronic obstructive pulmonary disease, unspecified Status: Acute Assessment and Plan: History of COPD, continue management as above (8) Pulmonary hypertension: Code(s): I27.20 - Pulmonary hypertension, unspecified Status: Acute Assessment and Plan: Continue management as above (9) DVT prophylaxis: Code(s): Z29.9 - Encounter for prophylactic measures, unspecified Status: Acute Assessment and Plan: Patient received a dose of therapeutic Lovenox in the ER for possible PE (10) Chest pain: Code(s): R07.9 - Chest pain, unspecified Status: Acute Assessment and Plan: Patient complained of chest pain. EKG shows nonspecific T-wave inversions, no ST elevation. Sinus bradycardia -Troponins are 13.10--> 17.30--> 17.70. -patient received a therapeutic dose of Lovenox in the ER on 01/02/2022 -started on aspirin and will give additional therapeutic dose of Lovenox today -no beta-krupa at this time given patient on Levophed -whole consult cardiology 10/09/2021: Echocardiogram showed good LV systolic function with EF of 70%, grade 2 diastolic dysfunction -moderate right ventricular enlargement and hypokinesis left atrial chamber dimension is moderately enlarged, mild to moderate tricuspid regurg with severe pulmonary hypertension with RVSP of 76 mmHg Additional Plan Discussed with Lissa, patient's-daughter at [phone]. Updated with patient's condition and plan of care. I did discuss with her regarding the septic shock, low blood pressures requiring blood pressure grady
[2022-01-03] MEDS: ACETAMINOPHEN 325 MG TABLET 650 MG PO ×2 (08:46→17:03)
[2022-01-03 09:30] LABS: Creatine Kinase 862 U/L (30-135)
[2022-01-03] MEDS: metroNIDAZOLE 500 MG/ISO 100ML 500 MG/100 ML BAG 100 MG IVPB ×3 (09:53→21:50)
[2022-01-03 09:59] LABS: Hepatitis B Surface Antigen Negative (Negative)
[2022-01-03] MEDS: METOCLOPRAMIDE HCL INJ 10 MG/2 ML VIAL IV PUSH (09:59)
[2022-01-03 10:05] LABS: HAV RESULT Negative (Negative); Hepatitis B Core IgM Result Negative (Negative)
[2022-01-03 10:16] LABS: Hepatitis C Virus Antibody Negative (Negative)
--- NOTE | 2022-01-03 11:42 | PM.CNCAR ---
Assessment and Plan Additional Plan This is an 81-year-old lady with significantly elevated troponin levels what we refer to as a type 2 infarction related to respiratory failure and septic shock with acidosis on admission. I do not believe this is primarily cardiac event. She should be treated with supportive care as is doing now. She is a lady with what appears to be end-stage lung disease and DNR request on her chart and so I do not see a need to consider an ischemia workup as she is not a candidate for a invasive procedure. Since she has had 2 echocardiograms done in the last 6 months I do not believe it is necessary to repeat another 1 of those today at this time. Boyd Logan MD [facility] History of Present Illness History of Present Illness Consult date/time: 01/03/22 11:42 Consult reason: Other (Elevated troponin) Reason For Visit: Septic Shock, Pneumonia, PATRICK, Respiratory Failure Narrative: This is an 81-year-old woman I am seeing at the request of the ICU/hospitalist staff regarding elevated abnormal troponin levels. The patient is unknown to me prior to this consultation but has been seen by my service in previous admissions. She is a elderly lady that lives in assisted living facility and has relatively severe what is described is end-stage COPD. She has a history of smoking in the past also history of spontaneous pneumothoraces for which she has been treated according to the daughter number of times in [place] and had pleurodesis performed. In any event he was brought to the hospital when she was found unresponsive in her residence. She was very acidotic on admission with a pH of 7.1 and was brought to the ICU she given the diagnosis of septic shock she is on antibiotics and ionotropic support. In this setting troponin levels were done they are significantly elevated but flat at a level of 17. She is currently on high-flow nasal cannula oxygen in ICU room 1. She is alert and conversant visiting with her daughter and does not have any active cardiac complaints. The patient's daughter indicates that her physicians in [place] have told her she is developing cardiac sequelae of severe chronic lung disease. She was seen by my partners in the hospital here in June of last year and the setting of atrial flutter with RVR. She was treated with diltiazem and converted back to sinus rhythm. Systemic anticoagulation was discussed at that time but was declined. Echocardiogram done in June and again in September of this year demonstrate vigorous left ventricular systolic function evidence of RV enlargement and hypokinesis and pulmonary hypertension. Review of Systems Constitutional: Constitutional: Reports weakness Eyes: Eyes: Reports no additional eye complaints ENT: Reports system reviewed and no additional complaints, except as documented Cardiovascular: Cardiovascular: Reports no additional cardiovascular complaints Respiratory: Respiratory: Reports dyspnea Gastrointestinal: Gastrointestinal: Reports no additional gastrointestinal complaints Musculoskeletal: Musculoskeletal: Reports back pain and Reports arthralgias Integumentary/Breasts: Skin/Breast: Reports system reviewed and no additional complaints, except as docu Neurologic: Reports system reviewed and no additional complaints, except as documented Endocrine: Endocrine: Reports no additional endocrine complaints Hematologic/Lymphatic: Hematologic/Lymphatic: Reports no additional hematologic/lymphatic complaints Allergic/Immunologic: Allergic/Immunologic: Reports no additional allergic/immunologic complaints [facility] Past Medical History Medical History Anxiety BMI between 19-24,adult Chronic shoulder pain Cor pulmonale (chronic) Diverticulosis Essential (primary) hypertension History of atrial flutter Hypoxia Localized swelling of left lower extremity Localized swelling of right lower extremity
--- NOTE | 2022-01-03 12:14 | PM.CNNEP ---
Assessment and Plan Assessment and plan (1) Acute kidney injury: Code(s): N17.9 - Acute kidney failure, unspecified Status: Acute Assessment and Plan: suspect ATN secondary to shock, sepsis, hypotension, pre-renal factors, and infection follow-up on renal ultrasound, urine electrolytes, urine eosinophils, and CPK continue to optimize hemodynamics follow trend of repeat labs and UOP (2) Septic shock: Code(s): A41.9 - Sepsis, unspecified organism; R65.21 - Severe sepsis with septic shock Status: Acute Assessment and Plan: as noted by AMS, hypotension/shock, PATRICK, and lactic acidosis source unclear follow culture data vasopressor support as needed continue IV antibiotics (3) Acute respiratory failure: Code(s): J96.00 - Acute respiratory failure, unspecified whether with hypoxia or hypercapnia Status: Acute Assessment and Plan: due to several issues: COPD CINDY pulmonary HTN cor pulmonale on bronchodilators, antibiotics, and steroids supplemental O2 and BiPAP as needed continue supportive therapy (4) Metabolic acidosis: Code(s): E87.2 - Acidosis Status: Acute Assessment and Plan: due to shock, lactic acidosis, decreased systemic perfusion lactic acid improving with bicarb IVFs (5) COPD (chronic obstructive pulmonary disease): Code(s): J44.9 - Chronic obstructive pulmonary disease, unspecified Status: Acute Assessment and Plan: see #3 (6) Chest pain: Code(s): R07.9 - Chest pain, unspecified Status: Acute Assessment and Plan: troponins noted Cardiology recommendations noted Will continue to follow. History of Present Illness Reason for Consult Consult date: 01/03/22 Reason for consult: acute renal failure Chief Complaint Chief complaint: Septic Shock, Pneumonia, PATRICK, Respiratory Failure History of Present Illness Narrative: The patient is an 81-year-old female with a past medical history as outlined below who presented to [facility] Emergency room from her nursing facility due to altered mental status. From review of her records, the patient normally wears BiPAP at night due to her known history of obstructive sleep apnea and associated pulmonary hypertension. Apparently, her BiPAP came off overnight and by the next morning, she was found to be quite lethargic and less responsive. She was subsequent transferred to the emergency room for further evaluation of this change. Workup and evaluation emergency room demonstrated the patient be quite hypotensive with systolic BP is in the 70s to 80s range. Routine blood test demonstrated elevated white blood cell count as well as an elevated BUN and creatinine in association with an anion gap metabolic acidosis as well. Her BNP was quite elevated as was her lactic acid and her urinalysis was highly suggestive of a urinary tract infection. COVID-19 and influenza a/B testing were negative. She was given aggressive IV fluid resuscitation in effort to optimize her hemodynamics but her blood pressure failed to improve with these interventions. Subsequently, she had a central line placed and was started on vasopressor therapy to optimize her mean arterial pressure. Appropriate blood cultures were obtained and she was started on broad-spectrum IV antibiotic therapy due to the concerns for possible sepsis and shock. She was subsequent transferred to the intensive care unit for further evaluation and therapy. Since her admission, she has been started on bicarb fluids to compensate for her metabolic acidosis and she remains on Levophed therapy to maintain her mean arterial pressures. Unfortunately, her kidney function continues to deteriorate in association with a decreasing urine output and her liver function tests are climbing as well. She is now complaining of chest pain and in conjunction with her elevated troponins, Cardiology
[2022-01-03] MEDS: hetaSTARCH 6%/NACL 500 ML 250 ML IV CONT (13:38)
[2022-01-03] MEDS: SODIUM BICARBONATE 8.4% 150 MEQ in DEXTROSE 5% 1,000 ML 950 ML 50 MEQ IV CONT (14:06)
[2022-01-03] MEDS: ENOXAPARIN 60 MG/0.6 ML SYRINGE 50 MG SUB-Q (14:07)
[2022-01-03] MEDS: CENTRAL LINE FLUSH 10 ML IV PUSH ×3 (16:05→21:51)
[2022-01-03 17:45] LABS: Creatinine Urine 39.9 mg/dL
[2022-01-03 17:51] LABS: Potassium Urine Random 17.5 meq/L; Sodium Urine Random 123 meq/L
[2022-01-03 18:16] LABS: Eosinophil Urine None Seen % (None Seen)
[2022-01-03] MEDS: MORPHINE SULFATE (*CRX) 2 MG/ML INJ IV PUSH (21:50)
[2022-01-04] VITALS (21 sets, daily range): BP systolic 80–141; BP diastolic 56–82; PULSE 67–86; RESP 8–22; TEMP 37–37.4; O2SAT 78–97
--- NOTE | 2022-01-04 | ECHOL_ITS ---
Patient Info Name: Jolie Starr Age: 81 years : 1940 Gender: Female Ht: 64 in Wt: 125 lbs BSA: 1.60 m2 HR: 83 bpm BP: 99 / 68 mmHg Heart Rhythm: Sinus Rhythm Technical Quality: Good Exam Date: 01/04/2022 8:42 AM Exam Location: [facility] Pulmonary Patient Status: Inpatient Admit Date: 01/02/2022 Staff Ordering Physician: Russell Metzger MD Hockey Instructor: Rebecca Murphy RDCS Attending Provider: Nohemy Cervantes M.A., MD Exam Type: CA echo limited Study Info Indications - SHOCK - RESPIRATORY FAILURE Limited two-dimensional transthoracic echocardiogram is performed. Summary 1. Left ventricular systolic function is normal, estimated at 60-65%. 2. Right ventricular chamber dimension is moderately enlarged. 3. Right ventricular systolic function is reduced. 4. Flattening of the septum in diastole and systole consistent with right ventricular volume and pressure overload. 5. Right atrial chamber dimension is moderately enlarged. 6. There is severe tricuspid valve regurgitation. 7. Moderate pulmonary hypertension, estimated pulmonary arterial systolic pressure is 52 mmHg. 8. Dilated inferior vena cava with no collapse upon inspiration consistent with significantly elevated right atrial pressure, 15 mmHg. Left Ventricle Left ventricular chamber dimension is normal. Left ventricular systolic function is normal, estimated at 60-65%. Right Ventricle Right ventricular chamber dimension is moderately enlarged. Right ventricular systolic function is reduced. Flattening of the septum in diastole and systole consistent with right ventricular volume and pressure overload. Right Atria Right atrial chamber dimension is moderately enlarged. Linear artifact in the right atrium suggestive of catheter(s), pacemaker lead(s), or ICD lead(s). Aortic Valve The aortic valve is not well visualized. Pulmonic Valve The pulmonic valve is not well visualized. Mitral Valve The mitral valve has normal leaflets. The mitral valve annulus is moderately calcified. Tricuspid Valve The tricuspid valve leaflets are normal. There is severe tricuspid valve regurgitation. Moderate pulmonary hypertension, estimated pulmonary arterial systolic pressure is 52 mmHg. Pericardium/Pleural The pericardium appears normal. There is trivial pericardial effusion. Inferior Vena Cava Dilated inferior vena cava with no collapse upon inspiration consistent with significantly elevated right atrial pressure, 15 mmHg. Aorta The aortic root size at the sinus of Valsalva is not well visualized. Tricuspid Valve Name Value Normal TV Regurgitation Doppler TR Peak Velocity 305 cm/s TR Peak Gradient 37 mmHg Estimated PAP/RSVP RA Pressure 15 mmHg <=5 PA Systolic Pressure 52 mmHg <36 RV Systolic Pressure 52 mmHg <36 Ventricles Name Value Normal LV Fractional Shorte
[2022-01-04] MEDS: ALBUTEROL SULFATE NEB 2.5 MG/0.5 ML INH INHALATION ×4 (01:45→13:58)
[2022-01-04] MEDS: IPRATROPIUM BR 0.02% INH SOLN 0.5 MG/2.5 ML VIAL INHALATION ×4 (01:45→13:59)
[2022-01-04] MEDS: metroNIDAZOLE 500 MG/ISO 100ML 500 MG/100 ML BAG 100 MG IVPB ×2 (02:22→08:32)
[2022-01-04] MEDS: MORPHINE SULFATE (*CRX) 2 MG/ML INJ IV PUSH ×3 (02:32→15:05)
[2022-01-04 04:21] LABS: INR 2.2; Prothrombin Time 23.4 Seconds (11.1-14.7)
[2022-01-04 04:22] LABS: Partial Thromboplastin Time 44.2 SECONDS (22.3-36.8)
[2022-01-04 04:23] LABS: Lactic Acid Reflex 2.1 mmol/L (0.7-2.0)
[2022-01-04 04:39] LABS: Albumin Level 2.9 g/dL (3.5-5.1)
[2022-01-04 04:40] LABS: Alkaline Phosphatase 46 U/L (38-126); Anion Gap 6 mmol/L (8-16); Bilirubin,Total 0.6 mg/dL (0.2-1.3); Blood Urea Nitrogen 48 mg/dL (7-17); Calcium 6.3 mg/dL (8.4-10.2); Carbon Dioxide 30 mmol/L (22-30); Chloride 92 mmol/L (98-107); Estimated CRCL calculation 12 ml/min; Estimated Glomerular Filt Rate 16; Glucose 145 mg/dL (65-110); Lipase 85 U/L (23-300); Magnesium 1.6 mg/dL (1.6-2.3); Phosphorus 7.3 mg/dL (2.5-4.5); Potassium 5.1 mmol/L (3.4-5.0); Sodium 128 mmol/L (137-145)
[2022-01-04 04:54] LABS: Basophils Percent Auto 0.2 % (0.2-1.2); Hemoglobin 11.9 g/dL (12.0-15.0); Immature Granulocyte Absolute 0.23 K/mm3 (0.00-0.031); Lymphocytes Absolute Auto 0.33 K/mm3 (0.9-3.2); Lymphocytes Percent Auto 2.9 % (18.3-44.2); Mean Corpuscular HGB Conc 31.3 g/dl (32-36); Mean Corpuscular Hemoglobin 29.2 pg (26-34); Mean Corpuscular Volume 93.4 fl (80-100); Mean Platelet Volume 11.7 fl (7.4-10.4); Monocytes Absolute Auto 0.6 K/mm3 (0.1-0.6); Monocytes Percent Auto 4.9 % (2.6-8.5); Neutrophils Absolute Auto 10.3 K/mm3 (1.3-6.7); Nucleated Red Blood Cells Perc 0.3 % (0.0-0.2); Platelet Count Result 72 k/mm3 (150-375); Red Blood Count 4.07 M/mm3 (4.2-5.4); Red Cell Distribution Width 16.3 % (11.5-14.5); White Blood Count 11.4 K/mm3 (4.5-10.0)
[2022-01-04 04:55] LABS: Anisocytosis 1+ (NORMAL); Ovalocytes 1+ (NORMAL); Platelet Estimate Decreased (Adequate)
[2022-01-04 05:03] LABS: Alveolar/Arterial O2 Gradient 195.1 mmHg; Base Excess ABG -0.8 mEq/l (+/-2.0); Carboxyhemoglobin 0.5 % THb (0-2.0); Fractional Inspired Oxygen 50 %; HCO3 ABG 27.2 mEq/l (22.0-26.0); Methemoglobin ABG 0.2 %THb (0-1.5); Oxygen Content ABG 17.6 %vol (16.0-22.0); Oxyhemoglobin 95.2 % THb (90.0-100.0); PO2 ABG 93.5 mmHg (80.0-100.0); PO2 FiO2 Ratio Arterial Blood 1.87 %; Reduced Hemoglobin 4.1 %THb (0-5.0); Total Hemoglobin 13.1 g/dL (12.0-18.0)
[2022-01-04 05:06] LABS: Device BIPAP; Modified Allen's Test Pass; PCO2 ABG 60.4 mmHg (35.0-45.0); Site Drawn RIGHT RADIAL; pH ABG 7.271 (7.350-7.450)
[2022-01-04 05:09] LABS: Inspiratory Pressure 10 cmH2O
[2022-01-04 05:10] LABS: Expiratory Pressure 5 cmH2O
[2022-01-04 05:37] LABS: Alanine Aminotransferase > 3750 U/L (6-35); Aspartate Amino Transferase 2193 U/L (14-36)
[2022-01-04] MEDS: CENTRAL LINE FLUSH 10 ML IV PUSH ×2 (05:52→13:44)
[2022-01-04] MEDS: NOREPINEPHRINE 8 MG/D5W 250 ML 8 MG/250 ML BAG 1 MG IV CONT (06:41)
[2022-01-04] MEDS: SODIUM BICARBONATE 8.4% 150 MEQ in DEXTROSE 5% 1,000 ML 950 ML 50 MEQ IV CONT (06:49)
[2022-01-04 07:08] LABS: Reflex Lactic Acid Yes or No Add Lactic
[2022-01-04] MEDS: ASPIRIN 81 MG CHEWABLE TABLET PO (08:32)
[2022-01-04 08:47] LABS: Alveolar/Arterial O2 Gradient 155.3 mmHg; Base Excess ABG -0.1 mEq/l (+/-2.0); Fractional Inspired Oxygen 40 %; HCO3 ABG 26.5 mEq/l (22.0-26.0); Oxygen Content ABG 17.2 %vol (16.0-22.0); Oxygen Saturation ABG 93.1 % (95.0-100.0); Oxyhemoglobin 92.6 % THb (90.0-100.0); PO2 ABG 71.3 mmHg (80.0-100.0); PO2 FiO2 Ratio Arterial Blood 1.78 %; Total Hemoglobin 13.2 g/dL (12.0-18.0); pH ABG 7.333 (7.350-7.450)
[2022-01-04 08:49] LABS: Device BIPAP; Modified Allen's Test Pass; Site Drawn RIGHT RADIAL
[2022-01-04 08:50] LABS: Expiratory Pressure 5 cmH2O; Inspiratory Pressure 12 cmH2O
--- NOTE | 2022-01-04 10:23 | P.PNNP_ITS ---
Progress Note: A&P Assessment and Plan (1) Acute kidney injury: Code(s): N17.9 - Acute kidney failure, unspecified Status: Acute Assessment and Plan: * creatinine worsening with declining urine ouptut * suspect ATN secondary to shock, sepsis, hypotension, and infection * evaluation to date: * renal ultrasound without obstruction * urine electrolytes non-prerenal * urine eosinophils negative * CPK mildly elevated but not enought to affect kidneys * continue to optimize hemodynamics as tolerated * follow trend of repeat labs and UOP (2) Septic shock: Code(s): A41.9 - Sepsis, unspecified organism; R65.21 - Severe sepsis with septic shock Status: Acute Assessment and Plan: * as noted by AMS, hypotension/shock, PATRICK, and lactic acidosis * source unclear * follow culture data * vasopressor support as needed * continue IV antibiotics (3) Acute respiratory failure: Code(s): J96.00 - Acute respiratory failure, unspecified whether with hypoxia or hypercapnia Status: Acute Assessment and Plan: * due to several issues: * COPD * CINDY * pulmonary HTN * cor pulmonale * on bronchodilators, antibiotics, and steroids * supplemental O2 and BiPAP as needed * continue supportive therapy (4) Metabolic acidosis: Code(s): E87.2 - Acidosis Status: Acute Assessment and Plan: * due to shock, lactic acidosis, decreased systemic perfusion * lactic acid improving with bicarb IVFs (5) COPD (chronic obstructive pulmonary disease): Code(s): J44.9 - Chronic obstructive pulmonary disease, unspecified Status: Acute Assessment and Plan: * see #3 (6) Chest pain: Code(s): R07.9 - Chest pain, unspecified Status: Acute Assessment and Plan: * troponins noted * Cardiology recommendations noted With ongoing deteriorating in renal function as well as decline in urine output; the next likely step/intervention is CLIENT MANAGER/dialysis although with her hemodynamic instability, she might need CRRT assuming patient and family agreeable but she would need transfer to another facility as CRRT is not available here at [facility]. Will continue to follow. Subjective Date/time seen: 01/04/22 10:23 Renal function continues to deteriorate with worsening urine output as well; remains on vasopressor therapy as well; currently on BiPAP at the time of my visit as well as overnight and earlier this AM; denies any acute complaints of pain but does report shortness of breath. Exam Narrative: General: frail/elderly ill appearing female in NAD Heart: normal S1 and S2; no rub Lungs: coarse and decreased at bases Abdomen: soft, nontender, nondistended, positive bowel sounds Extremities: no cyanosis or clubbing; no edema Skin: warm and dry Objective Data Vital Signs Vital Signs: Vital Signs Temp Pulse Resp BP Pulse Ox 01/04/22 10:11 74 8 L 94 01/04/22 10:00 37.3 C 69 17 96/63 L 93 01/04/22 08:12 68 15 96 01/04/22 08:05 68 17 01/04/22 08:00 67 89/65 L 96 01/04/22 07:52 37.0 C 69 17 93/61 L 97 01/04/22 07:30 80/56 L 01/04/22 06:41 71 99/68 L 01/04/22 06:00 73 14 94/68 L 96 01/04/22 05:12 75 15 92 01/04/22 04:00 37.0 C 74 14 107/70 92 01/04/22 02:00 73 18 1
--- NOTE | 2022-01-04 10:23 | PM.PNNEP ---
Progress Note: A&P Assessment and Plan (1) Acute kidney injury: Code(s): N17.9 - Acute kidney failure, unspecified Status: Acute Assessment and Plan: creatinine worsening with declining urine ouptut suspect ATN secondary to shock, sepsis, hypotension, and infection evaluation to date: renal ultrasound without obstruction urine electrolytes non-prerenal urine eosinophils negative CPK mildly elevated but not enought to affect kidneys continue to optimize hemodynamics as tolerated follow trend of repeat labs and UOP (2) Septic shock: Code(s): A41.9 - Sepsis, unspecified organism; R65.21 - Severe sepsis with septic shock Status: Acute Assessment and Plan: as noted by AMS, hypotension/shock, PATRICK, and lactic acidosis source unclear follow culture data vasopressor support as needed continue IV antibiotics (3) Acute respiratory failure: Code(s): J96.00 - Acute respiratory failure, unspecified whether with hypoxia or hypercapnia Status: Acute Assessment and Plan: due to several issues: COPD CINDY pulmonary HTN cor pulmonale on bronchodilators, antibiotics, and steroids supplemental O2 and BiPAP as needed continue supportive therapy (4) Metabolic acidosis: Code(s): E87.2 - Acidosis Status: Acute Assessment and Plan: due to shock, lactic acidosis, decreased systemic perfusion lactic acid improving with bicarb IVFs (5) COPD (chronic obstructive pulmonary disease): Code(s): J44.9 - Chronic obstructive pulmonary disease, unspecified Status: Acute Assessment and Plan: see #3 (6) Chest pain: Code(s): R07.9 - Chest pain, unspecified Status: Acute Assessment and Plan: troponins noted Cardiology recommendations noted With ongoing deteriorating in renal function as well as decline in urine output; the next likely step/intervention is SURGICAL DRESSING MAKER/dialysis although with her hemodynamic instability, she might need CRRT assuming patient and family agreeable but she would need transfer to another facility as CRRT is not available here at [facility]. Will continue to follow. Subjective Date/time seen: 01/04/22 10:23 Renal function continues to deteriorate with worsening urine output as well; remains on vasopressor therapy as well; currently on BiPAP at the time of my visit as well as overnight and earlier this AM; denies any acute complaints of pain but does report shortness of breath. Exam Narrative: General: frail/elderly ill appearing female in NAD Heart: normal S1 and S2; no rub Lungs: coarse and decreased at bases Abdomen: soft, nontender, nondistended, positive bowel sounds Extremities: no cyanosis or clubbing; no edema Skin: warm and dry Objective Data Vital Signs Vital Signs: Vital Signs Temp Pulse Resp BP Pulse Ox 01/04/22 10:11 74 8 L 94 01/04/22 10:00 37.3 C 69 17 96/63 L 93 01/04/22 08:12 68 15 96 01/04/22 08:05 68 17 01/04/22 08:00 67 89/65 L 96 01/04/22 07:52 37.0 C 69 17 93/61 L 97 01/04/22 07:30 80/56 L 01/04/22 06:41 71 99/68 L 01/04/22 06:00 73 14 94/68 L 96 01/04/22 05:12 75 15 92 01/04/22 04:00 37.0 C 74 14 107/70 92 01/04/22 02:00 73 18 141/82 H 94 01/04/22 01:45 73 17 94 01/04/22 00:00 37.1 C 73 20 110/80 94 01/03/22 22:38 72 18 95 01/03/22 22:00 73 18 109/74 95 01/03/22 21:35 72 23 H 92 01/03/22 20:00 36.8 C 73 24 H 125/83 95 01/03/22 19:44 70 21 H 01/03/22 19:35 72 22 H 95 01/03/22 18:18 71 01/03/22 18:00 36.6 C 73 20 91/62 L 93 01/03/22 16:40 73 16 01/03/22 16:00 36.5 C 74 23 H 116/78 96 01/03/22 14:00 36.8 C 70 14 119/72 97 01/03/22 13:03 71 14 94 01/03/22 12:00 36.3 C L 72 24 H 110/71 97 Intake/Output Intake/Output: Intake & Output 01/01/22 01/02/22 01/03/22
--- NOTE | 2022-01-04 10:51 | WPDINTPN ---
Progress Note: A&P Assessment and Plan (1) Septic shock: Code(s): A41.9 - Sepsis, unspecified organism; R65.21 - Severe sepsis with septic shock Status: Acute Assessment and Plan: Patient presented with altered mental status, hypotension, septic shock, acute kidney injury, lactic acidosis -source unclear at this time. Could be bacteremia, pneumonia -central line was inserted in the ER -patient was given 30 mL/per kg of IV fluids -lactic acid 2.5 this morning from 8.4 on admission -patient is a DNR/DNI -currently on Levophed, maintain MAP > 70 mmHg -continue cefepime, Flagyl and vancomycin -add albumin (2) Acute respiratory failure: Code(s): J96.00 - Acute respiratory failure, unspecified whether with hypoxia or hypercapnia Status: Acute Assessment and Plan: Acute respiratory failure, multifactorial, COPD, pulmonary hypertension, cor pulmonale, coronary artery disease, congestive heart failure -currently on BiPAP, 40% FiO2, -ABGs reviewed and I increased IPAP to 12. ABG was repeated and shows improvement -will switch patient to nasal cannula and see if she tolerates -continue BiPAP on p.r.n. basis and at night -continue bronchodilators, antibiotics, steroids -on therapeutic dose of Lovenox in the ER -check CT chest (3) Metabolic acidosis: Code(s): E87.2 - Acidosis Status: Acute Assessment and Plan: Likely related to septic shock, lactic acidosis, decreased perfusion Continue to maintain adequate mean arterial pressures for adequate end organ perfusion Metabolic component of acidosis has improved and I will discontinue further bicarb at this time (4) Pneumonia: Code(s): J18.9 - Pneumonia, unspecified organism Status: Acute Assessment and Plan: Could be pneumonia, continue antibiotics as above CT chest ordered (5) Acute kidney injury: Code(s): N17.9 - Acute kidney failure, unspecified Status: Acute Assessment and Plan: Acute kidney injury likely related to septic shock, hypotension, hypovolemia, ATN, infection -UA not reflective of UTI -un remark renal ultrasound -nephrology following -poor urine output remains and creatinine is worsening -continue maintained mean arterial pressure with Levophed -add albumin to minimize third-spacing -continue to monitor urine output, renal function and electrolytes (6) Electrolyte abnormality: Code(s): E87.8 - Other disorders of electrolyte and fluid balance, not elsewhere classified Status: Acute Assessment and Plan: Potassium elevated at 5.1 -will give Kayexalate Hyponatremia has developed and will discontinue D5 water with bicarb Replace low calcium (7) COPD (chronic obstructive pulmonary disease): Code(s): J44.9 - Chronic obstructive pulmonary disease, unspecified Status: Acute Assessment and Plan: History of COPD, continue management as above (8) Pulmonary hypertension: Code(s): I27.20 - Pulmonary hypertension, unspecified Status: Acute Assessment and Plan: Continue management as above (9) DVT prophylaxis: Code(s): Z29.9 - Encounter for prophylactic measures, unspecified Status: Acute Assessment and Plan: Patient on therapeutic Lovenox (10) Chest pain: Code(s): R07.9 - Chest pain, unspecified Status: Acute Assessment and Plan: Patient complained of chest pain. EKG shows nonspecific T-wave inversions, no ST elevation. Sinus bradycardia -Troponins are 13.10--> 17.30--> 17.70. -patient received a therapeutic dose of Lovenox in the ER on 01/02/2022 -on aspirin, l therapeutic dose of Lovenox today -no beta-krupa at this time given patient on Levophed -cardiology following 10/09/2021: Echocardiogram showed good LV systolic function with EF of 70%, grade 2 diastolic dysfunction -moderate right ventricular enlargement and hypokinesis left atrial chamber dimension is moderately enlarged, mild to
[2022-01-04] MEDS: ALBUMIN HUMAN 25% 25 GM/100 ML 100 ML IVPB (11:19)
[2022-01-04] MEDS: CALCIUM GLUC 2,000 MG/NS 100ML 2,000 MG/100 ML BAG 100 MG IVPB (11:19)
[2022-01-04] MEDS: SODIUM POLYSTYRENE SULFONONATE 15 GM/60 ML BTL 30 GM PO (11:20)
[2022-01-04] MEDS: ENOXAPARIN 60 MG/0.6 ML SYRINGE 50 MG SUB-Q (11:26)
--- NOTE | 2022-01-04 12:35 | PC.NURSE ---
After returning to ICU from ordered CT Scan of chest, patient began stating I don't want to do this anymore. Just do what you have to do and be done already. I just want to go home and be done. I've already made my decision and this is ridiculous. Just let me alone. This RN notified Dr. Metzger of the statements the patient was making. New order to proceed with hospice consult. Care coordination was notified of hospice consult and patient statements.
[2022-01-04 12:37] LABS: Anion Gap 10 mmol/L (8-16); Blood Urea Nitrogen 50 mg/dL (7-17); Calcium 8.1 mg/dL (8.4-10.2); Carbon Dioxide 28 mmol/L (22-30); Chloride 92 mmol/L (98-107); Estimated CRCL calculation 11 ml/min; Estimated Glomerular Filt Rate 14; Glucose 109 mg/dL (65-110); Potassium 5.3 mmol/L (3.4-5.0); Sodium 130 mmol/L (137-145)
[2022-01-04] MEDS: INSULIN HUMAN REGULAR (*BKC) 100 UNITS/ML IV PUSH (13:43)
[2022-01-04] MEDS: DEXTROSE 50% 25 GM/50 ML SYRINGE IV PUSH (13:43)
--- NOTE | 2022-01-04 14:14 | P.PNCROSS_ITS ---
Event Note Event Note Event Note: Patient had drop in her oxygenation and refused to wear BiPAP. She mentioned to the nurse that she does not want anything done except treat her pain and wants to go home. Patient has some daughter and son were working to set up hospice for her. I went and spoke to patient again and she was pretty aggravated that we are asking her same questions multiple times. She states that she has been clear that she does not want any further treatment or BiPAP and wants her to be comfortable go home and in peace. I spoke to patient's daughter by phone confirmed plan to proceed with comfort care this time which she agreed to. Both children are on board with mother's decision to proceed with comfort care and discontinue all other medical therapy. I have explained to both patient and patient's children that I will use opioids, anxiolytics and other agents on as needed basis to promote comfort and discontinue all medical therapy, lab testing and invasive monitoring. This means that she will eventually . Patient and her children verbalized understanding and are agre eable with plan and ready to proceed.
[2022-01-04] MEDS: LORazepam INJ (*CRX) 2 MG/ML VIAL IV PUSH (15:04)
--- NOTE | 2022-01-04 16:26 | PM.DS ---
DS: Admitting Diagnosis Discharge Date 01/04/2022 Admitting Diagnosis Altered mental state DS: Discharge Diagnosis Discharge Diagnosis (1) Septic shock: Code(s): A41.9 - Sepsis, unspecified organism; R65.21 - Severe sepsis with septic shock Status: Acute Assessment and Plan: Patient presented with altered mental status, hypotension, septic shock, acute kidney injury, lactic acidosis -source unclear at this time. Could be bacteremia, pneumonia - family decided on hospice care for patient, pt discharged back to [facility] (2) Acute respiratory failure: Code(s): J96.00 - Acute respiratory failure, unspecified whether with hypoxia or hypercapnia Status: Acute Assessment and Plan: Acute respiratory failure, multifactorial, COPD, pulmonary hypertension, cor pulmonale, coronary artery disease, congestive heart failure. (3) Metabolic acidosis: Code(s): E87.2 - Acidosis Status: Acute Assessment and Plan: Likely related to septic shock, lactic acidosis, decreased perfusion (4) Pneumonia: Code(s): J18.9 - Pneumonia, unspecified organism Status: Acute Assessment and Plan: Could be pneumonia, was on antibiotics as above (5) Acute kidney injury: Code(s): N17.9 - Acute kidney failure, unspecified Status: Acute Assessment and Plan: Acute kidney injury likely related to septic shock, hypotension, hypovolemia, ATN, infection (6) Electrolyte abnormality: Code(s): E87.8 - Other disorders of electrolyte and fluid balance, not elsewhere classified Status: Acute Assessment and Plan: Potassium elevated at 5.1 -was given Kayexalate (7) COPD (chronic obstructive pulmonary disease): Code(s): J44.9 - Chronic obstructive pulmonary disease, unspecified Status: Acute Assessment and Plan: History of COPD, continue management as above (8) Pulmonary hypertension: Code(s): I27.20 - Pulmonary hypertension, unspecified Status: Acute Assessment and Plan: Continue management as above (9) DVT prophylaxis: Code(s): Z29.9 - Encounter for prophylactic measures, unspecified Status: Acute Assessment and Plan: Patient on therapeutic Lovenox (10) Chest pain: Code(s): R07.9 - Chest pain, unspecified Status: Acute Assessment and Plan: Patient complained of chest pain. EKG shows nonspecific T-wave inversions, no ST elevation. Sinus bradycardia -Troponins are 13.10--> 17.30--> 17.70. -patient received a therapeutic dose of Lovenox in the ER on 01/02/2022 -on aspirin, l therapeutic dose of Lovenox today -no beta-krupa at this time given patient on Levophed -cardiology following - Family have decided on hospice care for patient, pt discharged back to [facility] DS: Summary Hospital Course Hospital Course: Ms. Starr is an 81-year-old female who presented to the emergency room after being found at the half-way with altered mental status and not wearing her BiPAP this morning. Patient was then transported to the emergency room and she was noted to be very lethargic and hypotensive. Patient was noted to have an elevated white blood cell count and an INR of 2.0. Patient is able to give me any type of history at this time secondary to the fact she is wearing BiPAP. Initial ABG emergency room which showed pH of 7.13, pCO2 of 53, PO2 of 69, and bicarbonate of 17.4 with an O2 saturation of 87.9% on 5 L of oxygen per nasal cannula. Patient was then placed on BiPAP. Patient was noted be hypotensive after receiving a fluid bolus and a central line was placed on Levophed was started. Patient was then sent to the ICU for further management. Patient has a known history of cor pulmonale, hypertension, diverticulosis, history of atrial flutter, obstructive sleep apnea, patent foramen ovale, pulmona
--- NOTE | 2022-01-04 19:13 | PCCCNOTE ---
CHRISTOFER received at 1744 that ambulance was in ICU to transport patient and requests that care coordination contact [facility]. Called to Julieth at [facility] and notified that patient discharged at 1744.
[2022-01-06 10:39] LABS: Legionella pneumophila Ag Ur Not Detected (Not Detected)
[2022-01-07 13:58] LABS: Chloride Rand Ur 115 mmol/L (32-290); Chloride/Creatinine Rand Ur 338 (38-318); Creatinine Random Urine 34 mg/dL (20-275)
[2022-01-09 04:32] LABS: S. pneumonia Serotype 1 (1) <0.3; S. pneumonia Serotype 12 (12F) 1.3; S. pneumonia Serotype 14 (14) 1.1; S. pneumonia Serotype 17 (17F) 1.4; S. pneumonia Serotype 18C (56) <0.3; S. pneumonia Serotype 19 (19F) 2.9; S. pneumonia Serotype 2 (2) 0.3; S. pneumonia Serotype 22 (22F) <0.3; S. pneumonia Serotype 23 (23F) 1.1; S. pneumonia Serotype 3 (3) <0.3; S. pneumonia Serotype 34 (10A) 0.5; S. pneumonia Serotype 4 (4) <0.3; S. pneumonia Serotype 43 (11A) <0.3; S. pneumonia Serotype 5 (5) 0.5; S. pneumonia Serotype 51 (7F) 1.2; S. pneumonia Serotype 54 (15B) 0.8; S. pneumonia Serotype 57 (19A) 7.9; S. pneumonia Serotype 68 (9V) 0.4; S. pneumonia Serotype 6B (26) 0.6; S. pneumonia Serotype 70 (33F) 0.4; S. pneumonia Serotype 8 (8) <0.3; S. pneumonia Serotype 9 (9N) <0.3
== END 2022-01-04 17:49 | disposition hospice, home (50) | DRG 871 ==
LOC: ANHED 12:11 → ANHICU 14:29
PROVIDERS: Internal Medicine; Nurse Practitioner Adult Health; Admitting Provider Internal Medicine; Emergency Provider Emergency Medicine; PCP Family Medicine; Visit Provider Family Medicine
DX: A41.9 Sepsis, unspecified organism (principal); R65.21 Severe sepsis with septic shock; J18.9 Pneumonia, unspecified organism; J96.00 Acute respiratory failure, unspecified whether with hypoxia or hypercapnia; N17.0 Acute kidney failure with tubular necrosis; E87.2 Acidosis; J44.0 Chronic obstructive pulmonary disease with (acute) lower respiratory infection; G47.33 Obstructive sleep apnea (adult) (pediatric); I27.20 Pulmonary hypertension, unspecified; Z20.822 Contact with and (suspected) exposure to COVID-19; I25.10 Atherosclerotic heart disease of native coronary artery without angina pectoris; E87.8 Other disorders of electrolyte and fluid balance, not elsewhere classified; I10 Essential (primary) hypertension; Z66 Do not resuscitate; K57.90 Diverticulosis of intestine, part unspecified, without perforation or abscess without bleeding; M19.012 Primary osteoarthritis, left shoulder; M19.011 Primary osteoarthritis, right shoulder; Z98.42 Cataract extraction status, left eye; Z98.41 Cataract extraction status, right eye; Z90.49 Acquired absence of other specified parts of digestive tract; Z87.891 Personal history of nicotine dependence
CPT/HCPCS: 36415; 36556; 36600; 51701; 71045; 71046; 71250; 76705; 76775; 80048; 80053; 80074; 80076; 81001; 82375; 82436; 82550; 82570; 82805; 82948; 83050; 83605; 83690; 83735; 83880; 84100; 84133; 84300; 84484; 85025; 85610; 85730; 85999; 86317; 87040; 87086; 87449; 87502; 93005; 93308; 94003; 94640; 94660; 96365; 96372; 96375; 99291; A9270; C1751; C9803; G0378; J0610; J0692; J1650; J1815; J2060; J2270; J2405; J2765; J2920; J3370; J7030; J7040; J7070; P9047; U0003; U0005